=== PATIENT | male | born 1945 | race Caucasian/White ===

== ENCOUNTER 2019-09-13 00:11 | Day surgery (SDC) | payer MEDICARE, SELFPAY ==
[2019-09-11 14:27] VITALS: BMI 28.4
[2019-09-13 06:24] VITALS: BP 156/84; PULSE 82; RESP 20; TEMP 36.2; O2SAT 98
[2019-09-13] MEDS: LACTATED RINGERS 1,000 ML 150 ML IV CONT (06:49)
--- NOTE | 2019-09-13 06:56 | WPDANESEPPF ---
Anes - Initial Pre Proc Eval Procedure: Operation Date: 09/13/19 07:30 Proposed Procedures p Screening Colonoscopy - Elkin Figueroa MD Date/Time: 09/13/19 06:56 Surgeon: Elkin Figueroa MD Pre Op Diagnosis: Neoplasm Screening Patient Data Age: 74 Gender: M Height: 5 ft 10 in Weight: 84.8 kg Last Vital Signs Temp 36.2 C L 09/13/19 06:24 Pulse 82 09/13/19 06:24 Resp 20 09/13/19 06:24 BP 156/84 H 09/13/19 06:24 Pulse Ox 98 09/13/19 06:24 Allergies Allergy/AdvReac Type Severity Reaction Status Date / Time No Known Allergies Allergy Verified 09/13/19 06:23 Home Medications Medication Instructions Recorded Confirmed Type Probiotic 1 cap PO DAILY 05/21/19 09/13/19 History ezetimibe 5 mg PO DAILY 05/21/19 09/13/19 History levetiracetam 1,000 mg PO BID 05/21/19 09/13/19 History phenytoin sodium extended 100 mg PO TID 05/21/19 09/13/19 History psyllium husk [Metamucil] 0.4 g PO DAILY 05/21/19 09/13/19 History amlodipine 5 mg tablet 5 mg PO DAILY #90 tablet 06/18/19 09/13/19 Rx meloxicam 15 mg tablet 15 mg PO DAILY #90 tablet 06/18/19 09/13/19 Rx telmisartan 80 1 tablet PO DAILY #90 tablet 06/18/19 09/13/19 Rx mg-hydrochlorothiazide 12.5 mg tablet triamcinolone acetonide 0.5 % 1 applic TOPICAL BID #60 gm 07/02/19 09/13/19 Rx topical cream omeprazole 40 mg capsule,delayed 40 mg PO DAILY #90 cap 08/19/19 09/13/19 Rx release potassium chloride 10 mEq 10 meq PO DAILY #90 tablet 09/02/19 09/13/19 Rx tablet,extended release rosuvastatin 20 mg tablet 20 mg PO DAILY #90 tablet 09/02/19 09/13/19 Rx paroxetine HCl 30 mg tablet 30 mg PO QAM #90 tablet 09/05/19 09/13/19 Rx Patient hx anesthesia problems: none Family hx anesthesia problems: none PMFSH Past Medical History Medical History Benign essential hypertension Colon cancer screening Encounter for Medicare annual wellness exam Hearing loss History of colon cancer Hyperlipidemia Hypokalemia On buttermaker helper drug therapy Other specified abnormal findings of blood chemistry Peripheral neuropathy Rash Seizure Vision changes Family History Family History Mother Family history of heart disease in male family member before age 55 Family history of cardiovascular disease Father Family history of malignant neoplasm Social History Social History Smoking status: Never smoker Alcohol intake: never Anes - Eval Final PreProcedure Day of Procedure 09/13/19 06:56 Patient weight: overweight Heart: regular rate and rhythm Lungs: clear to auscultation Airway: Mallampati scale class II Neurological: alert and oriented Last oral intake: >/= 8 hours ASA classification: III Emergent: no Anesthetic plan: proceed Anesthesia type and monitoring: general GIVS and standard monitoring Informed Consent: The patient's anesthetic plan and its attendant risks and benefits were discussed with the patient/family/POA. Questions were solicited and answers provided to the satisfaction of the patient/family/POA.
--- NOTE | 2019-09-13 07:09 | PM.HPGS ---
History of Present Illness History of Present Illness Consent: Risks, benefits, and alternatives have been discussed and questions answered. Patient agrees to proceed with procedure. Chief complaint: Neoplasm Screening Narrative: Edin Diggs is a 74 year old male referred for screening colonoscopy. [facility] Past Medical History Medical History Benign essential hypertension Colon cancer screening Encounter for Medicare annual wellness exam Hearing loss History of colon cancer Hyperlipidemia Hypokalemia On prison drug therapy Other specified abnormal findings of blood chemistry Peripheral neuropathy Rash Seizure Vision changes Family History Family History Mother Family history of heart disease in male family member before age 55 Family history of cardiovascular disease Father Family history of malignant neoplasm Social History Social History Smoking status: Never smoker Alcohol intake: never Meds Home Medications and Allergies Home Medications Medication Instructions Recorded Confirmed Type Probiotic 1 cap PO DAILY 05/21/19 09/13/19 History ezetimibe 5 mg PO DAILY 05/21/19 09/13/19 History levetiracetam 1,000 mg PO BID 05/21/19 09/13/19 History phenytoin sodium extended 100 mg PO TID 05/21/19 09/13/19 History psyllium husk [Metamucil] 0.4 g PO DAILY 05/21/19 09/13/19 History amlodipine 5 mg tablet 5 mg PO DAILY #90 tablet 06/18/19 09/13/19 Rx meloxicam 15 mg tablet 15 mg PO DAILY #90 tablet 06/18/19 09/13/19 Rx telmisartan 80 1 tablet PO DAILY #90 tablet 06/18/19 09/13/19 Rx mg-hydrochlorothiazide 12.5 mg tablet triamcinolone acetonide 0.5 % 1 applic TOPICAL BID #60 gm 07/02/19 09/13/19 Rx topical cream omeprazole 40 mg capsule,delayed 40 mg PO DAILY #90 cap 08/19/19 09/13/19 Rx release potassium chloride 10 mEq 10 meq PO DAILY #90 tablet 09/02/19 09/13/19 Rx tablet,extended release rosuvastatin 20 mg tablet 20 mg PO DAILY #90 tablet 09/02/19 09/13/19 Rx paroxetine HCl 30 mg tablet 30 mg PO QAM #90 tablet 09/05/19 09/13/19 Rx Allergies Allergy/AdvReac Type Severity Reaction Status Date / Time No Known Allergies Allergy Verified 09/13/19 06:23 Vital Signs Vital Signs - 24 hr 09/13/19 06:24 Temperature 36.2 C L Pulse Rate 82 Respiratory Rate 20 Blood Pressure 156/84 H Pulse Oximetry 98 Exam Resp: Auscultation: clear to auscultation bilaterally Cardio: Rate: regular rate Rhythm: regular rhythm GI: GI Palp: Yes Soft to palpation and No Tenderness to palpation present (GI) Assessment and Plan Assessment and plan (1) Colon cancer screening: Code(s): Z12.11 - Encounter for screening for malignant neoplasm of colon Status: Acute Assessment and Plan: Colonoscopy with possible biopsy or polypectomy or cautery or injection of substances.
[2019-09-13 07:42] VITALS: BP 142/61; PULSE 58; RESP 14; O2SAT 97
[2019-09-13 07:52] VITALS: BP 142/61; PULSE 61; RESP 12; O2SAT 98
[2019-09-13 08:02] VITALS: BP 133/69; PULSE 61; RESP 20; O2SAT 98
== END 2019-09-13 08:23 | disposition home or self-care (01) ==
PROVIDERS: PCP Internal Medicine; Visit Provider Internal Medicine Gastroenterology
PROC: 0DJD8ZZ Inspection of Lower Intestinal Tract, Via Natural or Artificial Opening Endoscopic (ICD-10-PCS; CPT 45378; principal; 2019-09-13 07:30)
DX: Z12.11 Encounter for screening for malignant neoplasm of colon (principal); K64.8 Other hemorrhoids; Z85.038 Personal history of other malignant neoplasm of large intestine; Z98.0 Intestinal bypass and anastomosis status; I10 Essential (primary) hypertension; E78.5 Hyperlipidemia, unspecified; G62.9 Polyneuropathy, unspecified; G40.909 Epilepsy, unspecified, not intractable, without status epilepticus
CPT/HCPCS: G0105; J2704; J7120

== ENCOUNTER 2019-11-06 02:04 | Day surgery (SDC) | payer MEDICARE, SELFPAY ==
[2019-11-05 16:40] VITALS: BMI 27.8
--- NOTE | ~2019-11-06 | BM_ITS ---
EXAMINATION: CCL bone marrow asp w bx diag DATE: 11/06/2019 09:55 INDICATION: Leukopenia. TECHNIQUE: A time-out was performed to verify the patient's name, date of , and procedure to b e performed. The procedure including the risks, benefits, and alternatives was discussed with the pat ient. Risks discussed included bleeding and infection. The patient understood the risks and agreed to proceed. The skin overlying the right ilium was prepped and draped in usual sterile fashion. Anest hetic was administered with 1% lidocaine subcutaneously. Moderate sedation was achieved with 1 mg Miguel sed IV and 50 mcg fentanyl IV. An 11 gauge needle was inserted into the ilium with fluoroscopic guid ance. Bone marrow was aspirated. An 8 gauge needle was then inserted into the ilium with fluoroscopic guidance. A core bone marrow biopsy was obtained. There were no immediate complications. Fluoroscopy exposure time was 0.0 minutes. The total number of images was 7. FINDINGS: Real-time fluoroscopy demonstrates a marker overlying the right posterior superior iliac sp ine. IMPRESSION: 1. Fluoro-guided bone marrow aspiration. 2. Fluoro-guided bone marrow core biopsy. Reviewed, dictated and finalized at location A.
[2019-11-06 08:30] VITALS: BP 160/82; PULSE 63; RESP 14; TEMP 36.9; O2SAT 94; BMI 28.1
[2019-11-06 08:49] LABS: Basophils Percent Auto 1.2 % (0.2-1.2); Eosinophils Absolute Auto 0.1 K/mm3 (0-0.3); Eosinophils Percent Auto 5.4 % (0-4.4); Hematocrit 35.6 % (42.0-52.0); Hemoglobin 12.7 g/dL (14.0-18.0); Lymphocytes Absolute Auto 0.98 K/mm3 (0.9-3.2); Lymphocytes Percent Auto 40.7 % (18.3-44.2); Mean Corpuscular HGB Conc 35.7 g/dl (32-36); Mean Corpuscular Hemoglobin 36.6 pg (26-34); Mean Corpuscular Volume 102.6 fl (80-100); Mean Platelet Volume 9.6 fl (7.4-10.4); Monocytes Absolute Auto 0.4 K/mm3 (0.1-0.6); Monocytes Percent Auto 14.9 % (2.6-8.5); Neutrophils Absolute Auto 0.9 K/mm3 (1.3-6.7); Neutrophils Percent Auto 37.8 % (45.5-73.1); Platelet Count Result 180 k/mm3 (150-375); Red Blood Count 3.47 M/mm3 (4.6-6.20); Red Cell Distribution Width 12.8 % (11.5-14.5); White Blood Count 2.4 K/mm3 (4.5-10.0)
[2019-11-06 09:01] LABS: INR 1.1; Prothrombin Time 13.6 Seconds (11.1-14.7)
--- NOTE | 2019-11-06 09:51 | WPDMODSED ---
Moderate Sedation Note-Pt Data Patient Data Diagnosis: Leukopenia. Present Complaint: Leukopenia. Procedure to be performed/Plan: Fluoro-guided bone marrow biopsy. Allergies Allergy/AdvReac Type Severity Reaction Status Date / Time No Known Allergies Allergy Verified 09/13/19 06:23 Home Medications Medication Instructions Recorded Confirmed Type Probiotic 1 cap PO DAILY 05/21/19 10/07/19 History levetiracetam 1,000 mg PO BID 05/21/19 10/07/19 History phenytoin sodium extended 100 mg PO TID 05/21/19 10/07/19 History psyllium husk [Metamucil] 0.4 g PO DAILY 05/21/19 10/07/19 History amlodipine 5 mg tablet 5 mg PO DAILY #90 tablet 06/18/19 10/07/19 Rx meloxicam 15 mg tablet 15 mg PO DAILY #90 tablet 06/18/19 10/07/19 Rx telmisartan 80 1 tablet PO DAILY #90 tablet 06/18/19 10/07/19 Rx mg-hydrochlorothiazide 12.5 mg tablet triamcinolone acetonide 0.5 % 1 applic TOPICAL BID #60 gm 07/02/19 10/07/19 Rx topical cream omeprazole 40 mg capsule,delayed 40 mg PO DAILY #90 cap 08/19/19 10/07/19 Rx release rosuvastatin 20 mg tablet 20 mg PO DAILY #90 tablet 09/02/19 10/07/19 Rx paroxetine HCl 30 mg tablet 30 mg PO QAM #90 tablet 09/05/19 10/07/19 Rx ezetimibe 10 mg tablet 5 mg PO DAILY #90 tablet 09/20/19 10/07/19 Rx Current Medications: Active Medications Sodium Chloride (Normal Saline Iv) 500 mls @ 100 mls/hr IV CONT .Q5H EMILY Sedation/Anesthesia: No previous sedation/anesthesia problems (including family history). [facility] Social History Social History Smoking status: Never smoker Alcohol intake: never Gender identity (if verbalized by the patient): Male Mod Sed Physical Exam Physical Exam Pre Procedural Exam: Normal: Lungs, Heart Rate, Heart Rhythm and Abdomen and Variation: Airway (Mallampati class II.) Hours since solid foods: 12 Hours since liquid intake: 12 Internal Medicine - PN: Obj Da Meds/Results Medications: Active Medications Generic Name Dose Route Start Last Admin Trade Name Heaven PRN Reason Stop Dose Admin Sodium Chloride 500 mls @ 100 mls/hr 11/06/19 07:00 Normal Saline Iv IV CONT .Q5H EMILY Labs CBC & Chem 7: 11/06/19 08:35 Labs: Laboratory Results - last 24 hr 11/06/19 11/06/19 08:35 08:35 WBC 2.4 L RBC 3.47 L Hgb 12.7 L Hct 35.6 L MCV 102.6 H MCH 36.6 H MCHC 35.7 RDW 12.8 Plt Count 180 MPV 9.6 Immature Gran % (Auto) 0.0 Neut % (Auto) 37.8 L Lymph % (Auto) 40.7 [place] % (Auto) 14.9 H Eos % (Auto) 5.4 H Baso % (Auto) 1.2 Lymph # (Auto) 0.98 [place] # (Auto) 0.4 Eos # (Auto) 0.1 Baso # (Auto) 0.0 Abs Immat Gran (auto) 0.00 Absolute Neuts (auto) 0.9 L Absolute Nucleated RBC 0.0 Nucleated RBC % 0.0 PT 13.6 INR 1.1 ASA Classification/Sedation ASA Classification/Sedation ASA Class: II Risks: Risks, benefits and alternatives explained and patient/family accepted plan for sedation. Patient re-evaluated immediately prior to sedation.
[2019-11-06 10:00] VITALS: BP 160/75; PULSE 59; RESP 11; O2SAT 95
[2019-11-06 10:15] VITALS: BP 147/76; PULSE 59; RESP 11; O2SAT 93
[2019-11-06 10:30] VITALS: BP 143/81; PULSE 56; RESP 16; O2SAT 98
--- NOTE | 2019-11-06 10:55 | SUR.PHASEII ---
1030 d/c instructions reviewed with patient and pts niece, all questions answered. per dr. parr pt ok to continue his meloxicam 11/07/19, ice pack sent home with pt, iv d/c'd cath intact, pressure applied to site. right posterior buttock dressing remains c/d/i, no hematoma or bleeding noted. pt transported via wc to main entrance where his niece drove him home in a private vehicle.
== END 2019-11-06 10:45 | disposition home or self-care (01) ==
PROVIDERS: Radiology Diagnostic Radiology; PCP Internal Medicine; Visit Provider Internal Medicine Hematology & Oncology
DX: D72.819 Decreased white blood cell count, unspecified (principal); D53.9 Nutritional anemia, unspecified; D51.9 Vitamin B12 deficiency anemia, unspecified; G40.909 Epilepsy, unspecified, not intractable, without status epilepticus; Z85.038 Personal history of other malignant neoplasm of large intestine; Z90.49 Acquired absence of other specified parts of digestive tract
CPT/HCPCS: 36415; 38222; 85025; 85610; 88305; 88311; 88313; J2250; J3010; J7040

== ENCOUNTER 2020-09-07 09:51 | Emergency (ER) | payer MEDICARE, SELFPAY ==
[2020-09-07] VITALS (8 sets, daily range): BP systolic 130–152; BP diastolic 77–89; PULSE 67–76; RESP 12–19; TEMP 36.6; O2SAT 97–99
--- NOTE | ~2020-09-07 | CT_ITS ---
EXAMINATION: CT brain wo con DATE: 09/07/2020 10:24 INDICATION: Altered mental status. TECHNIQUE: Computed tomography (CT) of the head was performed without intravenous contrast. The mA wa s adjusted according to patient size. Iterative reconstruction technique was employed. The dose-lengt h product was 681.00 mGy-cm. COMPARISON: Head CT 06/05/2017 FINDINGS: There is a partially calcified 3.4 cm mass in right frontal lobe. There is chronic encephal omalacia in left frontal lobe. There are surgical clips in this area. There are changes of left-sided craniotomy. There is a left frontotemporal parietal subdural hematoma that is mixed hyperdense, isod ense, and hypodense to chavez matter. The maximum thickness is 1.6 cm. There is rightward midline shift measuring 6 mm at the foramen of Monro. There are scattered areas of low attenuation in the cerebral white matter. There is an old lacunar infarct in the left caudate nucleus. Left lateral ventricle is small. There is mucosal thickening in the paranasal sinuses. The orbits are normal. The mastoid air cells are normal. IMPRESSION: 1. Left-sided subdural hematoma with maximum thickness of 1.6 cm. 6 mm rightward midline shift. I dis cussed this result with Dr. Azul. 2. Partially calcified mass in right frontal lobe correlating with the history of arteriovenous malfo rmation. 3. 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 4. Chronic encephalomalacia in left frontal lobe. 5. Mild nonspecific cerebral white matter disease, which likely represents chronic small vessel ische venkatesh disease. Reviewed, dictated and finalized at location A. WRITER ALIGNER IMPRESSION: 1. Left-sided subdural hematoma with maximum thickness of 1.6 cm. 6 mm rightwar d midline shift. I discussed this result with Dr. Azul. 2. Partially calcified mass in right frontal lobe correlating with the history of arteriovenous malformation. 3. 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 4. Chronic encephalomalacia in left frontal lobe. 5. 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
--- NOTE | ~2020-09-07 | XR_ITS ---
EXAMINATION: XR chest 1V portable INDICATION: Altered mental status TECHNIQUE: Portable AP chest at 1009 hours COMPARISON: 06/05/2017 FINDINGS: The lungs are free of acute opacities. There is no pleural effusion or pneumothorax. The ca rdiomediastinal silhouette is normal. IMPRESSION: 1. No acute cardiopulmonary abnormality. Reviewed, dictated and finalized at location A. [employer]
--- NOTE | 2020-09-07 09:51 | ECG_ITS ---
Measurements Intervals [place] Rate: 69 P: 24 DE: 141 QRS: -32 QRSD: 124 T: 16 QT: 410 QTc: 441 Interpretive Statements SINUS RHYTHM LEFT AXIS DEVIATION INTRAVENTRICULAR CONDUCTION DELAY BORDERLINE ECG Electronically Signed On 09-07-2020 10:12:59 WATCH REPAIR TECHNICIAN by Chris Cantrell D.O.
--- NOTE | 2020-09-07 10:03 | ED.NEUROSD ---
HPI - Neuro Symptoms/Deficit General Chief Complaint: Neuro Symptoms/Deficit <MAAME Blackburn Last Filed: 09/07/20 11:55> Stated Complaint: altered mental status <MAAME Blackburn Last Filed: 09/07/20 11:55> Time Seen by Provider: 09/07/20 09:53 <MAAME Blackburn Last Filed: 09/07/20 11:55> Source: patient, EMS and RN notes reviewed <MAAME Blackburn Last Filed: 09/07/20 11:55> Mode of arrival: EMS <MAAME Blackburn Last Filed: 09/07/20 11:55> Limitations: no limitations <MAAME Blackburn Last Filed: 09/07/20 11:55> History of Present Illness HPI Narrative: This is a 75 year old male that presents to the ER via EMS for AMS. Was getting an infusion at the cancer center and the nurses there noticed he was confused. Reports he was answering some questions inappropriately. Patient does report he is having some trouble getting his thoughts out. Also reports intermittent right sided chest pain worse with breathing which has been ongoing for a couple weeks now. Denies any pain currently. Otherwise has no current complaints. Denies fever, vision changes, cough, shortness of breath, abdominal pain, vomiting, dysuria, weakness or numbness. <MAAME Blackburn Last Filed: 09/07/20 11:55> Related Data Home Medications: Home Medications Medication Instructions Recorded Confirmed levetiracetam 1,000 mg PO BID 05/21/19 09/07/20 phenytoin sodium extended 100 mg PO TID 05/21/19 09/07/20 cyanocobalamin (vitamin B-12) 1,000 mcg PO DAILY 12/02/19 09/07/20 <MAAME Blackburn Last Filed: 09/07/20 11:55> Allergies/Adverse Reactions: Allergies Allergy/AdvReac Type Severity Reaction Status Date / Time No Known Allergies Allergy Verified 09/07/20 08:59 <MAAME Blackburn Last Filed: 09/07/20 11:55> Review of Systems Review of Systems: Narrative: CONSTITUTIONAL: Denies fever EYES: Denies visual changes CARDIOVASCULAR: Denies current chest pain, or edema. RESPIRATORY: Denies cough or dyspnea. GASTROINTESTINAL: Denies abdominal pain, nausea, vomiting GENITOURINARY: Denies dysuria or hematuria. NEUROLOGIC: Denies headache, numbness, or weakness. <Krista Hawley PA-C - Last Filed: 09/07/20 11:55> All systems reviewed & are unremarkable except as noted in HPI and below <Krista Hawley PA-C - Last Filed: 09/07/20 11:55> [facility] Past Medical History Medical History: Medical History (Updated 09/07/20 @ 11:51 by Krista Hawley PA-C) Anxiety with depression Benign essential hypertension Blood dyscrasia BMI 27.0-27.9,adult Colon cancer screening DJD (degenerative joint disease), multiple sites Encounter for Medicare annual wellness exam Encounter for routine adult health examination without abnormal findings Encounter for special screening examination for neoplasm of prostate Hearing loss History of colon cancer Hyperlipidemia Hypokalemia MDS (myelodysplastic syndrome) On senior care drug therapy Other specified abnormal findings of blood chemistry Peripheral neuropathy Rash Seizure Vision changes Vision changes <Krista Hawley PA-C - Last Filed: 09/07/20 11:55> Family History Family History: Family History Mother Family history of heart disease in male family member before age 55 Family history of cardiovascular disease Father Family history of malignant neoplasm <Krista Hawley PA-C - Last Filed: 09/07/20 11:55> Social History Social History: Social History Smoking status: Never smoker Alcohol intake: never Gender identity (if verbalized by the patient): Male <Krista Hawley PA-C - Last Filed: 09/07/20 11:55> Exam Narrative: Exam Narrative: GENERAL: Well-appearing, well-nourished, and in no acute distress. HEAD: Normocephalic, atraumatic. EYES: PERRLA and EOMI. ENT: N
[2020-09-07 10:32] LABS: Basophils Percent Auto 1.2 % (0.2-1.2); Eosinophils Percent Auto 2.3 % (0-4.4); Hematocrit 32.4 % (42.0-52.0); Hemoglobin 11.2 g/dL (14.0-18.0); Immature Granulocyte Absolute 0.02 K/mm3 (0.00-0.031); Immature Granulocyte Percent A 1.2 % (0-0.5); Lymphocytes Absolute Auto 0.59 K/mm3 (0.9-3.2); Lymphocytes Percent Auto 34.1 % (18.3-44.2); Mean Corpuscular HGB Conc 34.6 g/dl (32-36); Mean Corpuscular Hemoglobin 35.6 pg (26-34); Mean Corpuscular Volume 102.9 fl (80-100); Mean Platelet Volume 9.7 fl (7.4-10.4); Monocytes Absolute Auto 0.3 K/mm3 (0.1-0.6); Monocytes Percent Auto 15.6 % (2.6-8.5); Neutrophils Absolute Auto 0.8 K/mm3 (1.3-6.7); Neutrophils Percent Auto 45.6 % (45.5-73.1); Platelet Count Result 216 k/mm3 (150-375); Red Blood Count 3.15 M/mm3 (4.6-6.20); Red Cell Distribution Width 12.7 % (11.5-14.5)
[2020-09-07 10:44] LABS: White Blood Count 1.7 K/mm3 (4.5-10.0)
[2020-09-07 10:44] LABS: Alanine Aminotransferase 9 U/L (4-50); Albumin Level 4.3 g/dL (3.5-5.1); Alkaline Phosphatase 171 U/L (38-126); Anion Gap 8 mmol/L (8-16); Aspartate Amino Transferase 21 U/L (17-59); Bilirubin,Total 0.5 mg/dL (0.2-1.3); Blood Urea Nitrogen 20 mg/dL (9-20); Calcium 8.9 mg/dL (8.4-10.2); Carbon Dioxide 33 mmol/L (22-30); Chloride 100 mmol/L (98-107); Estimated CRCL calculation 60 ml/min; Estimated Glomerular Filt Rate > 60; Glucose 106 mg/dL (75-110); Potassium 3.6 mmol/L (3.4-5.0); Sodium 141 mmol/L (137-145)
[2020-09-07 10:45] LABS: INR 1.1; Prothrombin Time 14.5 Seconds (11.1-14.7)
[2020-09-07 10:46] LABS: Partial Thromboplastin Time 26.4 SECONDS (22.3-36.8); Phenytoin Dilantin 9 ug/mL (10-20)
[2020-09-07 10:56] LABS: Troponin I < 0.012 ng/mL (0.000-0.034)
[2020-09-07 11:44] LABS: Glucose Point of Care 99 (65-105)
--- NOTE | 2020-09-07 12:48 | PC.NURSE ---
Updated thais Finn on care and transfer of patient to [place] per pt request.
--- NOTE | 2020-09-07 13:19 | PC.NURSE ---
called [employer], new eta [id number]
--- NOTE | 2020-09-07 13:49 | PC.NURSE ---
called for a new eta from [employer]. company stated they are in route and will be here in 10 minutes
--- NOTE | 2020-09-07 13:59 | PC.NURSE ---
[facility] has arrived
--- NOTE | 2020-09-07 14:07 | PC.NURSE ---
Updated [facility] patient is now leaving facility to be transported to [place].
== END 2020-09-07 14:08 | disposition short-term general hospital (02) ==
PROVIDERS: Physician Assistant; Emergency Provider Emergency Medicine; PCP Internal Medicine
DX: I62.01 Nontraumatic acute subdural hemorrhage (principal); I10 Essential (primary) hypertension; Z85.038 Personal history of other malignant neoplasm of large intestine; E78.5 Hyperlipidemia, unspecified; D46.9 Myelodysplastic syndrome, unspecified; G62.9 Polyneuropathy, unspecified; F41.8 Other specified anxiety disorders; I45.9 Conduction disorder, unspecified; R90.82 White matter disease, unspecified
CPT/HCPCS: 36415; 70450; 71045; 80053; 80185; 82948; 84484; 85025; 85380; 85610; 85730; 93005; 96372; 99291; J3420

== ENCOUNTER 2020-10-09 11:14 | Outpatient (CLI) | payer MEDICARE, SELFPAY | END 2020-10-09 11:15 | disposition home or self-care (01) | LOC: ANHCOVIDVC 10-22 13:29 | PROVIDERS: PCP Internal Medicine | DX: Z23 Encounter for immunization (principal) | CPT/HCPCS: 0001A; 91300 ==

== ENCOUNTER 2020-10-17 11:49 | Emergency (ER) | payer MEDICARE, SELFPAY ==
--- NOTE | ~2020-10-17 | CT_ITS ---
EXAMINATION: CT cervical spine wo con DATE: 10/17/2020 13:21 INDICATION: Traumatic generalized neck pain extending into the bilateral shoulders. TECHNIQUE: Computed tomography (CT) of the cervical spine was performed without intravenous contrast. Automated exposure control and iterative reconstruction technique were employed. The dose-length pro duct was 334.63 mGy-cm. COMPARISON: 06/19/2017 FINDINGS: 1 mm retrolisthesis C3 on C4. Alignment is otherwise normal. Vertebral body heights are normal. Moder ate disc height loss at C3-C4 and C5-C6. Mild disc height loss at C6-C7 and C7-T1. Atherosclerotic ca lcific a cyst at the bilateral carotid bulbs, left greater than right. Cervical soft tissues are othe rwise unremarkable. Mucosal thickening in the bilateral sphenoid sinuses. Visualized mastoid air cell s, airway and apices of the lungs are clear. The following disc levels are specifically discussed: C2-C3: The disc does not extend beyond the endplate margin. There is mild left and minimal right unco vertebral joint osteoarthritis. There is mild bilateral facet joint osteoarthritis. There is no neura l foraminal stenosis. There is no central canal stenosis. C3-C4: Small posterior disc osteophyte complex is present. There is severe bilateral uncovertebral nancy int osteoarthritis. There is mild right and moderate left facet joint osteoarthritis. There is mild r ight and moderate left neural foraminal stenosis. There is mild central canal stenosis. C4-C5: Disc is bulging. There is mild bilateral uncovertebral joint osteoarthritis. There is mild luigi ateral facet joint osteoarthritis. There is mild left neural foraminal stenosis. There is mild centra l canal stenosis. C5-C6: Disc is mildly bulging. There is mild left and severe right uncovertebral joint osteoarthritis . There is mild left and mild to moderate right facet joint osteoarthritis. There is mild right neura l foraminal stenosis. There is mild central canal stenosis. C6-C7: The disc does not extend beyond the endplate margin. There is mild bilateral uncovertebral tony nt osteoarthritis. There is mild bilateral facet joint osteoarthritis. There is no neural foraminal s tenosis. There is no central canal stenosis. C7-T1: The disc does not extend beyond the endplate margin. There is no uncovertebral joint osteoarth ritis. There is mild right and moderate left facet joint osteoarthritis. There is no neural foraminal stenosis. There is no central canal stenosis. IMPRESSION: 1. Moderate cervical spondylosis. No acute osseous abnormality. Reviewed, dictated and finalized at location A.
[2020-10-17 11:53] VITALS: BP 129/79; PULSE 87; RESP 18; TEMP 36.3; O2SAT 100
--- NOTE | 2020-10-17 13:14 | PC.NURSE ---
Pt to radiology
--- NOTE | 2020-10-17 13:45 | ED.GENADULT ---
HPI - General Adult General Chief complaint: Extremity Injury, Upper Stated complaint: bilat shoulder pain Time Seen by Provider: 10/17/20 12:12 Source: patient Mode of arrival: ambulatory Limitations: no limitations History of Present Illness HPI narrative: Patient 75 years old white male presents with right neck stiffness and upper back and shoulder stiffness. Started 3 to 4 days ago. After playing video game. Currently patient under physical therapy for upper back and upper extremity aches. Last physical therapy was 3 days ago. Patient denies any trauma. Patient lives alone. Patient denies any fever, chills, nausea, vomiting, headache, shortness of breath, chest pain. Related Data Home Medications Medication Instructions Recorded Confirmed cyanocobalamin (vitamin B-12) 1,000 mcg PO DAILY 12/02/19 10/14/20 hydroxyzine HCl 25 mg tablet 25 mg PO QID PRN 10/06/20 10/14/20 mecobalamin (vitamin B12) 1,000 1,000 mcg SUBLINGUAL DAILY 10/06/20 10/14/20 mcg disintegrating tablet,sublingual levetiracetam 1,000 mg tablet 750 mg PO Q12H tablet 10/13/20 10/14/20 phenytoin sodium extended 100 mg 100 mg PO BID cap 10/13/20 10/14/20 capsule Allergies Allergy/AdvReac Type Severity Reaction Status Date / Time No Known Allergies Allergy Verified 10/13/20 10:27 Review of Systems Review of Systems: Narrative: CONSTITUTIONAL: Denies fever, chills, or sweats. EYES: Denies visual changes, redness, or discharge. ENT: Denies rhinorrhea, congestion, sore throat, or otalgia. CARDIOVASCULAR: Denies chest pain, palpitations, or edema. RESPIRATORY: Denies cough or dyspnea. GASTROINTESTINAL: Denies abdominal pain, nausea, vomiting, or diarrhea. GENITOURINARY: Denies dysuria or hematuria. SKIN: Denies rash or itching. MUSCULOSKELETAL: Denies back pain, joint pain, or myalgia. NEUROLOGIC: Denies headache, numbness, or weakness. PSYCHIATRIC: Denies anxiety or depression. 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 Other specified abnormal findings of blood chemistry Peripheral neuropathy Rash Seizure Subdural hematoma Vision changes Vision changes Surgical History Surgical History S/P craniotomy Family History Family History Mother Family history of heart disease in male family member before age 55 Family history of cardiovascular disease Father Family history of malignant neoplasm Social History Social History Smoking status: Never smoker Alcohol intake: never Gender identity (if verbalized by the patient): Male Exam Narrative: Exam Narrative: General appearance: Well-developed, well-nourished Skin: Normal color Head: Normocephalic, nontraumatic, Eyes: Clear conjunctiva ENT: Oropharynx normal, ears normal, nose normal Neck: Stiff with limited range of motion, no swelling, no bruises, no mass, no lymphadenopathy Chest and respiratory: Airway patent, no respiratory distress, no accessory muscle use Heart: Regular rate/rhythm Abdomen: Soft, nontender, no organomegaly, quiet bowel sounds Vascular: Normal peripheral pulses, normal capillary refill. Musculoskeletal: Limited range of motion of the neck mainly towards left side, diffuse tenderness of neck bilaterally, upper back bilaterally. No bruises, no swelling or rash. Neur
== END 2020-10-17 13:58 | disposition home or self-care (01) ==
PROVIDERS: Emergency Provider Emergency Medicine; PCP Internal Medicine
DX: M54.2 Cervicalgia (principal); M25.519 Pain in unspecified shoulder; M47.812 Spondylosis without myelopathy or radiculopathy, cervical region; I10 Essential (primary) hypertension; Z85.038 Personal history of other malignant neoplasm of large intestine; E78.5 Hyperlipidemia, unspecified; D46.9 Myelodysplastic syndrome, unspecified; G62.9 Polyneuropathy, unspecified; F41.8 Other specified anxiety disorders
CPT/HCPCS: 72125; 99284

== ENCOUNTER 2020-10-30 11:11 | Outpatient (CLI) | payer MEDICARE, SELFPAY | END 2020-10-30 11:12 | disposition home or self-care (01) | LOC: ANHCOVIDVC 11:11 | PROVIDERS: PCP Internal Medicine | DX: Z23 Encounter for immunization (principal) | CPT/HCPCS: 0002A; 91300 ==

== ENCOUNTER 2020-11-05 12:30 | Outpatient (RCR) | payer MEDICARE, SELFPAY ==
--- NOTE | 2020-10-06 09:36 | OTOPEVAL ---
OCCUPATIONAL THERAPY EVALUATION REPORT AND D/C SUMMARY 10/06/20 Patient presents to outpatient OT for evaluation following hospitalization for SDH with sara hole and drain placement. He had 2 weeks of inpatient OT, PT, ST and discharged home alone. Today he reports that he has returned to being independent with ADLs and household tasks. He has intact, symmetrical, and functional UE strength and coordination. No unilateral weakness. No skilled OT indicated at this time. Thank you for referring Edin Diggs to [facility].? Please review, sign, date and return this D/C MICHAEL. I agree with and certify that the following plan of care is medically necessary. Referring Physician Date Referring Provider: Patel Fabian Per patient request, please also CC his PCP, Dr. Baugh *OT Outpatient Evaluation Start: 10/06/20 08:33 Freq: Status: Active Protocol: Document 10/06/20 09:08 HAKEEM (Rec: 10/06/20 09:35 HAKEEM [id number]) Therapy Assessment Status Assessment Status Assessment Status Evaluation Outpatient Past Medical History Past Medical History Source of Past Medical History Patient,Recalled from Previous Visit, Confirmed with Patient /Family Neurological History Hx Neurologic Surgery Yes: brain bleed 2017; SDH w/ sara hole Aug 2020 Hx Seizures Yes: 2018 Cardiovascular History Hx Hypercholesterolemia Yes Hx Hypertension Yes Respiratory History Hx Respiratory Disorders No Significant History Gastrointestinal History Hx Bowel Surgery Yes: colon resection Hx Polyps Yes: colon cancer Genitourinary History Hx Kidney Stones Yes Musculoskeletal History Hx Musculoskeletal Disorders No Significant History Hematological History Hx Hematological Disorders No Significant History Endocrine History Hx Endocrine Disorders No Significant History HEENT History Hx HEENT Disorders No Significant History Integumentary History Hx Skin Disorders No Significant History Reproductive History Hx Reproductive Disorders No Significant History Psychosocial History Hx Psychiatric Disorders No Significant History Pain History History of Any Previous or Ongoing No Significant History Instance of Pain Anesthesia History Hx Anesthesia Reactions No Significant History Other History Hx Cancer Yes: colon cancer 2007 Evaluation Information Problem Diagnosis SDH Additional Evaluation Detail Patient was getting his regular B12 infusions at the Cancer Center when the nurse noticed he had a mental status change. He went to the ER here at [place] where a CT
--- NOTE | 2020-10-06 10:21 | PTOPEVAL ---
PHYSICAL THERAPY EVALUATION AND PLAN OF CARE 10-06-20 Thank you for referring Edin Diggs to [facility].? Edin is scheduled to be seen for therapy? 1-2 x/week for 4 weeks. Due to transportation issues, he may only be able to attend 1x/week. Please review, sign, date and return this plan of care MICHAEL. I agree with and certify that the following plan of care is medically necessary. Referring Physician Date Referring Provider: Dr. Alondra Fabian CC: Dr. 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,cold&numb Cardiovascular History Hx Hypercholesterolemia Yes: meds Hx Hypertension Yes: meds Respiratory History Hx Respiratory Disorders No Significant History Gastrointestinal History Hx Bowel Surgery Yes: colon resection due to cancer Hx Polyps Yes: colon cancer Genitourinary History Hx Kidney Stones Yes Musculoskeletal History Hx Musculoskeletal Disorders No Significant History Hematological History Hx Hematological Disorders No Significant History Endocrine History Hx Endocrine Disorders No Significant History Integumentary History Hx Skin Disorders No Significant History Reproductive History Hx Reproductive Disorders No Significant History Psychosocial History Hx Psychiatric Disorders No Significant History Pain History History of Any Previous or Ongoing No Significant History Instance of Pain Anesthesia History Hx Anesthesia Reactions No Significant History Other History Hx Cancer Yes: colon cancer 2007- surgery and chemo Evaluation Information Problem Diagnosis subdural hematoma Onset Sep 10, 2020 Subjective Information had sara hole surgery, in pt Query Text:As Reported By Patient/ rehab, home September 30; has but Family is not doing any HEP for his legs or balance; has only been in home, not gone out anywhere; Previous Treatments Previous Treatments For This Problem had PT in hospital and IP rehab; Prior Level of Function Activity Level (Last 3 Months) Occupation retired Activity of Daily Living Ability Independent Indoor/
--- NOTE | 2020-10-06 11:46 | STOPEVAL ---
Speech Therapy Evaluation & Discharge: Thank you for referring Edin Diggs to [facility].? Upon completion of cognitive-linguistic evaluation, using portions of the Ross Information Processing Assessment (RIPA), all areas of cognition, i.e. memory/orientation, problem-solving & reasoning, & organizational thought, were found to be within functional limits. Divergent naming & functional reading & writing were also found to be within functional limits. Speech Therapy is not warranted at this time. Please review, sign, date and return this discharge MICHAEL. I agree with and certify that the following plan of care is medically necessary. Referring Physician Date Attending Provider: Rui Sweeney Per patient request, please also CC his PCP, Dr Baugh. 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,cold & numb Cardiovascular History Hx Hypercholesterolemia Yes: meds Hx Hypertension Yes: meds Respiratory History Hx Respiratory Disorders No Significant History Gastrointestinal History Hx Bowel Surgery Yes: colon resection due to cancer Hx Polyps Yes: colon cancer Genitourinary History Hx Kidney Stones Yes Musculoskeletal History Hx Musculoskeletal Disorders No Significant History Hematological History Hx Hematological Disorders No Significant History Endocrine History Hx Endocrine Disorders No Significant History Integumentary History Hx Skin Disorders No Significant History Reproductive History Hx Reproductive Disorders No Significant History Psychosocial History Hx Psychiatric Disorders No Significant History Pain History History of Any Previous or Ongoing No Significant History Instance of Pain Anesthesia History Hx Anesthesia Reactions No Significant History Other History Hx Cancer Yes: colon cancer 2008- surgery and chemo Prior Level of Function Home Setting Home Type House Living Situation Alone Support Available Local Family Support Prior Swallow Level Prior Intake Method Oral Prior Diet Regular (Level 7 Diet) Prior Liquid Consistency Thin (Level 0 Diet) Prior Cognition/Communication Prior Communication Level No Impairment Prior Cognitive Function Able to Function Independently Prior Ability to Handle Finances Independent Pain Assessment Timing of Pain Assessment Timing of Pain Assessmen
--- NOTE | 2020-11-05 13:05 | PTOPEVAL ---
PHYSICAL THERAPY DISCHARGE 11-05-20 Refer to the clinical summary below for his status with today's reevaluation, compared to the initial evaluation. The goals were partially achieved. He is independent with his home exercises and safe with community ambulation. Discharge PT services at this time. Thank you for referring Edin Diggs to [facility] [place].? Please review, sign, date and return this discharge MICHAEL. I agree with and certify that the following plan of care is medically necessary. Referring Physician Date Attending Provider: Dr. Rui Cantu CC: Dr. Baugh, per pt request, his general physician Document 11/05/20 12:30 MATT (Rec: 11/05/20 13:05 MATT [id number]) Assessment Status Discharge Subjective Information Edin reports: doing better Query Text:As Reported By Patient/ since started therapy; have Family not have any falls; not afraid of falling, able to stand up when take my shower now; have been going to the grocery store and out with my niece; have been doing leg exercises; feel like ready for discharge from PT. Pain Assessment Timing of Pain Assessment Timing of Pain Assessment Assessment Self Report Self Report Pain Level 0 Pain Score Pain Score 0: Self Report Additional Pain Score Comments neuropathy in feet from chemo; Lower Extremity Muscle Strength Testing General Lower Extremity Strength Gross Lower Extremity Strength single leg standing R 3 / L 4 seconds sitting ankle circles R and L x 20 reps, clock and counter clock kennedy with good control, slower pace on R; standing R and L LE exercises: without UE use: hip abduction x 20 reps; B PF x 20 reps; verbal review of HEP: no questions or concerns; reinforced continue HEP and increase activity level and walking as tolerated Transfer Assessment Floor Transfer Assessment Sit to Floor Transfer Ability Independent Floor to Sit Transfer Ability Independent Cues Needed for Floor Transfer None Floor Transfer Comments use of B UE on chair to raise up to sitting Balance Assessment Hope Balance Assessment Sitting to Standing Independent w/out Hands Unsupported Stance Ability Safely- 2 minutes Sitting Unsupported, Feet on Floor Safely- 2 minutes Stand
== END 2020-11-09 07:53 | disposition home or self-care (01) ==
LOC: ANHPT 12:30
PROVIDERS: PCP Internal Medicine
DX: S06.5X9D Traumatic subdural hemorrhage with loss of consciousness of unspecified duration, subsequent encounter (principal); G40.909 Epilepsy, unspecified, not intractable, without status epilepticus; R26.89 Other abnormalities of gait and mobility; F41.9 Anxiety disorder, unspecified
CPT/HCPCS: 96125; 97110; 97161; 97166

== ENCOUNTER 2022-01-25 13:57 | Outpatient (CLI) | payer MEDICARE, SELFPAY ==
--- NOTE | ~2022-01-25 | XR_ITS ---
XR shoulder LT min 2V DATE: 01/25/2022 14:19 INDICATION: Left shoulder pain TECHNIQUE: 4 views COMPARISON: None FINDINGS: There is mild soft tissue calcification at the superior aspect of the greater tuberosity an d lateral aspect of the humeral head suggesting calcific tendinitis of the rotator cuff. There is osteopenia. No fracture or dislocation, periosteal reaction or bone destruction is detected. There is mild osteoarthritis at the left glenohumeral joint. Mild levoscoliosis and degenerative spurring of the upper thoracic spine. IMPRESSION: Calcific tendinitis of left rotator cuff Mild osteoarthritis at left glenohumeral joint Osteopenia Reviewed, dictated and finalized at location B.
--- NOTE | ~2022-01-25 | XR_ITS ---
XR chest 2V DATE: 01/25/2022 14:19 INDICATION: Chest pain. Back pain. TECHNIQUE: PA and lateral views COMPARISON: September 07, 2020 portable upright AP chest FINDINGS: Normal heart size. Mild aortic tortuosity. No hilar or mediastinal enlargement. Chronic increased interstitial markings in the lower lung zones consistent with bilateral lower lobe interstitial fibrotic change. Relatively sparse lung markings in the upper lung zones suggesting bull ous change. No pulmonary consolidation, pleural effusion or pneumothorax. Degenerative changes of the lower cervical and thoracic and upper lumbar spine.. IMPRESSION: Chronic interstitial fibrotic changes in the lower lung zones suggestion of some bullous change in the upper lungs Normal heart size Aortic atherosclerosis Reviewed, dictated and finalized at location B. IMPRESSION: Chronic interstitial fibrotic changes in the lower lung zones sugge stion of some bullous change in the upper lungs Normal heart size Aortic atherosclerosis
== END 2022-01-25 13:58 | disposition home or self-care (01) ==
PROVIDERS: PCP Internal Medicine; Visit Provider Internal Medicine
DX: M19.012 Primary osteoarthritis, left shoulder (principal); M77.8 Other enthesopathies, not elsewhere classified; I70.0 Atherosclerosis of aorta
CPT/HCPCS: 71046; 73030

== ENCOUNTER 2022-11-23 21:38 | Inpatient (IN) | payer MEDICARE, SELFPAY ==
[2022-11-23] VITALS (9 sets, daily range): BP systolic 140–160; BP diastolic 84–90; PULSE 94–110; RESP 16–20; TEMP 37.1; O2SAT 93–99
--- NOTE | ~2022-11-23 | CT_ITS ---
Clinical Indication: Found down CT Scan of the Chest, Abdomen, and Pelvis with Contrast: Technique: Contiguous sections were acquired throughout the chest, abdomen, and pelvis after intraven ous administration of 100 cc of Omnipaque 350. Dose reduction technique was used on this scan by raimundo baltazaring automated exposure control and iterative reconstruction technique. The dose-length product (DL P) was 679.07 mGy-cm. COMPARISON: 12/14/2012 Findings: There is no evidence of any significant mediastinal, hilar or axillary lymphadenopathy. Calcified lef t hilar lymph nodes are present. Coronary artery calcifications are present. No aortic aneurysm or di ssection. No large central pulmonary embolus. There is no evidence of pleural or pericardial effusion. There are multiple, peripheral, hyperdense [id number]-like opacities, predominantly at the lung base s. The liver, spleen, pancreas, gallbladder, adrenals and kidneys are within normal limits. There are at herosclerotic calcifications of the aorta. No lymphadenopathy. No bowel obstruction or bowel wall thickening. There is no evidence to suggest acute appendicitis. Urinary bladder is unremarkable. Prostate gland is enlarged. No ascites. Impression: Peripheral hyperintense [id number]-like opacities at the lung bases predominantly. Findings could re flect small airways infectious process or sequela of prior aspirations. Chronic interstitial disease is a potential alternative consideration. Extensive coronary artery calcifications. No significant abnormality seen in the abdomen or pelvis. Reviewed, dictated and finalized at [facility]. Impression: Peripheral hyperintense zjcp-[id number]-like opacities at the lung bases predominan tly. Findings could reflect small airways infectious process or sequela of prio r aspirations. Chronic interstitial disease is a potential alternative consider ation. Extensive coronary artery calcifications. No significant abnormality seen in the abdomen or pelvis.
--- NOTE | ~2022-11-23 | CT_ITS ---
CT head without contrast Indication: Found down COMPARISON: 09/07/2020 Technique: Serial scans were obtained through the brain without the administration of contrast. Dose reduction technique was used on this scan by utilizing automated exposure control and iterative recon struction technique. The dose-length product (DLP) was 605.88 mGy-cm. Findings: There is no evidence of intracranial hemorrhage or acute infarct. Stable coarsely calcified masslike region at the right frontal region. There is chronic encephalomalacia in the high left fron toparietal region. The ventricles and subarachnoid spaces are dilated, consistent with mild atrophy. Low attenuation regions are seen within the periventricular white matter bilaterally, likely represe nting changes from chronic microvascular ischemic disease. There is no evidence of edema, mass effec t or midline shift. There is mild sinus disease involving the right maxillary sinus, left sphenoid si nus, and bilateral ethmoid air cells. The remaining visualized paranasal sinuses and mastoid air cell s are clear. Impression: No acute abnormality seen. Stable coarsely calcified masslike region at the right frontal lobe. Stable chronic insufflation at the high left frontoparietal region. Atrophy and chronic white matter changes, as above. Reviewed, dictated and finalized at location M. Impression: No acute abnormality seen. Stable coarsely calcified masslike region at the right frontal lobe. Stable chronic insufflation at the high left frontoparietal region. Atrophy and chronic white matter changes, as above.
--- NOTE | 2022-11-23 21:54 | ECG_ITS ---
Measurements Intervals [place] Rate: 100 P: 72 GA: 150 QRS: 6 QRSD: 117 T: 73 QT: 391 QTc: 505 Interpretive Statements SINUS TACHYCARDIA POSSIBLE LEFT ATRIAL ENLARGEMENT [-0.1mV P WAVE IN V1/V2] POSSIBLE LEFT VENTRICULAR HYPERTROPHY [VOLTAGE CRITERIA PLUS LAE OR QRS WIDENING] ABNORMAL ECG COMPARED TO ECG 09/07/2020 10:08:48 SINUS TACHYCARDIA NOW PRESENT Electronically Signed On 11-24-2022 8:58:36 CDT by Gabe Magana M.D.
[2022-11-23] MEDS: SODIUM CHLORIDE 0.9% IV 3,000 ML 999 ML IV CONT (22:39)
--- NOTE | 2022-11-23 22:56 | ED.GENADULT ---
HPI - General Adult General Chief complaint: Altered Mental Status Stated complaint: AMS History of Present Illness HPI narrative: This is a 77-year-old male presents to ED after being found down in his basement. He was down for at least 3 days. Patient is typically A&O x4 and is A&O x2 at this time. he can tell me his name and the year but cannot tell me the events that led to him being found on the ground. Patient is complaining of some discomfort to his face and ribcage for he has bruising. Denies other complaints at this time. Related Data Home Medications Medication Instructions Recorded Confirmed cyanocobalamin (vitamin B-12) 1,000 mcg PO DAILY 12/02/19 06/28/22 1,000 mcg capsule mecobalamin (vitamin B12) 1,000 1,000 mcg sublingual DAILY 10/06/20 06/28/22 mcg disintegrating tablet,sublingual levetiracetam 1,000 mg tablet 750 mg PO Q12H 10/13/20 06/28/22 phenytoin sodium extended 100 mg 100 mg PO BID 10/13/20 06/28/22 capsule pyridoxine (vitamin B6) 200 mg 200 mg PO DAILY 05/24/21 06/28/22 tablet cholecalciferol (vitamin D3) 50 50 mcg PO DAILY 08/31/21 06/28/22 mcg (2,000 unit) tablet Allergies Allergy/AdvReac Type Severity Reaction Status Date / Time No Known Allergies Allergy Verified 11/24/22 00:02 [facility] Past Medical History Medical History Anxiety with depression Benign essential hypertension Blood dyscrasia BMI 24.0-24.9, adult BMI 25.0-25.9,adult BMI 27.0-27.9,adult Colon cancer screening DJD (degenerative joint disease), multiple sites Dry skin Eczema Encounter for Medicare annual wellness exam Encounter for routine adult health examination without abnormal findings Encounter for special screening examination for neoplasm of prostate Hearing loss History of colon cancer Hyperlipidemia Hypokalemia Left shoulder pain MDS (myelodysplastic syndrome) Neutropenia On chcf drug therapy Other specified abnormal findings of blood chemistry Pancytopenia Peripheral neuropathy Rash Seizure Subdural hematoma Vision changes Vision changes Vitamin B12 deficiency Vitamin D deficiency Surgical History Surgical History S/P craniotomy Family History Family History Mother Family history of heart disease in male family member before age 55 Family history of cardiovascular disease Father Family history of malignant neoplasm Social History Social History Smoking status: Never smoker Second hand tobacco smoke exposure: No Alcohol intake: never Lack of Transportation: No Lack of Food: Sometimes True Current Housing: I Have Housing Concerned About Future Housing: No Difficulty Paying Gas/Electric Bills: No Difficulty Paying for Meds: No Currently Unemployed: No Education: High School Diploma/GED Difficulty w/ Childcare or Family Care: No Living arrangements: alone Gender identity (if verbalized by the patient): Male Exam Narrative: APPEARANCE: No apparent distress. Patient is covered in urine and feces Head: atraumatic. EYES: EOMI, NOSE: Atraumatic NECK: Trachea midline RESPIRATORY: No increased rate of breathing, clear to auscultation CARDIOVASCULAR: RRR, pulses and fork 4 extremities ABDOMINAL: Non-distended, mild tenderness over the left portion the abdomen, no guarding rebound MUSCULOSKELETAl: No obvious deformities NEURO: Alert. Moving 4/4 extremities SKIN:: bruising mottling over the right cheekbone, anterior ribcage and right arm PSYCHIATRIC: patient is confused Course Vital Signs Vital signs: Vital Signs Pulse Rate 101 H 11/23/22 21:48 Respiratory Rate 18 11/23/22 21:48 Blood Pressure 140/90 11/23/22 21:48 Pulse Oximetry 99 11/23/22 21:48 Oxygen Delivery Room Air 11/23/22 21:48
[2022-11-23 22:58] LABS: Basophils Percent Auto 0.2 % (0.2-1.2); Hematocrit 40.3 % (42.0-52.0); Immature Granulocyte Absolute 0.06 K/mm3 (0.00-0.031); Immature Granulocyte Percent A 0.7 % (0-0.5); Lymphocytes Absolute Auto 0.54 K/mm3 (0.9-3.2); Mean Corpuscular HGB Conc 34.7 g/dl (32-36); Mean Corpuscular Hemoglobin 36.6 pg (26-34); Mean Corpuscular Volume 105.5 fl (80-100); Mean Platelet Volume 11.1 fl (7.4-10.4); Monocytes Absolute Auto 0.9 K/mm3 (0.1-0.6); Monocytes Percent Auto 10.4 % (2.6-8.5); Neutrophils Absolute Auto 7.5 K/mm3 (1.3-6.7); Neutrophils Percent Auto 82.7 % (45.5-73.1); Platelet Count Result 292 k/mm3 (150-375); Red Blood Count 3.82 M/mm3 (4.6-6.20); Red Cell Distribution Width 13.2 % (11.5-14.5); White Blood Count 9.1 K/mm3 (4.5-10.0)
[2022-11-23 23:16] LABS: INR 1.5; Partial Thromboplastin Time 29.4 SECONDS (22.3-36.8); Prothrombin Time 17.3 Seconds (11.1-14.7)
[2022-11-23 23:25] LABS: Lactic Acid Reflex 6.3 mmol/L (0.7-2.0)
[2022-11-23 23:25] LABS: Benzodiazepines Screen Urine Negative (Negative)
[2022-11-23 23:28] LABS: Barbiturate Screen Urine Negative (Negative)
[2022-11-23 23:34] LABS: Albumin Level 4.5 g/dL (3.5-5.1); Alkaline Phosphatase 116 U/L (38-126); Anion Gap 16 mmol/L (8-16); Aspartate Amino Transferase 66 U/L (17-59); Blood Urea Nitrogen 35 mg/dL (9-20); Calcium 9.6 mg/dL (8.4-10.2); Carbon Dioxide 30 mmol/L (22-30); Chloride 98 mmol/L (98-107); Creatine Kinase 1153 U/L (55-170); Estimated CRCL calculation 63 ml/min; Estimated Glomerular Filt Rate > 60; Glucose 156 mg/dL (65-110); Lipase 32 U/L (23-300); Magnesium 2.3 mg/dL (1.6-2.3); Phosphorus 5.1 mg/dL (2.5-4.5); Potassium 3.2 mmol/L (3.4-5.0); Sodium 144 mmol/L (137-145); Troponin I 0.083 ng/mL (0.000-0.034)
[2022-11-23 23:36] LABS: Ethanol < 10 mg/dL (<10); Influenza A QL RT-PCR Negative (Negative); Influenza B QL RT-PCR Negative (Negative); RSV RNA, RT-PCR Negative (Negative); SARS-CoV-2 RNA PCR Negative (Negative)
[2022-11-23 23:40] LABS: Amphetamine Screen Urine Negative (Negative); Cannabinoid Screen Urine Negative (Negative); Cocaine Screen Urine Negative (Negative); Methadone Screen Urine Negative (Negative); Opiate Screen Urine Negative (Negative); Phencyclidine Screen Urine Negative (Negative)
[2022-11-23 23:56] LABS: Alanine Aminotransferase 44 U/L (6-50)
[2022-11-24] VITALS (33 sets, daily range): BP systolic 101–173; BP diastolic 61–98; PULSE 70–102; RESP 13–32; TEMP 36.1–37.2; O2SAT 96–99; BMI 22.7
[2022-11-24] LABS: Anisocytosis 1+ (NORMAL); Large Platelets Present; Macrocytosis 1+ (NORMAL); Platelet Estimate Adequate (Adequate)
[2022-11-24 00:01] LABS: Schistocytes None Seen (NORMAL)
[2022-11-24 00:02] LABS: Appearance Urine Clear (Clear); Bacteria Urine None Seen /hpf; Bilirubin Urine 2+ (Negative); Blood Urine 3+ (Negative); Color Urine Dark Yellow (Yellow); Glucose Urine UA Trace mg/dL (Negative); Hyaline Casts Urine Present /lpf; Ketones Urine 1+ mg/dL (Negative); Leukocyte Esterase Ur Trace LEU/UL (Negative); Mucus Urine Present /lpf; Nitrate Urine Negative (Negative); Protein Urine 4+ mg/dL (Negative); Specific Grav Ur 1.035 (1.001-1.035); Squamous Epithelial Cell Urine None seen /hpf (Few); WBC Urine 0-5 /hpf
[2022-11-24 00:06] LABS: NT Pro B Type Natriuretic Pept 2390 pg/mL (19.9-100)
[2022-11-24 00:19] LABS: Add Urine Microscopic? YES
[2022-11-24] MEDS: PIPERACILLN/TAZ 3.375GM/NS50ML 3.375 GM/50 ML BAG IVPB ×4 (01:00→19:55)
[2022-11-24] MEDS: POTASSIUM CHLORIDE 20 MEQ TABLET 40 MEQ PO (01:13)
[2022-11-24 01:23] LABS: Lactic Acid Reflex 2.3 mmol/L (0.7-2.0)
[2022-11-24 01:50] LABS: Troponin I 0.113 ng/mL (0.000-0.034)
[2022-11-24 01:55] LABS: Reflex Lactic Acid Yes or No Add Lactic
[2022-11-24 04:22] LABS: Lactic Acid 1.2 mmol/L (0.7-2.0)
[2022-11-24 04:36] LABS: Troponin I 0.105 ng/mL (0.000-0.034)
--- NOTE | 2022-11-24 05:25 | ADMGEN ---
This patient, Edin Diggs, was admitted to IMU Room 205-01. Patient/family oriented to hospital policies and general routines including ID bracelet, bed and alarms, visiting hours, pain management, procedures, bathroom and other care routines, personal items, smoking policy, room service/diet, and visiting hours. Information on how to activate the Rapid Response Team has been discussed. Patient/Family are encouraged to report perceived risks to care and to ask questions if they do not understand what they are told or what they should do.
[2022-11-24] MEDS: LACTATED RINGERS 1,000 ML 75 ML IV CONT (06:34)
[2022-11-24 10:00] LABS: Hemoglobin 10.7 g/dL (14.0-18.0); Mean Corpuscular HGB Conc 34.5 g/dl (32-36); Mean Corpuscular Hemoglobin 36.8 pg (26-34); Mean Corpuscular Volume 106.5 fl (80-100); Mean Platelet Volume 10.9 fl (7.4-10.4); Platelet Count Result 222 k/mm3 (150-375); Red Blood Count 2.91 M/mm3 (4.6-6.20); Red Cell Distribution Width 13.3 % (11.5-14.5); White Blood Count 7.2 K/mm3 (4.5-10.0)
[2022-11-24 10:16] LABS: Alanine Aminotransferase 26 U/L (6-50); Albumin Level 3.3 g/dL (3.5-5.1); Alkaline Phosphatase 70 U/L (38-126); Anion Gap 8 mmol/L (8-16); Aspartate Amino Transferase 40 U/L (17-59); Bilirubin,Total 0.9 mg/dL (0.2-1.3); Blood Urea Nitrogen 33 mg/dL (9-20); Calcium 7.9 mg/dL (8.4-10.2); Carbon Dioxide 25 mmol/L (22-30); Chloride 106 mmol/L (98-107); Creatine Kinase 647 U/L (55-170); Estimated CRCL calculation 57 ml/min; Estimated Glomerular Filt Rate > 60; Glucose 212 mg/dL (65-110); Sodium 139 mmol/L (137-145)
--- NOTE | 2022-11-24 16:29 | PM.IMHP ---
H&P: HPI History of Present Illness Date/Time: 11/24/22 16:29 Chief Complaint: Fall Narrative: ED-HPI narrative: ? This is a 77-year-old male presents to ED after being found down in his basement.? He was down for at least 3 days.? Patient is typically A&O x4 and is A&O x2 at this time. ? he can tell me his name and the year but cannot tell me the events that led to him being found on the ground.? Patient is complaining of some discomfort to his face and ribcage for he has bruising.? ? Denies other complaints at this time. Patient is quite confused unable to provide detailed review of symptoms or history apparently patient was found on the floor and in his basement and brought to emergency department is found to elevated tropes EKG does not show any significant acute injury, will do cardiac echo to further evaluate, patient also has a history of seizure is possible the patient had a seizure, patient also has elevate CK level most likely secondary to be on the floor for 3 days, as well as seizure activity, will gently hydrate the patient and monitor CK level, will have a PT OT to evaluate the patient and further recommendation to follow. Patient admitted as observation status. Review of Systems Review of Systems: ROS unobtainable: Yes unobtainable due to medical condition PMFSH Past Medical History Medical History Anxiety with depression Benign essential hypertension Blood dyscrasia BMI 24.0-24.9, adult BMI 25.0-25.9,adult BMI 27.0-27.9,adult Colon cancer screening DJD (degenerative joint disease), multiple sites Dry skin Eczema Encounter for Medicare annual wellness exam Encounter for routine adult health examination without abnormal findings Encounter for special screening examination for neoplasm of prostate Hearing loss History of colon cancer Hyperlipidemia Hypokalemia Left shoulder pain MDS (myelodysplastic syndrome) Neutropenia 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 Other specified abnormal findings of blood chemistry Pancytopenia Peripheral neuropathy Rash Seizure Subdural hematoma Vision changes Vision changes Vitamin B12 deficiency Vitamin D deficiency Surgical History Surgical History S/P craniotomy Family History Family History Mother Family history of heart disease in male family member before age 55 Family history of cardiovascular disease Father Family history of malignant neoplasm Social History Social History Smoking status: Never smoker Second hand tobacco smoke exposure: No Alcohol intake: never Substance use: never Lack of Transportation: YES Lack of Food: Never True Current Housing: I Have Housing Concerned About Future Housing: No Difficulty Paying Gas/Electric Bills: No Difficulty Paying for Meds: No Currently Unemployed: No Education: High School Diploma/GED Difficulty w/ Childcare or Family Care: No Living arrangements: alone Gender identity (if verbalized by the patient): Male Spiritual care concerns: No Meds Home Medications and Allergies Home Medications Medication Instructions Recorded Confirmed Type cyanocobalamin (vitamin B-12) 1,000 mcg PO DAILY 12/02/19 11/24/22 History 1,000 mcg capsule levetiracetam 1,000 mg tablet 750 mg PO Q12H 10/13/20 11/24/22 History phenytoin sodium extended 100 mg 100 mg PO BID 10/13/20 11/24/22 History capsule pyridoxine (vitamin B6) 200 mg 200 mg PO DAILY 05/24/21 11/24/22 History tablet cholecalciferol (vitamin D3) 1,250 1,250 mcg PO .COMPLEX #10 caps 08/31/21 11/24/22 Rx mcg (50,000 unit) capsule valsartan 320 See Rx Instructions .Route 06/01/22 11/24/22 Rx mg-hydrochlorothiazide 12.5 mg .COMPLEX #90 tabs tablet ezetimibe 10 mg tablet See Rx Instructions .Route 07/13/22
[2022-11-24] MEDS: POTASSIUM CHLORIDE 20 MEQ TABLET.ER 40 MEQ PO ×2 (16:38→19:22)
[2022-11-24] MEDS: POTASSIUM CHLORIDE INJ 40 MEQ in SODIUM CHLORIDE 0.9% IV 500 ML 130 MEQ IVPB (16:38)
[2022-11-24] MEDS: levETIRAcetam 250 MG TABLET 750 MG PO (20:09)
[2022-11-25] VITALS (16 sets, daily range): BP systolic 163–198; BP diastolic 68–104; PULSE 58–85; RESP 16–20; TEMP 36.4–37.1; O2SAT 95–99
--- NOTE | 2022-11-25 | ECHO_ITS ---
Patient Info Name: Edin Diggs Age: 77 years : 1945 Gender: Male Ht: 70 in Wt: 158 lbs BSA: 1.88 m2 HR: 75 bpm BP: 179 / 78 mmHg Heart Rhythm: Sinus Rhythm Technical Quality: Fair Exam Date: 11/25/2022 8:54 AM Exam Location: [facility] Pulmonary Patient Status: Inpatient Admit Date: 11/24/2022 Staff Ordering Physician: Kaleigh Joseph MD Bail Bond Agent: Vivian Iglesias RDCS Attending Provider: Thang Limon MD Exam Type: CA echo doppler color flow Study Info Indications R55 - Syncope and collapse Complete two-dimensional, color flow and Doppler transthoracic echocardiogram is performed. Summary 1. Complete two-dimensional, color flow and Doppler transthoracic echocardiogram is performed. 2. Left ventricular chamber dimension is normal. 3. Left ventricular systolic function is normal, estimated at 55-60%. 4. There is mild concentric increased left ventricular wall thickness. 5. Left ventricular septal wall motion is abnormal with septal motion related to bundle branch block. 6. The left ventricular diastolic function is grade I diastolic dysfunction. 7. E/e' 15 is elevated. 8. Global longitudinal strain is abnormal at -14.4%. 9. Left atrial chamber dimension is mildly enlarged. 10. There is mild aortic valve sclerosis. 11. There is mild aortic valve regurgitation. 12. There is mild mitral valve regurgitation. 13. There is trace tricuspid valve regurgitation. 14. No pulmonary hypertension, estimated pulmonary arterial systolic pressure is 30 mmHg. Left Ventricle E/e' 15 is elevated. Global longitudinal strain is abnormal at -14.4%. Left ventricular chamber dimension is normal. Left ventricular systolic function is normal, estimated at 55-60%. There is mild concentric increased left ventricular wall thickness. Left ventricular septal wall motion is abnormal with septal motion related to bundle branch block. The left ventricular diastolic function is grade I diastolic dysfunction. Right Ventricle Right ventricular systolic function is normal and with normal TAPSE 2.1 cm. Right ventricular chamber dimension is normal. Left Atria Left atrial chamber dimension is mildly enlarged. Right Atria Right atrial chamber dimension is normal. Aortic Valve The aortic valve is trileaflet. There is mild aortic valve sclerosis. There is no aortic valve stenosis. There is mild aortic valve regurgitation. Pulmonic Valve There is no pulmonic regurgitation. Mitral Valve There is no mitral valve stenosis. There is mild mitral valve regurgitation. Tricuspid Valve There is trace tricuspid valve regurgitation. No pulmonary hypertension, estimated pulmonary arterial systolic pressure is 30 mmHg. Pericardium/Pleural There is no pericardial effusion. Inferior Vena Cava Normal inferior vena cava with >50% collapse upon inspiration consistent with normal right atrial pressure, 5 mmHg. Aorta The aortic root size at the sinus of Valsalva is normal. Left Ventricular Outflow Tract Name Value Normal LVOT 2D LVOT Diameter 2.1 cm LVOT Doppler LVOT Peak Gradient 6 mmHg LVOT Mean Gradient 3 mmHg LVOT VTI 22 cm
[2022-11-25] MEDS: PIPERACILLN/TAZ 3.375GM/NS50ML 3.375 GM/50 ML BAG IVPB ×5 (00:28→23:47)
[2022-11-25 04:58] LABS: Hematocrit 27.5 % (42.0-52.0); Hemoglobin 9.4 g/dL (14.0-18.0); Mean Corpuscular HGB Conc 34.2 g/dl (32-36); Mean Corpuscular Volume 108.3 fl (80-100); Platelet Count Result 171 k/mm3 (150-375); Red Blood Count 2.54 M/mm3 (4.6-6.20); Red Cell Distribution Width 13.2 % (11.5-14.5); White Blood Count 2.3 K/mm3 (4.5-10.0)
[2022-11-25 05:29] LABS: Alanine Aminotransferase 17 U/L (6-50); Albumin Level 3.1 g/dL (3.5-5.1); Alkaline Phosphatase 67 U/L (38-126); Anion Gap 4 mmol/L (8-16); Aspartate Amino Transferase 33 U/L (17-59); Bilirubin,Total 0.6 mg/dL (0.2-1.3); Blood Urea Nitrogen 22 mg/dL (9-20); Calcium 8.1 mg/dL (8.4-10.2); Carbon Dioxide 28 mmol/L (22-30); Chloride 111 mmol/L (98-107); Creatine Kinase 331 U/L (55-170); Estimated CRCL calculation 63 ml/min; Estimated Glomerular Filt Rate > 60; Glucose 102 mg/dL (65-110); Magnesium 2.1 mg/dL (1.6-2.3); Sodium 143 mmol/L (137-145)
[2022-11-25] MEDS: PARoxetine 10 MG TABLET 30 MG BY MOUTH (09:52)
[2022-11-25] MEDS: POTASSIUM CHLORIDE 10 MEQ TABLET PO (09:53)
[2022-11-25] MEDS: PYRIDOXINE HCL 50 MG TABLET 200 MG PO (09:53)
[2022-11-25] MEDS: POTASSIUM CHLORIDE 20 MEQ TABLET 40 MEQ PO (09:53)
[2022-11-25] MEDS: CYANOCOBALAMIN 1,000 MCG TABLET 1000 MCG PO (09:54)
[2022-11-25] MEDS: POTASSIUM CHLORIDE 20 MEQ TABLET.ER 40 MEQ PO ×2 (09:56→16:58)
[2022-11-25] MEDS: levETIRAcetam 250 MG TABLET 750 MG PO (10:37)
[2022-11-25] MEDS: ACETAMINOPHEN 325 MG TABLET 650 MG PO (11:24)
[2022-11-25] MEDS: POTASSIUM CHLORIDE INJ 40 MEQ in SODIUM CHLORIDE 0.9% IV 500 ML 130 MEQ IVPB (11:24)
--- NOTE | 2022-11-25 14:38 | WPDNEURCNPN ---
Assessment and Plan Assessment and plan (1) Acute alteration in mental status: Code(s): R41.82 - Altered mental status, unspecified Status: Acute (2) Seizure: Code(s): R56.9 - Unspecified convulsions Status: Acute (3) Rhabdomyolysis: Code(s): M62.82 - Rhabdomyolysis Status: Acute Plan Mr. Diggs is a 77 year old male with a history of epilepsy who was found down for several days. Patient has no recollection of what led to him losing consciousness. Concern that he may have had a seizure. No obvious provoking factor. Patient reports good compliance with medications and there are no signs of illness. - Increased Keppra to 1000mg BID - Continue Dilantin at same dose (100mg BID alternating with 100mg QAM/200mg qhs) - Discussed no driving until he is seizure free for at least six months Consult date: 11/25/22 HPI: Edin Diggs is a 77 year old male with a history of epilepsy, subdural hematoma, hearing loss, HLD who was found down. Patient was found down in his basement. He was reportedly down for at least three days. Patient has no recollection of what happened or what caused his condition. At baseline he is AOx4, but when he was brought in he was AOx2. Lab work was significant for elevated troponin and elevated CK levels (1153). Patient reports his last seizure as about 3-4 years ago. He reports very good compliance with his seizure medications (Keppra 750mg BID and Dilantin 100mg BID/100mg in AM and 200mg qhs on alternating days). His Neurologist is in [facility]. He last saw them earlier this year. Patient has not had any seizures since being admitted. His mental status has improved and seems to be close to baseline. CK levels have downtrended as well. Review of Systems Constitutional: Constitutional: Reports weakness Eyes: Eyes: Reports no additional eye complaints ENT: Denies Normal hearing present Comments: chronic hearing loss Cardiovascular: Cardiovascular: Reports chest pain Respiratory: Respiratory: Reports no additional respiratory complaints Gastrointestinal: Gastrointestinal: Reports no additional gastrointestinal complaints Genitourinary: Genitourinary: Reports no additional male genitourinary complaints Musculoskeletal: Musculoskeletal: Reports myalgias and Reports arthralgias Integumentary/Breasts: Skin/Breast: Reports dry skin Neurologic: Reports as per HPI Psychiatric: Psychiatric: Reports anxiety, Reports confusion and Reports depression [facility] Past Medical History Medical History Anxiety with depression Benign essential hypertension Blood dyscrasia BMI 24.0-24.9, adult BMI 25.0-25.9,adult BMI 27.0-27.9,adult Colon cancer screening DJD (degenerative joint disease), multiple sites Dry skin Eczema Encounter for Medicare annual wellness exam Encounter for routine adult health examination without abnormal findings Encounter for special screening examination for neoplasm of prostate Hearing loss History of colon cancer Hyperlipidemia Hypokalemia Left shoulder pain MDS (myelodysplastic syndrome) Neutropenia 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
[2022-11-25] MEDS: lisinopriL 10 MG TABLET PO (15:09)
[2022-11-25] MEDS: PHENYTOIN SODIUM 100 MG EXTENDED RELEASE CAP PO ×3 (15:09→20:39)
[2022-11-25] MEDS: amLODIPine BESYLATE 5 MG TABLET PO (15:09)
--- NOTE | 2022-11-25 16:23 | PM.IMPN ---
Progress Note: A&P Assessment and Plan (1) Acute alteration in mental status: Code(s): R41.82 - Altered mental status, unspecified Status: Acute Assessment and Plan: ED-[facility] narrative: ? This is a 77-year-old male presents to ED after being found down in his basement.? He was down for at least 3 days.? Patient is typically A&O x4 and is A&O x2 at this time. ? he can tell me his name and the year but cannot tell me the events that led to him being found on the ground.? Patient is complaining of some discomfort to his face and ribcage for he has bruising.? ? Denies other complaints at this time. 11/25/2022 interval history: patient was found on the floor and in his basement and brought to emergency department, today patient is more alert and awake however he is not able to provide what exactly happened prior to coming to emergency department, he is found to elevated tropes EKG does not show any significant acute injury, cardiac echo showed 1. Complete two-dimensional, color flow and Doppler transthoracic echocardiogram is performed. ? 2. Left ventricular chamber dimension is normal. ? 3. Left ventricular systolic function is normal, estimated at 55-60%. ? 4. There is mild concentric increased left ventricular wall thickness. ? 5. Left ventricular septal wall motion is abnormal with septal motion related to bundle branch block. ? 6. The left ventricular diastolic function is grade I diastolic dysfunction. patient also has a history of seizure is possible the patient had a seizure, patient also has elevate CK level most likely secondary to be on the floor for 3 days, as well as seizure activity, patient is seen by neurologist and incrased his keppra to 1000mg BID from 750mg and continued dilantin same dose, patient instructed not to drive 6 month. Patient blood pressure is elevated he is not on any medication will start the patient on amlodipine 5 mg and lisinopril 10 mg q.day will have a PT OT evaluate the patient. (2) Seizure: Code(s): R56.9 - Unspecified convulsions Status: Acute Assessment and Plan: Patient with history seizures as possible patient had a seizure prior to fall will resume patient's home medication and monitor (3) Rhabdomyolysis: Code(s): M62.82 - Rhabdomyolysis Status: Acute Assessment and Plan: Most likely secondary to seizures and fall being on the floor, will gently hydrate the patient and monitor CK level (4) Acidosis, lactic: Code(s): E87.20 - Acidosis, unspecified Status: Acute Assessment and Plan: Resolved Subjective Date/time seen: 11/25/22 16:23 Interval history: ED-HPI narrative: ? This is a 77-year-old male presents to ED after being found down in his basement.? He was down for at least 3 days.? Patient is typically A&O x4 and is A&O x2 at this time. ? he can tell me his name and the year but cannot tell me the events that led to him being found on the ground.? Patient is complaining of some discomfort to his face and ribcage for he has bruising.? ? Denies other complaints at this time. 11/25/2022 interval history: patient was found on the floor and in his basement and brought to emergency department, today patient is more alert and awake however he is not able to provide what exactly happened prior to coming to emergency department, he is found to elevated tropes EKG does not show any significant acute injury, cardiac echo showed 1. Complete two-dimensional, color flow and Doppler transthoracic echocardiogram is performed. ? 2. Left ventricular chamber dimension is normal. ? 3. Left ventricular systolic function is normal, estimated at 55-60%. ? 4. There is mild concentric increased left ventricular wall thickness. ? 5. Left ventricular septal wall motion is abnormal with septal motion related to bundle branch block. ? 6. The left ventricular diastolic function is grade I diastolic dysfunction. patient also has a history of seizure is possib
[2022-11-25] MEDS: HYDROcodone/acetaminophen (*CRX) 5-325 MG TABLET 1 TAB PO (17:08)
[2022-11-25] MEDS: levETIRAcetam 500 MG TABLET 1000 MG PO (20:38)
[2022-11-26] VITALS (15 sets, daily range): BP systolic 185–202; BP diastolic 67–92; PULSE 63–82; RESP 12–24; TEMP 36.4–36.8; O2SAT 96–100
[2022-11-26 04:23] LABS: Alanine Aminotransferase 23 U/L (6-50); Albumin Level 3.2 g/dL (3.5-5.1); Alkaline Phosphatase 66 U/L (38-126); Anion Gap 7 mmol/L (8-16); Aspartate Amino Transferase 33 U/L (17-59); Bilirubin,Total 0.6 mg/dL (0.2-1.3); Blood Urea Nitrogen 15 mg/dL (9-20); Calcium 8.2 mg/dL (8.4-10.2); Carbon Dioxide 27 mmol/L (22-30); Chloride 105 mmol/L (98-107); Creatine Kinase 122 U/L (55-170); Estimated CRCL calculation 68 ml/min; Estimated Glomerular Filt Rate > 60; Glucose 131 mg/dL (65-110); Magnesium 1.9 mg/dL (1.6-2.3); Potassium 2.9 mmol/L (3.4-5.0); Sodium 139 mmol/L (137-145)
[2022-11-26 04:50] LABS: Hematocrit 29.2 % (42.0-52.0); Mean Corpuscular HGB Conc 34.2 g/dl (32-36); Mean Corpuscular Hemoglobin 36.8 pg (26-34); Mean Corpuscular Volume 107.4 fl (80-100); Mean Platelet Volume 10.8 fl (7.4-10.4); Platelet Count Result 167 k/mm3 (150-375); Red Blood Count 2.72 M/mm3 (4.6-6.20); Red Cell Distribution Width 12.8 % (11.5-14.5)
[2022-11-26] MEDS: PIPERACILLN/TAZ 3.375GM/NS50ML 3.375 GM/50 ML BAG IVPB ×3 (05:52→17:46)
--- NOTE | 2022-11-26 08:28 | PCOTNOTE ---
Attempted OT evaluation at 8:28AM, patient sleeping and wanted to eat breakfast. Will follow.
[2022-11-26] MEDS: POTASSIUM CHLORIDE 20 MEQ TABLET 40 MEQ PO ×2 (09:31→17:46)
[2022-11-26] MEDS: PYRIDOXINE HCL 50 MG TABLET 200 MG PO (09:32)
[2022-11-26] MEDS: lisinopriL 10 MG TABLET PO (09:32)
[2022-11-26] MEDS: PARoxetine 10 MG TABLET 30 MG BY MOUTH (09:32)
[2022-11-26] MEDS: CYANOCOBALAMIN 1,000 MCG TABLET 1000 MCG PO (09:33)
[2022-11-26] MEDS: levETIRAcetam 500 MG TABLET 1000 MG PO ×2 (09:33→21:27)
[2022-11-26] MEDS: CYCLOBENZAPRINE HCL 10 MG TABLET PO ×2 (09:34→17:46)
[2022-11-26] MEDS: amLODIPine BESYLATE 5 MG TABLET PO (09:35)
[2022-11-26] MEDS: PHENYTOIN SODIUM 100 MG EXTENDED RELEASE CAP PO ×2 (09:35→21:28)
[2022-11-26] MEDS: POTASSIUM CHLORIDE INJ 40 MEQ in SODIUM CHLORIDE 0.9% IV 500 ML 130 MEQ IVPB (11:10)
[2022-11-26] MEDS: ACETAMINOPHEN 325 MG TABLET 650 MG PO (11:23)
--- NOTE | 2022-11-26 15:12 | PM.IMPN ---
Progress Note: A&P Assessment and Plan (1) Acute alteration in mental status: Code(s): R41.82 - Altered mental status, unspecified Status: Acute Assessment and Plan: ED-[facility] narrative: ? This is a 77-year-old male presents to ED after being found down in his basement.? He was down for at least 3 days.? Patient is typically A&O x4 and is A&O x2 at this time. ? he can tell me his name and the year but cannot tell me the events that led to him being found on the ground.? Patient is complaining of some discomfort to his face and ribcage for he has bruising.? ? Denies other complaints at this time. 11/26/2022 interval history: patient was found on the floor and in his basement and brought to emergency department, today patient is more alert and awake however he is not able to provide what exactly happened prior to coming to emergency department, he is found to elevated tropes EKG does not show any significant acute injury, cardiac echo showed 1. Complete two-dimensional, color flow and Doppler transthoracic echocardiogram is performed. ? 2. Left ventricular chamber dimension is normal. ? 3. Left ventricular systolic function is normal, estimated at 55-60%. ? 4. There is mild concentric increased left ventricular wall thickness. ? 5. Left ventricular septal wall motion is abnormal with septal motion related to bundle branch block. ? 6. The left ventricular diastolic function is grade I diastolic dysfunction. patient also has a history of seizure is possible the patient had a seizure, patient also had elevate CK upon arrival CK levels were 1153 it is trending down 122 today, most likely secondary to be on the floor for 3 days, as well as seizure activity, patient was seen by neurologist and incrased his keppra to 1000mg BID from 750mg and continued dilantin same dose, patient instructed not to drive 6 month. Patient blood pressure is elevated he is not on any medication will start the patient on amlodipine 5 mg and lisinopril 10 mg q.day, patient continued to complain generalized aches and pain will start the patient on cyclobenzaprine, will have a PT OT evaluate the patient. (2) Seizure: Code(s): R56.9 - Unspecified convulsions Status: Acute Assessment and Plan: Patient with history seizures as possible patient had a seizure prior to fall will resume patient's home medication and monitor (3) Rhabdomyolysis: Code(s): M62.82 - Rhabdomyolysis Status: Acute Assessment and Plan: Most likely secondary to seizures and fall being on the floor, will gently hydrate the patient and monitor CK level (4) Acidosis, lactic: Code(s): E87.20 - Acidosis, unspecified Status: Acute Assessment and Plan: Resolved Subjective Date/time seen: 11/26/22 15:12 Interval history: ED-[facility] narrative: ? This is a 77-year-old male presents to ED after being found down in his basement.? He was down for at least 3 days.? Patient is typically A&O x4 and is A&O x2 at this time. ? he can tell me his name and the year but cannot tell me the events that led to him being found on the ground.? Patient is complaining of some discomfort to his face and ribcage for he has bruising.? ? Denies other complaints at this time. 11/26/2022 interval history: patient was found on the floor and in his basement and brought to emergency department, today patient is more alert and awake however he is not able to provide what exactly happened prior to coming to emergency department, he is found to elevated tropes EKG does not show any significant acute injury, cardiac echo showed 1. Complete two-dimensional, color flow and Doppler transthoracic echocardiogram is performed. ? 2. Left ventricular chamber dimension is normal. ? 3. Left ventricular systolic function is normal, estimated at 55-60%. ? 4. There is mild concentric increased left ventricular wall thickness. ? 5. Left ventricular septal wall motion is abnormal with septal motion
--- NOTE | 2022-11-26 15:22 | PC.NURSE ---
Dr. Joseph notified of 5 beat vtach at 1251, and 7 beat vtach at 1415. Will continue to monitor closely. No additional orders at this time.
[2022-11-26 16:35] LABS: Anion Gap 8 mmol/L (8-16); Blood Urea Nitrogen 16 mg/dL (9-20); Calcium 8.2 mg/dL (8.4-10.2); Carbon Dioxide 25 mmol/L (22-30); Chloride 105 mmol/L (98-107); Estimated CRCL calculation 68 ml/min; Estimated Glomerular Filt Rate > 60; Glucose 143 mg/dL (65-110); Magnesium 1.9 mg/dL (1.6-2.3); Potassium 3.4 mmol/L (3.4-5.0); Sodium 138 mmol/L (137-145)
[2022-11-27] VITALS (16 sets, daily range): BP systolic 167–194; BP diastolic 69–94; PULSE 60–75; RESP 18–22; TEMP 36.1–36.8; O2SAT 97–100
[2022-11-27] MEDS: PIPERACILLN/TAZ 3.375GM/NS50ML 3.375 GM/50 ML BAG IVPB ×5 (00:14→23:25)
[2022-11-27 02:33] LABS: Vancomycin Trough 14.8 ug/mL (10.0-20.0)
[2022-11-27 05:13] LABS: Hematocrit 29.5 % (42.0-52.0); Hemoglobin 10.4 g/dL (14.0-18.0); Mean Corpuscular HGB Conc 35.3 g/dl (32-36); Mean Corpuscular Hemoglobin 36.6 pg (26-34); Mean Corpuscular Volume 103.9 fl (80-100); Mean Platelet Volume 10.7 fl (7.4-10.4); Platelet Count Result 198 k/mm3 (150-375); Red Blood Count 2.84 M/mm3 (4.6-6.20); Red Cell Distribution Width 12.4 % (11.5-14.5); White Blood Count 2.5 K/mm3 (4.5-10.0)
[2022-11-27 05:27] LABS: Alanine Aminotransferase 26 U/L (6-50); Albumin Level 3.2 g/dL (3.5-5.1); Alkaline Phosphatase 71 U/L (38-126); Anion Gap 8 mmol/L (8-16); Aspartate Amino Transferase 24 U/L (17-59); Bilirubin,Total 0.5 mg/dL (0.2-1.3); Blood Urea Nitrogen 14 mg/dL (9-20); Carbon Dioxide 25 mmol/L (22-30); Chloride 104 mmol/L (98-107); Creatine Kinase 56 U/L (55-170); Estimated CRCL calculation 68 ml/min; Estimated Glomerular Filt Rate > 60; Glucose 131 mg/dL (65-110); Magnesium 1.8 mg/dL (1.6-2.3); Potassium 2.9 mmol/L (3.4-5.0); Sodium 137 mmol/L (137-145)
[2022-11-27] MEDS: ACETAMINOPHEN 325 MG TABLET 650 MG PO (11:34)
[2022-11-27] MEDS: PHENYTOIN SODIUM 100 MG EXTENDED RELEASE CAP PO ×3 (11:35→20:38)
[2022-11-27] MEDS: PARoxetine 10 MG TABLET 30 MG BY MOUTH (11:36)
[2022-11-27] MEDS: amLODIPine BESYLATE 5 MG TABLET 10 MG PO (11:36)
[2022-11-27] MEDS: CYCLOBENZAPRINE HCL 10 MG TABLET PO (11:37)
[2022-11-27] MEDS: lisinopriL 10 MG TABLET PO (11:37)
[2022-11-27] MEDS: CYANOCOBALAMIN 1,000 MCG TABLET 1000 MCG PO (11:37)
[2022-11-27] MEDS: PYRIDOXINE HCL 50 MG TABLET 200 MG PO (11:37)
[2022-11-27] MEDS: POTASSIUM CHLORIDE 20 MEQ TABLET 40 MEQ PO ×2 (11:37→14:55)
[2022-11-27] MEDS: levETIRAcetam 500 MG TABLET 1000 MG PO ×2 (11:38→20:36)
--- NOTE | 2022-11-27 13:29 | PCOTNOTE ---
Attempted OT eval, patient on bed cub[place] with continuous stool. Will check back tomorrow.
--- NOTE | 2022-11-27 16:08 | PM.IMPN ---
Progress Note: A&P Assessment and Plan (1) Acute alteration in mental status: Code(s): R41.82 - Altered mental status, unspecified Status: Acute Assessment and Plan: ED-[facility] narrative: ? This is a 77-year-old male presents to ED after being found down in his basement.? He was down for at least 3 days.? Patient is typically A&O x4 and is A&O x2 at this time. ? he can tell me his name and the year but cannot tell me the events that led to him being found on the ground.? Patient is complaining of some discomfort to his face and ribcage for he has bruising.? ? Denies other complaints at this time. 11/27/2022 interval history: patient was found on the floor and in his basement and brought to emergency department, today patient is more alert and awake however he is not able to provide what exactly happened prior to coming to emergency department, he is found to elevated tropes EKG does not show any significant acute injury, cardiac echo showed 1. Complete two-dimensional, color flow and Doppler transthoracic echocardiogram is performed. ? 2. Left ventricular chamber dimension is normal. ? 3. Left ventricular systolic function is normal, estimated at 55-60%. ? 4. There is mild concentric increased left ventricular wall thickness. ? 5. Left ventricular septal wall motion is abnormal with septal motion related to bundle branch block. ? 6. The left ventricular diastolic function is grade I diastolic dysfunction. patient also has a history of seizure is possible the patient had a seizure, patient also had elevate CK upon arrival CK levels were 1153 it is trending down 56 today, most likely secondary to be on the floor for 3 days, as well as seizure activity, patient was seen by neurologist and incrased his keppra to 1000mg BID from 750mg and continued dilantin same dose, patient instructed not to drive 6 month. Patient blood pressure is elevated he is not on any medication on 11/25 startedthe patient on amlodipine 5 mg and lisinopril 10 mg q.day, today patient continue have elevated blood pressure, will increase amlodipine to 10 mg q.day, and monitor, patient continued to complain generalized aches and pain will start the patient on cyclobenzaprine, will have a PT OT evaluate the patient. (2) Seizure: Code(s): R56.9 - Unspecified convulsions Status: Acute Assessment and Plan: Patient with history seizures as possible patient had a seizure prior to fall will resume patient's home medication and monitor (3) Rhabdomyolysis: Code(s): M62.82 - Rhabdomyolysis Status: Acute Assessment and Plan: Most likely secondary to seizures and fall being on the floor, will gently hydrate the patient and monitor CK level (4) Acidosis, lactic: Code(s): E87.20 - Acidosis, unspecified Status: Acute Assessment and Plan: Resolved Subjective Date/time seen: 11/27/22 16:08 Interval history: ED-HPI narrative: ? This is a 77-year-old male presents to ED after being found down in his basement.? He was down for at least 3 days.? Patient is typically A&O x4 and is A&O x2 at this time. ? he can tell me his name and the year but cannot tell me the events that led to him being found on the ground.? Patient is complaining of some discomfort to his face and ribcage for he has bruising.? ? Denies other complaints at this time. 11/27/2022 interval history: patient was found on the floor and in his basement and brought to emergency department, today patient is more alert and awake however he is not able to provide what exactly happened prior to coming to emergency department, he is found to elevated tropes EKG does not show any significant acute injury, cardiac echo showed 1. Complete two-dimensional, color flow and Doppler transthoracic echocardiogram is performed. ? 2. Left ventricular chamber dimension is normal. ? 3. Left ventricular systolic function is normal, estimated at 55-60%. ? 4. There is mild concentric incr
[2022-11-27 16:11] LABS: Anion Gap 7 mmol/L (8-16); Blood Urea Nitrogen 15 mg/dL (9-20); Calcium 8.4 mg/dL (8.4-10.2); Carbon Dioxide 27 mmol/L (22-30); Chloride 102 mmol/L (98-107); Estimated CRCL calculation 51 ml/min; Estimated Glomerular Filt Rate > 60; Glucose 120 mg/dL (65-110); Sodium 136 mmol/L (137-145)
[2022-11-28] VITALS (15 sets, daily range): BP systolic 153–181; BP diastolic 72–85; PULSE 64–85; RESP 18–20; TEMP 36.2–36.7; O2SAT 98–99
[2022-11-28 04:49] LABS: Hematocrit 31.6 % (42.0-52.0); Hemoglobin 11.2 g/dL (14.0-18.0); Mean Corpuscular HGB Conc 35.4 g/dl (32-36); Mean Corpuscular Hemoglobin 36.7 pg (26-34); Mean Corpuscular Volume 103.6 fl (80-100); Mean Platelet Volume 10.3 fl (7.4-10.4); Platelet Count Result 241 k/mm3 (150-375); Red Blood Count 3.05 M/mm3 (4.6-6.20); Red Cell Distribution Width 12.7 % (11.5-14.5); White Blood Count 2.5 K/mm3 (4.5-10.0)
[2022-11-28 05:08] LABS: Alanine Aminotransferase 25 U/L (6-50); Albumin Level 3.6 g/dL (3.5-5.1); Alkaline Phosphatase 72 U/L (38-126); Anion Gap 6 mmol/L (8-16); Aspartate Amino Transferase 28 U/L (17-59); Bilirubin,Total 0.6 mg/dL (0.2-1.3); Blood Urea Nitrogen 14 mg/dL (9-20); Calcium 8.6 mg/dL (8.4-10.2); Carbon Dioxide 27 mmol/L (22-30); Chloride 103 mmol/L (98-107); Creatine Kinase 35 U/L (55-170); Estimated CRCL calculation 61 ml/min; Estimated Glomerular Filt Rate > 60; Glucose 120 mg/dL (65-110); Magnesium 1.9 mg/dL (1.6-2.3); Potassium 3.2 mmol/L (3.4-5.0); Sodium 136 mmol/L (137-145)
[2022-11-28] MEDS: PIPERACILLN/TAZ 3.375GM/NS50ML 3.375 GM/50 ML BAG IVPB ×3 (05:50→18:21)
[2022-11-28] MEDS: ACETAMINOPHEN 325 MG TABLET 650 MG PO (09:35)
[2022-11-28] MEDS: PYRIDOXINE HCL 50 MG TABLET 200 MG PO (09:36)
[2022-11-28] MEDS: PHENYTOIN SODIUM 100 MG EXTENDED RELEASE CAP PO ×2 (09:37→21:25)
[2022-11-28] MEDS: PARoxetine 10 MG TABLET 30 MG BY MOUTH (09:37)
[2022-11-28] MEDS: CYANOCOBALAMIN 1,000 MCG TABLET 1000 MCG PO (09:38)
[2022-11-28] MEDS: amLODIPine BESYLATE 5 MG TABLET 10 MG PO (09:38)
[2022-11-28] MEDS: lisinopriL 10 MG TABLET PO (09:38)
[2022-11-28] MEDS: levETIRAcetam 500 MG TABLET 1000 MG PO ×2 (09:38→21:25)
[2022-11-28] MEDS: POTASSIUM CHLORIDE 20 MEQ TABLET 40 MEQ PO (11:15)
[2022-11-28] MEDS: HYDROcodone/acetaminophen (*CRX) 5-325 MG TABLET 1 TAB PO (11:16)
--- NOTE | 2022-11-28 13:54 | PCCCNOTE ---
On 11/28/22, the student, [Allegra Flores], provided care and completed Pay with a [facility] documentation on this patient. I have reviewed the student's documentation and agree with the findings.
--- NOTE | 2022-11-28 14:11 | PM.CNCAR ---
Assessment and Plan Assessment and plan (1) Nonsustained ventricular tachycardia: Code(s): I47.29 - Other ventricular tachycardia Status: Acute Assessment and Plan: Precise etiology remains unclear, however, hypokalemic concern may contribute and should be repleted aggressively to around 4.0. Continue to monitor magnesium with supplementation keep around 2.0. Patient is asymptomatic. Preserved LV systolic function by echocardiogram. Continue treatment for infection as clinically appropriate per primary service. Continue management per Neurology for seizure disorder with suspected contribution to patient's altered mental status on presentation. DVT prophylaxis. Continue telemetry. We can low-dose metoprolol 12.5 mg twice daily and observe response. Monitor for bradycardia. (2) Elevated troponin: Code(s): R77.8 - Other specified abnormalities of plasma proteins Status: Acute Assessment and Plan: Most likely type 2 infarction not secondary to acute coronary syndrome and/or plaque rupture related to significant elevation in CK, hypertensive urgency presentation altered mental status found down, suspected seizure disorder and pneumonia. However, given extensive coronary calcification noted on CT and ventricular arrhythmia on telemetry I advise noninvasive ischemic evaluation to assess for myocardial ischemia. This should be performed patient is further stable clinically and with repletion of electrolytes. This can be performed prior to discharge or on an outpatient provided ventricular arrhythmias have lessened significantly. Discussed at length. Recent verbalized understanding and agreed with plan of care. Further recommendation to follow. Patient has risk factors including hypertension, hypertension, hyperlipidemia, and age. Patient has a history of subdural hematoma. Need to clarify with Neurology and/or Neurosurgery whether antiplatelet therapy is a reasonable option given his history of subdural hematoma and AVM. If so at least aspirin 81 mg daily advised with need to follow H&H closely given his underlying anemia. Repeat 12 lead ECG in a.m.. Repeat troponin in a.m. for trend. Check lipid panel. Resume statin now that CK has normalized and patient is adequately hydrated. (3) Hypokalemia: Code(s): E87.6 - Hypokalemia Status: Acute Assessment and Plan: As above, patient remains hypokalemic which can contribute to ongoing ventricular arrhythmias. Continue to replete potassium around 4.0 and magnesium around 2.0. Check BMP and magnesium in a.m.. (4) Acute alteration in mental status: Code(s): R41.82 - Altered mental status, unspecified Status: Acute Assessment and Plan: Precise etiology remains unclear although combination of probable pneumonia and seizure disorder likely explanation. However, as etiology is not precisely known at this time cannot entirely exclude ventricular arrhythmia although given preserved LV systolic function the fact he was found down for prolonged period time this would not be expected to be a plausible contributor. (5) Rhabdomyolysis: Code(s): M62.82 - Rhabdomyolysis Status: Acute Assessment and Plan: CK elevated 1153 and presentation without associated significant acute renal failure. CK level has normalized and is 35 this morning. (6) Coronary artery calcification seen on CAT scan: Code(s): I25.10 - Atherosclerotic heart disease of [place] coronary artery without angina pectoris Status: Acute Assessment and Plan: Incidentally noted on CT chest abdomen pelvis. CT ruled out aortic aneurysm or dissection and or large central pulmonary embolus. (7) Seizure: Code(s): R56.9 - Unspecified convulsions Status: Acute Assessment and Plan: Management per Neurology and primary service. Continue antiepileptic therapy. History of Present Illness History of Present Illness Consult date/ti
[2022-11-28 15:12] LABS: Vancomycin Trough 17.8 ug/mL (10.0-20.0)
--- NOTE | 2022-11-28 17:23 | PM.IMPN ---
Progress Note: A&P Assessment and Plan (1) Acute alteration in mental status: Code(s): R41.82 - Altered mental status, unspecified Status: Acute Assessment and Plan: ED-[facility] narrative: ? This is a 77-year-old male presents to ED after being found down in his basement.? He was down for at least 3 days.? Patient is typically A&O x4 and is A&O x2 at this time. ? he can tell me his name and the year but cannot tell me the events that led to him being found on the ground.? Patient is complaining of some discomfort to his face and ribcage for he has bruising.? ? Denies other complaints at this time. 11/28/2022 interval history: patient was found on the floor and in his basement and brought to emergency department, today patient is more alert and awake however he is not able to provide what exactly happened prior to coming to emergency department, he is found to elevated tropes EKG does not show any significant acute injury, cardiac echo showed 1. Complete two-dimensional, color flow and Doppler transthoracic echocardiogram is performed. ? 2. Left ventricular chamber dimension is normal. ? 3. Left ventricular systolic function is normal, estimated at 55-60%. ? 4. There is mild concentric increased left ventricular wall thickness. ? 5. Left ventricular septal wall motion is abnormal with septal motion related to bundle branch block. ? 6. The left ventricular diastolic function is grade I diastolic dysfunction. patient also has a history of seizure is possible the patient had a seizure, patient also had elevate CK upon arrival CK levels were 1153 it is trending down 56 today, most likely secondary to be on the floor for 3 days, as well as seizure activity, patient was seen by neurologist and incrased his keppra to 1000mg BID from 750mg and continued dilantin same dose, patient instructed not to drive 6 month. Patient blood pressure is elevated he is not on any medication on 11/25 started the patient on amlodipine 5 mg and lisinopril 10 mg q.day, on 11/27 patient continue have elevated blood pressure, increased amlodipine to 10 mg q.day, and monitor, patient blood pressure is trending, patient continued to complain generalized aches and pain will start the patient on cyclobenzaprine, will have a PT OT evaluate the patient. Patient will benefit going to acute rehab. (2) Seizure: Code(s): R56.9 - Unspecified convulsions Status: Acute Assessment and Plan: Patient with history seizures as possible patient had a seizure prior to fall will resume patient's home medication and monitor (3) Rhabdomyolysis: Code(s): M62.82 - Rhabdomyolysis Status: Acute Assessment and Plan: Most likely secondary to seizures and fall being on the floor, will gently hydrate the patient and monitor CK level (4) Acidosis, lactic: Code(s): E87.20 - Acidosis, unspecified Status: Acute Assessment and Plan: Resolved Subjective Date/time seen: 11/28/22 17:23 Interval history: ED-HPI narrative: ? This is a 77-year-old male presents to ED after being found down in his basement.? He was down for at least 3 days.? Patient is typically A&O x4 and is A&O x2 at this time. ? he can tell me his name and the year but cannot tell me the events that led to him being found on the ground.? Patient is complaining of some discomfort to his face and ribcage for he has bruising.? ? Denies other complaints at this time. 11/28/2022 interval history: patient was found on the floor and in his basement and brought to emergency department, today patient is more alert and awake however he is not able to provide what exactly happened prior to coming to emergency department, he is found to elevated tropes EKG does not show any significant acute injury, cardiac echo showed 1. Complete two-dimensional, color flow and Doppler transthoracic echocardiogram is performed. ? 2. Left ventricular chamber dimension is normal. ? 3. Left ventricular syst
[2022-11-28] MEDS: METOPROLOL TARTRATE 12.5 MG TABLET PO (21:24)
[2022-11-29] VITALS (12 sets, daily range): BP systolic 136–192; BP diastolic 74–87; PULSE 58–76; RESP 16–20; TEMP 36.1–36.6; O2SAT 96–99
[2022-11-29] MEDS: HYDROcodone/acetaminophen (*CRX) 5-325 MG TABLET 1 TAB PO (00:02)
[2022-11-29] MEDS: PIPERACILLN/TAZ 3.375GM/NS50ML 3.375 GM/50 ML BAG IVPB ×4 (00:04→17:45)
[2022-11-29] MEDS: CYCLOBENZAPRINE HCL 10 MG TABLET PO (01:00)
[2022-11-29] MEDS: ACETAMINOPHEN 325 MG TABLET 650 MG PO ×2 (01:00→08:20)
[2022-11-29 04:52] LABS: Hematocrit 30.5 % (42.0-52.0); Hemoglobin 10.8 g/dL (14.0-18.0); Mean Corpuscular HGB Conc 35.4 g/dl (32-36); Mean Corpuscular Hemoglobin 36.7 pg (26-34); Mean Corpuscular Volume 103.7 fl (80-100); Mean Platelet Volume 10.1 fl (7.4-10.4); Platelet Count Result 286 k/mm3 (150-375); Red Blood Count 2.94 M/mm3 (4.6-6.20); Red Cell Distribution Width 12.5 % (11.5-14.5); White Blood Count 2.9 K/mm3 (4.5-10.0)
[2022-11-29 05:06] LABS: Alanine Aminotransferase 24 U/L (6-50); Albumin Level 3.5 g/dL (3.5-5.1); Alkaline Phosphatase 70 U/L (38-126); Anion Gap 6 mmol/L (8-16); Aspartate Amino Transferase 24 U/L (17-59); Bilirubin,Total 0.5 mg/dL (0.2-1.3); Blood Urea Nitrogen 14 mg/dL (9-20); Calcium 8.4 mg/dL (8.4-10.2); Carbon Dioxide 28 mmol/L (22-30); Chloride 103 mmol/L (98-107); Creatine Kinase 26 U/L (55-170); Estimated CRCL calculation 61 ml/min; Estimated Glomerular Filt Rate > 60; Glucose 99 mg/dL (65-110); Potassium 3.6 mmol/L (3.4-5.0); Sodium 137 mmol/L (137-145)
[2022-11-29 05:13] LABS: Troponin I 0.014 ng/mL (0.000-0.034)
--- NOTE | 2022-11-29 08:00 | ECG_ITS ---
Measurements Intervals [place] Rate: 69 P: -15 ID: [id number] QRS: 74 QRSD: 96 T: 68 QT: 448 QTc: 481 Interpretive Statements SINUS RHYTHM WITH SINUS ARRHYTHMIA INCOMPLETE RIGHT BUNDLE BRANCH BLOCK ANTEROSEPTAL INFARCT, AGE INDETERMINATE ABNORMAL ECG COMPARED TO ECG 11/23/2022 22:12:59 SINUS RHYTHM NOW PRESENT SINUS ARRHYTHMIA NOW PRESENT INCOMPLETE RIGHT BUNDLE-BRANCH BLOCK NOW PRESENT MYOCARDIAL INFARCT FINDING NOW PRESENT Electronically Signed On 11-30-2022 9:28:20 CDT by Chris Cantrell D.O.
[2022-11-29] MEDS: levETIRAcetam 500 MG TABLET 1000 MG PO ×2 (08:22→20:04)
[2022-11-29] MEDS: PYRIDOXINE HCL 50 MG TABLET 200 MG PO (08:24)
[2022-11-29] MEDS: PARoxetine 10 MG TABLET 30 MG BY MOUTH (08:24)
[2022-11-29] MEDS: amLODIPine BESYLATE 5 MG TABLET 10 MG PO (08:25)
[2022-11-29] MEDS: CYANOCOBALAMIN 1,000 MCG TABLET 1000 MCG PO (08:26)
[2022-11-29] MEDS: METOPROLOL TARTRATE 12.5 MG TABLET PO ×2 (08:27→20:04)
[2022-11-29] MEDS: lisinopriL 10 MG TABLET PO ×2 (08:27→11:48)
[2022-11-29] MEDS: PHENYTOIN SODIUM 100 MG EXTENDED RELEASE CAP PO ×3 (08:31→20:04)
--- NOTE | 2022-11-29 10:40 | PM.PNCARD ---
Progress Note: A&P Assessment and Plan (1) Nonsustained ventricular tachycardia: Code(s): I47.29 - Other ventricular tachycardia Status: Acute Assessment and Plan: Precise etiology remains unclear, however, hypokalemic concern may contribute and should be repleted aggressively to around 4.0.? Continue to monitor magnesium with supplementation keep around 2.0.? Patient is asymptomatic.? Preserved LV systolic function by echocardiogram.? Continue treatment for infection as clinically appropriate per primary service.? Continue management per Neurology for seizure disorder with suspected contribution to patient's altered mental status on presentation.? DVT prophylaxis.? Continue telemetry. Continue with Metoprolol 12.5mg BID. (2) Hypokalemia: Code(s): E87.6 - Hypokalemia Status: Acute Assessment and Plan: As above, patient remains hypokalemic which can contribute to ongoing ventricular arrhythmias.? Continue to replete potassium around 4.0 and magnesium around 2.0. (3) Elevated troponin: Code(s): R77.8 - Other specified abnormalities of plasma proteins Status: Acute Assessment and Plan: Most likely type 2 infarction not secondary to acute coronary syndrome and/or plaque rupture related to significant elevation in CK, hypertensive urgency presentation altered mental status found down, suspected seizure disorder and pneumonia.? However, given extensive coronary calcification noted on CT and ventricular arrhythmia on telemetry, we advised noninvasive ischemic evaluation to assess for myocardial ischemia.? This should be performed patient is further stable clinically and with repletion of electrolytes.? This can be performed prior to discharge or on an outpatient provided ventricular arrhythmias have lessened significantly.? Patient has risk factors including hypertension, hypertension, hyperlipidemia, and age. Patient has a history of subdural hematoma.? Need to clarify with Neurology and/or Neurosurgery whether antiplatelet therapy is a reasonable option given his history of subdural hematoma and AVM.? If so at least aspirin 81 mg daily advised with need to follow H&H closely given his underlying anemia. Resume statin now that CK has normalized and patient is adequately hydrated. (4) Acute alteration in mental status: Code(s): R41.82 - Altered mental status, unspecified Status: Acute Assessment and Plan: Precise etiology remains unclear although combination of probable pneumonia and seizure disorder likely explanation.? However, as etiology is not precisely known at this time cannot entirely exclude ventricular arrhythmia although given preserved LV systolic function the fact he was found down for prolonged period time this would not be expected to be a plausible contributor. (5) Rhabdomyolysis: Code(s): M62.82 - Rhabdomyolysis Status: Acute Assessment and Plan: CK elevated 1153 and presentation without associated significant acute renal failure.? CK level has now normalized? (6) Coronary artery calcification seen on CAT scan: Code(s): I25.10 - Atherosclerotic heart disease of [place] coronary artery without angina pectoris Status: Acute Assessment and Plan: Incidentally noted on CT chest abdomen pelvis.? CT ruled out aortic aneurysm or dissection and or large central pulmonary embolus. (7) Seizure: Code(s): R56.9 - Unspecified convulsions Status: Acute Assessment and Plan: Management per Neurology and primary service.? Continue antiepileptic therapy. (8) Benign essential hypertension: Code(s): I10 - Essential (primary) hypertension Status: Acute Assessment and Plan: Uncontrolled. Not on any home antihypertensives per home medication list. Has been started on Amlodipine and low dose Lisinopril this hospitalization. I will increase dose of Lisinopril from 10mg daily to 20mg daily given uncontrolled blood
--- NOTE | 2022-11-29 15:29 | PM.DS ---
DS: Admitting Diagnosis Discharge Date 11/29/2022 Admitting Diagnosis Fall DS: Discharge Diagnosis Discharge Diagnosis (1) Acute alteration in mental status: Code(s): R41.82 - Altered mental status, unspecified Status: Acute Assessment and Plan: ED-[facility] narrative: ? This is a 77-year-old male presents to ED after being found down in his basement.? He was down for at least 3 days.? Patient is typically A&O x4 and is A&O x2 at this time. ? he can tell me his name and the year but cannot tell me the events that led to him being found on the ground.? Patient is complaining of some discomfort to his face and ribcage for he has bruising.? ? Denies other complaints at this time. 11/28/2022 interval history: patient was found on the floor and in his basement and brought to emergency department, today patient is more alert and awake however he is not able to provide what exactly happened prior to coming to emergency department, he is found to elevated tropes EKG does not show any significant acute injury, cardiac echo showed 1. Complete two-dimensional, color flow and Doppler transthoracic echocardiogram is performed. ? 2. Left ventricular chamber dimension is normal. ? 3. Left ventricular systolic function is normal, estimated at 55-60%. ? 4. There is mild concentric increased left ventricular wall thickness. ? 5. Left ventricular septal wall motion is abnormal with septal motion related to bundle branch block. ? 6. The left ventricular diastolic function is grade I diastolic dysfunction. patient also has a history of seizure is possible the patient had a seizure, patient also had elevate CK upon arrival CK levels were 1153 it is trending down 56 today, most likely secondary to be on the floor for 3 days, as well as seizure activity, patient was seen by neurologist and incrased his keppra to 1000mg BID from 750mg and continued dilantin same dose, patient instructed not to drive 6 month. Patient blood pressure is elevated he is not on any medication on 11/25 started the patient on amlodipine 5 mg and lisinopril 10 mg q.day, on 11/27 patient continue have elevated blood pressure, increased amlodipine to 10 mg q.day, and monitor, patient blood pressure is trending, patient continued to complain generalized aches and pain will start the patient on cyclobenzaprine, will have a PT OT evaluate the patient. Patient will benefit going to acute rehab. (2) Seizure: Code(s): R56.9 - Unspecified convulsions Status: Acute Assessment and Plan: Patient with history seizures as possible patient had a seizure prior to fall will resume patient's home medication and monitor (3) Rhabdomyolysis: Code(s): M62.82 - Rhabdomyolysis Status: Acute Assessment and Plan: Most likely secondary to seizures and fall being on the floor, will gently hydrate the patient and monitor CK level (4) Acidosis, lactic: Code(s): E87.20 - Acidosis, unspecified Status: Acute Assessment and Plan: Resolved DS: Summary Hospital Course Reason for hospitalization: Fall Narrative: ED-HPI narrative: ? This is a 77-year-old male presents to ED after being found down in his basement.? He was down for at least 3 days.? Patient is typically A&O x4 and is A&O x2 at this time. ? he can tell me his name and the year but cannot tell me the events that led to him being found on the ground.? Patient is complaining of some discomfort to his face and ribcage for he has bruising.? ? Denies other complaints at this time. Patient is quite confused unable to provide detailed review of symptoms or history apparently patient was found on the floor and in his basement and brought to emergency department is found to elevated tropes EKG does not show any significant acute injury, will do cardiac echo to further evaluate, patient also has a history of seizure is possible the patient had a seizure,? patient also has elevate CK level most likely secondary
--- NOTE | 2022-11-29 19:02 | PC.NURSE ---
[facility]- report given to Mirna RN- waiting [facility] to transport pt to rehab
== END 2022-11-29 19:55 | DRG 100 ==
LOC: ANHED 11-24 04:18 → ANHIMU 11-24 05:16
PROVIDERS: Admitting Provider Internal Medicine; Emergency Provider Emergency Medicine; PCP Internal Medicine; Visit Provider Family Medicine
DX: G40.909 Epilepsy, unspecified, not intractable, without status epilepticus (principal); I21.A1 Myocardial infarction type 2; M62.82 Rhabdomyolysis; E87.21 Acute metabolic acidosis; I47.29 Other ventricular tachycardia; Z20.822 Contact with and (suspected) exposure to COVID-19; S00.83XA Contusion of other part of head, initial encounter; S20.219A Contusion of unspecified front wall of thorax, initial encounter; F41.8 Other specified anxiety disorders; E78.5 Hyperlipidemia, unspecified; W19.XXXA Unspecified fall, initial encounter; E55.9 Vitamin D deficiency, unspecified; E53.8 Deficiency of other specified B group vitamins; G62.9 Polyneuropathy, unspecified; D46.9 Myelodysplastic syndrome, unspecified; L30.9 Dermatitis, unspecified; M15.9 Polyosteoarthritis, unspecified; E87.6 Hypokalemia; Z85.038 Personal history of other malignant neoplasm of large intestine
CPT/HCPCS: 36415; 70450; 71260; 74177; 80048; 80053; 80202; 80307; 81001; 82550; 83605; 83690; 83735; 83880; 84100; 84443; 84484; 85025; 85027; 85610; 85730; 87040; 87147; 87181; 87186; 87637; 93005; 93306; 96361; 96365; 96366; 96367; 97110; 97161; 97165; 97530; 99285; A9270; J2543; J3370; J3480; J7030; J7040; J7120; Q9967

== ENCOUNTER 2022-12-12 15:08 | Outpatient (CLI) | payer MEDICARE, SELFPAY ==
[2022-12-12 15:34] LABS: Basophils Percent Auto 1.4 % (0.2-1.2); Eosinophils Absolute Auto 0.1 K/mm3 (0-0.3); Eosinophils Percent Auto 3.4 % (0-4.4); Hematocrit 33.3 % (42.0-52.0); Hemoglobin 11.2 g/dL (14.0-18.0); Immature Granulocyte Absolute 0.01 K/mm3 (0.00-0.031); Immature Granulocyte Percent A 0.7 % (0-0.5); Lymphocytes Percent Auto 47.9 % (18.3-44.2); Mean Corpuscular HGB Conc 33.6 g/dl (32-36); Mean Corpuscular Hemoglobin 37.2 pg (26-34); Mean Corpuscular Volume 110.6 fl (80-100); Mean Platelet Volume 9.8 fl (7.4-10.4); Monocytes Absolute Auto 0.2 K/mm3 (0.1-0.6); Monocytes Percent Auto 15.8 % (2.6-8.5); Neutrophils Absolute Auto 0.5 K/mm3 (1.3-6.7); Neutrophils Percent Auto 30.8 % (45.5-73.1); Platelet Count Result 189 k/mm3 (150-375); Red Blood Count 3.01 M/mm3 (4.6-6.20); Red Cell Distribution Width 13.9 % (11.5-14.5)
[2022-12-12 15:51] LABS: Anion Gap 8 mmol/L (8-16); Blood Urea Nitrogen 22 mg/dL (9-20); Carbon Dioxide 30 mmol/L (22-30); Chloride 105 mmol/L (98-107); Estimated Glomerular Filt Rate 59; Glucose 114 mg/dL (65-110); Potassium 4.1 mmol/L (3.4-5.0); Sodium 143 mmol/L (137-145)
[2022-12-12 16:13] LABS: White Blood Count 1.5 K/mm3 (4.5-10.0)
== END 2022-12-12 15:09 | disposition home or self-care (01) ==
PROVIDERS: PCP Internal Medicine; Visit Provider Internal Medicine
DX: E87.6 Hypokalemia (principal); Z79.899 Other long term (current) drug therapy; M62.82 Rhabdomyolysis; I10 Essential (primary) hypertension
CPT/HCPCS: 36415; 80048; 85025

== ENCOUNTER 2023-01-18 20:09 | Emergency (ER) | payer MEDICARE, SELFPAY ==
--- NOTE | ~2023-01-18 | CT_ITS ---
Noncontrast CT scan of the lumbar spine CLINICAL HISTORY: Back pain TECHNIQUE: Axial noncontrast imaging of the lumbar spine was performed. Sagittal and coronal reformat shawn images were constructed. Dose reduction technique was used on this scan by utilizing automated ex posure control and iterative reconstruction technique. The dose-length product (DLP) was 305.89 mGy-c m. FINDINGS: There is no fracture or subluxation of the lumbar spine. Vertebral bodies maintain normal h eight and alignment. Minimal degenerative disc changes are present of the lumbar spine. At L1-L2, there is minimal disc bulge and minimal facet arthropathy. No central canal stenosis or def inite neural foraminal narrowing. At L2-L3, there is mild disc bulge and mild facet arthropathy. No trip central canal stenosis. There is probable mild left neural foraminal narrowing. Right neural foramen preserved. At L3-L4, there is minimal disc bulge and mild facet arthropathy. No trip central canal stenosis. Th ere is moderate bilateral neural foraminal narrowing. At L4-L5, there is minimal disc bulge. There is moderate facet arthropathy. No central canal stenosis . There is mild bilateral neural foraminal narrowing. At L5-S1, there is minimal disc bulge. There is no central canal stenosis or definite neural foramina l narrowing. Paravertebral soft tissues are unremarkable. Impression: Mild degenerative spondylosis, as detailed above. Reviewed, dictated and finalized at location M. Impression: Mild degenerative spondylosis, as detailed above.
--- NOTE | ~2023-01-18 | CT_ITS ---
CT head without contrast Indication: Altered mental status COMPARISON: 11/24/2022 and 09/19/2020 Technique: Serial scans were obtained through the brain without the administration of contrast. Dose reduction technique was used on this scan by utilizing automated exposure control and iterative recon struction technique. The dose-length product (DLP) was 756.67 mGy-cm. Findings: There is no evidence of intracranial hemorrhage, mass lesion, or acute infarct. Stable ence phalomalacia in the high left frontal lobe noted. Stable densely calcified area in the high right fro ntal lobe. The ventricles and subarachnoid spaces are dilated, consistent with mild atrophy. Low att enuation regions are seen within the periventricular white matter bilaterally, likely representing ch anges from chronic microvascular ischemic disease. There is no evidence of edema, mass effect or mid line shift. The visualized paranasal sinuses and mastoid air cells are clear. Impression: No acute abnormality. No change from prior exam. Stable high left frontal lobe encephalomalacia. Densely calcified region in the high right frontal lobe, stable since 2020, therefore compatible with benign finding. This may represent posttreatment change or possibly benign/indolent neoplasm. Chronic microvascular ischemic change and generalized atrophy, stable from prior exam. Reviewed, dictated and finalized at location . Impression: No acute abnormality. No change from prior exam. Stable high left frontal lobe encephalomalacia. Densely calcified region in the high right frontal lobe, stable since 2020, the refore compatible with benign finding. This may represent posttreatment change or possibly benign/indolent neoplasm. Chronic microvascular ischemic change and generalized atrophy, stable from prio r exam.
--- NOTE | ~2023-01-18 | XR_ITS ---
Left Knee Technique: AP, lateral, and oblique views were obtained. Clinical History: Pain Findings: No fracture or dislocation is seen. Osseous alignment is anatomic. Joint spaces are preserv ed without degenerative or erosive change. Chondrocalcinosis of the menisci noted. Moderate joint eff usion is seen. Impression: No fracture or dislocation seen. Chondrocalcinosis of the menisci. Probable moderate joint effusion. Reviewed, dictated and finalized at location M. Impression: No fracture or dislocation seen. Chondrocalcinosis of the menisci. Probable moderate joint effusion.
--- NOTE | ~2023-01-18 | XR_ITS ---
Left elbow Technique: AP, oblique, and lateral views were obtained. Clinical History: Pain Findings: No acute fracture or dislocation is seen. Osseous alignment is anatomic. Joint spaces are p reserved. There is no displacement of the fat pads, and soft tissues are unremarkable. Impression: Unremarkable radiographs. Reviewed, dictated and finalized at location . Impression: Unremarkable radiographs.
[2023-01-18 20:12] VITALS: BP 142/78; PULSE 115; RESP 20; TEMP 36.6; O2SAT 99
--- NOTE | 2023-01-18 20:22 | PC.NURSE ---
Call pt's neighbor Yair with updates at [phone]
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
[2023-01-18 23:53] LABS: Basophils Percent Auto 0.7 % (0.2-1.2); Hematocrit 35.2 % (42.0-52.0); Hemoglobin 11.7 g/dL (14.0-18.0); Immature Granulocyte Absolute 0.03 K/mm3 (0.00-0.031); Immature Granulocyte Percent A 0.7 % (0-0.5); Lymphocytes Absolute Auto 0.89 K/mm3 (0.9-3.2); Lymphocytes Percent Auto 21.7 % (18.3-44.2); Mean Corpuscular HGB Conc 33.2 g/dl (32-36); Mean Corpuscular Hemoglobin 36.1 pg (26-34); Mean Corpuscular Volume 108.6 fl (80-100); Mean Platelet Volume 10.5 fl (7.4-10.4); Monocytes Percent Auto 25.1 % (2.6-8.5); Neutrophils Absolute Auto 2.1 K/mm3 (1.3-6.7); Neutrophils Percent Auto 51.8 % (45.5-73.1); Platelet Count Result 287 k/mm3 (150-375); Red Blood Count 3.24 M/mm3 (4.6-6.20); Red Cell Distribution Width 13.6 % (11.5-14.5); White Blood Count 4.1 K/mm3 (4.5-10.0)
[2023-01-19] VITALS (29 sets, daily range): BP systolic 153–177; BP diastolic 60–86; PULSE 53–77; RESP 12–26; O2SAT 99–100
[2023-01-19 00:04] LABS: Alanine Aminotransferase 26 U/L (6-50); Albumin Level 4.1 g/dL (3.5-5.1); Alkaline Phosphatase 65 U/L (38-126); Anion Gap 6 mmol/L (8-16); Aspartate Amino Transferase 38 U/L (17-59); Bilirubin,Total 1.1 mg/dL (0.2-1.3); Blood Urea Nitrogen 47 mg/dL (9-20); Calcium 9.2 mg/dL (8.4-10.2); Carbon Dioxide 34 mmol/L (22-30); Chloride 106 mmol/L (98-107); Creatine Kinase 94 U/L (55-170); Estimated Glomerular Filt Rate 59; Glucose 150 mg/dL (65-110); Magnesium 2.4 mg/dL (1.6-2.3); Potassium 3.5 mmol/L (3.4-5.0); Sodium 146 mmol/L (137-145)
[2023-01-19] MEDS: ACETAMINOPHEN 500 MG TABLET 1000 MG PO (00:47)
[2023-01-19 01:23] LABS: Appearance Urine Cloudy (Clear); Bacteria Urine None Seen /hpf; Bilirubin Urine Negative (Negative); Blood Urine 1+ (Negative); Color Urine Yellow (Yellow); Glucose Urine UA Negative (Negative); Ketones Urine Trace mg/dL (Negative); Leukocyte Esterase Ur Negative LEU/UL (Negative); Need Manual Microscopic Reviewed; Nitrate Urine Negative (Negative); Protein Urine 2+ mg/dL (Negative); RBC Urine 0-2 /hpf (0-2); Specific Grav Ur 1.029 (1.001-1.035); Squamous Epithelial Cell Urine None seen /hpf (Few); WBC Urine 0-5 /hpf; pH Urine 5.5 (5.0-9.0)
[2023-01-19 01:26] LABS: Add Urine Microscopic? YES
[2023-01-19] MEDS: SODIUM CHLORIDE 0.9% IV 1,000 ML 999 ML IV CONT (01:43)
--- NOTE | 2023-01-19 08:31 | PC.NURSE ---
PT here to evaluate pt.
--- NOTE | 2023-01-19 12:37 | PCCCNOTE ---
CC received referral for patient wanting placement. CC met with patient, patient is alert and oriented x 4, I ADL and lives alone. patient admits that he has been not doing well as of late, states that his home is turning into a hoarding situation. patient is aware that his insurance will not cover him to go to a Al[facility] Facility and that he would have to privately pay. patient is agreeable. CC sent referrals to [facility], and called Barbara at the facility whom confirmed a male bed and acceptance of patient. CC called and spoke with patients brian Castaneda, whom is going to bring patients wallet to hospital and provided transportation to facility. RN, MD and talent management specialist all aware. patients packet printed and given to clinical secretary. CC attempted to start a Passr screen however was prompted that the facility has already started it. CC will continue to follow for any other needs that may arise.
--- NOTE | 2023-01-19 13:19 | PC.NURSE ---
report called to [facility]. Nephew on his way to take pt to facility.
== END 2023-01-19 15:03 ==
PROVIDERS: Emergency Provider Physician Assistant; PCP Internal Medicine
DX: R53.1 Weakness (principal); R62.7 Adult failure to thrive; Z60.2 Problems related to living alone; S50.312A Abrasion of left elbow, initial encounter; M25.562 Pain in left knee; I10 Essential (primary) hypertension; E78.5 Hyperlipidemia, unspecified; D46.9 Myelodysplastic syndrome, unspecified; G62.9 Polyneuropathy, unspecified; E53.8 Deficiency of other specified B group vitamins; E55.9 Vitamin D deficiency, unspecified; Z85.038 Personal history of other malignant neoplasm of large intestine; M11.262 Other chondrocalcinosis, left knee; M47.816 Spondylosis without myelopathy or radiculopathy, lumbar region; W18.30XA Fall on same level, unspecified, initial encounter
CPT/HCPCS: 36415; 70450; 72131; 73080; 73564; 80053; 81001; 82550; 83735; 85025; 96360; 96361; 97161; 97165; 99284; A9270; J7030

== ENCOUNTER 2024-01-04 11:44 | Outpatient (CLI) | payer MEDICARE, SELFPAY ==
--- NOTE | ~2024-01-04 | MR_ITS ---
MRA brain wo con Ordering provider: Raf Watson History: . AVM . Comparison: CT done on January 19, 2023 Technique: MRA brain without contrast per protocol utilizing 3D time of flight and maximum intensity projection images. Upper portion of the brain is not included in this study. FINDINGS: INTERNAL CAROTIDS: Normal caliber and contour without evidence for significant stenosis. ANTERIOR CEREBRAL ARTERIES: The proximal right anterior cerebral artery is not demonstrated in the ar ea of A1. This may be partly technical. MIDDLE CEREBRAL ARTERIES: The proximal right MCA is not demonstrated in the area of M1. This may be p artly technical. BASILAR ARTERY: Normal caliber and contour without evidence for significant stenosis. POSTERIOR CEREBRAL ARTERIES: Normal caliber and contour without evidence for significant stenosis. POSTERIOR COMMUNICATING ARTERIES: The left is demonstrated and continues as the left posterior cerebr al artery. ANEURYSM: None OTHER: Hyperintense signal area seen in the right sylvian fissure area which measures 4.7 x 3 mm. Thi s may represent a small thrombosed aneurysm or thrombosed vein. AVM is less likely. This area. Hypode nse on the CT scan Follow-up advised. IMPRESSION: Absent right A1 and M1 segments. Small hyperintense signal area in the right sylvian fissure. Differential as described above. Follow- up advised. Reviewed, dictated and finalized at location A. IMPRESSION: Absent right A1 and M1 segments. Small hyperintense signal area in the right sylvian fissure. Differential as de scribed above. Follow-up advised.
--- NOTE | ~2024-01-04 | MR_ITS ---
EXAMINATION: MR brain/brain stem wo/w con DATE: 01/04/2024 13:12 INDICATION: Arteriovenous malformation. TECHNIQUE: Magnetic resonance imaging (MRI) of the brain and brainstem was performed without and with 15 mL MultiHance intravenous contrast. COMPARISON: Head CT 01/19/2023 FINDINGS: There is chronic encephalomalacia in posterior right frontal lobe and left frontoparietal r egion. There are enlarged vessels in posterior right frontal lobe. There is a 2.6 cm enhancing extra- axial mass in left frontoparietal region abutting the falx, consistent with a meningioma. There is no acute ischemic infarct or intracranial hemorrhage. There is an old infarct in left caudate nucleus. There are scattered areas of nonspecific increased T2-weighted signal intensity in the cerebral white matter and tracy. There is ex vacuo dilatation of left lateral ventricle. There is mucosal thickening in the paranasal sinuses. There is a right mastoid effusion. The orbits are normal. IMPRESSION: 1. Enlarged vessels in the posterior right frontal lobe, consistent with history of arteriovenous con firmation. 2. 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 3. 2.6 cm left frontoparietal parafalcine meningioma. 4. Moderate nonspecific cerebral white matter disease and pontine disease, which likely represents ch ronic small vessel ischemic disease. Reviewed, dictated and finalized at location A. IMPRESSION: 1. Enlarged vessels in the posterior right frontal lobe, consistent with histor y of arteriovenous confirmation. 2. 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 3. 2.6 cm left frontoparietal parafalcine meningioma. 4. Moderate nonspecific cerebral white matter disease and pontine disease, whic h likely represents chronic small vessel ischemic disease.
== END 2024-01-04 11:45 ==
PROVIDERS: PCP Family Medicine; Referring Provider Nurse Practitioner
DX: Q28.2 Arteriovenous malformation of cerebral vessels (principal); Z86.73 Personal history of transient ischemic attack (TIA), and cerebral infarction without residual deficits; D32.0 Benign neoplasm of cerebral meninges; R90.82 White matter disease, unspecified
CPT/HCPCS: 70544; 70553; A9577

== ENCOUNTER 2024-01-29 12:15 | Outpatient (CLI) | payer MEDICARE, SELFPAY ==
--- NOTE | ~2024-01-29 | XR_ITS ---
XR hand RT 2V Ordering provider: Neal Baugh MD History: . M79.641 - Pain in right hand . Comparison: None. FINDINGS: BONES: No acute fracture or dislocation. JOINT SPACES: Osteoarthritic changes of the proximal and distal interphalangeal joints. Osteoarthriti c changes of the second and fourth carpometacarpal joints. Subluxation is seen in the proximal interp halangeal joint of the middle finger. SOFT TISSUES: Normal. IMPRESSION: No acute osseous abnormality right hand. Proximal and distal interphalangeal joints osteoarthritic changes. Osteoarthritic changes of the seco nd and fourth metacarpophalangeal joints. Subluxation the proximal interphalangeal joint of the middle finger. Reviewed, dictated and finalized at location A. IMPRESSION: No acute osseous abnormality right hand. Proximal and distal interphalangeal joints osteoarthritic changes. Osteoarthrit ic changes of the second and fourth metacarpophalangeal joints. Subluxation the proximal interphalangeal joint of the middle finger.
--- NOTE | ~2024-01-29 | XR_ITS ---
XR wrist RT 2V Ordering provider: Neal Baugh MD History: . RT WRIST HAND PAIN X 2 WEKKS,NKI, 3RD FINGER INJURY KID . Comparison: January 29, 2024 FINDINGS: BONES: No acute fracture or dislocation. No definite scaphoid fracture. JOINT SPACES: Normal. SOFT TISSUES: Normal. IMPRESSION: No acute osseous abnormality right wrist. Reviewed, dictated and finalized at location A.
[2024-01-29 13:07] LABS: Basophils Percent Auto 0.9 % (0.2-1.2); Eosinophils Absolute Auto 0.1 K/mm3 (0-0.3); Eosinophils Percent Auto 2.6 % (0-4.4); Hematocrit 37.6 % (42.0-52.0); Immature Granulocyte Absolute 0.03 K/mm3 (0.00-0.031); Immature Granulocyte Percent A 1.3 % (0-0.5); Lymphocytes Absolute Auto 0.87 K/mm3 (0.9-3.2); Mean Corpuscular HGB Conc 34.6 g/dl (32-36); Mean Corpuscular Hemoglobin 36.4 pg (26-34); Mean Corpuscular Volume 105.3 fl (80-100); Mean Platelet Volume 9.9 fl (7.4-10.4); Monocytes Absolute Auto 0.4 K/mm3 (0.1-0.6); Monocytes Percent Auto 14.9 % (2.6-8.5); Neutrophils Percent Auto 43.3 % (45.5-73.1); Platelet Count Result 270 k/mm3 (150-375); Red Blood Count 3.57 M/mm3 (4.6-6.20); Red Cell Distribution Width 13.1 % (11.5-14.5); White Blood Count 2.4 K/mm3 (4.5-10.0)
[2024-01-29 13:16] LABS: Appearance Urine Clear (Clear); Bacteria Urine None Seen /hpf; Bilirubin Urine Negative (Negative); Blood Urine Trace (Negative); Color Urine Yellow (Yellow); Glucose Urine UA Negative (Negative); Ketones Urine Negative (Negative); Leukocyte Esterase Ur 1+ LEU/UL (Negative); Nitrate Urine Negative (Negative); Non Pathogenic Casts 0-2; Protein Urine Trace mg/dL (Negative); RBC Urine 0-2 /hpf (0-2); Specific Grav Ur 1.012 (1.001-1.035); Squamous Epithelial Cell Urine None Seen /hpf (Few)
[2024-01-29 13:16] LABS: Alanine Aminotransferase 24 U/L (6-50); Albumin Level 4.6 g/dL (3.5-5.1); Alkaline Phosphatase 98 U/L (38-126); Anion Gap 11 mmol/L (4-12); Aspartate Amino Transferase 25 U/L (17-59); Bilirubin,Total 0.9 mg/dL (0.2-1.3); Blood Urea Nitrogen 11 mg/dL (9-20); Carbon Dioxide 28 mmol/L (22-30); Chloride 104 mmol/L (98-107); Cholesterol 170 mg/dL (0-200); Estimated Glomerular Filt Rate > 60; Glucose 96 mg/dL (65-110); HDL Direct 31 mg/dL; Potassium 3.2 mmol/L (3.4-5.0); Sodium 143 mmol/L (137-145); Triglycerides 128 mg/dL (<150)
[2024-01-29 13:28] LABS: LDL Cholesterol Direct 113 mg/dL
[2024-01-29 13:29] LABS: Anisocytosis 1+; Macrocytosis 1+ (NORMAL); Platelet Estimate Adequate (Adequate)
[2024-01-29 13:30] LABS: Schistocytes None Seen
[2024-01-29 13:36] LABS: Add Urine Microscopic? YES
[2024-01-29 13:52] LABS: Free T4 Free Thyroxine 1.41 ng/mL (0.78-2.19); Vitamin D 25 Hydroxy 35.1 ng/mL
[2024-01-30 09:43] LABS: Levetiracetam Keppra 8.7 mcg/mL (6.0-46.0)
[2024-01-31 21:38] LABS: Phenytoin Dilantin Free <0.5 mg/L (1.0-2.0)
== END 2024-01-29 12:16 | disposition home or self-care (01) ==
PROVIDERS: PCP Internal Medicine; Visit Provider Internal Medicine
DX: M19.041 Primary osteoarthritis, right hand (principal); S63.232A Subluxation of proximal interphalangeal joint of right middle finger, initial encounter; I10 Essential (primary) hypertension; R56.9 Unspecified convulsions; E78.5 Hyperlipidemia, unspecified; R79.89 Other specified abnormal findings of blood chemistry; E53.8 Deficiency of other specified B group vitamins; E55.9 Vitamin D deficiency, unspecified; M79.89 Other specified soft tissue disorders; Z79.899 Other long term (current) drug therapy; Z13.1 Encounter for screening for diabetes mellitus; Z13.29 Encounter for screening for other suspected endocrine disorder; X58.XXXA Exposure to other specified factors, initial encounter
CPT/HCPCS: 36415; 73100; 73120; 80053; 80061; 80177; 80186; 81001; 82306; 82607; 82746; 83036; 84439; 84443; 85025; 87086

== ENCOUNTER 2024-02-22 13:19 | Outpatient (CLI) | payer MEDICARE, SELFPAY | END 2024-02-22 13:20 | disposition home or self-care (01) | LOC: ANHAUDIO 13:20 | PROVIDERS: PCP Internal Medicine; Visit Provider Internal Medicine | DX: H91.90 Unspecified hearing loss, unspecified ear (principal) | CPT/HCPCS: 99199 ==

== ENCOUNTER 2024-03-14 10:39 | Outpatient (CLI) | payer MEDICARE, SELFPAY | END 2024-03-14 10:40 | disposition home or self-care (01) | LOC: ANHAUDIO 10:40 | PROVIDERS: PCP Internal Medicine; Visit Provider Internal Medicine | DX: H90.3 Sensorineural hearing loss, bilateral (principal) | CPT/HCPCS: 92557; 92567 ==

== ENCOUNTER 2024-06-18 10:45 | Outpatient (CLI) | payer MEDICARE, SELFPAY ==
[2024-06-18 11:32] LABS: Alanine Aminotransferase 10 U/L (6-50); Albumin Level 4.5 g/dL (3.5-5.1); Alkaline Phosphatase 97 U/L (38-126); Anion Gap 8 mmol/L (4-12); Aspartate Amino Transferase 21 U/L (17-59); Bilirubin,Total 0.4 mg/dL (0.2-1.3); Blood Urea Nitrogen 23 mg/dL (9-20); Calcium 9.5 mg/dL (8.4-10.2); Carbon Dioxide 28 mmol/L (22-30); Chloride 105 mmol/L (98-107); Cholesterol 209 mg/dL (0-200); Estimated Glomerular Filt Rate 59; Glucose 109 mg/dL (65-110); HDL Direct 48 mg/dL; Potassium 4.7 mmol/L (3.4-5.0); Sodium 141 mmol/L (137-145); Triglycerides 109 mg/dL (<150)
[2024-06-18 11:43] LABS: LDL Cholesterol Direct 119 mg/dL
[2024-06-18 12:05] LABS: Vitamin D 25 Hydroxy 54.5 ng/mL
[2024-06-21 12:14] LABS: Phenytoin Dilantin Free 0.5 mg/L (1.0-2.0)
== END 2024-06-18 10:46 | disposition home or self-care (01) ==
LOC: ANHLAB 10:47
PROVIDERS: PCP Internal Medicine; Visit Provider Internal Medicine
DX: E78.2 Mixed hyperlipidemia (principal); R56.9 Unspecified convulsions; E55.9 Vitamin D deficiency, unspecified; I10 Essential (primary) hypertension; Z79.899 Other long term (current) drug therapy
CPT/HCPCS: 36415; 80053; 80061; 80186; 82306

== ENCOUNTER 2024-06-20 12:23 | Outpatient (CLI) | payer MEDICARE, SELFPAY ==
[2024-06-22 03:34] LABS: Creatinine, Random Urine 130 mg/dL (20-320); Total Prot/Creat ratio mg/mg 0.185 (0.025-0.148); Total Protein/Creatinine Ratio 185 mg/g creat (25-148)
[2024-06-22 15:18] LABS: Protein, Total 7.6 g/dL (6.1-8.1)
[2024-06-24 15:53] LABS: Abnormal Protein Band 1 1.1 g/dL (NONE DETECTED); Albumin 4.2 g/dL (3.8-4.8); Alpha 1 Globulin 0.3 g/dL (0.2-0.3); Alpha 2 Globulin 0.6 g/dL (0.5-0.9); Beta 1 Globulin 0.4 g/dL (0.4-0.6); Gamma Globulin 1.5 g/dL (0.8-1.7)
== END 2024-06-20 12:24 | disposition home or self-care (01) ==
PROVIDERS: PCP Internal Medicine; Visit Provider Internal Medicine
DX: R77.9 Abnormality of plasma protein, unspecified (principal)
CPT/HCPCS: 36415; 82570; 84155; 84156; 84165; 84166

== ENCOUNTER 2024-07-11 12:21 | Outpatient (CLI) | payer MEDICARE, SELFPAY ==
--- OUTSIDE RECORDS SUMMARY | 2024-07-11 12:23 | XMS_ITS | Summary of Care ---
Author Organization [facility] Address [address] [place] [address]- Encounter 09/16/20 - 09/29/[address] [address] Encounter Diagnosis CVA(Discharge Diagnosis) - 09/29/20 Discharge Disposition: Discharged to Home or Self Care Attending Physician: Marcial De Los Santos MD Admitting Physician: Alondra Fabian MD Allergies, Adverse Reactions, Alerts Substance Reaction Severity Status No Known Allergies Active Assessment and Plan Extracted from: Title:Inpatient Clinical Summary Author:Kt Siegel MD Date:09/29/[address]?? [address] Clinical Discharge Summary PERSON INFORMATION Name EDIN MELCHOR [id number] Sex Male Age 75 Years Race White Admitted 09/16/2020 17:01:00 Discharged Address: [address] [place] [id number] PROVIDER INFORMATION Attending Physician: Marcial De Los Santos MD Consulting Physician: DIAGNOSIS CVA Current Vitals Temp Oral: 97.8 DegF Temp Tympanic: Temp Axillary: Temp Rectal: SPO2 : 96 % Respiratory Rate: 20 br/min Peripheral Pulse Rate: 61 bpm Apical Heart Rate: Blood Pressure: 145 mmHg / 74 mmHg Discharge Orders ??Order Name Order Details : Electronically Signed By: MEDICAL INFORMATION Allergy Info: No Known Allergies Medications: atorvastatin??(atorvastatin??40??mg??oral??tablet) 1??tab(s)??Oral??once??a??day??(at??bedtime).??Refills:??0. celecoxib??(CeleBREX??100??mg??oral??capsule) 2??cap??Oral??every??day.??Refills:??0. ezetimibe??(ezetimibe??10??mg??oral??tablet) 1??tab(s)??Oral??every??day.??Refills:??0. levETIRAcetam??(levETIRAcetam??750??mg??oral??tablet) 1??tab(s)??Oral??Two??Times??Per??Day.??Refills:??0. pantoprazole??(pantoprazole??40??mg??oral??delayed??release??tablet) 1??tab(s)??Oral??Before??breakfast.??Refills:??0. PARoxetine??(PARoxetine??10??mg??oral??tablet) 3??tab(s)??Oral??every??day.??Refills:??0. phenytoin??(Dilantin??100??mg??oral??capsule,??extended??release) 3??cap??Oral??once??a??day??(at??bedtime).??Refills:??0. senna??(senna??8.6??mg??oral??tablet) 1??tab(s)??Oral??Two??Times??Per??Day??for??14??Days.??Refills:??0. Patient Care Team Discharge Instructions: 09/27/20 15:58 WATER SERVICE SUPERVISOR Performed by Jacoby ALVARADO LCSW, Christine Updated on 09/28/20 11:15 WATER SERVICE SUPERVISOR by Jacoby ALVARADO LCSW, Christine Experimental Mechanic Electrical Discharge Instructions Discharged to: Home independently Professional Skilled Services: Occupational Therapy, Physical Therapy, Speech/Language Pathology Mode of Discharge: Ambulatory Discharge Transportation: Private vehicle Case Management DC Instructions General Discharge Instructions CM: Home with Out-pt. Speech, Occupational, Physical Therapy at [address] [phone]. Frankie[employer] [phone]. Billing questions . PRIMARY CARE PHYSICIAN APPT. DR. CASTRO ON SeptemberMonday AT 12:00PM (modified) [facility]: Dr. Rui De Los Santos Primary Care Physician: Dr. Castro MondayOctober 06 12:00PM (modified) For Questions: If you have questions regarding these instructions or if there are any changes in your discharge needs or location within 3 days of discharge, please call your [facility] Experimental Mechanic Electrical 09/29/20 12:04 WATER SERVICE SUPERVISOR Performed by Jhoan ERNST, Kt Physician Discharge Instructions MD Other Instructions: Please take all medications as prescribed and attend all follow up clinics 09/27/20 15:56 WATER SERVICE SUPERVISOR Performed by Jacoby ALVARADO LCSW, Christine Updated on 09/28/20 19:30 WATER SERVICE SUPERVISOR by Jacoby ALVARADO LCSW, Christine 09/28/20 16:04 WATER SERVICE SUPERVISOR by Brigid Medina PT 09/28/20 13:27 WATER SERVICE SUPERVISOR by Heather Weller Continuity of Care Reason for Rehabilitation Admission: [facility] Bench Examiner History: [facility] [phone]. Patient/Family Goal and Desired Outcome: Home Discharge Plan: Home with out-pt. therapies PT/OT/SP Support Network: Supportive family Emergency Contacts GRID Emergency Name-Emergency SREE ALLEN Relationship to Patient-Emergency RELATIVE Primary Phone #-Emergency [phone] Case Management Education: Out-pt. therapies DME Provider: N/A Outpatient Provider: [facility] (modified) Allergies Allergy / Reaction No Known Allergies Mobility Mobility/Transfers Grid DR6099 Roll Left and Right: Ind FH3367 Sit to Lying: Ind QH6311 Lying to Sitting on Side of Bed: Ind VT4753 Sit to Stand: Ind MX6157 Chair,Bed to Chair Transfer: Ind WI3918 Car Transfer: Ind AM3783 Walk 10 Feet: Ind IP3420 Walk 50 Feet with Two Turns: Ind OM9666 Walk 150 Feet: Ind NL4818 Walk 10 Feet Uneven Surfaces: Ind IA5402 1 Step (Curb): Ind FD8479 4 Steps: Ind EU7752 12 Steps: Ind LH2290 Picking Up Object: Ind GF1832 Patient Use Wheelchair,Scooter: No Mobility/Transfers Details Grid Mobility/Transfer Roll left and right Roll left and right Descriptor Independent Mobility/Transfer Sit to lying Sit to lying Descriptor Independent Mobility/Transfer Lying to sitting Lying to sitting Descriptor Independent Mobility/Transfer Sit to stand Sit to stand Adaptive Equipment No equipment Sit to stand Assistance Provided Verbal cues Sit to stand Type of Transfer 1 person assist Sit to stand Comments SBA Mobility/Transfer Chair/bed to shiraz piper Chair/bed to chair transfer Adapt Equip No equipment Chair/bed to chair Assistance Provided Verbal cues Chair/bed to chair transfer Type Trans 1 person assist Chair/bed to chair transfer Comments SBA Mobility/Transfer Car transfers Car transfers Adaptive Equipment No equipment Car transfers Assistance Provided Verbal cues Car transfers Type of Transfer 1 person assist Car transfers Comments SBA Mobility/Transfer Ambulat-Level Surfaces Ambulation- Level Adaptive Equipment No equipment Ambulation- Level Skilled Assist Verbal cues Ambulation- Level Transfer Assist 1 person assist Ambulation- Level Distance 1000 ft Ambulation- Level Comments SBA Mobility/Transfer Ambula-Uneven Surfaces Ambulation- Uneven Adaptive Equipment No equipment Ambulation- Uneven Skilled Assist Verbal cues Ambulation- Uneven Transfer Assist 1 person assist Ambulation- Uneven Distance 10 ft Ambulation- Uneven Comments SBA Mobility/Transfer Stairs Stairs Adaptive Equipment Rail on right Stairs Assistance Provided Verbal cues Stairs Type of Transfer 1 person assist Stairs Number of steps 24 Stairs Comments SBA Mobility/Transfer Picking Up Object Picking Up Object Descriptor Independent PT Functional Status Comments: Pt has demonstrated significant progress this week with improved ambulation distance, decreased assistance for all functional mobility, improved endurance, and improved quezada balance score from 39/56 to 48/56. Pt continues to demonstrate decreased bilat LE strength, decreased dynamic balance, and decreased endurance. Pt would benefit from continued skilled PT in the inpatient rehab setting in order to maximzie safe functional mobility. Reviewed Mobility: Yes WC Management Ability to remove seatbelt: None present DME PT Equipment Anticipated or Recommended: None PT Equipment Issued Rehab: None PT Recommendations IP Patient Impairments/Limitations-PT: Impaired gait, Balance deficits, Bed mobility deficits, Impaired activity tolerance, Transfer deficits PT Anticipated Treatments, Needs: Balance training, Basic activities of daily living, Bed mobility training, Gait training, Neuromuscular reeducation, Patient education, Stair training, Therapeutic exercises, Transfer training PT Team Notes Current: Yes Cognition/Communication [id number] Expression of Ideas and Wants: Expresses w/o difficulty & with clear speech - 4 SK1278 Understanding Verbal Content: Usually Understands - 3 Cogntive Functional Status Grid ANALYTICAL LEAD Attention - ANALYTICAL LEAD: Usually Independent Short Term Memory - ANALYTICAL LEAD: Independent Safety Awareness/Insight - ANALYTICAL LEAD: Usually Independent Simple Problem Solving - ANALYTICAL LEAD: Independent Complex Problem Solving - ANALYTICAL LEAD: Usually Independent Orientation Grid Person: Independent Place: Independent Time: Usually Independent Situation: Independent Biographical Information: Independent Diet Type: Diet -- 09/16/20 11:20:00 WATER SERVICE SUPERVISOR, Texture: Level 7 - Regular, Restrictions: No Restrictions Swallowing progress towards goals: barriers: attention is main barrier to complex PS for IADLs, reduced mental flexibility impacting use of strategies Swallow recommendations/summary: skilled ST targeting further ax/tx of cognition, including STM, PS, and executive functioning for return to PLOF ANALYTICAL LEAD Recommendations Planned ANALYTICAL LEAD Treatment, Needs: Cognitive-communication, Family and caregiver education, Group therapy, Home exercise program, Social interaction, Verbal expression ANALYTICAL LEAD Progress Note Current: Yes 09/28/20 16:04 WATER SERVICE SUPERVISOR Performed by Brigid Medina PT Physical Therapy Discharge Instructions Safety and Weight Bearing: You can bear full weight on your legs Safety and Wt Bearing Special Inst: Keep up the hard work Edin! In outpatient be sure to continue to work on your endurance, balance, and dual tasking. Getting In and Out of Bed: You can get in and out of bed independently On Level Surfaces Indoors: You can walk or use a wheelchair independently On Pavement Outdoors: You can walk or use a wheelchair independently On Curbs: You can walk or use a wheelchair independently On Stairs: You can walk independently Stairs Special Instructions: Be sure to take your time and use a handrail PT Home Program: Continue with your exercises provided to you during your stay 09/28/20 11:31 WATER SERVICE SUPERVISOR Performed by Antolin Pierce Occupational Therapy Discharge Instructions OT Safety and Weight Bearing: Follow safety instructions/precautions provided to you during your stay, You can bear full weight on your hands/arms, You should put as much weight on your arms/hands as you can comfortably tolerate Special Instructionss/Equipment: Bathing, Dressing Equipment Special Instructions: Bathe and dress yourself as much as you can while seated frequent rest breaks. Getting on and off a toilet: You can get on and off the toilet independently Getting In and Out of a Tub/Shower: You can get in and out of a tub/shower independently Driving: Consult your physician about driving OT Home Program: Continue with your exercises provided to you during your stay 09/28/20 13:27 WATER SERVICE SUPERVISOR Performed by Heather Weller Speech Therapy Discharge Instructions Solids: Regular consistency Liquids: Thin liquid Communication Recommendations Text: When attempting complicated cognitive tasks, make sure you get rid of distractions before starting. These include external distractions, like noise, people, and TV, and internal distractions, like pain, hunger, and worries. Take your time when completing complicated tasks and break them down into smaller steps if necessary. Plan out how you're going to complete the task before you start. When completing it, keep track of your work by crossing off completed steps on a to-do list, taking notes, etc. Make sure to check over your work when you're done. To Safety Considerations: Have someone assist you with daily finances, Have someone assist you with your medications ST Home Program: Continue with your exercises which were provided to you during your stay 09/29/20 11:15 WATER SERVICE SUPERVISOR Performed by Vicky Garsia RN Medical/Nursing Discharge Instructions When to Call Your Doctor: Numbness or weakness of the face, arms, or legs, especially on one side, Confusion or trouble speaking or understanding, Trouble walking, dizziness, loss of balance or coordination, Severe headache with no known cause, Unexplained Shortness of Breath, Fall 09/17/20 15:01 WATER SERVICE SUPERVISOR Performed by Son HERNANDEZ, Deborah MISHRA Dietary Discharge Instructions Dietary Information: Recommend following a general healthy diet Make half of your plate vegetables and fruit. Include a lean protein with meals. Focus on healthy fats from nuts, seeds, and olive oil. Make at least half of all grains whole grain. Minimize processed foods and sugar sweetened beverages. PATIENT FOLLOW-UP INFORMATION With: Address: When: 10/16/2020 12:25 PM Edin Clayton MD [facility] [address] [place] [address] [address] Office With: Address: When: 10/16/2020 9:20 AM LOCATED WITHIN [facility] BCT4 [facility] Radiology [address] [place] [address] 3rd floor [phone] With: Address: When: Primary Care Physician Appt. with Dr. Castro on October 06Monday at 12:00pm [address] [place], [place] Medications amLODIPine 10 mg = 1 tab, Tab, Oral, Start date 09/29/20 9:00:00 WATER SERVICE SUPERVISOR, 09/16/20 11:20:00 WATER SERVICE SUPERVISOR Start Date: 09/29/20 Stop Date: 09/29/20 Status: Completed atorvastatin 40 mg oral tablet 40 mg = 1 tab, Tab, Oral, QHS, 30 tab, 0 Refill(s), Route to Pharmacy Electronically, [facility] #[id number], 178, 09/23/20 16:22:00 WATER SERVICE SUPERVISOR, Height/Length Dosing, cm, 81.9, 09/23/20 16:22:00 WATER SERVICE SUPERVISOR, Weight Dosing, kg Start Date: 09/28/20 Status: Ordered CeleBREX 100 mg oral capsule 200 mg = 2 cap, Cap, Oral, Daily, 60 cap, 0 Refill(s), Route to Pharmacy Electronically, [facility] #[id number], 178, 09/23/20 16:22:00 WATER SERVICE SUPERVISOR, Height/Length Dosing, cm, 81.9, 09/23/20 16:22:00 WATER SERVICE SUPERVISOR, Weight Dosing, kg Start Date: 09/28/20 Status: Ordered Dilantin 100 mg oral capsule, extended release 300 mg = 3 cap, Cap-ER, Oral, QHS, 90 cap, 0 Refill(s), Route to Pharmacy Electronically, [facility] #[id number], 178, 09/23/20 16:22:00 WATER SERVICE SUPERVISOR, Height/Length Dosing, cm, 81.9, 09/23/20 16:22:00 WATER SERVICE SUPERVISOR, Weight Dosing, kg Start Date: 09/28/20 Status: Ordered ezetimibe 10 mg oral tablet 10 mg = 1 tab, Tab, Oral, Daily, 30 tab, 0 Refill(s), Route to Pharmacy Electronically, [facility] #[id number], 178, 09/23/20 16:22:00 WATER SERVICE SUPERVISOR, Height/Length Dosing, cm, 81.9, 09/23/20 16:22:00 WATER SERVICE SUPERVISOR,Weight Dosing, kg Start Date: 09/28/20 Status: Ordered levETIRAcetam 750 mg oral tablet 750 mg = 1 tab, Tab, Oral, BID, 60 tab, 0 Refill(s), Route to Pharmacy Electronically, [facility] #[id number], 178, 09/23/20 16:22:00 WATER SERVICE SUPERVISOR, Height/Length Dosing, cm, 81.9, 09/23/20 16:22:00 WATER SERVICE SUPERVISOR, Weight Dosing, kg Start Date: 09/28/20 Status: Ordered pantoprazole 40 mg oral delayed release tablet 40 mg = 1 tab, Tab-DR, Oral, Before breakfast, 30 tab, 0 Refill(s), Route to Pharmacy Electronically, [facility] #[id number], 178, 09/23/20 16:22:00 WATER SERVICE SUPERVISOR, Height/Length Dosing, cm, 81.9, 09/23/2115:22:00 WATER SERVICE SUPERVISOR, Weight Dosing, kg Start Date: 09/28/20 Status: Ordered PARoxetine 10 mg oral tablet 30 mg = 3 tab, Tab, Oral, Daily, 90 tab, 0 Refill(s), Route to Pharmacy Electronically, [facility] #[id number], 178, 09/23/20 16:22:00 WATER SERVICE SUPERVISOR, Height/Length Dosing, cm, 81.9, 09/23/20 16:22:00 WATER SERVICE SUPERVISOR,Weight Dosing, kg Start Date: 09/28/20 Status: Ordered senna 8.6 mg oral tablet 8.6 mg = 1 tab, Tab, Oral, BID, 28 tab, 0 Refill(s), Dispense: 14 day, Stop date 10/12/20 16:48:00 CDT, Route to Pharmacy Electronically, [facility] #[id number], 178, 09/23/20 16:22:00 WATER SERVICE SUPERVISOR, Height/Length Dosing, cm, 81.9, 09/23/20 16:22:00 WATER SERVICE SUPERVISOR, W... 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 IADL - Instrumental activiti es of daily living(Confirmed) Active 1Problem added by Discern Expert Rule: EBN_VTERISKPROB_3 Results Laboratory List Name Date Diff Auto - BJ/BSP (DiffAuto) 09/29/20 Comp Metabolic Panel CS, Pl - BJ 09/29/20 Complete Blood Count w/Diff - BJ 09/29/20 Glucose CS - BJ 09/29/20 Comp Metabolic Panel CS, Pl - BJ 09/25/20 Complete Blood Count w/Diff - BJ 09/25/20 Glucose CS - BJ 09/25/20 Diff Auto - BJ/BSP (DiffAuto) 09/25/20 Comp Metabolic Panel CS, Pl - BJ 09/22/20 Complete Blood Count w/Diff - BJ 09/22/20 Glucose CS - BJ 09/22/20 Diff Auto - BJ/BSP (DiffAuto) 09/22/20 Manual Differential - BJ (ManDiff) Vitamin D 25 Hydroxy - BJ 09/17/20 Glucose, POC 09/17/20 Glucose, POC 09/16/20 Most recent to oldest [Reference Range]: 1 2 3 Creatinine Level 0.92 mg/dL *NA* (09/29/20 4:59 AM) 0.86 mg/dL *NA* (09/25/20 6:27 AM) 0.86 mg/dL *NA* (09/22/20 5:13 AM) Differential - BJ Manual *NA* (09/17/20 6:50 AM) Estimated Creatinine Clearance 68.10 mL/min (09/29/20 6:58 AM) 68.10 mL/min (09/25/20 10:11 AM) 68.10 mL/min (09/23/20 4:22 PM) Glucose POC RALS [74-106 mg/dL] 110 mg/dL *HI* (09/17/20 6:39 AM) 108 mg/dL *HI* (09/16/20 9:25 PM) Neutrophils % Auto - BJ 36.3 % 1 *NA* (09/29/20 4:59 AM) 42.3 % 2 *NA* (09/25/20 6:27 AM) 35.6 % 3 *NA* (09/22/20 5:13 AM) Monocytes Abs Auto - BJ [0.2-0.8 thousand/mm3] 0.2 thousand/mm3 *NA* (09/29/20 4:59 AM) 0.3 thousand/mm3 *NA* (09/25/20 6:27 AM) 0.2 thousand/mm3 *NA* (09/22/20 5:13 AM) Anion Gap - BJ [2-15 mmol/L] 6 mmol/L *NA* (09/29/20 4:59 AM) 6 mmol/L *NA* (09/25/20 6:27 AM) 6 mmol/L *NA* (09/22/20 5:13 AM) Vitamin D 25 Hydroxy - BJ [30-80 ng/mL] 6 ng/mL 4 *LOW* (09/17/20 6:50 AM) Eosinophils % Auto - BJ 4.5 % 5 *NA* (09/29/20 4:59 AM) 4.1 % 6 *NA* (09/25/20 6:27 AM) 5.4 % 7 *NA* (09/22/20 5:13 AM) ALT - BJ [7-55 units/L] 10 units/L 8 *NA* (09/29/20 4:59 AM) 12 units/L 9 *NA* (09/25/20 6:27 AM) 11 units/L 10 *NA* (09/22/20 5:13 AM) Neutrophils Abs Auto - BJ [1.7-6.5 thousand/mm3] 0.6 thousand/mm3 *LOW* (09/29/20 4:59 AM) 0.7 thousand/mm3 *LOW* (09/25/20 6:27 AM) 0.6 thousand/mm3 *LOW* (09/22/20 5:13 AM) Lymphocytes Abs Auto - BJ [0.8-3.3 thousand/mm3] 0.7 thousand/mm3 *LOW* (09/29/20 4:59 AM) 0.6 thousand/mm3 *LOW* (09/25/20 6:27 AM) 0.7 thousand/mm3 *LOW* (09/22/20 5:13 AM) Hemoglobin - BJ [13.0-17.5 g/dL] 10.3 g/dL *LOW* (09/29/20 4:59 AM) 10.6 g/dL *LOW* (09/25/20 6:27 AM) 10.1 g/dL *LOW* (09/22/20 5:13 AM) Basophils Abs Auto - BJ [0.0-0.1 thousand/mm3] 0.0 thousand/mm3 *NA* (09/29/20 4:59 AM) 0.0 thousand/mm3 *NA* (09/25/20 6:27 AM) 0.0 thousand/mm3 *NA* (09/22/20 5:13 AM) Chloride - BJ [97-110 mmol/L] 108 mmol/L *NA* (09/29/20 4:59 AM) 108 mmol/L *NA* (09/25/20 6:27 AM) 109 mmol/L *NA* (09/22/20 5:13 AM) Calcium - BJ [8.5-10.3 mg/dL] 8.9 mg/dL *NA* (09/29/20 4:59 AM) 9.1 mg/dL *NA* (09/25/20 6:27 AM) 8.9 mg/dL *NA* (09/22/20 5:13 AM) Platelets - BJ [150-400 thousand/mm3] 182 thousand/mm3 *NA* (09/29/20 4:59 AM) 191 thousand/mm3 *NA* (09/25/20 6:27 AM) 220 thousand/mm3 *NA* (09/22/20 5:13 AM) Sodium - BJ [135-145 mmol/L] 141 mmol/L *NA* (09/29/20 4:59 AM) 141 mmol/L *NA* (09/25/20 6:27 AM) 140 mmol/L *NA* (09/22/20 5:13 AM) Monocytes % Auto - BJ 14.0 % 11 *NA* (09/29/20 4:59 AM) 17.1 % 12 *NA* (09/25/20 6:27 AM) 14.3 % 13 *NA* (09/22/20 5:13 AM) Eosinophils Abs Auto - BJ [0.0-0.5 thousand/mm3] 0.1 thousand/mm3 *NA* (09/29/20 4:59 AM) 0.1 thousand/mm3 *NA* (09/25/20 6:27 AM) 0.1 thousand/mm3 *NA* (09/22/20 5:13 AM) MCHC - BJ [32.3-35.7 g/dL] 33.1 g/dL *NA* (09/29/20 4:59 AM) 33.3 g/dL *NA* (09/25/20 6:27 AM) 33.8 g/dL *NA* (09/22/20 5:13 AM) MPV - BJ [9.1-12.3 fL] 9.5 fL *NA* (09/29/20 4:59 AM) 9.9 fL *NA* (09/25/20 6:27 AM) 10.0 fL *NA* (09/22/20 5:13 AM) MCV - BJ [81.3-96.4 fL] 108.4 fL *HI* (09/29/20 4:59 AM) 109.3 fL *HI* (09/25/20 6:27 AM) 107.6 fL *HI* (09/22/20 5:13 AM) MCH - BJ [27.1-33.3 pg] 35.9 pg *HI* (09/29/20 4:59 AM) 36.4 pg *HI* (09/25/20 6:27 AM) 36.3 pg *HI* (09/22/20 5:13 AM) Potassium, Plasma - BJ [3.3-4.9 mmol/L] 4.2 mmol/L *NA* (09/29/20 4:59 AM) 3.7 mmol/L *NA* (09/25/20 6:27 AM) 3.6 mmol/L *NA* (09/22/20 5:13 AM) Creatinine - BJ [0.80-1.30 mg/dL] 0.92 mg/dL *NA* (09/29/20 4:59 AM) 0.86 mg/dL *NA* (09/25/20 6:27 AM) 0.86 mg/dL *NA* (09/22/20 5:13 AM) RBC - BJ [4.30-5.80 m/mm3] 2.87 m/mm3 *LOW* (09/29/20 4:59 AM) 2.91 m/mm3 *LOW* (09/25/20 6:27 AM) 2.78 m/mm3 *LOW* (09/22/20 5:13 AM) BUN - BJ [8-25 mg/dL] 14 mg/dL *NA* (09/29/20 4:59 AM) 10 mg/dL *NA* (09/25/20 6:27 AM) 11 mg/dL *NA* (09/22/20 5:13 AM) Lymphocytes % Auto - BJ 43.3 % 14 *NA* (09/29/20 4:59 AM) 34.7 % 15 *NA* (09/25/20 6:27 AM) 42.3 % 16 *NA* (09/22/20 5:13 AM) Albumin - BJ [3.5-5.0 g/dL] 3.8 g/dL *NA* (09/29/20 4:59 AM) 3.9 g/dL *NA* (09/25/20 6:27 AM) 3.7 g/dL *NA* (09/22/20 5:13 AM) Carbon Dioxide - BJ [22-32 mmol/L] 27 mmol/L *NA* (09/29/20 4:59 AM) 27 mmol/L *NA* (09/25/20 6:27 AM) 25 mmol/L *NA* (09/22/20 5:13 AM) Hematocrit - BJ [38.9-50.3 %] 31.1 % *LOW* (09/29/20 4:59 AM) 31.8 % *LOW* (09/25/20 6:27 AM) 29.9 % *LOW* (09/22/20 5:13 AM) Basophils % Auto - BJ 1.3 % 17 *NA* (09/29/20 4:59 AM) 1.2 % 18 *NA* (09/25/20 6:27 AM) 1.2 % 19 *NA* (09/22/20 5:13 AM) Protein, Plasma - BJ [6.5-8.5 g/dL] 7.3 g/dL *NA* (09/29/20 4:59 AM) 7.5 g/dL *NA* (09/25/20 6:27 AM) 7.5 g/dL *NA* (09/22/20 5:13 AM) WBC - BJ [3.8-9.9 thousand/mm3] 1.6 thousand/mm3 *LOW* (09/29/20 4:59 AM) 1.7 thousand/mm3 *LOW* (09/25/20 6:27 AM) 1.7 thousand/mm3 *LOW* (09/22/20 5:13 AM) AST - BJ [10-50 units/L] 14 units/L *NA* (09/29/20 4:59 AM) 12 units/L *NA* (09/25/20 6:27 AM) 15 units/L *NA* (09/22/20 5:13 AM) Bilirubin, Total - BJ [0.1-1.2 mg/dL] 0.2 mg/dL *NA* (09/29/20 4:59 AM) 0.3 mg/dL *NA* (09/25/20 6:27 AM) 0.2 mg/dL *NA* (09/22/20 5:13 AM) Glucose - BJ [70-199 mg/dL] 84 mg/dL 20 *NA* (09/29/20 4:59 AM) 93 mg/dL 21 *NA* (09/25/20 6:27 AM) 91 mg/dL 22 *NA* (09/22/20 5:13 AM) Alkaline Phosphatase - BJ [40-130 units/L] 132 units/L *HI* (09/29/20 4:59 AM) 149 units/L *HI* (09/25/20 6:27 AM) 144 units/L *HI* (09/22/20 5:13 AM) RDW CV - BJ [11.1-14.9 %] 14.2 % *NA* (09/29/20 4:59 AM) 14.3 % *NA* (09/25/20 6:27 AM) 14.0 % *NA* (09/22/20 5:13 AM) RDW SD - BJ [35.7-48.1 fL] 56.7 fL *HI* (09/29/20 4:59 AM) 57.1 fL *HI* (09/25/20 6:27 AM) 54.4 fL *HI* (09/22/20 5:13 AM) N RBC Abs Auto - BJ [0.00-0.01 thousand/mm3] 0.00 thousand/mm3 23 *NA* (09/29/20 4:59 AM) 0.00 thousand/mm3 24 *NA* (09/25/20 6:27 AM) 0.00 thousand/mm3 25 *NA* (09/22/20 5:13 AM) Imm Gran Abs Auto - BJ [0.0-0.1 thousand/mm3] 0.0 thousand/mm3 *NA* (09/29/20 4:59 AM) 0.0 thousand/mm3 *NA* (09/25/20 6:27 AM) 0.0 thousand/mm3 *NA* (09/22/20 5:13 AM) Imm Gran % Auto - BJ 0.6 % 26 *NA* (09/29/20 4:59 AM) 0.6 % 27 *NA* (09/25/20 6:27 AM) 1.2 % 28 *NA* (09/22/20 5:13 AM) Cells Diffed - BJ 113 *NA* (09/17/20 6:50 AM) 1Result Comment: Interpretive Data Percent cell count reference ranges are not reported, since discordance with absolute values may lead to misinterpretation of CBC data. Current Interpretive Data was last revised on 2017. 2Result Comment: Interpretive Data Percent cell count reference ranges are not reported, since discordance with absolute values may lead to misinterpretation of CBC data. Current Interpretive Data was last revised on 2017. 3Result Comment: Interpretive Data Percent cell count reference ranges are not reported, since discordance with absolute values may lead to misinterpretation of CBC data. Current Interpretive Data was last revised on 2017. 4Result Comment: [place] [address] (CLIA ID: [id number]) Lab Spoilage Worker: Nahum Pradhan M.D. 5Result Comment: Interpretive Data Percent cell count reference ranges are not reported, since discordance with absolute values may lead to misinterpretation of CBC data. Current Interpretive Data was last revised on 2017. 6Result Comment: Interpretive Data Percent cell count reference ranges are not reported, since discordance with absolute values may lead to misinterpretation of CBC data. Current Interpretive Data was last revised on 2017. 7Result Comment: Interpretive Data Percent cell count reference ranges are not reported, since discordance with absolute values may lead to misinterpretation of CBC data. Current Interpretive Data was last revised on 2017. 8Result Comment: [place] [address] (CLIA ID: [id number]) Lab Spoilage Worker: Nahum Pradhan M.D. 9Result Comment: [place] [address] (CLIA ID: [id number]) Lab Spoilage Worker: Nahum Pradhan M.D. 10Result Comment: [place] [address] (CLIA ID: [id number]) Lab Spoilage Worker: Nahum Pradhan M.D. 11Result Comment: Interpretive Data Percent cell count reference ranges are not reported, since discordance with absolute values may lead to misinterpretation of CBC data. Current Interpretive Data was last revised on 2017. 12Result Comment: Interpretive Data Percent cell count reference ranges are not reported, since discordance with absolute values may lead to misinterpretation of CBC data. Current Interpretive Data was last revised on 2017. 13Result Comment: Interpretive Data Percent cell count reference ranges are not reported, since discordance with absolute values may lead to misinterpretation of CBC data. Current Interpretive Data was last revised on 2017. 14Result Comment: Interpretive Data Percent cell count reference ranges are not reported, since discordance with absolute values may lead to misinterpretation of CBC data. Current Interpretive Data was last revised on 2017. 15Result Comment: Interpretive Data Percent cell count reference ranges are not reported, since discordance with absolute values may lead to misinterpretation of CBC data. Current Interpretive Data was last revised on 2017. 16Result Comment: Interpretive Data Percent cell count reference ranges are not reported, since discordance with absolute values may lead to misinterpretation of CBC data. Current Interpretive Data was last revised on 2017. 17Result Comment: Interpretive Data Percent cell count reference ranges are not reported, since discordance with absolute values may lead to misinterpretation of CBC data. Current Interpretive Data was last revised on 2017. [place] [address] (CLIA ID: [id number]) Lab Spoilage Worker: Nahum Pradhan M.D. 18Result Comment: Interpretive Data Percent cell count reference ranges are not reported, since discordance with absolute values may lead to misinterpretation of CBC data. Current Interpretive Data was last revised on 2017. [place] [address] (CLIA ID: [id number]) Lab Spoilage Worker: Nahum Prdahan M.D. 19Result Comment: Interpretive Data Percent cell count reference ranges are not reported, since discordance with absolute values may lead to misinterpretation of CBC data. Current Interpretive Data was last revised on 2017. [place] [address] (CLIA ID: [id number]) Lab Spoilage Worker: Nahum Pradhan M.D. 20Result Comment: Interpretive Data Fasting glucose >/= 126 mg/dl is diagnostic for diabetes. Fasting is defined as no caloric intake for at least 8 hours. Fasting glucose between 100 mg/dl to 125 mg/dl is diagnostic of prediabetes. In a patient with classic symptoms of hyperglycemia or hyperglycemic crisis, a random glucose >/= 200 mg/dl is diagnostic for diabetes. In the absence of unequivocal hyperglycemia, results should be confirmed by repeat testing. The classification and Diagnosis of Diabetes Diabetes Care 2017;40 (Suppl. 1):S11. Current interpretive data was last revised 2017. [place] [address] (CLIA ID: [id number]) Lab Spoilage Worker: Nahum Pradhan M.D. 21Result Comment: Interpretive Data Fasting glucose >/= 126 mg/dl is diagnostic for diabetes. Fasting is defined as no caloric intake for at least 8 hours. Fasting glucose between 100 mg/dl to 125 mg/dl is diagnostic of prediabetes. In a patient with classic symptoms of hyperglycemia or hyperglycemic crisis, a random glucose >/= 200 mg/dl is diagnostic for diabetes. In the absence of unequivocal hyperglycemia, results should be confirmed by repeat testing. The classification and Diagnosis of Diabetes Diabetes Care 2017;40 (Suppl. 1):S11. Current interpretive data was last revised 2017. [place] [address] (CLIA ID: [id number]) Lab Spoilage Worker: Nahum Pradhan M.D. 22Result Comment: Interpretive Data Fasting glucose >/= 126 mg/dl is diagnostic for diabetes. Fasting is defined as no caloric intake for at least 8 hours. Fasting glucose between 100 mg/dl to 125 mg/dl is diagnostic of prediabetes. In a patient with classic symptoms of hyperglycemia or hyperglycemic crisis, a random glucose >/= 200 mg/dl is diagnostic for diabetes. In the absence of unequivocal hyperglycemia, results should be confirmed by repeat testing. The classification and Diagnosis of Diabetes Diabetes Care 2017;40 (Suppl. 1):S11. Current interpretive data was last revised 2017. Testing [place] [address] (CLIA ID: [id number]) Lab Spoilage Worker: Nahum Pradhan M.D. 23Result Comment: Testing [place] [address] (CLIA ID: [id number]) Lab Spoilage Worker: Nahum Pradhan M.D. 24Result Comment: [place] [address] (CLIA ID: [id number]) Lab Spoilage Worker: Nahum Pradhan M.D. 25Result Comment: [place] [address] (CLIA ID: [id number]) Lab Spoilage Worker: Nahum Pradhan M.D. 26Result Comment: Interpretive Data Percent cell count reference ranges are not reported, since discordance with absolute values may lead to misinterpretation of CBC data. Current Interpretive Data was last revised on 2017. 27Result Comment: Interpretive Data Percent cell count reference ranges are not reported, since discordance with absolute values may lead to misinterpretation of CBC data. Current Interpretive Data was last revised on 2017. 28Result Comment: Interpretive Data Percent cell count reference ranges are not reported, since discordance with absolute values may lead to misinterpretation of CBC data. Current Interpretive Data was last revised on 2017. Vital Signs Most recent to oldest [Reference Range]: 1 2 3 Temperature Oral F [96.4-99.1 DegF] 97.8 DegF (09/29/20 7:05 AM) 98.1 DegF (09/28/20 10:47 PM) 98.0 DegF (09/28/20 5:26 PM) Peripheral Pulse Rate [60-100 bpm] 61 bpm (09/29/20 8:54 AM) 57 bpm *LOW* (09/29/20 7:09 AM) 59 bpm *LOW* (09/28/20 10:47 PM) Respiratory Rate [14-20 br/min] 20 br/min (09/28/20 10:47 PM) 18 br/min (09/28/20 6:13 AM) 18 br/min (09/27/20 5:31 PM) Blood Pressure [90-140/60-90 mmHg] 145/74mmHg *HI* (09/29/20 8:54 AM) 145/74mmHg *HI* (09/29/20 8:48 AM) 156/75mmHg *HI* (09/29/20 7:04 AM) Mean Arterial Pressure, Cuff 98 mmHg (09/29/20 8:48 AM) 102 mmHg (09/29/20 7:04 AM) 110 mmHg (09/28/20 6:13 AM) Extremity used to obtain blood pressure Left Arm (09/27/20 5:31 PM) Left Arm (09/27/20 2:01 PM) Left Arm (09/27/20 5:00 AM) Cuff Size. Large (09/27/20 5:00 AM) Medium (09/25/20 8:43 AM) Medium (09/24/20 8:47 AM) Diastolic Blood Pressure with Activity [60-90 mmHg] 89 mmHg (09/17/20 11:15 AM) Peripheral Pulse Rate with Activity [60-100 bpm] 70 bpm (09/17/20 11:15 AM) Systolic Blood Pressure with Activity [90-140 mmHg] 177 mmHg *HI* (09/17/20 11:15 AM) SpO2 with Activity [94-100 %] 99 % (09/17/20 11:15 AM) Temperature Oral 36.6 DegC 1 (09/29/20 7:05 AM) 36.3 DegC 2 (09/27/20 7:20 PM) Temperature Oral [35.8-37.3 DegC] 36.4 DegC (09/27/20 5:31 PM) 1Result Comment: Charted by SYSTEM secondary to charting of Temperature Oral F on a Vitals Monitor. Rule: VITALSLINK_CALCULATIONS_2 2Result Comment: Charted by SYSTEM secondary to charting of Temperature Oral F on a Vitals Monitor. Rule: VITALSLINK_CALCULATIONS_2
[2024-07-15 02:03] LABS: Phenytoin Dilantin Free <0.5 mg/L (1.0-2.0)
== END 2024-07-11 12:22 | disposition home or self-care (01) ==
LOC: ANHLAB 12:22
PROVIDERS: PCP Internal Medicine; Visit Provider Internal Medicine
DX: R56.9 Unspecified convulsions (principal); Z79.899 Other long term (current) drug therapy
CPT/HCPCS: 36415; 80186

== ENCOUNTER 2024-08-25 14:37 | Inpatient (IN) | payer MEDICARE, SELFPAY ==
[2024-08-25] VITALS (15 sets, daily range): BP systolic 144–196; BP diastolic 72–131; PULSE 77–101; RESP 8–32; TEMP 36.4–36.7; O2SAT 86–100; BMI 22.3
--- NOTE | ~2024-08-25 | CT_ITS ---
EXAMINATION: CT chest abdomen pelvis wo con DATE: 09/02/2024 21:16 INDICATION: assess for metastatic disease . TECHNIQUE: Computed tomography (CT) of the chest, abdomen, and pelvis was performed with 100 mL Omnip aque-350 intravenous contrast. Automated exposure control and iterative reconstruction technique were employed. The dose-length product was 654.03 mGy-cm. COMPARISON: 11/24/2022 FINDINGS: CHEST: Thoracic aorta: No significant dilation. No dissection. Lung parenchyma and airways: Moderate peripheral and basilar ground glass and reticular opacities, wi th hyperdense tree-in-bud like opacities. Thoracic inlet, axillae and chest wall: No thyroid mass. Minimal symmetric bilateral gynecomastia. No axillary lymphadenopathy. Mediastinum: No mass or lymphadenopathy. Calcified nodes. Heart and pericardium: Normal heart size. No pericardial effusion. Coronary artery calcifications: Moderate. Pleura: No effusion or mass. Thoracic bones: No acute osseous finding in the chest. ABDOMEN/PELVIS: Liver: Normal. Biliary/Gallbladder: Gallbladder is normal. No bile duct dilation. Pancreas: No mass or duct dilation. Spleen: Normal. Adrenals:No mass. Kidneys: No suspicious mass, obstructing stone, or hydronephrosis. GI tract: Uncomplicated appearing rectosigmoid anastomosis. No small or large bowel dilation. Normal appendix. Mesentery/Peritoneum: No ascites, mass, or free air. Retroperitoneum: No mass Atherosclerotic calcifications of intra-abdominal arterial vessels. Pelvis: Normal urinary bladder. Prostatomegaly. Soft Tissues: Soft tissues and body wall unremarkable. Abdominopelvic bones: No acute osseous finding in the abdomen/pelvis. IMPRESSION: Chronic bibasilar interstitial changes, with hyperdense tree-in-bud opacities likely representing chr onic interstitial/aspiration changes, with interval progression. No acute process detected in the chest, abdomen, or pelvis. No CT evidence of metastatic disease in this noncontrast examination. Reviewed, dictated and finalized at location K. ION CONTROL SPECIALIST IMPRESSION: Chronic bibasilar interstitial changes, with hyperdense tree-in-bud opacities l ikely representing chronic interstitial/aspiration changes, with interval progr ession. No acute process detected in the chest, abdomen, or pelvis. No CT evidence of metastatic disease in this noncontrast examination.
--- NOTE | ~2024-08-25 | CT_ITS ---
EXAMINATION: CT cervical spine wo con DATE: 08/25/2024 15:49 INDICATION: fall TECHNIQUE: Computed tomography (CT) of the cervical spine was performed without intravenous contrast. Automated exposure control and iterative reconstruction technique were employed. The dose-length pro duct was 320.50 mGy-cm. COMPARISON: 01/19/2023. FINDINGS: Vertebral Body Alignment: Stable trace retrolisthesis at C3-4. Craniocervical and atlantoaxial alignment: Moderate degenerative change. Alignment intact. Osseous structures/fracture: No evidence of a lytic or blastic process in the visualized spine. No e vidence of acute fracture. Old stable superior end plate deformities in the lateral aspects of C3 and C4. Cervical soft tissues: The paraspinal soft tissues planes are maintained. Degenerative changes: Multilevel degenerative disc disease and facet arthropathy. Severe left neural foraminal narrowing at C3-4 secondary to degenerative changes. No severe central canal narrowing. IMPRESSION: No acute fracture or traumatic malalignment in the cervical spine. Reviewed, dictated and finalized at location K. ARY TECHNICIAN
--- NOTE | ~2024-08-25 | XR_ITS ---
EXAMINATION: XR lumbar spine 2-3V DATE: 08/30/2024 12:46 INDICATION: Left-sided low back pain. TECHNIQUE: 3 views of lumbar spine were obtained. COMPARISON: Lumbar spine CT 08/30/2024 FINDINGS: Alignment is normal. There is mild chronic height loss of L3 and L5 vertebral bodies. There is mildly decreased disc height at L2-L3. There is multilevel mild facet joint osteoarthritis. There are surgical clips in the pelvis. IMPRESSION: 1. Mild lumbar spondylosis. Reviewed, dictated and finalized at location A. SCAPE ARCHITECT AND PLANNER IMPRESSION: 1. Mild lumbar spondylosis.
--- NOTE | ~2024-08-25 | CT_ITS ---
EXAMINATION: CT brain wo con DATE: 08/25/2024 15:49 INDICATION: fall . TECHNIQUE: Computed tomography (CT) of the head was performed without intravenous contrast. The mA wa s adjusted according to patient size. Iterative reconstruction technique was employed. The dose-lengt h product was 681.00 mGy-cm. COMPARISON: 01/17/2023; MR brain 01/04/2024. FINDINGS: No acute intracranial hemorrhage or extra-axial fluid collection. Hemispheric, dural based mass measuring 2.6 cm in the left hemisphere near the vertex, no significant interval change, likely meningioma. No hydrocephalus or herniation. No acute ischemic infarct. Unremarkable dural venous sinus attenuation. No acute osseous abnormality. Left craniotomy defect. Aerated secretions in the frontal ethmoid and left sphenoid sinuses, nodular mucosal thickening throu ghout the paranasal sinuses, retention cysts/polyps in the left maxillary sinus, trace right mastoid fluid with middle ear fluid/debris. Moderate atrophy and chronic white matter change. Atherosclerotic intracranial calcification. Stable right frontal and temporal encephalomalacia and dystrophic calcification. Focal old left basal gangli a lacunar infarct. IMPRESSION: No acute intracranial process. CT findings suggestive of acute frontal, ethmoid, and left sphenoid sinusitis. Trace fluid in the right mastoid air cells and trace fluid/debris in the right middle ear space, or[place] elate for clinical findings of otomastoiditis. Reviewed, dictated and finalized at location K. OUT NANNY IMPRESSION: No acute intracranial process. CT findings suggestive of acute frontal, ethmoid, and left sphenoid sinusitis. Trace fluid in the right mastoid air cells and trace fluid/debris in the right middle ear space, correlate for clinical findings of otomastoiditis.
--- NOTE | ~2024-08-25 | XR_ITS ---
MODIFIED ESOPHAGRAM HISTORY: Evaluate swallowing TECHNIQUE: Modified barium esophagram was performed on 09/12/2024. I administered fluoroscopy and perf ormed the exam with speech pathologist. Patient was seated for lateral fluoroscopic imaging for kat stion of thin liquids, pudding, solids and quantified amounts, followed by thin liquids in uncontroll ed amounts. This was recorded on tape. 2 fluoroscopic spot images were also recorded. The DAP for thi s procedure was 3.172 Gycm2. The amount of fluoroscopy time used during this procedure was 4.4 minute s. FINDINGS: Oral stage: Adequate function. Pharyngeal stage: Reduced laryngeal elevation and tongue base retraction. There is vallecular, pirifo rm sinus and pharyngeal wall residue. There is laryngeal penetration with silent aspiration of trace amounts of contrast secondary to spillover after the swallow from residue in the piriform sinus. Cervical/esophageal stage: Adequate function. IMPRESSION: Pharyngeal dysphagia with silent aspiration trace amount of fluid from the piriform sinus after the swallow. Please correlate with speech pathologist findings and specific feeding recommend ations. Reviewed, dictated and finalized at location A. AGE MAN IMPRESSION: Pharyngeal dysphagia with silent aspiration trace amount of fluid f rom the piriform sinus after the swallow. Please correlate with speech patholo gist findings and specific feeding recommendations.
--- NOTE | ~2024-08-25 | XR_ITS ---
EXAMINATION: XR femur RT min 2V DATE: 08/28/2024 10:39 INDICATION: Right-sided femoral pain post fall TECHNIQUE: AP and lateral views of the right femur were obtained on overlapping proximal and distal i mages. COMPARISON: None. FINDINGS: Bone alignment is normal. No fractures. Mild to moderate osteoarthritis at the right hip. Chondrocalc inosis at the medial lateral compartments of the right knee. The joint space at the right knee appear otherwise unremarkable on nonweightbearing imaging. No evident right knee joint effusion. Surgical c lips and anastomotic suture line in the central pelvis. IMPRESSION: 1. No acute osseous abnormality. Reviewed, dictated and finalized at location B. IRATORY THERAPY TECHNICIAN
--- NOTE | ~2024-08-25 | XR_ITS ---
EXAMINATION: XR chest 1V portable Exam Date/Time: 08/25/2024 15:12 HEALTH TEACHER HISTORY: fall Comparison: 01/25/2022; CT cap 11/24/2022. RESULT: Lines, tubes, and devices: None. Lungs and pleura: Chronic bilateral peripheral lower lung interstitial change, otherwise clear. Cardiomediastinal silhouette: Stable. Other: No acute osseous or upper abdominal finding. IMPRESSION: No acute cardiopulmonary process. Reviewed, dictated and finalized at location K. TH TEACHER
--- NOTE | ~2024-08-25 | MR_ITS ---
EXAMINATION: MR brain/brain stem wo/w con DATE: 08/30/2024 12:02 INDICATION: Acute confusion. TECHNIQUE: Magnetic resonance imaging (MRI) of the brain and brainstem was performed without and with 14 mL MultiHance intravenous contrast. COMPARISON: Brain MRI 01/04/2024, head CT 08/25/2024, 05/27/17, 09/07/20, 11/24/22 FINDINGS: There is chronic encephalomalacia in right frontal parietal region. There are old infarcts in the bilateral basal ganglia. There is a 3.1 x 3.2 cm extra-axial enhancing mass in medial left par ietal lobe that measured 2.5 x 2.4 cm on 01/04/24 and was not visualized on 01/19/23. There is chronic e ncephalomalacia in left frontal parietal region. There are overlying sara holes. There is a small old infarct in left parietal lobe. There are scattered areas of nonspecific increased T2-weighted signal intensity in the cerebral white matter. There is ex vacuo dilatation of left lateral ventricle. Ther e are mucous retention cysts and mucosal thickening in the paranasal sinuses. The orbits are normal. There is a right mastoid effusion. IMPRESSION: 1. 3.2 cm extra-axial enhancing mass in the left parietal lobe that measured 2.5 cm on 01/04/2024 and w as not visualized on 01/19/2023. The differential diagnosis includes meningioma and arteriovenous malf ormation. 2. Chronic encephalomalacia in right frontal parietal region and left frontal parietal region. Old in farcts in the bilateral basal ganglia and left parietal lobe. Reviewed, dictated and finalized at location A. LLERY SPECIALIST IMPRESSION: 1. 3.2 cm extra-axial enhancing mass in the left parietal lobe that measured 2. 5 cm on 01/04/2024 and was not visualized on 01/19/2023. The differential diagnosi s includes meningioma and arteriovenous malformation. 2. Chronic encephalomalacia in right frontal parietal region and left frontal p arietal region. Old infarcts in the bilateral basal ganglia and left parietal l obe.
--- NOTE | ~2024-08-25 | XR_ITS ---
EXAM: XR pelvis 1-2V DATE: 08/25/2024 15:20 HISTORY: fall . COMPARISON: None available. FINDINGS: Decreased mineralization. No fracture or dislocation. No lytic or blastic lesion. Surgical clips and surgical anastomosis over the midline pelvis. Lumbar degenerative disc disease. Mild bilat eral hip osteoarthritis. Mild degenerative change at the pubic symphysis. No erosion or periosteal ch gladys. Soft tissues within normal limits. IMPRESSION: No acute osseous finding in the pelvis. Reviewed, dictated and finalized at location K. R LOCOMOTIVE CRANE
--- NOTE | ~2024-08-25 | XR_ITS ---
Portable chest x-ray Comparison: 08/25/2024 Clinical History: Cardiac abnormalities Findings: There is mild bibasilar interstitial prominence. No consolidation or pleural effusion othe rwise. Cardiomediastinal silhouette is stable. Bones and soft tissues are unremarkable. Impression: Bibasilar interstitial prominence. Correlate for chronic interstitial disease, possibly sequela of pr ior aspiration. Reviewed, dictated and finalized at [facility]. NALISM TEACHER Impression: Bibasilar interstitial prominence. Correlate for chronic interstitial disease, possibly sequela of prior aspiration.
--- NOTE | ~2024-08-25 | XR_ITS ---
EXAMINATION: XR barium swallow modified DATE: 09/06/2024 14:50 INDICATION: Aspiration. TECHNIQUE: The patient was given barium-containing material of multiple consistencies to swallow by t oscar speech pathologist while I performed fluoroscopy. Fluoroscopy exposure time was 1.4 minutes. The n umber of fluoroscopy images saved to the PACS was 1. Dose-area product was 0.942 Gy-cm^2. FINDINGS: There is reduced laryngeal seal. There is reduced laryngeal elevation, reduced laryngeal adduction, r educed tongue base retraction, reduced pharyngeal squeeze, vallecular residue, pyriform sinus residue , pharyngeal wall residue, and laryngeal penetration. There is silent aspiration of thin liquids and pudding. IMPRESSION: 1. Silent aspiration. 2. Please refer to the speech therapy report for recommendations. Reviewed, dictated and finalized at location A. SETTING OUT MACHINE OPERATOR
--- NOTE | ~2024-08-25 | XR_ITS ---
MODIFIED ESOPHAGRAM HISTORY: Aspiration TECHNIQUE: Modified barium esophagram was performed on 09/05/2024. I administered fluoroscopy and perfo rmed the exam with speech pathologist. Patient was seated for lateral fluoroscopic imaging for inges tion of thin liquids, pudding, solids and quantified amounts, followed by thin liquids in uncontrolle d amounts. This was recorded on tape. A single fluoroscopic spot image was also recorded. The DAP for this procedure was 0.883 Gycm2. The amount of fluoroscopy time used during this procedure was 1.4 mi nutes. FINDINGS: Oral stage: Adequate function. Pharyngeal stage: There is reduced laryngeal elevation and adduction. There is reduced tongue base re traction and pharyngeal squeeze. Vallecular, piriform sinus and pharyngeal wall residue. There is lar yngeal penetration with silent aspiration.. Cervical/esophageal stage: Adequate function. IMPRESSION: Pharyngeal dysphagia with laryngeal penetration and silent aspiration. Please correlate with speech pathologist findings and specific feeding recommendations. Reviewed, dictated and finalized at location A. CUTTER IMPRESSION: Pharyngeal dysphagia with laryngeal penetration and silent aspirati on. Please correlate with speech pathologist findings and specific feeding rec ommendations.
--- NOTE | ~2024-08-25 | CT_ITS ---
EXAMINATION: CT lumbar spine wo con DATE: 08/30/2024 12:08 INDICATION: Acute left-sided low back pain. TECHNIQUE: Computed tomography (CT) of the lumbar spine was performed without intravenous contrast. A utomated exposure control and iterative reconstruction technique were employed. The dose-length produ ct was 601.02 mGy-cm. COMPARISON: Lumbar spine CT 01/19/2023 FINDINGS: There is 3 degrees levocurvature of lumbar spine. There is mild chronic height loss of L3 a nd L5 vertebral bodies. There is mildly decreased disc height at L2-L3. The following disc levels are specifically discussed: L1-L2: The disc is bulging. There is severe bilateral facet joint osteoarthritis. There is mild left neural foraminal stenosis. There is mild central canal stenosis. L2-L3: The disc is bulging. There is severe bilateral facet joint osteoarthritis. There is mild bilat eral neural foraminal stenosis. There is mild central canal stenosis. L3-L4: The disc is bulging. There is moderate bilateral facet joint osteoarthritis. There is mild luigi ateral neural foraminal stenosis. There is no central canal stenosis. L4-L5: The disc is bulging. There is moderate bilateral facet joint osteoarthritis. There is mild luigi ateral neural foraminal stenosis. There is mild central canal stenosis. L5-S1: The disc is bulging. There is moderate bilateral facet joint osteoarthritis. There is mild luigi ateral neural foraminal stenosis. There is mild central canal stenosis. IMPRESSION: 1. Mild lumbar spondylosis, stable from 01/19/2023. Reviewed, dictated and finalized at location A. OR [employer]
--- OUTSIDE RECORDS SUMMARY | 2024-08-25 14:45 | XMS_ITS | Clinical Summary ---
Author Organization [facility] Address [address], [address] [address] Phone Care Team Providers Care Portal Administrator Name Role Phone Neal Baugh MD Primary Care Provider [phone] River Sommer DO Unavailable [phone] Medications polyethylene glycol (MIRALAX) Powder Mix the entire bottle with 64 oz of a clear liquid. Use as directed by the office for colonoscopy prep. 255 g 0 6 Active Meloxicam 15 MG Tablet Take 15 mg by mouth daily. Active omeprazole (PRILOSEC) 40 MG CAPSULE DELAYED RELEASE Take 40 mg by mouth daily. Active pravastatin (PRAVACHOL) 80 MG Tablet Take 80 mg by mouth daily. Active ezetimibe (ZETIA) 5 MG Tablet Take 10 mg by mouth nightly. Active PARoxetine (PAXIL) 30 MG Tablet Take 30 mg by mouth daily. Active Telmisartan-HCT Z 80-12.5 MG Tablet Take 1 Tab by mouth daily. Active phenytoin (DILANTIN) 100 MG ER capsuleIndicati ons:Every other day take BID Take 100 mg by mouth 3 times daily. Indications: Every other day take BID Active Immunizations Immunization Administration Dates Next Due Covid-19, Mrna, Lnp-s, Pf, 30 Mcg/0.3 Ml Dose (Elvin maloney) 10/30/2020,10/09/2020 Family History Medical History Relation Name Comments Kidney Disease Brother Lung Cancer Brother Cancer Father Larynx Heart Disease Mother Cancer Sister Leukemia Heart Disease Sister Relation Name Status Comments Brother Father Mother Sister Social History Tobacco Use Types Packs/Day Years Used Date Smoking Tobacco: Never Smokeless Tobacco: Never Alcohol Use Standard Drinks/Week Comments No 0 (1 standard drink = 0.6 oz pur e alcohol) Quit 25 years ago Sex and Gender Information Value Date Recorded Sex Assigned at Not on file Legal Sex Male 9:59 PM CDT Gender Identity Not on file Sexual Orientation Not on file Plan of Treatment Health Maintenance Due Date Last Done Comments Hepatitis C Virus (HCV) Screening 1945 TdaP Immunization 1945 Zoster Immunization (1 of 2) 1997 Pneumococcal Immunization (50+ years) (2 of 2 - PPSV23) 06/20/2020 06/20/2019 Respiratory Syncytial Virus (RSV) Immunization (Adult) (1 - 1-dose 75+ series) 2022 Influenza Immunization (#1) 03/31/202403/31, 05/15/2019, 04/04/2018, Additional history exists SARS-COV-2 Immunization ( season) 2024 08/25/2021, 10/30/2020, 10/09/2020 Colonoscopy High Risk Discontinued 06/09/2016 Colonoscopy Discontinued 06/09/2016 Colorectal Cancer Screening Discontinued Pneumococcal Immunization Combined Discontinued 06/20/2019 Cologuard Discontinued Hepatitis B Immunization Aged Out No longer eligible based on patient's age to complete this topic Immunochemical Fecal Occult Blood Discontinued Meningococcal Immunization (ACWY) Aged Out No longer eligible based on patient's age to complete this topic Rotavirus Immunization Aged Out No lo nger eligible based on patient's age to complete this topic Procedures Procedure Name Priority Date/Time Associated Diagnosis Comments COLONOSCOPY Routine 06/09/2016 from Last 3 Months or Most Recently Relevant to Health Maintenance Results * COLONOSCOPY (06/09/2016) Neal Baugh MD PROCEDURE/MINOR SURGICAL ORDER EUNICE Final Result from Last 3 Months or Most Recently Relevant to Health Maintenance Insurance MEDICARE RAILROAD Care Teams Portal Administrator Relationship Specialty Start Date End Date Neal Baugh MD [address] [place] [address] PCP - General Internal Medicine 06/14/16 River Sommer DO [address] [place] [address] Gastroenterology 06/14/16
--- OUTSIDE RECORDS SUMMARY | 2024-08-25 14:45 | XMS_ITS | Referral Summary ---
Author Organization [facility] Address [address] [place] [address] Care Team Providers Care Linen Attendant Name Role Phone Neal Baugh MD Primary Care Provider [phone] Source Comments [facility],non-owned Affiliates and Associated Physician Practices is amultiple site organization consisting of ambulatory clinics and hospital sitesin [place], [place], [place] and [place]. This disclosure is being madepursuant to the Care Everywhere program and may not contain all information available regarding this patient. Last updated 18.[facility] [employer] Social History Tobacco Use Types Packs/Day Years Used Date Smoking Tobacco: Never Assessed Sex and Gender Information Value Date Recorded Sex Assigned at Not on file Gender Identity Not on file Sexual Orientation Not on file Plan of Treatment Not on file Care Teams Linen Attendant Relationship Specialty Start Date End Date Neal Baugh MD [address] [place] [address] PCP - General 11/06/19
--- OUTSIDE RECORDS SUMMARY | 2024-08-25 14:45 | XMS_ITS | Encounter Summary ---
Author Organization [facility] Address [address] [place] [address] Care Team Providers Care Medical Researcher Name Role Phone Neal Baugh MD Primary Care Provider [phone] Encounter Details Date Type Department Care Team (Late st Contact Info) Description 11/06/2019 Lab Requisition [facility] Care Pathology Lab [address] [place] [address] Jake Carbone MD [address] [place] [address] Decreased white blood cell count, unspecified Social History Tobacco Use Types Packs/Day Years Used Date Smoking Tobacco: Never Assessed Sex and Gender Information Value Date Recorded Sex Assigned at Not on file Gender Identity Not on file Sexual Orientation Not on file documented as of this encounter Plan of Treatment Not on file documented as of this encounter Procedures Procedure Name Priority Date/Time Associated Diagnosis Comments FLOW CYTOMETRY BONE MARROW Routine 11/06/2019 9:45 AM CDT Decreased white blood cell count, unspecified documented in this encounter Results * FLOW CYTOMETRY BONE MARROW (11/06/2019 9:45 AM CDT) Case Report Flow Cytometry ?Case: [id number] ? Authorizing Provider: ??Jake Carbone MD ?Collected: ? 11/06/2019 09:45 AM ? Ordering Location: ? [facility] Pathology Lab ? Received: ?11/06/2019 01:47 PM ? Pathologist: ? Olive Blevins Mai, DO ? Specimen: ?Bone Marrow, Right ? 11/06/2019 5:40 PM CDT [facility] PATHOLOGY LAB Final Diagnosis Bone marrow, flow cytometric immunophenotypic analysis: - No evidence of non-Hodgkin lymphoma or high-grade myeloid neoplasm. - See interpretation. 11/06/2019 5:40 PM [facility] PATHOLOGY LAB Flow Cytometry Interpretation The bone marrow specimen has a viability of 95%. The lymphocyte, dim CD45, monocyte, and granulocyte heart are normal in relative proportion. Within the lymphocyte gate, there is no monotypic B-cell population identified (kappa: lambda ratio = 1.2:1). There is no expanded T-cell population seen. By CD34, 1.3% of all events analyzed are blasts. A bone marrow aspirate smear prepared from the flow cytometry specimen is reviewed for air quality manager purposes. The bone marrow aspirate specimen shows no evidence of involvement by non-Hodgkin lymphoma or a high-grade myeloid neoplasm. Correlation with clinical findings, the concurrent bone marrow core biopsy, and relevant cytogenetic/molecu lar studies is required. VH[facility]MM [facility] Results Differential Result Comment Flow Cell Count /uL 105,000 Total Viability % 95.0 Lymphocytes % 8 Dim CD45 Region % 3 Monocytes % 10 Granulocytes % 79 11/06/2019 5:40 PM CDT [facility] Reason for test Decreased white blood cell count, unspecified 11/06/2019 5:40 PM CDT [facility] Client Specimen ID # [id number] 11/06/2019 5:40 PM CDT [facility] PATHOLOGY LAB Number of markers 10 were performed. A-2 Flow CD10 A-3 Flow CD13 A-5 Flow CD20 A-1 Flow CD5 A-4 Flow CD19 A-6 Flow CD33 A-7 Flow CD34 A-8 Flow CD45 A-9 [place]+CD19+ A-10 Lambda+CD19+ 11/06/2019 5:40 PM CDT [facility] Disclaimer Test performed at [facility], [address] [place] [address], [facility]. *The established laboratory minimum viability is 70%. Values below the minimum may result in the failure to find an abnormal population of cells. This test was developed and its performance characteristics determined by the Flow Cytometry Laboratory. It has not been cleared by the [place] Food and Drug Administration (FDA). The FDA has determined that such clearance or approval is not necessary. This test is used for clinical purposes. It should not be regarded as investigational or for research. This laboratory is regulated under the Clinical Laboratory Improvement Amendments of 1998 (CLIA) as a qualified to perform high complexity clinical testing. 11/06/2019 5:40 PM CDT [facility] PATHOLOGY LAB Embedded Images 0 5:40 PM CDT [facility] PATHOLOGY LAB Pathology/Cytolo gy BONE MARROW SPECIMEN / Unknown 11/06/2019 9:45 AM CDT 11/06/2019 1:47 PM CDT Jake Carbone MD LAB - PATHOLOGY/CYTO LOGY ORDERABLES [facility] PATHOLOGY LAB [address] [place] [address]. [address] [phone] documented in this encounter Visit Diagnoses Diagnosis Decreased white blood cell count, unspecified documented in this encounter Care Teams Medical Researcher Relationship Specialty Start Date End Date Neal Baugh MD [address] [facility] [place] [address] [place] [address] PCP - General 11/06/19 documented as of this encounter
--- OUTSIDE RECORDS SUMMARY | 2024-08-25 14:45 | XMS_ITS | Clinical Summary ---
Author Organization [facility] Address [address] [place] [address] Care Team Providers Care Aquaculture Worker Name Role Phone Neal Baugh MD Primary Care Provider [phone] Source Comments [facility],non-owned Affiliates and Associated Physician Practices is amultiple site organization consisting of ambulatory clinics and hospital sitesin [place], [place], [place] and [place]. This disclosure is being madepursuant to the Care Everywhere program and may not contain all information available regarding this patient. Last updated 18.[facility] [employer] Social History Tobacco Use Types Packs/Day Years Used Date Smoking Tobacco: Never Assessed Sex and Gender Information Value Date Recorded Sex Assigned at Not on file Gender Identity Not on file Sexual Orientation Not on file Plan of Treatment Health Maintenance Due Date Last Done Comments MEDICARE AWV ? 12 MONTHS 1945 HEPATITIS C SCREENING 03/10/1965 DTAP/TDAP/TD VACCINES (1 - Tdap) 1966 PNEUMOCOCCAL VACCINE 50+ (1 of 1 - PCV) 1997 ZOSTER VACCINE (1 of 2) 1997 Respiratory Syncytial Virus (RSV) Vaccine Pt: or over 60 yrs (1 - 1-dose 75+ series) 2022 COVID-19 VACCINE ( - 2023-2 5 season) 2024 INFLUENZA VACCINE (#1) 2024 DEPRESSION SCREENING 07/31/2024 HEPATITIS B VACCINE Aged Out No longe r eligible based on patient's age to complete this topic HIB VACCINE Aged Out No longer eligi ble based on patient's age to complete this topic HPV VACCINE Aged Out No longer eligi ble based on patient's age to complete this topic MENINGOCOCCAL (Group B) VACCINE Aged Out No longer eligible based on patient's age to complete this topic MENINGOCOCCAL VACCINE Aged Out No chris natacha eligible based on patient's age to complete this topic Care Teams Aquaculture Worker Relationship Specialty Start Date End Date Neal Baugh MD [address] [place] [address] PCP - General 11/06/19
--- OUTSIDE RECORDS SUMMARY | 2024-08-25 14:45 | XMS_ITS | Encounter Summary ---
Author Organization [facility] Health Address [address] [place] [address] Care Team Providers Care Reel Man Name Role Phone Neal Baugh MD Primary Care Provider [phone] Encounter Details Date Type Department Care Team (Late st Contact Info) Description 11/07/2019 Lab Requisition [facility] Care Pathology Lab [address] [place] [address] Jake Carbone MD [address] [place] [address] Illness, unspecified Social History Tobacco Use Types Packs/Day Years Used Date Smoking Tobacco: Never Assessed Sex and Gender Information Value Date Recorded Sex Assigned at Not on file Gender Identity Not on file Sexual Orientation Not on file documented as of this encounter Plan of Treatment Not on file documented as of this encounter Procedures Procedure Name Priority Date/Time Associated Diagnosis Comments BONE MARROW BIOPSY (STL) Routine 11/06/2019 8:00 AM CDT Illness, unspecified documented in this encounter Results * BONE MARROW BIOPSY (STL) (11/06/2019 8:00 AM CDT) Case Report Bone Marrow Patholog y Report ?Case: [id number] ? Authorizing Provider: ??Jake Carbone MD ?Collected: ? 11/06/2019 08:00 AM ? Ordering Location: ? [facility] Pathology Lab ? Received: ?11/07/2019 03:08 PM ? Pathologist: ? Gen, Olive Allan, DO ? Specimens: ?? A) - Bone Marrow Clot, AB20-17 ? B) - Bone Marrow Core, AB20-17 ? C) - Blood Peripheral, AB20-17 ? D) - Bone Marrow Aspirate, AB20-17 ? 12/05/2019 5:34 PM CDT [facility] Final Diagnosis Bone marrow, aspirate, clot section, and core biopsy: - Hypercellular marrow with maturing trilineage hematopoiesis and mild dyspoiesis. - No evidence of lymphoma or high-grade myeloid neoplasm. - See description. Peripheral blood smear: - Leukopenia. - Macrocytic anemia. - See description. 12/05/2019 5:[address] [facility] Comment Overall, the bone marrow specimen is hypercellular for age with maturing trilineage hematopoiesis and mild dyspoiesis (hypogranular granulocytes, erythroids with nuclear contour irregularity). There is no increase in blasts. The peripheral blood shows leukopenia and macrocytic anemia. Dyspoiesis is a morphologic change that may be seen in nutritional deficiency, viral infection, drug/medication effects, toxin exposure, autoimmune disorder, or in the appropriate clinical and cytogenetic context, a primary myelodysplastic syndrome (MDS). A diagnosis of MDS may be considered if all secondary causes are excluded and established if an appropriate cytogenetic abnormality is identified. Findings discussed with Dr. Patrice Carbone 11/08/2019 at 14:[address] Chito Blevins. 12/05/2019 5:[address] [facility] Peripheral Smear Description Outside CBC 11/06/2019: WBC = 2.4 K/uL RBC = 3.47 M/uL Plt = 180 K/uL Hgb = 12.7 g/dL Hct = 35.6% MCV = 102.6 fL MCH = 36.6 pg MCHC = 35.7 g/dL RDW = 12.8% Manual Differential Count (100 cells): 28% neutrophils, 52% lymphocytes, 11% monocytes, 9% eosinophils, and 0% basophils. 0 nRBCs / 100 WBCs. Leukocyte number: decreased. Granulocyte morphology: occasional forms with hypogranular cytoplasm and hypolobation. Lymphocyte morphology: occasional reactive forms. Erythrocyte number: decreased. Erythrocyte morphology: macrocytic. Anisopoikilocytosis: mild. Polychromasia: not significant. Platelet number: normal. Platelet morphology: normal. 12/05/2019 5:[address] [facility] Bone Marrow Aspirate Differential count (200 cells): 1% blasts, 68% maturing myeloid precursors, 21.5% erythroid progenitors, 2.5% monocytes, 0% eosinophils, 5% lymphocytes, 2% plasma cells. Specimen quality: suboptimal, hemodilute. Spicules: small. Trilineage Hematopoiesis: present. Myeloid:Erythroid ratio: 3.3:1 Myeloid Maturation: normal maturation with some forms showing hypogranular cytoplasm and hypolobated nuclei. Erythroid Maturation: normal maturation with some forms showing irregular nuclear contours. Megakaryocyte morphology: rare hypolobation, too few to assess for dysplasia. Storage iron (by special stain): decreased. Sideroblastic iron (by special stain): no ring sideroblasts. 12/05/2019 5:[address] [facility] Bone Marrow Core Biopsy and Clot Section Description Specimen quality: adequate. Cellularity: 50-60% Trilineage Hematopoiesis: adequate. Myeloid to Erythroid ratio: normal. Myeloid maturation and localization: normal. Erythroid maturation and localization: normal. Megakaryocyte number: normal with no significant morphologic abnormality. Megakaryocyte distribution: normal. Lymphoid aggregates: focal, small, non-paratrabecular, composed of small, mature lymphocytes, favor benign. Bone trabeculae: normal. Blood vessels: normal. Clot section marrow particles: many. Clot section morphology: similar to core biopsy. Clot section storage iron (by special stain): decreased. Immunohistochemical stains are performed on the clot section in the [facility] Department of Pathology, with appropriately reactive controls, and demonstrate the following: CD34: no increase in blasts (less than 5% marrow cellularity) with high background staining of granular precipitate material and weak nonspecific staining in cytoplasmic granules. CD117: highlights blasts and immature precursors. E-cadherin: highlights immature erythroid precursors. CD138, kappa and lambda are pending and will be reported in an addendum. 12/05/2019 5:[address] [facility] Flow Cytometry Summary Concurrent flow cytometry ([id number]) shows no evidence of non-Hodgkin lymphoma or high-grade myeloid neoplasm. 12/05/2019 5:[address] [facility] Clinical History Leukopenia. 12/05/2019 5:[address] [facility] Materials Received Received are 18 slides and 3 blocks labeled as [id number] along with the outside pathology report. [place] [address]. All materials are returned to the referring institution, along with a copy of our final report. 12/05/2019 5:[address] [facility] Disclaimer The performance characteristics of all immunohistochemical and indirect immunofluorescence stains (if any) cited in this report were determined by the [facility] Laboratory of [facility]. Some of these tests were developed by our own laboratory and have not been cleared or approved by the US Food and Drug Administration. The FDA does not require this test to go through premarket FDA review. These tests are used for clinical purposes. They should not be regarded as investigational or for research. This laboratory is certified under the Clinical Laboratory Improvement Amendments (CLIA) as qualified to perform high complexity clinical laboratory testing. This case has been personally reviewed and interpreted by the attending (teaching) pathologist. 12/05/2019 5:[address] [facility] Addendum 1 Immunoperoxidase and light chain in situ hybridization were performed and interpreted at [facility] Department of Pathology with the following findings: CD138: Highlights plasma cells distributed singly and in small perivascular clusters, <10% overall. Myrtle and lambda JUAN FRANCISCO: Myrtle is focally positive and lambda is negative but this is not felt to be true kappa restriction because kappa showed nonspecific staining of non-plasma cell components in the background. The result is deferred to immunohistochemistry. Myrtle and lambda IHC: Both kappa and lambda positive plasma cells are seen, indicating a polyclonal population. The positive controls are appropriately reactive. 12/05/2019 5:[address] [facility] Addendum electronically signed by Olive Blevins Mai, DO on 12/05/2019 at 5:30 PM Addendum [address] Patrice Carbone, 12/05/2019, the patient demonstrated a normal male karyotype and an MDS FISH panel did not reveal any cytogenetic aberrations. 12/05/2019 5:[address] [facility] Addendum electronically signed by Olive Blevins Mai, DO on 12/05/2019 at 5:34 PM Embedded Images 12/05/2019 5:[address] [facility] Pathology/Cytology SPECIMEN FROM BONE MARROW OBTAINED BY ASPIRATION / Unknown 11/06/2019 8:00 AM CDT 11/07/2019 3:08 PM CDT Miscellaneous samples (specimen) BONE MARROW SPECIMEN / Unknown 11/06/2019 8:00 AM CDT 11/07/2019 3:08 PM CDT Miscellaneous samples (specimen) PERIPHERAL BLOOD / Unknown 11/06/2019 8:00 AM CDT 11/07/2019 3:08 PM CDT Miscellaneous samples (specimen) SPECIMEN FROM BONE MARROW OBTAINED BY ASPIRATION / Unknown 11/06/2019 8:00 AM CDT 11/07/2019 3:08 PM CDT Jake Carbone MD LAB - PATHOLOGY/CYTO LOGY ORDERABLES [facility] PATHOLOGY LAB [address] [phone] documented in this encounter Visit Diagnoses Diagnosis Illness, unspecified documented in this encounter Care Teams Reel Man Relationship Specialty Start Date End Date Neal Baugh MD [address] [facility] [address] [place] [address] PCP - General 11/06/19 documented as of this encounter
--- OUTSIDE RECORDS SUMMARY | 2024-08-25 14:45 | XMS_ITS | Patient Health Summary ---
Author Organization [facility] Address [address] [facility] [place] [address] Care Team Providers Care Spa Coordinator Name Role Phone Neal Baugh MD Primary Care Provider [phone] Note from [facility],non-owned Affiliates and Associated Physician Practices is amultiple site organization consisting of ambulatory clinics and hospital sitesin [place], [place], [place] and [place]. This disclosure is being madepursuant to the Care Everywhere program and may not contain all information available regarding this patient. Last updated 18.[facility] Social History Tobacco Use Types Packs/Day Years Used Date Smoking Tobacco: Never Assessed Sex and Gender Information Value Date Recorded Sex Assigned at Not on file Gender Identity Not on file Sexual Orientation Not on file Procedures * FLOW CYTOMETRY BONE MARROW(Performed 11/06/2019) Performed for Decreased white blood cell count, unspecified * BONE MARROW BIOPSY (STL)(Performed 11/06/2019) Performed for Illness, unspecified Results * FLOW CYTOMETRY BONE MARROW (11/06/2019 9:45 AM CDT) Case Report Flow Cytometry ?Case: [id number] ? Authorizing Provider: ??Jake Carbone MD ?Collected: ? 11/06/2019 09:45 AM ? Ordering Location: ? [facility] Pathology Lab ? Received: ?11/06/2019 01:47 PM ? Pathologist: ? Olive Blevins Mai, DO ? Specimen: ?Bone Marrow, Right ? 11/06/2019 5:40 PM CDT [facility] PATHOLOGY LAB Final Diagnosis Bone marrow, flow cytometric immunophenotypic analysis: - No evidence of non-Hodgkin lymphoma or high-grade myeloid neoplasm. - See interpretation. 11/06/2019 5:[address] [facility] PATHOLOGY LAB Flow Cytometry Interpretation The [...] the flow cytometry specimen is reviewed for quality supervisor purposes. The bone marrow aspirate specimen shows no evidence of involvement by non-Hodgkin lymphoma or a high-grade myeloid neoplasm. Correlation with clinical findings, the concurrent bone marrow core biopsy, and relevant cytogenetic/molecu lar studies is required. VH/MM 11/06/2019 5:[address] [facility] PATHOLOGY LAB Flow Cytometry Results Differential Result Comment Flow Cell Count /uL 105,000 Total Viability % 95.0 Lymphocytes % 8 Dim CD45 Region % 3 Monocytes % 10 Granulocytes % 79 11/06/2019 5:40 PM CDT [facility] PATH[facility] Reason for test Decreased white blood cell count, unspecified 11/06/2019 5:40 PM CDT [facility] PATH[facility] Client Specimen ID # [id number] 11/06/2019 5:40 PM CDT [facility] Number of markers 10 were performed. A-2 Flow CD10 A-3 Flow CD13 A-5 Flow CD20 A-1 Flow CD5 A-4 Flow CD19 A-6 Flow CD33 A-7 Flow CD34 A-8 Flow CD45 A-9 Nanakuli+CD19+ A-10 Lambda+CD19+ 11/06/2019 5:40 PM CDT [facility] PATH[facility] Disclaimer Test performed at [facility], [address] [place] [address], [id number]. *The established laboratory minimum viability is 70%. [...] complexity clinical testing. 11/06/2019 5:40 PM CDT [facility] PATH[facility] Embedded Images 0 5:40 PM CDT [facility] Pathology/Cytolo gy BONE MARROW SPECIMEN / Unknown 11/06/2019 9:45 AM CDT 11/06/2019 1:47 PM CDT Jake Carbone MD LAB - PATHOLOGY/CYTO LOGY ORDERABLES [facility] [address] [place] [address]. [place] [address], [facility] [phone] * BONE MARROW BIOPSY (STL) (11/06/2019 8:00 AM CDT) Case Report Bone Marrow Patholog y Report ?Case: [id number] ? Authorizing Provider: ??Jake Carbone MD ?Collected: ? 11/06/2019 08:00 AM ? Ordering Location: ? [facility] Care Pathology Lab ? Received: ?11/07/2019 03:08 PM ? Pathologist: ? Olive Blevins Mai, DO ? Specimens: ?? A) - Bone Marrow Clot, [id number] ? B) - Bone Marrow Core, [id number] ? C) - Blood Peripheral, AB20-17 ? D) - Bone Marrow Aspirate, [id number] ? 12/05/2019 5:34 PM CDT [facility] Final Diagnosis Bone marrow, aspirate, clot section, and core biopsy: - Hypercellular marrow with maturing trilineage hematopoiesis and mild dyspoiesis. - No evidence of lymphoma or high-grade myeloid neoplasm. - See description. Peripheral blood smear: - Leukopenia. - Macrocytic anemia. - See description. 12/05/2019 5:[address] [facility] PATHOLOG[facility] Comment Overall, the bone marrow [...] by Dr. Chito Blevins. 12/05/2019 5:[address] [facility] PATHOLOGY LAB Peripheral Smear Description Outside CBC [...] normal. Platelet morphology: normal. 12/05/2019 5:[address] [facility] PATHOLOG[facility] LAB Bone Marrow Aspirate Differential count [...] stain): no ring sideroblasts. 12/05/2019 5:[address] [facility] PATHOLOGY LAB Bone Marrow Core Biopsy and [...] performed on the clot section in the [facility] Department of Pathology, with appropriately reactive controls, and demonstrate the following: CD34: no increase in blasts (less than 5% marrow cellularity) with high background staining of granular precipitate material and weak nonspecific staining in cytoplasmic granules. CD117: highlights blasts and immature precursors. E-cadherin: highlights immature erythroid precursors. CD138, kappa and lambda are pending and will be reported in an addendum. 12/05/2019 5:[address] [facility] PATHOLOGY LAB Flow Cytometry Summary Concurrent flow cytometry ([id number]) shows no evidence of non-Hodgkin lymphoma or high-grade myeloid neoplasm. 12/05/2019 5:[address] [facility] PATHOLOGY LAB Clinical History Leukopenia. 12/05/2019 5:[address] [facility] PATHOLOGY LAB Materials Received Received are 18 slides and 3 blocks labeled as [id number] along with the outside pathology report. [place] [address]. All materials are returned to the referring institution, along with a copy of our final report. 12/05/2019 5:[address] [facility] PATHOLOGY LAB Disclaimer The performance characteristics of all immunohistochemical and indirect immunofluorescence stains (if any) cited in this report were determined by the Histopathology Laboratory of [facility]. Some of these tests were developed by [...] the attending (teaching) pathologist. 12/05/2019 5:[address] [facility] PATHOLOG[facility] Addendum 1 Immunoperoxidase and light chain in situ hybridization were performed and interpreted at [facility] Department of Pathology with the following findings: CD138: Highlights plasma cells distributed singly and in small perivascular clusters, <10% overall. Nanakuli and lambda JUAN FRANCISCO: Nanakuli is focally positive and lambda is negative but this is not felt to be true kappa restriction because kappa showed nonspecific staining of non-plasma cell components in the background. The result is deferred to immunohistochemistry. Nanakuli and lambda IHC: Both kappa and lambda positive plasma cells are seen, indicating a polyclonal population. The positive controls are appropriately reactive. 12/05/2019 5:[address] [facility] PATH[facility] Addendum electronically signed by Olive Blevins Mai, DO on 12/05/2019 at 5:30 PM Addendum [address] Patrice Carbone, 12/05/2019, the patient demonstrated a normal male karyotype and an MDS FISH panel did not reveal any cytogenetic aberrations. 12/05/2019 5:[address] [facility] PATHOLOGY LAB Addendum electronically signed by Olive Blevins Mai, DO on 12/05/2019 at 5:34 PM Embedded Images 12/05/2019 5:[address] [facility] PATHOLOG[facility] LAB Pathology/Cytology SPECIMEN FROM BONE MARROW [...] Carbone MD LAB - PATHOLOGY/CYTO LOGY ORDERABLES Performing Organization Address [facility] de Phone Number [facility] PATH[facility] [address] [phone] Care Teams Spa Coordinator Relationship Specialty Start Date End Date Neal Baugh MD [address] [facility] [address] [place] [address] PCP - General 11/06/19
--- OUTSIDE RECORDS SUMMARY | 2024-08-25 14:46 | XMS_ITS | Referral Summary ---
Author Organization [facility] Address [address] [place] [address] Care Team Providers Care Inspector Conveyor Line Name Role Phone Neal Baugh MD Primary Care Provider [phone] Neal Baugh MD Unavailable [phone] Allergies No known active allergies Medications meloxicam (MOBIC) 15 mg tablet Take 1 tablet (15 mg total) by mouth daily 1 Active potassium chloride ER 10 mEq CR tablet Take 1 tablet/capsule (10 mEq total) by mouth daily 0 Active cyanocobalamin (Vitamin B-12) 500 mcg tabletIndication s:Prevention of Vitamin B12 Deficiency Take 1 tablet (500 mcg total) by mouth daily Active omeprazole (PriLOSEC) 40 mg capsule Take 1 capsule (40 mg total) by mouth daily Active ezetimibe (ZETIA) 10 mg tablet Take 0.5 tablets (5 mg total) by mouth daily Active PARoxetine (PAXIL) 30 mg tablet Take 1 tablet (30 mg total) by mouth every morning Active rosuvastatin (CRESTOR) 20 mg tablet Take 1 tablet (20 mg total) by mouth daily 1 Active amLODIPine (NORVASC) 5 mg tablet Take 1 tablet (5 mg total) by mouth daily 8 Active pyridoxine (VITAMIN B-6) 100 mg tablet Take 1 tablet (100 mg total) by mouth daily Active levETIRAcetam (KEPPRA) 750 mg tabletIndication s: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) Take 1 tablet (750 mg total) by mouth 2 (two) times a day 180 tablet 3 4 12/20/19 25 Active phenytoin ER (DILANTIN) 100 mg ER capsuleIndicatio ns: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) TAKE 2 CAPSULES DAILY ALTERNATING WITH 3 CAPSULES DAILY 225 capsule 3 4 Active Active Problems Problem Noted Date Diagnosed Date 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 His current cognitive examination is similar to what was reported in prior [facility] records. Supportive care is indicated at this time Medication monitoring encounter 08/25/2020 Assessment & Plan (08/25/2020 11:59 AM JIG AND FIXTURE BUILDER): I will obtain a trough phenytoin level, AST, and ALT for medication monitoring a trough medication levels in addition to screening for potential liver dysfunction associated with continued phenytoin usage. Complex partial seizures shelbie lving to generalized tonic-clonic seizures 08/25/2020 Assessment & Plan (08/25/2020 11:58 AM JIG AND FIXTURE BUILDER): Patient is a prior patient of [facility]. Prior medical records from [facility] have been reviewed during today's visit in effort to facilitate transfer in care. He has no complex partial seizure secondary generalization as a sequelae to a traumatic brain injury. Since last being seen a [facility] in 2019, he has been maintained on phenytoin and levetiracetam. He reports good tolerability and no seizures over the interval. He is in need of refill of medication specifically phenytoin as he says his levetiracetam is being filled by his PCP. He has also need of medication laboratory for monitoring of continued phenytoin usage. I have renewed his phenytoin 200 mg q.o.d. 300 mg q.o.d. as previously prescribed. He will continue his levetiracetam being filled by his PCP at a 1000 mg b.i.d.. I will see him back in the office in 1 year. Macrocytic anemia with vitamin B12 deficiency Seizure disorder (CMS/HCC) 10/22/2019 Immunizations Name Administration Dates Next Due Flucelvax Influenza Quad 05/15/2019,05/15/2019 Influenza, Quadrivalent, Hig h Dose, Preservative Free, Intrr 04/14/2020,04/14/2020 Influenza, Trivalent, Adjuva nted, Intramuscular 05/17/2017,05/17/2017 Influenza, Trivalent, High D ose, Split, Preservative Free, Intramuscular 04/04/2018,04/04/2018,04/05/2016,04/05,05/22/2014,05/22/2014 Influenza, Trivalent, IM (MDV) 06/03/2013,2012 Influenza, Trivalent, Preser vative Free, Intramuscular 04/30/2017,05/10/2015,05/10/2015 Influenza, Unspecified 05/30/2020,2015,03/05/2015,02/17,05/11/2012,05/11/2012 Pneumococcal Conjugate PCV 13 06/20/2019, 019 ZOSTER LIVE 03/03/2017 Social History Tobacco Use Types Packs/Day Years Used Date Smoking Tobacco: Never Smokeless Tobacco: Never Tobacco Cessation:Counseling Given: Not Answered Alcohol Use Standard Drinks/Week Comments Never 0 (1 standard drink = 0.6 oz pur e alcohol) AUDIT-C Answer Date Recorded Q1: How often do you have a drink containing alcohol? Never 01/26/2024 Q2: How many drinks containi ng alcohol do you have on a typical day when you are drinking? Patient does not drink Q3: How often do you have si x or more drinks on one occasion? Never 01/26/2024 Sex and Gender Information Value Date Recorded Sex Assigned at Not on file Legal Sex Male 12:29 AM JIG AND FIXTURE BUILDER Gender Identity Not on file Sexual Orientation Not on file Last Filed Vital Signs Vital Sign Reading Time Taken Comments Blood Pressure 136/86 12/20/2023 1:04 PM CDT Pulse 73 12/20/2023 1:04 PM CDT Temperature 36.5 ??C (97.7 ??F) 10/14/2022 3:23 PM CD T Respiratory Rate 20 10/14/2022 3:23 PM CDT Oxygen Saturation 98% 10/14/2022 3:23 PM CDT Inhaled Oxygen Concentration - - Weight 67.6 kg (149 lb) 01/26/2024 12:27 PM CDT Height 177.8 cm (5' 10 ) 01/26/2024 12:27 PM CDT Body Mass Index 21.38 01/26/2024 12:27 PM CDT Plan of Treatment Not on file Medical Devices Implanted Type Area Seamer Device Identifier Shelf Expiration Date Model / Serial / Lot VODECLIC [id number] Vial 180-300um Particles 1ml Embolization Pva Foam Sterile - [id number] Implanted:Qty: 1 on 09/08/2020 at [facility] VODECLIC [id number] / / Insurance MEDICARE RAILROAD T MEDICARE [facility] [employer] [place] [address] Advance Directives For more information, please contact: [phone] * Full Code (Latest Code Status on File) Date Activated Date Inactivated Comments 09/07/2020 3:11 PM 09/16/2020 8:52 PM Care Teams Inspector Conveyor Line Relationship Specialty Start Date End Date Neal Baugh MD [address] [place] [address] PCP - General Internal Medicine 07/09/20 Neal Baugh MD [address] [place] [address] 07/09/20
--- OUTSIDE RECORDS SUMMARY | 2024-08-25 14:46 | XMS_ITS | Encounter Summary ---
Author Organization [facility] Healthcare Address [address] [place] [address] Care Team Providers Care Lease Buyer Name Role Phone Neal Baugh MD Primary Care Provider [phone] Neal Baugh MD Unavailable [phone] Encounter Details Date Type Department Care Team (Late st Contact Info) Description 01/05/2021 Telephone [facility] Radiology [address] [place] [address] Edin Clayton MD [address] [place] [address] DR DEPT NEUROSURGERY, [place] [address] Social History Tobacco Use Types Packs/Day Years Used Date Smoking Tobacco: Never Smokeless Tobacco: Never Alcohol Use Standard Drinks/Week Comments Never 0 (1 standard drink = 0.6 oz pur e alcohol) AUDIT-C Answer Date Recorded Q1: How often do you have a drink containing alc ohol? Never 08/25/2020 Average Number of Drinks Not on file 021 Frequency of Binge Drinking Not on file 08/01 Sex and Gender Information Value Date Recorded Sex Assigned at Not on file Legal Sex Male 12:29 AM CONCRETE ROD BUSTER Gender Identity Not on file Sexual Orientation Not on file documented as of this encounter Plan of Treatment Not on file documented as of this encounter Visit Diagnoses Not on filedocumented in this encounter Care Teams Lease Buyer Relationship Specialty Start Date End Date Neal Baugh MD [address] [facility] [address] [place] [address] PCP - General Internal Medicine 07/09/20 Neal Baugh MD [address] [facility] [address] [place] [address] 07/09/20 documented as of this encounter
--- OUTSIDE RECORDS SUMMARY | 2024-08-25 14:46 | XMS_ITS | Clinical Summary ---
Author Organization [facility] Address [address] [place] [address] Care Team Providers Care Main Line Assembler Name Role Phone Neal Baugh MD Primary Care Provider + Allergies No known active allergies Medications meloxicam (MOBIC) 15 mg tablet Take 15 mg by mouth daily. Active ezetimibe (ZETIA) 10 mg tablet Take 5 mg by mouth daily. Active PARoxetine HCl (PAXIL) 30 mg tablet Take 30 mg by mouth daily. Active omeprazole (PriLOSEC) 40 mg Capsule, Delayed Release(E.C.) Take 40 mg by mouth daily. Active Telmisartan-Hyd rochlorothiazid 80-12.5 mg Tablet Take 1 Tablet by mouth daily. Active levETIRAcetam (KEPPRA) 1,000 mg tablet Take 1,000 mg by mouth 2 times daily. Active phenytoin sodium (DILANTIN) 100 mg extended release capsule Take 200 mg by mouth daily 200/300 mg alternating days . Active amLODIPine (NORVASC) 5 mg tablet TK 1 T PO QD 4 8 Active FLUZONE HIGH-DOSE , PF, 180 mcg/0.5 mL Syringe syringe ADM 0.5ML IM UTD 0 04/05/20 1 8 Active rosuvastatin (CRESTOR) 20 mg tablet 0 Active POTASSIUM-99 ORAL Take by mouth. Activ e cyanocobalamin, vitamin B-12, (VITAMIN B12 ORAL) Take by mouth. Activ e potassium chloride (KLOR-CON) 10 mEq Extended Release tablet 0 Active pantoprazole (PROTONIX) 40 mg Tablet, Delayed Release (E.C.) 40 mg. 1 Active celecoxib (CeleBREX) 100 mg capsule 200 mg. 1 Active atorvastatin (LIPITOR) 40 mg tablet 40 mg. 1 Active Active Problems Problem Noted Date Diagnosed Date Macrocytic anemia with vitamin B12 deficiency Seizure disorder 10/22/2019 Leukopenia 03/07/2018 Encounters Date Type Department Care Team Description 08/19/2024 Orders Only [facility] [place] [address] [place] [address] Francisco Couch MD Macrocytic anemia with vitamin B12 deficiency (Primary Dx) from Last 3 Months Family History Medical History Relation Name Comments Other Brother 1 Other Brother 2 Lung Cancer Brother 3 Liver Disease Brother 4 Other Brother 5 Cancer Father Heart Disease Mother Cancer Sister 1 Heart Disease Sister 2 Relation Name Status Comments Brother 1 Brother 2 Brother 3 Brother 4 Brother 5 Alive Father Mother Sister 1 Sister 2 Social History Tobacco Use Types Packs/Day Years Used Date Smoking Tobacco: Never Tobacco Cessation:Counseling Given: Not Answered Alcohol Use Standard Drinks/Week Comments No 0 (1 standard drink = 0.6 oz pur e alcohol) Sex and Gender Information Value Date Recorded Sex Assigned at Not on file Legal Sex Male 11:09 AM CDT Gender Identity Not on file Sexual Orientation Not on file Last Filed Vital Signs Vital Sign Reading Time Taken Comments Blood Pressure 184/92 08/16/2022 2:59 PM PEST CONTROL OPERATOR Pulse 68 08/16/2022 2:56 PM PEST CONTROL OPERATOR Temperature 36.5 ??C (97.7 ??F) 08/16/2022 2:56 PM CS T Respiratory Rate 14 08/16/2022 2:56 PM PEST CONTROL OPERATOR Oxygen Saturation 100% 08/16/2022 2:56 PM PEST CONTROL OPERATOR Inhaled Oxygen Concentration - - Weight 71.8 kg (158 lb 3.2 oz) 08/16/2022 2:56 P M PEST CONTROL OPERATOR Height 177.8 cm (5' 10 ) 05/16/2022 11:57 AM CDT Body Mass Index 22.7 05/16/2022 11:57 AM CDT Plan of Treatment Upcoming Encounters Date Type Department Care Team (Late st Contact Info) Description 11/01/2024 11:30 AM CDT Office Visit [facility] [place] [address] [place] [address] Francisco Couch MD [facility] [address] [place] [address] Health Maintenance Due Date Last Done Comments DTAP/TDAP/TD VACCINES (1 - Tdap) 1964 Traditional Medicare (ACO) A nnual Wellness Visit 1964 ZOSTER VACCINE (2 of 3) 04/28/2017 03/03/2017 PNEUMOCOCCAL VACCINE 65+ YEA RS (2 of 2 - PPSV23) 06/20/2020 06/20/2019 RSV VACCINE (60+ or ) (1 - 1-dose 75+ series) 2022 INFLUENZA VACCINE (#1) 2024 0, 05/15/2019, 04/04/2018, Additional history exists COVID-19 Vaccine (3 - 2023-2 5 season) 2024 10/30/2020, 10/09/2020 COLORECTAL SCREENING Discontinued 09/13/2019, 06/09/2016, 06/09/2016 Colorectal Cancer Screening Discontinued FIT-DNA Q 3 years Discontinued FIT/FOBT Q 1 year Discontinued Flex Sig/CT Colonography Q 5 years Discontinued Additional Health Concerns Infection Onset Date Last Indicated R/O C. diff 08/17/2022 08/17/2022 Insurance MEDICARE RAILROAD MEDICARE RAILROAD [facility] [id number] [facility] Care Teams Main Line Assembler Relationship Specialty Start Date End Date Neal Baugh MD [address] [place] [address] PCP - General Internal Medicine 02/12/18
--- OUTSIDE RECORDS SUMMARY | 2024-08-25 14:46 | XMS_ITS | Clinical Summary ---
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 His current cognitive examination is similar to what was reported in prior [facility] records. Supportive care is indicated at this time Medication monitoring encounter 08/25/2020 Assessment & Plan (08/25/2020 11:59 AM TOBACCO DRYING MACHINE OPERATOR): I will obtain a trough phenytoin level, AST, and ALT for medication monitoring a trough medication levels in addition to screening for potential liver dysfunction associated with continued phenytoin usage. Complex partial seizures shelbie lving to generalized tonic-clonic seizures 08/25/2020 Assessment & Plan (08/25/2020 11:58 AM TOBACCO DRYING MACHINE OPERATOR): Patient is a prior patient of [facility]. Prior medical records from [facility] have been reviewed during today's visit in effort to facilitate transfer in care. He has no complex partial seizure secondary generalization as a sequelae to a traumatic brain injury. Since last being seen a [facility] in 2019, he has been maintained [...] PCV 13 06/20/2019, 019 ZOSTER LIVE 03/03/2017 Surgical History Surgery Date Site/Laterality Comments ANKLE SURGERY Left ORAL SURGERY BRAIN SURGERY Left Patient states that he has plastic clips in his skull Medical History Medical History Date Comments Seizures (HCC) Dementia (HCC) GERD (gastroesophageal reflux disease) Arthritis Hypertension Colon cancer (CMS/HCC) (HCC) Hyperlipidemia Myelodysplastic syndrome (HCC) Subdural hematoma (HCC) Depression Hypokalemia AVM (arteriovenous malformation) Family History Medical History Relation Name Comments Cancer Father Heart disease Mother Relation Name Status Comments Father Mother Social History Tobacco Use Types Packs/Day Years [...] on file Legal Sex Male 12:29 AM 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 DRYING MACHINE 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 Gender Identity Not on file Sexual Orientation Not on file Obstetrics History Last Filed Vital Signs Vital Sign Reading [...] 01/26/2024 12:27 PM CDT Plan of Treatment Health Maintenance Due Date Last Done Comments Depression Screening 1945 Hepatitis C Screening 1945 DTaP/Tdap/Td Vaccine (1 - Tdap) 1958 Hepatitis B Screening 1965 Well Visit 65+ 2012 Zoster Vaccine (2 of 3) 04/28/2017 03/03/2017 Pneumococcal vaccine 65+ (2 of 2 - PPSV23 or PCV20) 06/20/2020 06/20/2019, 06/20/2019 Fall Risk Assessment 01/12/2022 01/12/2021, 09/16/19 21 Covid-19 Vaccine (3 - 2023-2 5 season) 2024 10/30/2020, 10/09/2020 Influenza Vaccine (#1) 2024 0, 04/14/2020, 04/14/2020, Additional history exists Medical Devices Implanted Type Area Gas Appliance Mechanic Device Identifier Shelf Expiration Date Model / Serial / Lot Petnet [id number] Vial 180-300um Particles 1ml Embolization Pva Foam Sterile - [id number] Implanted:Qty: 1 on 09/08/2020 at [facility] Petnet [id number] / / Insurance MEDICARE RAILROAD Member Subscriber Plan / Payer (Ef fective 2012-Present) Name:Edin Melchor Member ID:[id number] Relation to Subscriber:Self Name:Edin Melchor Subscriber ID:[id number] Payer ID:[id number] Group ID:Not on file Type:MEDICARE TRADITIONAL Address: [address] [id number] [employer] [address] [employer] MEDICARE GOLD Advance Directives For more information, please contact: [phone] * Full Code (Latest Code Status on File) Date Activated Date Inactivated Comments 09/07/2020 3:11 PM 09/16/2020 8:52 PM Care Teams Extrusion Operator Relationship Specialty Start Date End Date Neal Baugh MD [address] [place] [address] PCP - General Internal Medicine 07/09/20 Neal Baugh MD [address] [place] [address] 07/09/20
--- NOTE | 2024-08-25 15:10 | ED.BACK ---
HPI - Back Pain/Injury General Chief Complaint: Back Pain/Injury Stated Complaint: found on floor Time Seen by Provider: 08/25/24 14:39 History of Present Illness HPI Narrative: Patient states he has chronic back pain and pain was so bad he lowered himself off of the couch and then lay on the ground. His nephew found him in the morning laying on the ground covered in feces/urine. Patient says last meal was yesterday. Related Data Home Medications ?Medication ?Instructions ?Recorded ?Confirmed ?Last Taken ?Type phenytoin sodium extended 200 mg See Rx Instructions PO .COMPLEX 07/16/24 Unknown History capsule Allergies Allergy/AdvReac Type Severity Reaction Status Date / Time No Known Allergies Allergy Verified 06/24/24 11:24 Review of Systems Review of Systems: All systems reviewed & are unremarkable except as noted in HPI and below [facility] Past Medical History Medical History (Updated 08/25/24 @ 17:37 by Brianna Harmon, INVOICE CODER) Peripheral neuropathy due to chemotherapy Arrhythmia Follow up Meningioma Swelling of right hand Hospital discharge follow-up Fall BMI 21.0-21.9, adult Pancytopenia BMI 24.0-24.9, adult Left shoulder pain Eczema Dry skin Neutropenia Vitamin D deficiency Vitamin B12 deficiency BMI 25.0-25.9,adult Subdural hematoma MDS (myelodysplastic syndrome) Vision changes Encounter for special screening examination for neoplasm of prostate BMI 27.0-27.9,adult Encounter for routine adult health examination without abnormal findings DJD (degenerative joint disease), multiple sites Blood dyscrasia Anxiety with depression Other specified abnormal findings of blood chemistry Vision changes Hearing loss Rash Colon cancer screening Peripheral neuropathy History of colon cancer Hypokalemia Seizure Encounter for Medicare annual wellness exam On assisted drug therapy Hyperlipidemia Benign essential hypertension Surgical History Surgical History S/P craniotomy Family History Family History Mother Family history of heart disease in male family member before age 55 Family history of cardiovascular disease Father Family history of malignant neoplasm Social History Social History Smoking status: Never smoker Second hand tobacco smoke exposure: No Alcohol intake: never Substance use: never Substance use type: does not use Lack of Transportation: YES Lack of Food: Never True Current Housing: I Have Housing Concerned About Future Housing: No Difficulty Paying Gas/Electric Bills: No Difficulty Paying for Meds: No Currently Unemployed: No Education: High School Diploma/GED Difficulty w/ Childcare or Family Care: No Living arrangements: alone Gender identity (if verbalized by the patient): Male Spiritual care concerns: No Exam Narrative: EXAMINATION OF ORGAN SYSTEMS/BODY AREAS: Constitutional: Vital signs per nursing GENERAL:[No acute distress, non-toxic appearing.] HEAD: Normal with no signs of head trauma. EYES: EOMI, conjunctiva normal ENT: Hearing grossly intact LUNGS: Nonlabored breathing. HEART: [Regular rate and rhythm] ABD: [Soft], [nontender to palpation] BACK: No midline tenderness EXT: Normal range of motion SKIN: Some bruising to bilateral knees NEURO: [Alert and oriented x 3. No gross focal sensory or strength deficits.] PSYCH: Normal affect Course Vital Signs Vital signs: Vital Signs Temperature 97.5 F L 08/25/24 14:45 Pulse Rate 81 08/25/24 14:45 Respiratory Rate 20 08/25/24 14:45 Blood Pressure 196/103 H 08/25/24 14:45 Pulse Oximetry 98 08/25/24 14:45 Oxygen Delivery Room Air 08/25/24 14:45 Temperature 98.0 F 08/25/24 18:30 Pulse Rate 81 08/25/24 18:30 Respiratory Rate 16 08/25/24 18:30 Blood Pressure 192/83 H 08/25/24 18:30 Pulse Oximetry 100 08/25/24 18:30 Oxygen Delivery Room Air 08/25/24 14:45 MDM - Back Pain/Injury MDM Narrative Medical decision making narrative: Patient states he has chronic back pain and pain was so bad he lowered himself off of the couch and then lay on the ground. His nephew found him in the morning laying on the ground covered in feces/urine. On exam his knees report used as of he avidly on the ground for a long time, he lives alone at home and given EMS report, at this point I am very concerned that he is no longer capable of caring for self. Patient agrees and thinks that he may be better off in assisted-living. Will admit at this time for further disposition for failure to thrive. I did obtain labs and imaging, do appear consistent with dehydration. Stable at this time for the admission, discussed with hospitalist who accepts. Lab Data 08/25/24 15:29 08/25/24 15:29 Labs: Lab Results 08/25/24 Range/Units 15:29 WBC 2.0 L (4.5-10.0) K/mm3 RBC 3.38 L (4.6-6.20) M/mm3 Hgb 12.6 L (14.0-18.0) g/dL Hct 36.3 L (42.0-52.0) % MCV 107.4 H (80-100) fl MCH 37.3 H (26-34) pg MCHC 34.7 (32-36) g/dl RDW 13.5 (11.5-14.5) % Plt Count 237 (150-375) k/mm3 MPV 10.4 (7.4-10.4) fl Immature Gran % (Auto) 1.0 H (0-0.5) % Neut % (Auto) 38.8 L (45.5-73.1) % Lymph % (Auto) 25.9 (18.3-44.2) % [place] % (Auto) 33.3 H (2.6-8.5) % Eos % (Auto) 0.0 (0-4.4) % Baso % (Auto) 1.0 (0.2-1.2) % Lymph # (Auto) 0.52 L (0.9-3.2) K/mm3 [place] # (Auto) 0.7 H (0.1-0.6) K/mm3 Eos # (Auto) 0.0 (0-0.3) K/mm3 Baso # (Auto) 0.0 (0.0-0.1) K/mm3 Abs Immat Gran (auto) 0.02 (0.00-0.031) K/mm3 Absolute Neuts (auto) 0.8 L (1.3-6.7) K/mm3 Absolute Nucleated RBC 0.000 (0.0-0.012) K/mm3 Nucleated RBC % 0.0 (0.0-0.2) % Sodium 144 (137-145) mmol/L Potassium 4.2 (3.4-5.0) mmol/L Chloride 104 (98-107) mmol/L Carbon Dioxide 24 (22-30) mmol/L Anion Gap 16 H (4-12) mmol/L BUN 26 H (9-20) mg/dL Creatinine 0.80 (0.7-1.3) mg/dL Estim Creat Clear Calc 70 ml/min Estimated GFR > 60 (59 - ) Glucose 109 (65-110) mg/dL Lactic Acid 2.0 (0.7-2.0) mmol/L Calcium 9.3 (8.4-10.2) mg/dL Total Bilirubin 2.1 H (0.2-1.3) mg/dL AST 63 H (17-59) U/L ALT 51 H (6-50) U/L Alkaline Phosphatase 128 H (38-126) U/L Total Creatine Kinase 233 H (55-170) U/L Total Protein 9.0 H (6.3-8.2) g/dL Albumin 4.2 (3.5-5.1) g/dL Urine Color Dark yellow (Yellow) Urine Appearance Cloudy H (Clear) Urine pH 5.5 (5.0-9.0) Ur Specific [place] 1.030 (1.001-1.035) Urine Protein 3+ H (Negative) mg/dL Urine Glucose (UA) Negative (Negative) mg/dL Urine Ketones 3+ H (Negative) mg/dL Ur Blood (Man) 2+ H (Negative) Urine Nitrate Positive H (Negative) Urine Bilirubin 2+ H (Negative) Urine Urobilinogen 4.0 H (<2.0) mg/dL Add Ur Microanalysis Reviewed Leukocyte Esterase Rfl Negative (Negative) DANG/UL Urine RBC 11-20 H (0-2) /hpf Urine WBC 0-5 (0-3) /hpf Ur Squamous Epith Cells None seen (Few) /hpf Urine Bacteria None seen /hpf Urine Casts 6-10
[2024-08-25 15:52] LABS: Alanine Aminotransferase 51 U/L (6-50); Albumin Level 4.2 g/dL (3.5-5.1); Alkaline Phosphatase 128 U/L (38-126); Anion Gap 16 mmol/L (4-12); Aspartate Amino Transferase 63 U/L (17-59); Bilirubin,Total 2.1 mg/dL (0.2-1.3); Blood Urea Nitrogen 26 mg/dL (9-20); Calcium 9.3 mg/dL (8.4-10.2); Carbon Dioxide 24 mmol/L (22-30); Chloride 104 mmol/L (98-107); Creatine Kinase 233 U/L (55-170); Estimated CRCL calculation 70 ml/min; Estimated Glomerular Filt Rate > 60; Glucose 109 mg/dL (65-110); Potassium 4.2 mmol/L (3.4-5.0); Sodium 144 mmol/L (137-145)
[2024-08-25 16:09] LABS: Hematocrit 36.3 % (42.0-52.0); Hemoglobin 12.6 g/dL (14.0-18.0); Immature Granulocyte Absolute 0.02 K/mm3 (0.00-0.031); Lymphocytes Absolute Auto 0.52 K/mm3 (0.9-3.2); Lymphocytes Percent Auto 25.9 % (18.3-44.2); Mean Corpuscular HGB Conc 34.7 g/dl (32-36); Mean Corpuscular Hemoglobin 37.3 pg (26-34); Mean Corpuscular Volume 107.4 fl (80-100); Mean Platelet Volume 10.4 fl (7.4-10.4); Monocytes Absolute Auto 0.7 K/mm3 (0.1-0.6); Monocytes Percent Auto 33.3 % (2.6-8.5); Neutrophils Absolute Auto 0.8 K/mm3 (1.3-6.7); Neutrophils Percent Auto 38.8 % (45.5-73.1); Platelet Count Result 237 k/mm3 (150-375); Red Blood Count 3.38 M/mm3 (4.6-6.20); Red Cell Distribution Width 13.5 % (11.5-14.5)
[2024-08-25 16:28] LABS: Add Urine Microscopic? YES; Appearance Urine Cloudy (Clear); Bacteria Urine None Seen /hpf; Bilirubin Urine 2+ (Negative); Blood Urine 2+ (Negative); Color Urine Dark Yellow (Yellow); Glucose Urine UA Negative (Negative); Ketones Urine 3+ mg/dL (Negative); Leukocyte Esterase Ur Negative LEU/UL (Negative); Need Manual Microscopic Reviewed; Nitrate Urine Positive (Negative); Protein Urine 3+ mg/dL (Negative); Squamous Epithelial Cell Urine None Seen /hpf (Few); WBC Urine 0-5 /hpf (0-3); pH Urine 5.5 (5.0-9.0)
--- NOTE | 2024-08-25 17:26 | P.HP_ITS ---
H&P: HPI History of Present Illness Date/Time: 08/25/24 17:26 Chief Complaint: Fall found down Narrative: 79-year-old male past medical history of MDS, blood dyscrasia, history of colon cancer, seizures, hypertension hyperlipidemia l presents the hospital you are after a fall where he was found down. Leukopenia at 2.0, total bilirubin 2.1, AST 63, ALT 51, alkaline phos 128, total protein 9.0 UA shows positive nitrates negative for leukocyte esterase. Chest x-ray shows no acute process, pelvis x-ray shows no acute process. CT findings suggestive of acute frontal, ethmoid, and left sphenoid sinusitis. Trace fluid in the right mastoid air cells and trace fluid/debris in the right middle ear space, correlate for clinical findings of otomastoiditis. Cervical spine CT shows no acute process. COUNT INCLUDES THE [facility] Past Medical History Medical History (Updated 08/25/24 @ 22:58 by Brianna Harmon, CREDENTIALING ASSISTANT) Peripheral neuropathy due to chemotherapy Arrhythmia Follow up Meningioma Swelling of right hand Hospital discharge follow-up Fall BMI 21.0-21.9, adult Pancytopenia BMI 24.0-24.9, adult Left shoulder pain Eczema Dry skin Neutropenia Vitamin D deficiency Vitamin B12 deficiency BMI 25.0-25.9,adult Subdural hematoma MDS (myelodysplastic syndrome) Vision changes Encounter for special screening examination for neoplasm of prostate BMI 27.0-27.9,adult Encounter for routine adult health examination without abnormal findings DJD (degenerative joint disease), multiple sites Blood dyscrasia Anxiety with depression Other specified abnormal findings of blood chemistry Vision changes Hearing loss Rash Colon cancer screening Peripheral neuropathy History of colon cancer Hypokalemia Seizure Encounter for Medicare annual wellness exam On 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 Hyperlipidemia Benign essential hypertension Surgical History Surgical History S/P craniotomy Family History Family History Mother Family history of heart disease in male family member before age 55 Family history of cardiovascular disease Father Family history of malignant neoplasm Social History Social History Smoking status: Never smoker Second hand tobacco smoke exposure: No Alcohol intake: never Substance use: never Substance use type: does not use Do You Feel Safe in your Home?: Yes Lack of Transportation: No Lack of Food: Never True Current Housing: I Have Housing Concerned About Future Housing: No Difficulty Paying Gas/Electric Bills: No Difficulty Paying for Meds: No Currently Unemployed: No Education: Don't Know Difficulty w/ Childcare or Family Care: No Living arrangements: alone Gender identity (if verbalized by the patient): Male Spiritual care concerns: No Meds Home Medications and Allergies Home Medications ?Medication ?Instructions ?Recorded ?Confirmed ?Type acetaminophen 325 mg tablet (Mapap 650 mg (2 x 325 mg) PO Q6H PRN 12/08/22 08/25/24 Rx (acetaminophen)) Pain #30 tabs levetiracetam 500 mg tablet 1,000 mg (2 x 500 mg) PO Q12HR #60 12/08/22 08/25/24 Rx (Keppra) tabs terazosin 1 mg capsule 4 mg (4 x 1 mg) PO HS #30 caps 12/08/22 08/25/24 Rx losartan 100 1 tablet PO DAILY #90 tabs 01/29/24 08/25/24 Rx mg-hydrochlorothiazide 12.5 mg tablet gabapentin 100 mg capsule 100 mg PO TID #90 caps 02/12/24 08/25/24 Rx potassium chloride 20 mEq 20 meq PO DAILY #30 tabs 05/07/24 08/25/24 Rx tablet,extended release pravastatin 40 mg tablet 40 mg PO DAILY #90 tabs 06/24/24 08/25/24 Rx pantoprazole 40 mg tablet,delayed 40 mg PO QAM #90 tabs 06/26/24 08/25/24 Rx release phenytoin sodium extended 200 mg See Rx Instructions PO .COMPLEX 07/16/24 08/25/24 History capsule amlodipine 10 mg tablet See Rx Instructions .Route 07/25/24 08/25/24 Rx .COMPLEX #90 tabs Allergies Allergy/AdvReac Type Severity Reaction Status Date / Time No Known Allergies Allergy Verified 06/24/24 11:24 Vital Signs Vital Signs - 24 hr 08/25/24 14:45 08/25/24 14:45 08/25/24 14:46 Temperature 97.5 F L Pulse Rate 81 92 Respiratory Rate 20 32 H 23 H Blood Pressure 196/103 H 177/99 H Pulse Oximetry 98 100 Oxygen Delivery Room Air 08/25/24 14:47 08/25/24 15:17 08/25/24 15:30 Temperature Pulse Rate 101 H 78 77 Respiratory Rate 15 17 21 H Blood Pressure 188/131 H Pulse Oximetry 100 100 100 Oxygen Delivery 08/25/24 15:51 08/25/24 15:56 08/25/24 16:10 Temperature Pulse Rate 93 80 78 Respiratory Rate 17 20 8 L Blood Pressure 185/98 H Pulse Oximetry 86 L 100 99 Oxygen Delivery 08/25/24 16:15 08/25/24 16:34 08/25/24 16:51 Temperature Pulse Rate 77 78 78 Respiratory Rate 10 L 8 L 15 Blood Pressure Pulse Oximetry 100 99 99 Oxygen Delivery Exam Narrative: General: Chronically ill-appearing HEENT: normocephalic, atraumatic. Mucous membranes moist. EOMI, PERRLA, bilateral sclera anicteric, no conjunctival injection. Neck supple without JVD, lymphadenopathy, or bruit. Respiratory: clear to ascultation bilaterally. No rales/rhonic/wheezes. Cardiovascular: Regular rate and rhythm, normal S1-S2 upon ascultation. No murmurs, rubs, or clicks. PMI is nondisplaced, capillary refill less than 3 second. Abdomen: Soft, round, no pulsatile masses, nondistended and nontender. No rebound, no guarding. No CVA tenderness, no hepatosplenomegaly. Bowel sounds present to all four quadrants. No high pitch or tinkling sounds, resonant to pe rcussion. Extremities: No cyanosis, clubbing, or edema present. Pulses are palpable 2/2. Active ROM to all four extremities. Neuro: Alert and orientated x 4. PERRLA. Cranial nerves 2-12 intact without focal deficit. Skin: Warm, dry, and intact, without rash, abrasions to knees and feet Psych: pleasant, cooperative, normal speech, normal affect, no hallucinations, no dysarthia H&P: Results Labs Labs: Short CBC 08/25/24 Range/Units 15:29 WBC 2.0 L (4.5-10.0) K/mm3 Hgb 12.6 L (14.0-18.0) g/dL Hct 36.3 L (42.0-52.0) % Plt Count 237 (150-375) k/mm3 [facility] 08/25/24 15:29 Sodium 144 Potassium 4.2 Chloride 104 Carbon Dioxide 24 BUN 26 H Creatinine 0.80 Glucose 109 Calcium 9.3 Cardiac Enzymes 08/25/24 Range/Units 15:29 Total Creatine Kinase 233 H (55-170) U/L Liver Function 08/25/24 Range/Units 15:29 Total Bilirubin 2.1 H (0.2-1.3) mg/dL AST 63 H (17-59) U/L ALT 51 H (6-50) U/L Alkaline Phosphatase 128 H (38-126) U/L Albumin 4.2 (3.5-5.1) g/dL Urine 08/25/24 Range/Units 15:29 Urine Color Dark yellow (Yellow) Urine Appearance Cloudy H (Clear) Urine pH 5.5 (5.0-9.0) Ur Specific Lane 1.030 (1.001-1.035) Urine Protein 3+ H (Negative) mg/dL Urine Glucose (UA) Negative (Negative) mg/dL Assessment and Plan Assessment and plan (1) Fall: Qualifiers: Encounter type: initial encounter Qualified Code(s): W19.XXXA - Unspecified fall, initial encounter Code(s): W19.XXXA - Unspecified fall, initial encounter Status: Acute Assessment and Plan: Likely due to dehydration and failure to thrive PT and OT Case management patient states that he likely needs assisted livin, if not more (2) Mastoiditis: Code(s): H70.90 - Unspecified mastoiditis, unspecified ear Status: Acute Assessment and Plan: Rocephin (3) Rhabdomyolysis: Code(s): M62.82 - Rhabdomyolysis Status: Acute Assessment and Plan: Patient fell early in the morning was found later on afternoon on the floor he states that he was able to scoot around and rolled IV fluid for hydration (4) Seizure: Code(s): R56.9 - Unspecified convulsions Status: Acute Assessment and Plan: Continue home med (5) Chronic leukopenia: Code(s): D72.819 - Decreased white blood cell count, unspecified Status: Acute Assessment and Plan: Daily labs (6) MDS (myelodysplastic syndrome): Code(s): D46.9 - Myelodysplastic syndrome, unspecified Status: Acute Assessment and Plan: PT and OT (7) Hypertension: Code(s): I10 - Essential (primary) hypertension Status: Acute Assessment and Plan: Holding hydrocolloid due to dehydration And okay for losartan Quality VTE Prophylaxis VTE prophylaxis: mechanical ordered and pharmacologic ordered Hospitalist [facility] Advance Care Plan I have confirmed that the patient's Advanced Care Plan is present, code status is documented, or surrogate decision maker is listed in patient medical record.: Yes Medication Reconciliation I have utilized all available resources to obtain, update and review the patients current medications (includes all prescriptions, OTC, herbals, cannabis, and nutritional supplements).: Yes
[2024-08-25] MEDS: ACETAMINOPHEN 325 MG TABLET 650 MG PO (18:23)
[2024-08-25] MEDS: HYDROcodone/acetaminophen (*CRX) 5-325 MG TABLET 1 TAB PO (18:24)
[2024-08-25] MEDS: SODIUM CHLORIDE 0.9% IV 1,000 ML 100 ML IV CONT (18:25)
[2024-08-25 19:48] LABS: Creatine Kinase 344 U/L (55-170)
[2024-08-25] MEDS: LOSARTAN POTASSIUM 100 MG TABLET PO (22:02)
[2024-08-25] MEDS: hydroCHLOROthiazide 12.5 MG CAPSULE PO (22:03)
[2024-08-25] MEDS: METOPROLOL TARTRATE 25 MG TABLET PO (22:03)
--- NOTE | 2024-08-25 22:17 | ADMGEN ---
This patient, Edin Diggs, was admitted to 3 [facility] Surg Room 321-02. Patient/family oriented to hospital policies and general routines including ID bracelet, bed and alarms, visiting hours, pain management, procedures, bathroom and other care routines, personal items, smoking policy, room service/diet, and visiting hours. Information on how to activate the Rapid Response Team has been discussed. Patient/Family are encouraged to report perceived risks to care and to ask questions if they do not understand what they are told or what they should do.
[2024-08-25] MEDS: PHENYTOIN SODIUM 100 MG EXTENDED RELEASE CAP 300 MG PO (23:18)
[2024-08-25] MEDS: levETIRAcetam 500 MG TABLET 1000 MG PO (23:19)
[2024-08-26 05:51] VITALS: BP 167/81; PULSE 79; RESP 16; TEMP 36.7; O2SAT 95
[2024-08-26 07:08] LABS: Basophils Percent Auto 0.4 % (0.2-1.2); Eosinophils Percent Auto 0.9 % (0-4.4); Hematocrit 30.9 % (42.0-52.0); Hemoglobin 10.7 g/dL (14.0-18.0); Immature Granulocyte Absolute 0.01 K/mm3 (0.00-0.031); Immature Granulocyte Percent A 0.4 % (0-0.5); Lymphocytes Absolute Auto 0.41 K/mm3 (0.9-3.2); Lymphocytes Percent Auto 18.2 % (18.3-44.2); Mean Corpuscular HGB Conc 34.6 g/dl (32-36); Mean Corpuscular Hemoglobin 37.3 pg (26-34); Mean Corpuscular Volume 107.7 fl (80-100); Mean Platelet Volume 10.2 fl (7.4-10.4); Monocytes Absolute Auto 0.8 K/mm3 (0.1-0.6); Monocytes Percent Auto 35.1 % (2.6-8.5); Platelet Count Result 192 k/mm3 (150-375); Red Blood Count 2.87 M/mm3 (4.6-6.20); Red Cell Distribution Width 13.5 % (11.5-14.5); White Blood Count 2.3 K/mm3 (4.5-10.0)
[2024-08-26 07:27] LABS: Anion Gap 11 mmol/L (4-12); Blood Urea Nitrogen 22 mg/dL (9-20); Calcium 8.4 mg/dL (8.4-10.2); Carbon Dioxide 24 mmol/L (22-30); Chloride 106 mmol/L (98-107); Estimated CRCL calculation 63 ml/min; Estimated Glomerular Filt Rate > 60; Glucose 97 mg/dL (65-110); Potassium 3.4 mmol/L (3.4-5.0); Sodium 141 mmol/L (137-145)
[2024-08-26 07:55] LABS: Anisocytosis 1+; Macrocytosis 1+ (NORMAL); Platelet Estimate Adequate (Adequate)
[2024-08-26 07:56] LABS: Burr Cells 1+; Schistocytes Rare
[2024-08-26] MEDS: polyethylene glycoL 3350 17 GM POWD.PACK PO (08:23)
[2024-08-26] MEDS: PRAVASTATIN SODIUM 20 MG TABLET 40 MG PO (08:23)
[2024-08-26] MEDS: PHENYTOIN SODIUM 100 MG EXTENDED RELEASE CAP 300 MG PO ×2 (08:24→20:23)
[2024-08-26] MEDS: levETIRAcetam 500 MG TABLET 1000 MG PO ×2 (08:24→20:23)
[2024-08-26] MEDS: METOPROLOL TARTRATE 25 MG TABLET PO ×2 (08:24→20:24)
[2024-08-26] MEDS: ENOXAPARIN 40 MG/0.4 ML SYRINGE SUB-Q (08:24)
[2024-08-26] MEDS: POTASSIUM CHLORIDE 20 MEQ ER TABLET PO (08:24)
[2024-08-26] MEDS: DOCUSATE SODIUM 100 MG CAPSULE PO ×2 (08:24→18:19)
[2024-08-26] MEDS: LOSARTAN POTASSIUM 100 MG TABLET PO (08:24)
[2024-08-26] MEDS: SODIUM CHLORIDE 0.9% IV 1,000 ML 100 ML IV CONT ×2 (08:27→18:49)
[2024-08-26] MEDS: HYDROcodone/acetaminophen (*CRX) 5-325 MG TABLET 1 TAB PO ×2 (10:16→18:48)
[2024-08-26 14:00] VITALS: BP 122/67; PULSE 68; RESP 20; TEMP 37; O2SAT 97
--- NOTE | 2024-08-26 16:50 | P.PNIM_ITS ---
Progress Note: A&P Assessment and Plan (1) Fall: Qualifiers: Encounter type: initial encounter Qualified Code(s): W19.XXXA - Unspecified fall, initial encounter Code(s): W19.XXXA - Unspecified fall, initial encounter Status: Acute Assessment and Plan: Mechanical per patient possibly due to deconditioning. Continue PT and OT treatment. Will likely needs placement. Case management to assist with placement options. (2) Mastoiditis: Code(s): H70.90 - Unspecified mastoiditis, unspecified ear Status: Acute Assessment and Plan: Covered by Doug. Will consider p.o. antibiotics in a.m. (3) Rhabdomyolysis: Code(s): M62.82 - Rhabdomyolysis Status: Acute Assessment and Plan: Likely from prolonged period on the floor post fall. Continue IV fluid hydration. Monitor CK. Encourage good p.o. fluid intake. (4) Seizure: Code(s): R56.9 - Unspecified convulsions Status: Acute Assessment and Plan: Denies any recent seizure activity. Seizure precautions. Continue home antiepileptics. (5) Chronic leukopenia: Code(s): D72.819 - Decreased white blood cell count, unspecified Status: Acute Assessment and Plan: Likely related to #6 below. Monitor trend. (6) MDS (myelodysplastic syndrome): Code(s): D46.9 - Myelodysplastic syndrome, unspecified Status: Acute Assessment and Plan: Stable. Continue outpatient follow-up by pcp and home health nurse licensed practical. (7) Hypertension: Code(s): I10 - Essential (primary) hypertension Status: Acute Assessment and Plan: Blood pressure values reviewed. Continue current treatment. Adjust meds as needed. Time Spent With Patient Time with patient: 15 - 25 minutes Subjective Date/time seen: 08/26/24 11:50 Patient sitting on chair after assistance with PT but states he has a lot of back pain. His reports falling twice this week at home and it took a lot of time before he got himself. He reports tripping outside his house after picking up mail and again falling in the house after tripping on the stairs. States he was well oriented during those episodes and did not pass out or have any seizure episodes. Interval history: Patient sitting up went to undergo to be in moderate distress with back pain. Review of Systems Review of Systems: All systems reviewed & are unremarkable except as noted in HPI and below Exam Narrative: General: Chronically ill-appearing, moderate distress with pain. HEENT: normocephalic, atraumatic. Mucous membranes moist. EOMI, PERRLA, bilateral sclera anicteric, no conjunctival injection. Neck supple. Respiratory: clear to ascultation bilaterally. Cardiovascular: Regular rate and rhythm, normal S1-S2, No murmurs. Abdomen: Soft, round, nondistended and nontender. Bowel sounds present to all four quadrants. Extremities: No cyanosis, clubbing, or edema present. Neuro: Alert and orientated x 4. PERRLA. Cranial nerves 2-12 intact without focal deficit. Skin: Warm, dry, and intact, without rash. Psych: pleasant, cooperative. Objective Data Vital Signs Vital Signs: Vital Signs - 24 hr 08/25/24 16:51 08/25/24 18:30 08/25/24 21:00 Temperature 98.0 F 98.0 F Pulse Rate 78 81 81 Respiratory Rate 15 16 18 Blood Pressure 192/83 H 190/82 H Pulse Oximetry 99 100 100 Oxygen Delivery 08/25/24 22:03 08/25/24 23:52 08/26/24 05:51 Temperature 98.0 F Pulse Rate 80 79 Respiratory Rate 16 Blood Pressure 144/72 H 167/81 H Pulse Oximetry 95 Oxygen Delivery 08/26/24 09:39 08/26/24 11:17 08/26/24 14:00 Temperature 98.6 F Pulse Rate 68 Respiratory Rate 20 Blood Pressure 122/67 Pulse Oximetry 97 Oxygen Delivery Room Air Room Air Intake/Output Intake/Output: Intake & Output 08/23/24 08/24/24 08/25/24 08/26/24 23:59 23:59 23:59 23:59 Intake Total 1558 Output Total 100 300 Balance -100 1258 Meds/Results Medications: Active Medications Generic Name Dose Route Start Last Admin Trade Name Freq PRN Reason Stop Dose Admin Acetaminophen 650 mg 08/25/24 17:38 08/25/24 18:23 Acetaminophen 325 Mg Tablet PO 650 mg Q4H PRN Administration Mild Pain (1-3) or Fever Hydrocodone Bitart/Acetaminophen 1 tab 08/25/24 17:38 08/26/24 10:16 Hydrocodone/Acetaminophen (*Crx) 5-325 Mg Tablet PO 1 tab Q4H PRN Administration Moderate Pain (4-6) Docusate Sodium 100 mg 08/26/24 09:00 08/26/24 08:24 Docusate Sodium 100 Mg Capsule PO 100 mg BID EMILY Administration Enoxaparin Sodium 40 mg 08/26/24 09:00 08/26/24 08:24 Enoxaparin 40 Mg/0.4 Ml Syringe SUB-Q 40 mg DAILY EMILY Administration Hydrochlorothiazide 12.5 mg 08/25/24 21:15 08/25/24 22:03 Hydrochlorothiazide 12.5 Mg Capsule PO 12.5 mg QAM EMILY Administration Sodium Chloride 1,000 mls @ 100 mls/hr 08/25/24 17:40 08/26/24 08:27 Normal Saline Iv IV CONT 100 mls/hr .Q10H EMILY Administration Ceftriaxone Sodium 1 gm in 50 mls @ 100 mls/hr 08/25/24 22:50 08/25/24 23:19 Rocephin 1 Gm/Ns 50 Ml IVPB 100 mls/hr HS EMILY Administration Levetiracetam 1,000 mg 08/25/24 23:05 08/26/24 08:24 Levetiracetam 500 Mg Tablet PO 1,000 mg Q12HR EMILY Administration Losartan Potassium 100 mg 08/25/24 21:20 08/26/24 08:24 Losartan Potassium 100 Mg Tablet PO 100 mg DAILY EMILY Administration Metoprolol Tartrate 25 mg 08/25/24 21:20 08/26/24 08:24 Metoprolol Tartrate 25 Mg Tablet PO 25 mg Q12HR EMILY Administration Phenytoin Sodium 300 mg 08/25/24 23:05 08/26/24 08:24 Phenytoin Sodium 100 Mg Extended Release Cap PO 300 mg Q12HR EMILY Administration Polyethylene Glycol 17 gm 08/26/24 09:00 08/26/24 08:23 Polyethylene Glycol 3350 17 Gm Powd.Pack PO 17 gm QAM EMILY Administration Potassium Chloride 20 meq 08/26/24 09:00 08/26/24 08:24 Potassium Chloride 20 Meq Er Tablet PO 20 meq DAILY EMILY Administration Pravastatin Sodium 40 mg 08/26/24 09:00 08/26/24 08:23 Pravastatin Sodium 20 Mg Tablet PO 40 mg DAILY EMILY Administration Radiology Results: ITS Impressions Chest X-Ray 08/25/24 15:48 IMPRESSION: No acute cardiopulmonary process. Pelvis X-Ray 08/25/24 15:50 IMPRESSION: No acute osseous finding in the pelvis. Head CT 08/25/24 15:56 IMPRESSION: No acute intracranial process. CT findings suggestive of acute frontal, ethmoid, and left sphenoid sinusitis. Trace fluid in the right mastoid air cells and trace fluid/debris in the right middle ear space, correlate for clinical findings of otomastoiditis. Cervical Spine CT 08/25/24 16:07 IMPRESSION: No acute fracture or traumatic malalignment in the cervical spine. Labs Labs: Laboratory Results - last 24 hr 08/25/24 08/26/24 19:32 06:30 WBC 2.3 L RBC 2.87 L Hgb 10.7 L Hct 30.9 L MCV 107.7 H MCH 37.3 H MCHC 34.6 RDW 13.5 Plt Count 192 MPV 10.2 Immature Gran % (Auto) 0.4 Neut % (Auto) 45.0 L Lymph % (Auto) 18.2 L [place] % (Auto) 35.1 H Eos % (Auto) 0.9 Baso % (Auto) 0.4 Lymph # (Auto) 0.41 L [place] # (Auto) 0.8 H Eos # (Auto) 0.0 Baso # (Auto) 0.0 Abs Immat Gran (auto) 0.01 Absolute Neuts (auto) 1.0 L Absolute Nucleated RBC 0.000 Nucleated RBC % 0.0 Platelet Estimate Adequate Anisocytosis 1+ Macrocytosis 1+ Alan Cells 1+ Schistocytes Rare Sodium 141 Potassium 3.4 Chloride 106 Carbon Dioxide 24 Anion Gap 11 BUN 22 H Creatinine 0.86 Estim Creat Clear Calc 63 Estimated GFR > 60 Glucose 97 Calcium 8.4 Total Creatine Kinase 344 H Quality VTE Prophylaxis VTE prophylaxis: mechanical ordered and pharmacologic ordered Hospitalist MIPS Advance Care Plan I have confirmed that the patient's Advanced Care Plan is present, code status is documented, or surrogate decision maker is listed in patient medical record.: Yes Medication Reconciliation I have utilized all available resources to obtain, update and review the patients current medications (includes all prescriptions, OTC, herbals, cannabis, and nutritional supplements).: Yes
[2024-08-26 20:24] VITALS: PULSE 68
[2024-08-26 22:00] VITALS: BP 129/65; PULSE 57; RESP 16; TEMP 36.7; O2SAT 98
[2024-08-27] MEDS: SODIUM CHLORIDE 0.9% IV 1,000 ML 100 ML IV CONT ×2 (03:51→17:20)
[2024-08-27 06:00] VITALS: BP 163/73; PULSE 57; RESP 20; TEMP 36.9; O2SAT 97
[2024-08-27 06:42] LABS: Creatine Kinase 95 U/L (55-170)
[2024-08-27] MEDS: HYDROcodone/acetaminophen (*CRX) 5-325 MG TABLET 1 TAB PO (09:17)
[2024-08-27] MEDS: levETIRAcetam 500 MG TABLET 1000 MG PO ×2 (09:19→20:23)
[2024-08-27] MEDS: DOCUSATE SODIUM 100 MG CAPSULE PO ×2 (09:19→17:14)
[2024-08-27] MEDS: POTASSIUM CHLORIDE 20 MEQ ER TABLET PO (09:19)
[2024-08-27] MEDS: PRAVASTATIN SODIUM 20 MG TABLET 40 MG PO (09:19)
[2024-08-27 09:20] VITALS: PULSE 57
[2024-08-27] MEDS: METOPROLOL TARTRATE 25 MG TABLET PO ×2 (09:20→20:24)
[2024-08-27] MEDS: PHENYTOIN SODIUM 100 MG EXTENDED RELEASE CAP 300 MG PO ×2 (09:20→20:23)
[2024-08-27] MEDS: LOSARTAN POTASSIUM 100 MG TABLET PO (09:20)
[2024-08-27] MEDS: ENOXAPARIN 40 MG/0.4 ML SYRINGE SUB-Q (09:21)
[2024-08-27] MEDS: polyethylene glycoL 3350 17 GM POWD.PACK PO (09:21)
--- NOTE | 2024-08-27 13:08 | P.PNIM_ITS ---
Progress Note: A&P Assessment and Plan (1) Fall: Qualifiers: Encounter type: initial encounter Qualified Code(s): W19.XXXA - Unspecified fall, initial encounter Code(s): W19.XXXA - Unspecified fall, initial encounter Status: Acute Assessment and Plan: Mechanical per patient possibly due to deconditioning. Continue PT and OT treatment. Will likely needs placement. Case management to assist with placement options. Maintain fall precautions. (2) Mastoiditis: Code(s): H70.90 - Unspecified mastoiditis, unspecified ear Status: Acute Assessment and Plan: Covered by Rocephin initially. Will discontinue Rocephin and start Keflex. (3) Rhabdomyolysis: Code(s): M62.82 - Rhabdomyolysis Status: Acute Assessment and Plan: Likely from prolonged period on the floor post fall. Resolved with IV fluid hydration. CK currently wnl. Encourage with p.o. fluid intake. (4) Seizure: Code(s): R56.9 - Unspecified convulsions Status: Acute Assessment and Plan: Denies any recent seizure activity. Seizure precautions. Continue home antiepileptics. (5) Chronic leukopenia: Code(s): D72.819 - Decreased white blood cell count, unspecified Status: Acute Assessment and Plan: Likely related to #6 below. Monitor trend. (6) MDS (myelodysplastic syndrome): Code(s): D46.9 - Myelodysplastic syndrome, unspecified Status: Acute Assessment and Plan: Stable. 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 (7) Hypertension: Code(s): I10 - Essential (primary) hypertension Status: Acute Assessment and Plan: Blood pressure values reviewed. Continue current treatment. Adjust meds as needed. (8) Bunion of left foot: Code(s): M21.612 - Bunion of left foot Status: Acute Assessment and Plan: -surrounding skin appears red and possibly infected. -started on Keflex. -supportive care. (9) Bunion of great toe of right foot: Code(s): M21.611 - Bunion of right foot Status: Acute Assessment and Plan: -surrounding skin red and appear infected. -started on Keflex. -supportive care. Time Spent With Patient Time with patient: 15 - 25 minutes Subjective Date/time seen: 08/27/24 11:08 Patient calm on bedrest and states he still has some back pain, only slightly reduced. States will try and sit up some more and do more with PT as he wants to go back home rather than rehab placement. Interval history: Patient calm on bedrest and looks to be in no acute distress. Patient admitted for increased generalized weakness with recurrent falls. Patient currently working with PT/OT and will likely need placement. Review of Systems Review of Systems: All systems reviewed & are unremarkable except as noted in HPI and below Exam Narrative: General: Chronically ill-appearing, slight distress with pain. HEENT: normocephalic, atraumatic. Mucous membranes moist. EOMI, PERRLA, bilateral sclera anicteric. Neck: supple. Respiratory: clear to auscultation bilaterally. Cardiovascular: Regular rate and rhythm, normal S1-S2, No murmurs. Abdomen: Soft, round, nondistended and nontender. Bowel sounds present to all four quadrants. Extremities: No cyanosis, clubbing, or edema present. Neuro: Alert and orientated x 4. PERRLA. Cranial nerves 2-12 intact without focal deficit. Skin: Warm and dry. Bunions bilaterally with surrounding skin reddened. Psych: pleasant, cooperative. Objective Data Vital Signs Vital Signs: Vital Signs - 24 hr 08/26/24 14:00 08/26/24 20:00 08/26/24 20:24 Temperature 98.6 F Pulse Rate 68 68 Respiratory Rate 20 Blood Pressure 122/67 Pulse Oximetry 97 Oxygen Delivery Room Air 08/26/24 22:00 08/27/24 06:00 08/27/24 09:20 Temperature 98.1 F 98.4 F Pulse Rate 57 L 57 L 57 L Respiratory Rate 16 20 Blood Pressure 129/65 163/73 H Pulse Oximetry 98 97 Oxygen Delivery Intake/Output Intake/Output: Intake & Output 08/24/24 08/25/24 08/26/24 08/27/24 23:59 23:59 23:59 23:59 Intake Total 50 3798 1143.3 Output Total 100 1325 0 Balance -50 2473 1143.3 Meds/Results Medications: Active Medications Generic Name Dose Route Start Last Admin Trade Name Freq PRN Reason Stop Dose Admin Acetaminophen 650 mg 08/25/24 17:38 08/25/24 18:23 Acetaminophen 325 Mg Tablet PO 650 mg Q4H PRN Administration Mild Pain (1-3) or Fever Hydrocodone Bitart/Acetaminophen 1 tab 08/25/24 17:38 08/27/24 09:17 Hydrocodone/Acetaminophen (*Crx) 5-325 Mg Tablet PO 1 tab Q4H PRN Administration Moderate Pain (4-6) Docusate Sodium 100 mg 08/26/24 09:00 08/27/24 09:19 Docusate Sodium 100 Mg Capsule PO 100 mg BID EMILY Administration Enoxaparin Sodium 40 mg 08/26/24 09:00 08/27/24 09:21 Enoxaparin 40 Mg/0.4 Ml Syringe SUB-Q 40 mg DAILY EMILY Administration Hydrochlorothiazide 12.5 mg 08/25/24 21:15 08/25/24 22:03 Hydrochlorothiazide 12.5 Mg Capsule PO 12.5 mg QAM EMILY Administration Sodium Chloride 1,000 mls @ 100 mls/hr 08/25/24 17:40 08/27/24 03:51 Normal Saline Iv IV CONT 100 mls/hr .Q10H EMILY Administration Ceftriaxone Sodium 1 gm in 50 mls @ 100 mls/hr 08/25/24 22:50 08/26/24 20:26 Rocephin 1 Gm/Ns 50 Ml IVPB 100 mls/hr HS EMILY Administration Levetiracetam 1,000 mg 08/25/24 23:05 08/27/24 09:19 Levetiracetam 500 Mg Tablet PO 1,000 mg Q12HR EMILY Administration Losartan Potassium 100 mg 08/25/24 21:20 08/27/24 09:20 Losartan Potassium 100 Mg Tablet PO 100 mg DAILY EMILY Administration Metoprolol Tartrate 25 mg 08/25/24 21:20 08/27/24 09:20 Metoprolol Tartrate 25 Mg Tablet PO 25 mg Q12HR EMILY Administration Phenytoin Sodium 300 mg 08/25/24 23:05 08/27/24 09:20 Phenytoin Sodium 100 Mg Extended Release Cap PO 300 mg Q12HR EMILY Administration Polyethylene Glycol 17 gm 08/26/24 09:00 08/27/24 09:21 Polyethylene Glycol 3350 17 Gm Powd.Pack PO 17 gm QAM EMILY Administration Potassium Chloride 20 meq 08/26/24 09:00 08/27/24 09:19 Potassium Chloride 20 Meq Er Tablet PO 20 meq DAILY EMILY Administration Pravastatin Sodium 40 mg 08/26/24 09:00 08/27/24 09:19 Pravastatin Sodium 20 Mg Tablet PO 40 mg DAILY EMILY Administration Radiology Results: ITS Impressions Chest X-Ray 08/25/24 15:48 IMPRESSION: No acute cardiopulmonary process. Pelvis X-Ray 08/25/24 15:50 IMPRESSION: No acute osseous finding in the pelvis. Head CT 08/25/24 15:56 IMPRESSION: No acute intracranial process. CT findings suggestive of acute frontal, ethmoid, and left sphenoid sinusitis. Trace fluid in the right mastoid air cells and trace fluid/debris in the right middle ear space, correlate for clinical findings of otomastoiditis. Cervical Spine CT 08/25/24 16:07 IMPRESSION: No acute fracture or traumatic malalignment in the cervical spine. Labs Labs: Laboratory Results - last 24 hr 08/27/24 06:04 Total Creatine Kinase 95 Quality VTE Prophylaxis VTE prophylaxis: mechanical ordered and pharmacologic ordered Hospitalist MIPS Advance Care Plan I have confirmed that the patient's Advanced Care Plan is present, code status is documented, or surrogate decision maker is listed in patient medical record.: Yes Medication Reconciliation I have utilized all available resources to obtain, update and review the patients current medications (includes all prescriptions, OTC, herbals, cannabis, and nutritional supplements).: Yes
[2024-08-27 14:00] VITALS: BP 140/58; PULSE 62; RESP 18; TEMP 36.5; O2SAT 95
--- NOTE | 2024-08-27 15:42 | PCPTNOTE ---
On 08/27/24, the student, SALVATORE Aragon, provided care and completed [facility] documentation on this patient. I have reviewed the student's documentation and agree with the findings.
[2024-08-27 20:24] VITALS: PULSE 62
[2024-08-27] MEDS: CEPHALEXIN 500 MG CAPSULE PO (20:24)
[2024-08-27 22:00] VITALS: BP 147/82; PULSE 69; RESP 20; TEMP 36.4; O2SAT 96
[2024-08-28] VITALS (7 sets, daily range): BP systolic 143–168; BP diastolic 63–79; PULSE 58–76; RESP 12–20; TEMP 36.5–37.1; O2SAT 94–100
[2024-08-28 07:07] LABS: Potassium 3.3 mmol/L (3.4-5.0)
[2024-08-28 08:38] LABS: Glucose Point of Care 99 mg/dl (65-105)
[2024-08-28] MEDS: PRAVASTATIN SODIUM 20 MG TABLET 40 MG PO (08:45)
[2024-08-28] MEDS: POTASSIUM CHLORIDE 20 MEQ ER TABLET PO (08:45)
[2024-08-28] MEDS: PHENYTOIN SODIUM 100 MG EXTENDED RELEASE CAP 300 MG PO ×2 (08:46→20:18)
[2024-08-28] MEDS: polyethylene glycoL 3350 17 GM POWD.PACK PO (08:46)
[2024-08-28] MEDS: LOSARTAN POTASSIUM 100 MG TABLET PO (08:46)
[2024-08-28] MEDS: DOCUSATE SODIUM 100 MG CAPSULE PO ×2 (08:46→17:25)
[2024-08-28] MEDS: levETIRAcetam 500 MG TABLET 1000 MG PO ×2 (08:46→20:18)
[2024-08-28] MEDS: CEPHALEXIN 500 MG CAPSULE PO ×2 (08:46→20:18)
[2024-08-28] MEDS: METOPROLOL TARTRATE 25 MG TABLET PO ×2 (08:47→20:19)
[2024-08-28] MEDS: ENOXAPARIN 40 MG/0.4 ML SYRINGE SUB-Q (08:48)
[2024-08-28] MEDS: SODIUM CHLORIDE 0.9% IV 1,000 ML 100 ML IV CONT (08:53)
--- NOTE | 2024-08-28 09:46 | P.PNIM_ITS ---
Progress Note: A&P Assessment and Plan (1) Fall: Qualifiers: Encounter type: initial encounter Qualified Code(s): W19.XXXA - Unspecified fall, initial encounter Code(s): W19.XXXA - Unspecified fall, initial encounter Status: Acute Assessment and Plan: Mechanical per patient possibly due to deconditioning. Continue PT and OT treatment. Will likely needs placement. Case management to assist with placement options. Maintain fall precautions. (2) Mastoiditis: Code(s): H70.90 - Unspecified mastoiditis, unspecified ear Status: Acute Assessment and Plan: Covered by Rocephin initially. Will discontinue Rocephin and start Keflex. (3) Rhabdomyolysis: Code(s): M62.82 - Rhabdomyolysis Status: Acute Assessment and Plan: Likely from prolonged period on the floor post fall. Discontinued IV fluids CK currently wnl. Encourage with p.o. fluid intake. (4) Bunion of left foot: Code(s): M21.612 - Bunion of left foot Status: Acute Assessment and Plan: -surrounding skin appears red and possibly infected. -started on Keflex. -supportive care. (5) Bunion of great toe of right foot: Code(s): M21.611 - Bunion of right foot Status: Acute Assessment and Plan: -surrounding skin red and appear infected. -started on Keflex. -supportive care. (6) Chronic leukopenia: Code(s): D72.819 - Decreased white blood cell count, unspecified Status: Acute Assessment and Plan: Likely related to #6 below. Monitor trend. (7) MDS (myelodysplastic syndrome): Code(s): D46.9 - Myelodysplastic syndrome, unspecified Status: Acute Assessment and Plan: Stable. Continue outpatient follow-up by pcp and home health aide caregiver. (8) Seizure: Code(s): R56.9 - Unspecified convulsions Status: Acute Assessment and Plan: Denies any recent seizure activity. Seizure precautions. Continue home antiepileptics. (9) Hypertension: Code(s): I10 - Essential (primary) hypertension Status: Acute Assessment and Plan: Blood pressure values reviewed. Continue current treatment. Adjust meds as needed. (10) Right hip pain: Code(s): M25.551 - Pain in right hip Status: Acute Assessment and Plan: No acute fracture on x-ray Will try muscle relaxers Continue PT and OT patient will likely need placement Time Spent With Patient Time with patient: Greater than 35 minutes Subjective Date/time seen: 08/28/24 09:46 Interval history: 79-year-old male past medical history of MDS, blood dyscrasia, history of colon cancer, seizures, hypertension hyperlipidemia presents to the hospital after a fall where he was found down. Patient calm on bedrest and looks to be in no acute distress. Patient admitted for increased generalized weakness with recurrent falls. Patient currently working with PT/OT and will likely need placement. complains of right hip pain, pelvis x ray with no acute fracture, right femur x ray ordered with no acute fracture Review of Systems Review of Systems: All systems reviewed & are unremarkable except as noted in HPI and below Exam Narrative: General: Chronically ill-appearing, no apparent distress HEENT: normocephalic, atraumatic. Mucous membranes moist. EOMI, PERRLA, bilateral sclera anicteric. Neck: supple. Respiratory: clear to auscultation bilaterally. Cardiovascular: Regular rate and rhythm, normal S1-S2, No murmurs. Abdomen: Soft, round, nondistended and nontender. Bowel sounds present to all four quadrants. Extremities: No cyanosis, clubbing, or edema present. Neuro: Alert and orientated x 4. PERRLA. Cranial nerves 2-12 intact without focal deficit. Skin: Warm and dry. Bunions bilaterally with surrounding with erythema. Psych: pleasant, cooperative. Objective Data Vital Signs Vital Signs: Vital Signs - 24 hr 08/27/24 14:00 08/27/24 20:24 08/27/24 22:00 Temperature 97.7 F 97.6 F Pulse Rate 62 62 69 Respiratory Rate 18 20 Blood Pressure 140/58 L 147/82 H Pulse Oximetry 95 96 Oxygen Delivery 08/28/24 05:41 08/28/24 08:00 08/28/24 08:47 Temperature 97.7 F Pulse Rate 66 69 Respiratory Rate 20 Blood Pressure 157/79 H Pulse Oximetry 100 Oxygen Delivery Room Air Intake/Output Intake/Output: Intake & Output 08/25/24 08/26/24 08/27/24 08/28/24 23:59 23:59 23:59 23:59 Intake Total 50 3798 2813.3 1050 Output Total 100 1325 200 125 Balance -50 2473 2613.3 925 Meds/Results Medications: Active Medications Generic Name Dose Route Start Last Admin Trade Name Freq PRN Reason Stop Dose Admin Acetaminophen 650 mg 08/25/24 17:38 08/25/24 18:23 Acetaminophen 325 Mg Tablet PO 650 mg Q4H PRN Administration Mild Pain (1-3) or Fever Hydrocodone Bitart/Acetaminophen 1 tab 08/25/24 17:38 08/27/24 09:17 Hydrocodone/Acetaminophen (*Crx) 5-325 Mg Tablet PO 1 tab Q4H PRN Administration Moderate Pain (4-6) Cephalexin HCl 500 mg 08/27/24 21:00 08/28/24 08:46 Cephalexin 500 Mg Capsule PO 500 mg Q12HR EMILY Administration Docusate Sodium 100 mg 08/26/24 09:00 08/28/24 08:46 Docusate Sodium 100 Mg Capsule PO 100 mg BID EMILY Administration Enoxaparin Sodium 40 mg 08/26/24 09:00 08/28/24 08:48 Enoxaparin 40 Mg/0.4 Ml Syringe SUB-Q 40 mg DAILY EMILY Administration Hydrochlorothiazide 12.5 mg 08/25/24 21:15 08/25/24 22:03 Hydrochlorothiazide 12.5 Mg Capsule PO 12.5 mg QAM EMILY Administration Sodium Chloride 1,000 mls @ 100 mls/hr 08/25/24 17:40 08/28/24 08:56 Normal Saline Iv IV CONT Not Given .Q10H EMILY Levetiracetam 1,000 mg 08/25/24 23:05 08/28/24 08:46 Levetiracetam 500 Mg Tablet PO 1,000 mg Q12HR EMILY Administration Losartan Potassium 100 mg 08/25/24 21:20 08/28/24 08:46 Losartan Potassium 100 Mg Tablet PO 100 mg DAILY EMILY Administration Metoprolol Tartrate 25 mg 08/25/24 21:20 08/28/24 08:47 Metoprolol Tartrate 25 Mg Tablet PO 25 mg Q12HR EMILY Administration Phenytoin Sodium 300 mg 08/25/24 23:05 08/28/24 08:46 Phenytoin Sodium 100 Mg Extended Release Cap PO 300 mg Q12HR EMILY Administration Polyethylene Glycol 17 gm 08/26/24 09:00 08/28/24 08:46 Polyethylene Glycol 3350 17 Gm Powd.Pack PO 17 gm QAM EMILY Administration Potassium Chloride 20 meq 08/26/24 09:00 08/28/24 08:45 Potassium Chloride 20 Meq Er Tablet PO 20 meq DAILY EMILY Administration Pravastatin Sodium 40 mg 08/26/24 09:00 08/28/24 08:45 Pravastatin Sodium 20 Mg Tablet PO 40 mg DAILY EMILY Administration Radiology Results: ITS Impressions Chest X-Ray 08/25/24 15:48 IMPRESSION: No acute cardiopulmonary process. Pelvis X-Ray 08/25/24 15:50 IMPRESSION: No acute osseous finding in the pelvis. Head CT 08/25/24 15:56 IMPRESSION: No acute intracranial process. CT findings suggestive of acute frontal, ethmoid, and left sphenoid sinusitis. Trace fluid in the right mastoid air cells and trace fluid/debris in the right middle ear space, correlate for clinical findings of otomastoiditis. Cervical Spine CT 08/25/24 16:07 IMPRESSION: No acute fracture or traumatic malalignment in the cervical spine. Labs Labs: Laboratory Results - last 24 hr 08/28/24 08/28/24 06:22 08:02 Potassium 3.3 L POC Capillary Glucose 99 Quality VTE Prophylaxis VTE prophylaxis: mechanical ordered and pharmacologic ordered
[2024-08-28] MEDS: POTASSIUM CHLORIDE 20 MEQ PACKET (FOR LIQUID) 40 MEQ PO (12:42)
--- NOTE | 2024-08-28 16:37 | PCPTNOTE ---
On 08/28/24, the student, SALVATORE Aragon, provided care and completed [facility] documentation on this patient. I have reviewed the student's documentation and agree with the findings.
--- NOTE | 2024-08-28 16:56 | PC.NURSE ---
On 08/28/24, the student, [Omid Mcdermott ], provided care and completed [facility] documentation on this patient. I have reviewed the student's documentation and agree with the findings.
[2024-08-28] MEDS: methocarbamoL 500 MG TABLET PO ×2 (17:25→20:19)
[2024-08-28] MEDS: HYDROcodone/acetaminophen (*CRX) 5-325 MG TABLET 1 TAB PO (20:18)
[2024-08-29 06:00] VITALS: BP 169/74; PULSE 63; RESP 12; TEMP 36.4; O2SAT 98
[2024-08-29 07:29] LABS: Hematocrit 29.6 % (42.0-52.0); Hemoglobin 10.2 g/dL (14.0-18.0); Mean Corpuscular HGB Conc 34.5 g/dl (32-36); Mean Corpuscular Volume 107.2 fl (80-100); Mean Platelet Volume 9.9 fl (7.4-10.4); Platelet Count Result 202 k/mm3 (150-375); Red Blood Count 2.76 M/mm3 (4.6-6.20); Red Cell Distribution Width 13.1 % (11.5-14.5)
[2024-08-29 07:35] LABS: White Blood Count 1.4 K/mm3 (4.5-10.0)
[2024-08-29 07:47] LABS: Anion Gap 9 mmol/L (4-12); Blood Urea Nitrogen 9 mg/dL (9-20); Calcium 8.3 mg/dL (8.4-10.2); Carbon Dioxide 25 mmol/L (22-30); Chloride 105 mmol/L (98-107); Estimated CRCL calculation 74 ml/min; Estimated Glomerular Filt Rate > 60; Glucose 105 mg/dL (65-110); Potassium 3.6 mmol/L (3.4-5.0); Sodium 139 mmol/L (137-145)
[2024-08-29] MEDS: levETIRAcetam 500 MG TABLET 1000 MG PO ×2 (08:54→20:41)
[2024-08-29] MEDS: ENOXAPARIN 40 MG/0.4 ML SYRINGE SUB-Q (08:54)
[2024-08-29] MEDS: AMPICILLIN SULB 3 GM/NS 100 ML 3 GM/100 ML VIAL IVPB ×2 (08:55→20:40)
[2024-08-29] MEDS: polyethylene glycoL 3350 17 GM POWD.PACK PO (08:55)
[2024-08-29 08:56] VITALS: PULSE 64
[2024-08-29] MEDS: METOPROLOL TARTRATE 25 MG TABLET PO ×2 (08:56→20:41)
[2024-08-29] MEDS: LOSARTAN POTASSIUM 100 MG TABLET PO (08:58)
[2024-08-29] MEDS: POTASSIUM CHLORIDE 20 MEQ ER TABLET PO (08:58)
[2024-08-29] MEDS: DOCUSATE SODIUM 100 MG CAPSULE PO ×2 (08:58→17:07)
[2024-08-29] MEDS: methocarbamoL 500 MG TABLET PO ×4 (08:58→20:41)
[2024-08-29] MEDS: PHENYTOIN SODIUM 100 MG EXTENDED RELEASE CAP 300 MG PO ×2 (08:59→20:41)
[2024-08-29] MEDS: PRAVASTATIN SODIUM 20 MG TABLET 40 MG PO (08:59)
[2024-08-29 14:00] VITALS: BP 170/79; PULSE 60; RESP 20; TEMP 36.9; O2SAT 97
--- NOTE | 2024-08-29 16:43 | P.PNIM_ITS ---
Progress Note: A&P Assessment and Plan (1) Fall: Qualifiers: Encounter type: initial encounter Qualified Code(s): W19.XXXA - Unspecified fall, initial encounter Code(s): W19.XXXA - Unspecified fall, initial encounter Status: Acute Assessment and Plan: Mechanical per patient possibly due to deconditioning. Continue PT and OT treatment. Will likely needs placement. Case management to assist with placement options. Maintain fall precautions. (2) Mastoiditis: Code(s): H70.90 - Unspecified mastoiditis, unspecified ear Status: Acute Assessment and Plan: Covered by Rocephin initially, changed to Keflex Broadened to Unasyn for now (3) Rhabdomyolysis: Code(s): M62.82 - Rhabdomyolysis Status: Acute Assessment and Plan: Likely from prolonged period on the floor post fall. Discontinued IV fluids CK currently wnl. Encourage with p.o. fluid intake. (4) Bunion of left foot: Code(s): M21.612 - Bunion of left foot Status: Acute Assessment and Plan: -surrounding skin appears red and possibly infected. -started on Keflex, broadened to Unasyn -supportive care. (5) Chronic leukopenia: Code(s): D72.819 - Decreased white blood cell count, unspecified Status: Acute Assessment and Plan: Likely related to #6 below. Monitor trend. (6) MDS (myelodysplastic syndrome): Code(s): D46.9 - Myelodysplastic syndrome, unspecified Status: Acute Assessment and Plan: Stable. 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 WBC 2.3>1.4 (7) Seizure: Code(s): R56.9 - Unspecified convulsions Status: Acute Assessment and Plan: No reported recent seizure activity. Seizure precautions. Continue home antiepileptics. (8) Hypertension: Code(s): I10 - Essential (primary) hypertension Status: Acute Assessment and Plan: Blood pressure values reviewed. Continue current treatment. Adjust meds as needed. (9) Right hip pain: Code(s): M25.551 - Pain in right hip Status: Acute Assessment and Plan: No acute fracture on x-ray Started muscle relaxers Continue PT and OT patient will likely need rehab (10) Altered mental status: Code(s): R41.82 - Altered mental status, unspecified Status: Acute Assessment and Plan: Oriented x1-2 today, nonfocal neuro exam. No headache. Urine culture 08/25 looked positive but was negative. Oriented x3 during recent PCP office visit in May. Acute sinusitis on CT Time Spent With Patient Time: 59 minutes Subjective Date/time seen: 08/29/24 16:43 Interval history: Confused, WBC low, 1.4. No fevers. 79-year-old male past medical history of MDS, blood dyscrasia, history of colon cancer, seizures, hypertension hyperlipidemia who presented to the hospital after a fall where he was found down. A&Ox3 in clinic recently PT/OT recommending therapy Complains of right hip pain, pelvis x ray with no acute fracture, right femur x ray ordered with no acute fracture Review of Systems Review of Systems: All systems reviewed & are unremarkable except as noted in HPI and below Exam Narrative: General: Chronically ill-appearing, no apparent distress HEENT: normocephalic, atraumatic. Mucous membranes moist. EOMI, PERRLA, bilateral sclera anicteric. Neck: supple. Respiratory: clear to auscultation bilaterally. Cardiovascular: Regular rate and rhythm, normal S1-S2, No murmurs. Abdomen: Soft, round, nondistended and nontender. Bowel sounds present to all four quadrants. Extremities: No cyanosis, clubbing, or edema present. Neuro: Alert and orientated x 2, unable to state month or year. PERRLA, strength grossly normal. Cranial nerves 2-12 intact without focal deficit. Generalized weakness Skin: Warm and dry. Bunions bilaterally with surrounding with erythema. Psych: pleasant, cooperative. Objective Data Vital Signs Vital Signs: Vital Signs - 24 hr 08/28/24 20:10 08/28/24 20:19 08/28/24 21:27 Temperature 98.1 F Pulse Rate 76 76 66 Respiratory Rate 20 12 Blood Pressure 168/74 H Pulse Oximetry 96 97 Oxygen Delivery Room Air 08/29/24 06:00 08/29/24 08:00 08/29/24 08:56 Temperature 97.5 F L Pulse Rate 63 64 Respiratory Rate 12 Blood Pressure 169/74 H Pulse Oximetry 98 Oxygen Delivery Room Air 08/29/24 14:00 Temperature 98.4 F Pulse Rate 60 Respiratory Rate 20 Blood Pressure 170/79 H Pulse Oximetry 97 Oxygen Delivery Intake/Output Intake/Output: Intake & Output 08/26/24 08/27/24 08/28/24 08/29/24 23:59 23:59 23:59 23:59 Intake Total 3798 2813.3 2150 820 Output Total 1325 200 975 800 Balance 2473 2613.3 1175 20 Meds/Results Medications: Active Medications Generic Name Dose Route Start Last Admin Trade Name Freq PRN Reason Stop Dose Admin Acetaminophen 650 mg 08/25/24 17:38 08/25/24 18:23 Acetaminophen 325 Mg Tablet PO 650 mg Q4H PRN Administration Mild Pain (1-3) or Fever Hydrocodone Bitart/Acetaminophen 1 tab 08/25/24 17:38 08/28/24 20:18 Hydrocodone/Acetaminophen (*Crx) 5-325 Mg Tablet PO 1 tab Q4H PRN Administration Moderate Pain (4-6) Chlorhexidine Gluconate 15 ml 08/29/24 17:00 Chlorhexidine Gluconate 0.12% Oral Rinse 473 Ml Btl (*Bkc) SWISH/SPIT BID EMILY Docusate Sodium 100 mg 08/26/24 09:00 08/29/24 08:58 Docusate Sodium 100 Mg Capsule PO 100 mg BID EMILY Administration Enoxaparin Sodium 40 mg 08/26/24 09:00 08/29/24 08:54 Enoxaparin 40 Mg/0.4 Ml Syringe SUB-Q 40 mg DAILY EMILY Administration Hydrochlorothiazide 12.5 mg 08/25/24 21:15 08/25/24 22:03 Hydrochlorothiazide 12.5 Mg Capsule PO 12.5 mg QAM EMILY Administration Ampicillin Sodium/Sulbactam Sodium 3 gm in 100 mls @ 200 mls/hr 08/29/24 20:00 Unasyn 3 Gm/Ns 100 Ml IVPB Q6H EMILY Levetiracetam 1,000 mg 08/25/24 23:05 08/29/24 08:54 Levetiracetam 500 Mg Tablet PO 1,000 mg Q12HR EMILY Administration Losartan Potassium 100 mg 08/25/24 21:20 08/29/24 08:58 Losartan Potassium 100 Mg Tablet PO 100 mg DAILY EMILY Administration Methocarbamol 500 mg 08/28/24 17:00 08/29/24 14:05 Methocarbamol 500 Mg Tablet PO 500 mg QID EMILY Administration Metoprolol Tartrate 25 mg 08/25/24 21:20 08/29/24 08:56 Metoprolol Tartrate 25 Mg Tablet PO 25 mg Q12HR EMILY Administration Phenytoin Sodium 300 mg 08/25/24 23:05 08/29/24 08:59 Phenytoin Sodium 100 Mg Extended Release Cap PO 300 mg Q12HR EMILY Administration Polyethylene Glycol 17 gm 08/26/24 09:00 08/29/24 08:55 Polyethylene Glycol 3350 17 Gm Powd.Pack PO 17 gm QAM EMILY Administration Potassium Chloride 20 meq 08/26/24 09:00 08/29/24 08:58 Potassium Chloride 20 Meq Er Tablet PO 20 meq DAILY EMILY Administration Pravastatin Sodium 40 mg 08/26/24 09:00 08/29/24 08:59 Pravastatin Sodium 20 Mg Tablet PO 40 mg DAILY EMILY Administration Radiology Results: ITS Impressions Chest X-Ray 08/25/24 15:48 IMPRESSION: No acute cardiopulmonary process. Pelvis X-Ray 08/25/24 15:50 IMPRESSION: No acute osseous finding in the pelvis. Head CT 08/25/24 15:56 IMPRESSION: No acute intracranial process. CT findings suggestive of acute frontal, ethmoid, and left sphenoid sinusitis. Trace fluid in the right mastoid air cells and trace fluid/debris in the right middle ear space, correlate for clinical findings of otomastoiditis. Cervical Spine CT 08/25/24 16:07 IMPRESSION: No acute fracture or traumatic malalignment in the cervical spine. Femur X-Ray 08/28/24 10:42 IMPRESSION: 1. No acute osseous abnormality. Labs Labs: Laboratory Results - last 24 hr 08/29/24 07:02 WBC 1.4 L* RBC 2.76 L Hgb 10.2 L Hct 29.6 L MCV 107.2 H MCH 37.0 H MCHC 34.5 RDW 13.1 Plt Count 202 MPV 9.9 Sodium 139 Potassium 3.6 Chloride 105 Carbon Dioxide 25 Anion Gap 9 BUN 9 D Creatinine 0.72 Estim Creat Clear Calc 74 Estimated GFR > 60 Glucose 105 Calcium 8.3 L Quality VTE Prophylaxis VTE prophylaxis: mechanical ordered and pharmacologic ordered Hospitalist MIPS Advance Care Plan I have confirmed that the patient's Advanced Care Plan is present, code status is documented, or surrogate decision maker is listed in patient medical record.: Yes Medication Reconciliation I have utilized all available resources to obtain, update and review the patients current medications (includes all prescriptions, OTC, herbals, cannabis, and nutritional supplements).: Yes
[2024-08-29] MEDS: CHLORHEXIDINE GLUCONATE 0.12% ORAL RINSE 473 ML BTL (*BKC) 15 ML SWISH/SPIT (17:06)
[2024-08-29 20:00] VITALS: PULSE 70; RESP 16; O2SAT 98
[2024-08-29 21:47] VITALS: BP 168/76; PULSE 70; RESP 16; TEMP 36.6; O2SAT 98
[2024-08-30] MEDS: AMPICILLIN SULB 3 GM/NS 100 ML 3 GM/100 ML VIAL IVPB ×4 (05:54→23:59)
[2024-08-30 06:00] VITALS: BP 164/74; PULSE 71; RESP 16; TEMP 36.7; O2SAT 93
[2024-08-30 07:33] LABS: Potassium 4.1 mmol/L (3.4-5.0)
[2024-08-30 08:48] LABS: Basophils Percent Auto 1.1 % (0.2-1.2); Eosinophils Percent Auto 2.2 % (0-4.4); Hematocrit 32.5 % (42.0-52.0); Hemoglobin 11.4 g/dL (14.0-18.0); Immature Granulocyte Absolute 0.06 K/mm3 (0.00-0.031); Immature Granulocyte Percent A 3.3 % (0-0.5); Lymphocytes Absolute Auto 0.58 K/mm3 (0.9-3.2); Lymphocytes Percent Auto 31.9 % (18.3-44.2); Mean Corpuscular HGB Conc 35.1 g/dl (32-36); Mean Corpuscular Hemoglobin 37.4 pg (26-34); Mean Corpuscular Volume 106.6 fl (80-100); Mean Platelet Volume 9.9 fl (7.4-10.4); Monocytes Absolute Auto 0.5 K/mm3 (0.1-0.6); Monocytes Percent Auto 27.5 % (2.6-8.5); Neutrophils Absolute Auto 0.6 K/mm3 (1.3-6.7); Platelet Count Result 238 k/mm3 (150-375); Red Blood Count 3.05 M/mm3 (4.6-6.20); Red Cell Distribution Width 13.1 % (11.5-14.5)
[2024-08-30 08:55] LABS: White Blood Count 1.8 K/mm3 (4.5-10.0)
[2024-08-30 08:55] LABS: Alanine Aminotransferase 32 U/L (6-50); Albumin Level 3.5 g/dL (3.5-5.1); Alkaline Phosphatase 112 U/L (38-126); Anion Gap 10 mmol/L (4-12); Aspartate Amino Transferase 31 U/L (17-59); Bilirubin,Total 0.8 mg/dL (0.2-1.3); Blood Urea Nitrogen 11 mg/dL (9-20); Calcium 8.8 mg/dL (8.4-10.2); Carbon Dioxide 27 mmol/L (22-30); Chloride 102 mmol/L (98-107); Estimated CRCL calculation 66 ml/min; Estimated Glomerular Filt Rate > 60; Glucose 98 mg/dL (65-110); Magnesium 1.8 mg/dL (1.6-2.3); Phosphorus 3.4 mg/dL (2.5-4.5); Potassium 4.2 mmol/L (3.4-5.0); Sodium 139 mmol/L (137-145)
[2024-08-30] MEDS: polyethylene glycoL 3350 17 GM POWD.PACK PO (09:30)
[2024-08-30] MEDS: HYDROcodone/acetaminophen (*CRX) 5-325 MG TABLET 1 TAB PO (09:30)
[2024-08-30] MEDS: DOCUSATE SODIUM 100 MG CAPSULE PO ×2 (09:31→17:18)
[2024-08-30] MEDS: PHENYTOIN SODIUM 100 MG EXTENDED RELEASE CAP 300 MG PO ×2 (09:31→20:26)
[2024-08-30 09:32] VITALS: PULSE 80
[2024-08-30] MEDS: PRAVASTATIN SODIUM 20 MG TABLET 40 MG PO (09:32)
[2024-08-30] MEDS: FLUTICASONE PROPIONATE 0.05% NA SPR 16 GM BTL (*BKC) 2 SPRAY NASAL (09:32)
[2024-08-30] MEDS: LOSARTAN POTASSIUM 100 MG TABLET PO (09:32)
[2024-08-30] MEDS: METOPROLOL TARTRATE 25 MG TABLET PO (09:32)
[2024-08-30] MEDS: POTASSIUM CHLORIDE 20 MEQ ER TABLET PO (09:32)
[2024-08-30] MEDS: ENOXAPARIN 40 MG/0.4 ML SYRINGE SUB-Q (09:32)
[2024-08-30] MEDS: methocarbamoL 500 MG TABLET PO (09:32)
[2024-08-30] MEDS: levETIRAcetam 500 MG TABLET 1000 MG PO ×2 (09:32→20:29)
--- NOTE | 2024-08-30 09:35 | PCPTNOTE ---
On 08/30/24, the student, SALVATORE Aragon, provided care and completed [facility] documentation on this patient. I have reviewed the student's documentation and agree with the findings.
[2024-08-30] MEDS: CHLORHEXIDINE GLUCONATE 0.12% ORAL RINSE 473 ML BTL (*BKC) 15 ML SWISH/SPIT ×2 (09:36→17:19)
--- NOTE | 2024-08-30 09:55 | P.PNIM_ITS ---
Progress Note: A&P Assessment and Plan (1) Altered mental status: Code(s): R41.82 - Altered mental status, unspecified Status: Acute Assessment and Plan: Oriented x 2 today, nonfocal neuro exam. No headache. Urine culture 08/25 looked positive but was negative. Oriented x3 during recent PCP office visit in May. Family also confirms that he is oriented x3 at baseline. Acute sinusitis on CT. Also started methocarbamol recently. 08/30 MRI brain showed a 1. 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 The differential diagnosis includes meningioma and arteriovenous malformation. 2. Chronic encephalomalacia in right frontal parietal region and left frontal parietal region. 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 --EEG --neurology consulted, not available over the weekend --Stop methocarbamol --Decrease opiates as able --started aspirin 81mg daily for hx stroke. Continue statin --outpatient neurosurgery follow up for left parietal lobe mass. --Niece is next of kin, Huma Sanford [phone] - (2) Left low back pain: Code(s): M54.50 - Low back pain, unspecified Status: Acute Assessment and Plan: Left low back TTP. Acute change per family. No pain to left hip currently. No fracture to left hip Lumbar spine xray, check L spine CT --Started muscle relaxers. Stop since continued pain and increased risk of seizures. Can consider a low dose of baclofen if needed and altered mental status improving --Increase gabapentin 100 TID<200 TID --Schedule tylenol, stop [place], change to oxycodone 2.5-5mg q6 prn --Toradol 15 q8 x3 days --Consider MRI Lspine if not improving, may benefit from steroid injection to l spine --Continue PT and OT patient will likely need rehab, SNF vs acute rehab (3) Chronic leukopenia: Code(s): D72.819 - Decreased white blood cell count, unspecified Status: Acute Assessment and Plan: Likely related to MDS as noted Monitor trend Hematology consulted, appreciate recommendations --ordered 1 dose of neupogen (4) Fall: Qualifiers: Encounter type: initial encounter Qualified Code(s): W19.XXXA - Unspecified fall, initial encounter Code(s): W19.XXXA - Unspecified fall, initial encounter Status: Acute Assessment and Plan: Hx mechanical falls, unclear if mechanical or other process. Having acute left low back pain. --Continue PT and OT treatment. --Will likely needs placement, SNF vs inpatient rehab. --Case management to assist with placement options. --Maintain fall precautions. --Treatment of low back pain as noted (5) Mastoiditis: Code(s): H70.90 - Unspecified mastoiditis, unspecified ear Status: Acute Assessment and Plan: Rocephin>Keflex<Unasyn --Continue Unasyn (6) Rhabdomyolysis: Code(s): M62.82 - Rhabdomyolysis Status: Acute Assessment and Plan: Likely from prolonged period on the floor post fall. Discontinued IV fluids CK currently wnl. Encourage with p.o. fluid intake. (7) Bunion of left foot: Code(s): M21.612 - Bunion of left foot Status: Acute Assessment and Plan: -surrounding skin appears red and possibly infected. -started on Keflex, broadened to Unasyn -supportive care. (8) MDS (myelodysplastic syndrome): Code(s): D46.9 - Myelodysplastic syndrome, unspecified Status: Acute Assessment and Plan: Stable. WBC 2.3>1.4<1.8 Hematology consulted, will follow up in clinic (9) Hypertension: Code(s): I10 - Essential (primary) hypertension Status: Acute Assessment and Plan: Home meds: Amlodipine 10mg daily, Losartan-HCTZ 100-12.5mg daily Blood pressure values reviewed. Continue Home dose of losartan/hctz Off amlodipine and on metoprolol 25m q12. Stop metoprolol and restart home amlodipine 5mg daily Adjust meds as needed. (10) History of seizure: Code(s): Z87.898 - Personal history of other specified conditions Status: Acute Assessment and Plan: Home meds: Keppra 500mg q12, Phenytoin 300mg q12, gabapentin 100mg TID Hx seizures. No reported recent seizure activity but new confusion. Given confusion, patient an unreliable historian, unclear if he has been taking his meds regularly --Seizure precautions. --Continue home antiepileptics --Workup for Altered mental status and neurology consult as noted --MRI brain notable for encephalomalacia, prior strokes, and slightly increased size of mass --EEG Time Spent With Patient Time: 57 minutes Subjective Date/time seen: 08/30/24 09:55 Interval history: Still confused today. No other complaints Spoke with POA and he is usually Sharp as a tack but unsanitary/disorganized house per family and they report confusion is new. Has a history of seizures and subdural hematoma in the after a fall Neurology consult, EEG, MRI brain Stopped driving a year ago. Trouble staying upright per family and have been talking about assisted living assisted living, but patient hasn't been interested. Has right hand weakness/ stiffness since he was a child Acute left back pain new per family. CT L-spine today showed mild lumbar spondylosis, stable since 2022. hematology follow up planned months from now. WBC low but improved slightly, hematology consulted Review of Systems Review of Systems: All systems reviewed & are unremarkable except as noted in HPI and below Exam Narrative: General: Chronically ill-appearing, no apparent distress HEENT: normocephalic, atraumatic. Mucous membranes moist. EOMI, PERRLA, bilateral sclera anicteric. Neck: supple. Respiratory: clear to auscultation bilaterally. Cardiovascular: Regular rate and rhythm, normal S1-S2, No murmurs. Abdomen: Soft, round, nondistended and nontender. Bowel sounds present to all four quadrants. Extremities: No cyanosis, clubbing, or edema present. MSK: Left lower back pain, TTP Neuro: Alert and orientated x 2 September 29, 2075 . PERRLA, strength grossly normal. Cranial nerves 2-12 intact without focal deficit. Generalized weakness, exam somewhat limited by pain and participation Skin: Warm and dry. Bunions bilaterally with surrounding with erythema. Psych: pleasant, cooperative. Objective Data Vital Signs Vital Signs: Vital Signs - 24 hr 08/29/24 14:00 08/29/24 20:00 08/29/24 21:47 Temperature 98.4 F 97.9 F Pulse Rate 60 70 70 Respiratory Rate 20 16 16 Blood Pressure 170/79 H 168/76 H Pulse Oximetry 97 98 98 Oxygen Delivery Room Air 08/30/24 06:00 08/30/24 09:32 Temperature 98.0 F Pulse Rate 71 80 Respiratory Rate 16 Blood Pressure 164/74 H Pulse Oximetry 93 Oxygen Delivery Intake/Output Intake/Output: Intake & Output 08/27/24 08/28/24 08/29/24 08/30/24 23:59 23:59 23:59 23:59 Intake Total 2813.3 2150 1392 440 Output Total 089 836 5881 Balance 2613.3 1175 92 440 Meds/Results Medications: Active Medications Generic Name Dose Route Start Last Admin Trade Name Freq PRN Reason Stop Dose Admin Acetaminophen 650 mg 08/25/24 17:38 08/25/24 18:23 Acetaminophen 325 Mg Tablet PO 650 mg Q4H PRN Administration Mild Pain (1-3) or Fever Hydrocodone Bitart/Acetaminophen 1 tab 08/25/24 17:38 08/30/24 09:30 Hydrocodone/Acetaminophen (*Crx) 5-325 Mg Tablet PO 1 tab Q4H PRN Administration Moderate Pain (4-6) Chlorhexidine Gluconate 15 ml 08/29/24 17:00 08/30/24 09:36 Chlorhexidine Gluconate 0.12% Oral Rinse 473 Ml Btl (*Bkc) SWISH/SPIT 15 ml BID EMILY Administration Docusate Sodium 100 mg 08/26/24 09:00 08/30/24 09:31 Docusate Sodium 100 Mg Capsule PO 100 mg BID EMILY Administration Enoxaparin Sodium 40 mg 08/26/24 09:00 08/30/24 09:32 Enoxaparin 40 Mg/0.4 Ml Syringe SUB-Q 40 mg DAILY EMILY Administration Fluticasone Propionate 2 spray 08/30/24 09:00 08/30/24 09:32 Fluticasone Propionate 0.05% Na Spr 16 Gm Btl (*Bkc) NASAL 2 spray QAM EMILY Administration Hydrochlorothiazide 12.5 mg 08/25/24 21:15 08/25/24 22:03 Hydrochlorothiazide 12.5 Mg Capsule PO 12.5 mg QAM EMILY Administration Ampicillin Sodium/Sulbactam Sodium 3 gm in 100 mls @ 200 mls/hr 08/30/24 12:00 Unasyn 3 Gm/Ns 100 Ml IVPB Q6HR EMILY Levetiracetam 1,000 mg 08/25/24 23:05 08/30/24 09:32 Levetiracetam 500 Mg Tablet PO 1,000 mg Q12HR EMILY Administration Losartan Potassium 100 mg 08/25/24 21:20 08/30/24 09:32 Losartan Potassium 100 Mg Tablet PO 100 mg DAILY EMILY Administration Methocarbamol 500 mg 08/28/24 17:00 08/30/24 09:32 Methocarbamol 500 Mg Tablet PO 500 mg QID EMILY Administration Metoprolol Tartrate 25 mg 08/25/24 21:20 08/30/24 09:32 Metoprolol Tartrate 25 Mg Tablet PO 25 mg Q12HR EMILY Administration Phenytoin Sodium 300 mg 08/25/24 23:05 08/30/24 09:31 Phenytoin Sodium 100 Mg Extended Release Cap PO 300 mg Q12HR EMILY Administration Polyethylene Glycol 17 gm 08/26/24 09:00 08/30/24 09:30 Polyethylene Glycol 3350 17 Gm Powd.Pack PO 17 gm QAM EMILY Administration Potassium Chloride 20 meq 08/26/24 09:00 08/30/24 09:32 Potassium Chloride 20 Meq Er Tablet PO 20 meq DAILY EMILY Administration Pravastatin Sodium 40 mg 08/26/24 09:00 08/30/24 09:32 Pravastatin Sodium 20 Mg Tablet PO 40 mg DAILY EMILY Administration Radiology Results: ITS Impressions Chest X-Ray 08/25/24 15:48 IMPRESSION: No acute cardiopulmonary process. Pelvis X-Ray 08/25/24 15:50 IMPRESSION: No acute osseous finding in the pelvis. Head CT 08/25/24 15:56 IMPRESSION: No acute intracranial process. CT findings suggestive of acute frontal, ethmoid, and left sphenoid sinusitis. Trace fluid in the right mastoid air cells and trace fluid/debris in the right middle ear space, correlate for clinical findings of otomastoiditis. Cervical Spine CT 08/25/24 16:07 IMPRESSION: No acute fracture or traumatic malalignment in the cervical spine. Femur X-Ray 08/28/24 10:42 IMPRESSION: 1. No acute osseous abnormality. Labs Labs: Laboratory Results - last 24 hr 08/30/24 08/30/24 06:58 07:01 WBC 1.8 L* RBC 3.05 L Hgb 11.4 L Hct 32.5 L MCV 106.6 H MCH 37.4 H MCHC 35.1 RDW 13.1 Plt Count 238 MPV 9.9 Immature Gran % (Auto) 3.3 H Neut % (Auto) 34.0 L Lymph % (Auto) 31.9 [place] % (Auto) 27.5 H Eos % (Auto) 2.2 Baso % (Auto) 1.1 Lymph # (Auto) 0.58 L [place] # (Auto) 0.5 Eos # (Auto) 0.0 Baso # (Auto) 0.0 Abs Immat Gran (auto) 0.06 H Absolute Neuts (auto) 0.6 L Absolute Nucleated RBC 0.000 Nucleated RBC % 0.0 Sodium 139 Potassium 4.2 4.1 Chloride 102 Carbon Dioxide 27 Anion Gap 10 BUN 11 Creatinine 0.82 Estim Creat Clear Calc 66 Estimated GFR > 60 Glucose 98 Calcium 8.8 Phosphorus 3.4 Magnesium 1.8 Total Bilirubin 0.8 AST 31 ALT 32 Alkaline Phosphatase 112 Total Protein 8.0 Albumin 3.5 Quality VTE Prophylaxis VTE prophylaxis: mechanical ordered and pharmacologic ordered Hospitalist MIPS Advance Care Plan I have confirmed that the patient's Advanced Care Plan is present, code status is documented, or surrogate decision maker is listed in patient medical record.: Yes Medication Reconciliation I have utilized all available resources to obtain, update and review the patients current medications (includes all prescriptions, OTC, herbals, cannabis, and nutritional supplements).: Yes
[2024-08-30] MEDS: GABAPENTIN 100 MG CAPSULE 200 MG PO ×2 (12:31→17:18)
[2024-08-30] MEDS: ACETAMINOPHEN 500 MG TABLET 1000 MG PO ×2 (12:31→17:18)
[2024-08-30] MEDS: KETOROLAC 15 MG/ML VIAL (*BKC) IV PUSH ×2 (12:31→20:25)
[2024-08-30 14:00] VITALS: BP 148/61; PULSE 57; RESP 18; TEMP 36.8; O2SAT 99
--- NOTE | 2024-08-30 16:12 | P.CONONC_ITS ---
Assessment and Plan Assessment and plan (1) MDS (myelodysplastic syndrome): Code(s): D46.9 - Myelodysplastic syndrome, unspecified Status: Acute Assessment and Plan: This is the 79-year-old male with history of low-grade myelodysplastic syndrome status post bone marrow biopsy done in October of 2019. Bone marrow biopsy at that time showed mild dyspoiesis with hypercellular marrow without any excess blast. Cytogenetics were normal male karyotype. Patient came into the hospital with status post fall. Labs reviewed. WBC count is low but very close to his baseline. Hemoglobin and platelet counts are stable since the last visit 2 years ago. I do not see need for bone marrow biopsy at this time. Vitamin B12 level came back low. I will start him on vitamin B12 injection and follow- up in the office. ANC is 600. I will give him a dose of Neupogen today and tomorrow as well. He will follow-up in the office. HPI Data of Consult Date/Time: 08/30/24 16:12 Requesting Physician: Payton Paitner APRN Primary Care Provider: Neal Baugh MD Consult Narrative Narrative: Edin Diggs is a 79 year old male with history of low-grade myelodysplastic syndrome status post bone marrow biopsy done in October of 2019. Patient was kept under observation and was last seen in July 2022. He failed to keep the follow-up appointments. He also had vitamin B12 deficiency and has used vitamin B12 injection in the past. Patient also has history of seizure disorder under control with Keppra. He came into the hospital status post fall. CT scan was suggestive of acute sinusitis. Chest x-ray showed no acute process. Labs showed WBC count of 1.5 with platelet count of [id number]. Hemoglobin was 11.2. Brain MRI showed the meter extra-axial enhancing mass in the left parietal lobe increase in size from 2.5 cm in December 2023. Likely meningioma or AV malformation. Other labs showed low vitamin B12 level. His WBC count is low but very close to his baseline. Review of Systems 2 Review of Systems: Review of system as per HPI otherwise negative [facility] Past Medical History Medical History (Updated 08/30/24 @ 11:18 by Payton Painter APRN) Peripheral neuropathy due to chemotherapy Arrhythmia Follow up Meningioma Swelling of right hand Hospital discharge follow-up Fall BMI 21.0-21.9, adult Pancytopenia BMI 24.0-24.9, adult Left shoulder pain Eczema Dry skin Neutropenia Vitamin D deficiency Vitamin B12 deficiency BMI 25.0-25.9,adult Subdural hematoma MDS (myelodysplastic syndrome) Vision changes Encounter for special screening examination for neoplasm of prostate BMI 27.0-27.9,adult Encounter for routine adult health examination without abnormal findings DJD (degenerative joint disease), multiple sites Blood dyscrasia Anxiety with depression Other specified abnormal findings of blood chemistry Vision changes Hearing loss Rash Colon cancer screening Peripheral neuropathy History of colon cancer Hypokalemia Seizure Encounter for Medicare annual wellness exam On retirement drug therapy Hyperlipidemia Benign essential hypertension Surgical History Surgical History S/P craniotomy Family History Family History Mother Family history of heart disease in male family member before age 55 Family history of cardiovascular disease Father Family history of malignant neoplasm Social History Social History Smoking status: Never smoker Second hand tobacco smoke exposure: No Alcohol intake: never Substance use: never Substance use type: does not use Do You Feel Safe in your Home?: Yes Lack of Transportation: No Lack of Food: Never True Current Housing: I Have Housing Concerned About Future Housing: No Difficulty Paying Gas/Electric Bills: No Difficulty Paying for Meds: No Currently Unemployed: No Education: Don't Know Difficulty w/ Childcare or Family Care: No Living arrangements: alone Gender identity (if verbalized by the patient): Male Spiritual care concerns: No Meds Home Medications and Allergies Home Medications ?Medication ?Instructions ?Recorded ?Confirmed ?Type acetaminophen 325 mg tablet (Mapap 650 mg (2 x 325 mg) PO Q6H PRN 12/08/22 08/25/24 Rx (acetaminophen)) Pain #30 tabs levetiracetam 500 mg tablet 1,000 mg (2 x 500 mg) PO Q12HR #60 12/08/22 08/25/24 Rx (Keppra) tabs terazosin 1 mg capsule 4 mg (4 x 1 mg) PO HS #30 caps 12/08/22 08/25/24 Rx losartan 100 1 tablet PO DAILY #90 tabs 01/29/24 08/25/24 Rx mg-hydrochlorothiazide 12.5 mg tablet gabapentin 100 mg capsule 100 mg PO TID #90 caps 02/12/24 08/25/24 Rx potassium chloride 20 mEq 20 meq PO DAILY #30 tabs 05/07/24 08/25/24 Rx tablet,extended release pravastatin 40 mg tablet 40 mg PO DAILY #90 tabs 06/24/24 08/25/24 Rx pantoprazole 40 mg tablet,delayed 40 mg PO QAM #90 tabs 06/26/24 08/25/24 Rx release phenytoin sodium extended 200 mg See Rx Instructions PO .COMPLEX 07/16/24 08/25/24 History capsule amlodipine 10 mg tablet See Rx Instructions .Route 07/25/24 08/25/24 Rx .COMPLEX #90 tabs Allergies Allergy/AdvReac Type Severity Reaction Status Date / Time No Known Allergies Allergy Verified 06/24/24 11:24 Vital Signs Vital Signs - 24 hr 08/29/24 20:00 08/29/24 21:47 08/30/24 06:00 Temperature 36.6 C 36.7 C Pulse Rate 70 70 71 Respiratory Rate 16 16 16 Blood Pressure 168/76 H 164/74 H Pulse Oximetry 98 98 93 Oxygen Delivery Room Air 08/30/24 09:32 08/30/24 14:00 Temperature 36.8 C Pulse Rate 80 57 L Respiratory Rate 18 Blood Pressure 148/61 H Pulse Oximetry 99 Oxygen Delivery Exam 2 Narrative: Lungs are clear to auscultation bilaterally Cardiovascular regular rate rhythm no murmurs Abdomen soft nontender nondistended bowel sounds are positive Extremities no edema Results Labs 08/30/24 07:01 08/30/24 07:01 Labs: Short CBC 08/30/24 Range/Units 07:01 WBC 1.8 L* (4.5-10.0) K/mm3 Hgb 11.4 L (14.0-18.0) g/dL Hct 32.5 L (42.0-52.0) % Plt Count 238 (150-375) k/mm3 [facility] 08/30/24 08/30/24 06:58 07:01 Sodium 139 Potassium 4.2 4.1 Chloride 102 Carbon Dioxide 27 BUN 11 Creatinine 0.82 Glucose 98 Calcium 8.8 Liver Function 08/30/24 Range/Units 06:58 Total Bilirubin 0.8 (0.2-1.3) mg/dL AST 31 (17-59) U/L ALT 32 (6-50) U/L Alkaline Phosphatase 112 (38-126) U/L Albumin 3.5 (3.5-5.1) g/dL
[2024-08-30] MEDS: amLODIPine BESYLATE 5 MG TABLET PO (17:18)
[2024-08-30 19:49] VITALS: PULSE 57; RESP 18; O2SAT 99
[2024-08-30 21:12] VITALS: BP 166/72; PULSE 81; RESP 18; TEMP 36.6; O2SAT 97
[2024-08-31] MEDS: AMPICILLIN SULB 3 GM/NS 100 ML 3 GM/100 ML VIAL IVPB ×4 (04:53→23:50)
[2024-08-31] MEDS: KETOROLAC 15 MG/ML VIAL (*BKC) IV PUSH ×3 (04:53→20:58)
[2024-08-31 05:30] VITALS: BP 137/76; PULSE 88; RESP 16; TEMP 37.9; O2SAT 96
[2024-08-31 06:52] LABS: Basophils Percent Auto 0.6 % (0.2-1.2); Eosinophils Absolute Auto 0.1 K/mm3 (0-0.3); Eosinophils Percent Auto 1.6 % (0-4.4); Hemoglobin 11.5 g/dL (14.0-18.0); Immature Granulocyte Absolute 0.08 K/mm3 (0.00-0.031); Immature Granulocyte Percent A 2.5 % (0-0.5); Lymphocytes Absolute Auto 0.17 K/mm3 (0.9-3.2); Lymphocytes Percent Auto 5.4 % (18.3-44.2); Mean Corpuscular HGB Conc 34.8 g/dl (32-36); Mean Corpuscular Hemoglobin 37.2 pg (26-34); Mean Corpuscular Volume 106.8 fl (80-100); Mean Platelet Volume 9.6 fl (7.4-10.4); Monocytes Absolute Auto 0.7 K/mm3 (0.1-0.6); Monocytes Percent Auto 22.9 % (2.6-8.5); Neutrophils Absolute Auto 2.1 K/mm3 (1.3-6.7); Platelet Count Result 243 k/mm3 (150-375); Red Blood Count 3.09 M/mm3 (4.6-6.20); Red Cell Distribution Width 13.2 % (11.5-14.5); White Blood Count 3.1 K/mm3 (4.5-10.0)
[2024-08-31 07:14] LABS: Alanine Aminotransferase 47 U/L (6-50); Albumin Level 3.5 g/dL (3.5-5.1); Alkaline Phosphatase 113 U/L (38-126); Anion Gap 14 mmol/L (4-12); Aspartate Amino Transferase 52 U/L (17-59); Blood Urea Nitrogen 24 mg/dL (9-20); Calcium 8.5 mg/dL (8.4-10.2); Carbon Dioxide 22 mmol/L (22-30); Chloride 104 mmol/L (98-107); Estimated CRCL calculation 61 ml/min; Estimated Glomerular Filt Rate > 60; Glucose 105 mg/dL (65-110); Potassium 4.2 mmol/L (3.4-5.0); Sodium 140 mmol/L (137-145)
[2024-08-31 07:51] LABS: Anisocytosis 1+; Macrocytosis 1+ (NORMAL); Ovalocytes 1+; Platelet Estimate Adequate (Adequate)
[2024-08-31 07:52] LABS: Schistocytes None Seen
[2024-08-31] MEDS: levETIRAcetam 500 MG TABLET 1000 MG PO ×2 (09:13→20:58)
[2024-08-31] MEDS: GABAPENTIN 100 MG CAPSULE 200 MG PO ×3 (09:13→17:24)
[2024-08-31] MEDS: CYANOCOBALAMIN INJ 1,000 MCG/ML VIAL 1000 MCG IM (09:13)
[2024-08-31] MEDS: LOSARTAN POTASSIUM 100 MG TABLET PO (09:13)
[2024-08-31] MEDS: FLUTICASONE PROPIONATE 0.05% NA SPR 16 GM BTL (*BKC) 2 SPRAY NASAL (09:13)
[2024-08-31] MEDS: PHENYTOIN SODIUM 100 MG EXTENDED RELEASE CAP 300 MG PO ×2 (09:13→20:58)
[2024-08-31] MEDS: ASPIRIN 81 MG CHEWABLE TABLET PO (09:14)
[2024-08-31] MEDS: POTASSIUM CHLORIDE 20 MEQ ER TABLET PO (09:14)
[2024-08-31] MEDS: DOCUSATE SODIUM 100 MG CAPSULE PO ×2 (09:14→17:25)
[2024-08-31] MEDS: ACETAMINOPHEN 500 MG TABLET 1000 MG PO ×3 (09:14→17:25)
[2024-08-31] MEDS: PRAVASTATIN SODIUM 20 MG TABLET 40 MG PO (09:14)
[2024-08-31] MEDS: ENOXAPARIN 40 MG/0.4 ML SYRINGE SUB-Q (09:15)
[2024-08-31] MEDS: amLODIPine BESYLATE 5 MG TABLET PO (09:15)
[2024-08-31] MEDS: FILGRASTIM-SNDZ 300 MCG/0.5 ML SYRINGE SUB-Q (09:27)
[2024-08-31 14:00] VITALS: BP 130/55; PULSE 74; RESP 16; TEMP 36.6; O2SAT 97
--- NOTE | 2024-08-31 16:48 | P.PNIM_ITS ---
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 * continue aspirin and statin * will need outpatient neurosurgery follow-up for left parietal lobe mass (2) Left low back pain: Code(s): M54.50 - Low back pain, unspecified Status: Acute Assessment and Plan: * lumbar spine CT showing bulge disc at L1 to L2, L2-L3, L3-L4, L4-L5, L5-S1, mild lumbar spondylosis * lumbar spine x-ray showed mild lumbar spondylosis * methocarbamol discontinued due to altered mental status increased risk of seizures * continue Neurontin * continue pain control * PT and OT ordered (3) Fall: Qualifiers: Encounter type: initial encounter Qualified Code(s): W19.XXXA - Unspecified fall, initial encounter Code(s): W19.XXXA - Unspecified fall, initial encounter Status: Acute Assessment and Plan: * status post mechanical fall * continue PT and OT * Case management working on outpatient rehab needs * continue fall precautions (4) Mastoiditis: Code(s): H70.90 - Unspecified mastoiditis, unspecified ear Status: Acute Assessment and Plan: * continue Unasyn (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 Assessment and Plan: * CK 233> 344> 95 * patient was given IV fluids initially * CK now corrected and rhabdomyolysis resolved (6) 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 this morning, Will continue to monitor. (7) Hypertension: Code(s): I10 - Essential (primary) hypertension Status: Chronic Assessment and Plan: * blood pressure ranging 137/76 to 168/76 * continue losartan/ hydrochlorothiazide * will increase amlodipine to 10 mg daily as his normal prescribed dose (8) History of seizure: Code(s): Z87.898 - Personal history of other specified conditions Status: Chronic Assessment and Plan: * continue Keppra, phenytoin * continue seizure precautions * continue neuro checks * neurology consulted * lactic acid was normal at 2.0 * EEG results pending * head CT was negative for any acute intracranial process, CT finding suggestive of acute frontal, ethmoid, left sphenoid sinusitis, trace fluid in the right mastoid air cells and trace fluid / debris in the right middle ear space suggestive of otomastoiditis * MRI of the brain showing 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 Workup in the hospital included a chest x-ray which was negative. He also had a pelvis x-ray which was negative for any acute osseous findings in the pelvis or fractures/ dislocation. Head CT was negative for any acute intracranial process, CT finding suggestive of acute frontal ethmoid and left sphenoid sinusitis, trace fluid in the right mastoid air cells and trace fluid/ debris in the right middle ear space suggestive of otomastoiditis. Cervical spine CT was negative for acute fracture or traumatic malalignment in the cervical spine. Right femur x-ray was negative for any acute osseous abnormality. 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 Lumbar spine CT shown bulging disc in L1- L2, L2-L3, L3-L4, L4-L5, L5-S1, mild lumbar spondylosis, stable from prior examination. Lumbar spine x-ray shows mild lumbar spondylosis. Initial labs showed a white blood cell count of 2.0, RBC 3.38, hemoglobin 12.6, anion gap 16, total bilirubin 2.1, AST 63, ALT 51, alkaline phosphate 128, total CK 233> 344> 95. UA showed cloudy urine appearance, 3+ urine protein, 3+ urine ketone, 2+ urine blood, positive nitrate, 2+ urine bili, , 11-20 urine RBC. TSH was 2.230, vitamin B12 263. Patient became neutropenic while in the hospital requiring hematology evaluation. He was given 2 doses of Neupogen and vitamin B12 injections with improvement in his white blood cell count absolute neutrophil count. His absolute neutrophil count got down as low as 0.6 and is now up to 2.1. Neurology was consulted and an EEG result is pending. Subjective: patient is alert to voice and oriented times 1-2, he denies any new complaints at this time. Labs and imaging reviewed. Review of Systems Review of Systems: All systems reviewed & are unremarkable except as noted in HPI and below Exam Narrative: General: In no acute distress, malnourished Head: atraumatic, acute encephalopathy Eyes: PERRLA ENT: moist mucous membranes, nasal passages clear Neck: supple, no JVD, no adenopathy, trachea midline Cardiac: Normal S1 and S2. No murmur, gallops or friction rubs, peripheral pulses intact. Respiratory: Lungs clear to auscultation, no adventitious lung sounds, currently on room air Gastrointestinal: soft, non-distended, non-tender, normoactive bowel sounds. : voiding without difficulty. Extremities: moves all extremities well, no edema Skin: clean, dry, intact. No wounds or lesions. Neuro: Alert to voice and oriented x1-2 Psych: minimally interactive Objective Data Vital Signs Vital Signs: Vital Signs - 24 hr 08/30/24 19:49 08/30/24 21:12 08/31/24 05:30 Temperature 97.8 F 100.2 F H Pulse Rate 57 L 81 88 Respiratory Rate 18 18 16 Blood Pressure 166/72 H 137/76 Pulse Oximetry 99 97 96 Oxygen Delivery Room Air Intake/Output Intake/Output: Intake & Output 08/28/24 08/29/24 08/30/24 08/31/24 23:59 23:59 23:59 23:59 Intake Total 2150 1392 1120 650 Output Total 975 1300 100 Balance 1175 92 1020 650 Meds/Results Medications: Active Medications Generic Name Dose Route Start Last Admin Trade Name Freq PRN Reason Stop Dose Admin Acetaminophen 650 mg 08/25/24 17:38 08/25/24 18:23 Acetaminophen 325 Mg Tablet PO 650 mg Q4H PRN Administration Mild Pain (1-3) or Fever Acetaminophen 1,000 mg 08/30/24 13:00 08/31/24 12:02 Acetaminophen 500 Mg Tablet PO 1,000 mg TID EMILY Administration Amlodipine Besylate 5 mg 08/30/24 16:40 08/31/24 09:15 Amlodipine Besylate 5 Mg Tablet PO 5 mg DAILY EMILY Administration Aspirin 81 mg 08/31/24 08:00 08/31/24 09:14 Aspirin 81 Mg Chewable Tablet PO 81 mg DAILY@0800 [facility] Administration Chlorhexidine Gluconate 15 ml 08/29/24 17:00 08/31/24 09:14 Chlorhexidine Gluconate 0.12% Oral Rinse 473 Ml Btl (*Bkc) SWISH/SPIT Not Given BID [facility] Cyanocobalamin 1,000 mcg 08/31/24 09:00 08/31/24 09:13 Cyanocobalamin Inj 1,000 Mcg/Ml Vial IM 09/02/24 09:01 1,000 mcg DAILY EMILY Administration Docusate Sodium 100 mg 08/26/24 09:00 08/31/24 09:14 Docusate Sodium 100 Mg Capsule PO 100 mg BID EMILY Administration Enoxaparin Sodium 40 mg 08/26/24 09:00 08/31/24 09:15 Enoxaparin 40 Mg/0.4 Ml Syringe SUB-Q 40 mg DAILY EMILY Administration Filgrastim-Sndz 300 mcg 08/31/24 09:30 08/31/24 09:27 Filgrastim-Sndz 300 Mcg/0.5 Ml Syringe SUB-Q 09/01/24 09:01 300 mcg DAILY EMILY Administration Fluticasone Propionate 2 spray 08/30/24 09:00 08/31/24 09:13 Fluticasone Propionate 0.05% Na Spr 16 Gm Btl (*Bkc) NASAL 2 spray QAM EMILY Administration Gabapentin 200 mg 08/30/24 13:00 08/31/24 12:02 Gabapentin 100 Mg Capsule PO 200 mg TID EMILY Administration Hydrochlorothiazide 12.5 mg 08/25/24 21:15 08/25/24 22:03 Hydrochlorothiazide 12.5 Mg Capsule PO 12.5 mg QAM EMILY Administration Ampicillin Sodium/Sulbactam Sodium 3 gm in 100 mls @ 200 mls/hr 08/30/24 12:00 08/31/24 12:31 Unasyn 3 Gm/Ns 100 Ml IVPB Infused Q6HR EMILY Infusion Ketorolac Tromethamine 15 mg 08/30/24 12:00 08/31/24 12:02 Ketorolac 15 Mg/Ml Vial (*Bkc) IV PUSH 09/02/24 11:59 15 mg Q8H EMILY Administration Levetiracetam 1,000 mg 08/25/24 23:05 08/31/24 09:13 Levetiracetam 500 Mg Tablet PO 1,000 mg Q12HR EMILY Administration Losartan Potassium 100 mg 08/25/24 21:20 08/31/24 09:13 Losartan Potassium 100 Mg Tablet PO 100 mg DAILY EMILY Administration Oxycodone HCl 2.5 mg 08/30/24 11:12 Oxycodone Hcl (*Crx) 2.5 Mg Tab Ir PO Q4H PRN Pain Rated 4-6 Oxycodone HCl 5 mg 08/30/24 11:12 Oxycodone Hcl (*Crx) 5 Mg Tab Ir PO Q4H PRN Pain Rated 7-10 Phenytoin Sodium 300 mg 08/25/24 23:05 08/31/24 09:13 Phenytoin Sodium 100 Mg Extended Release Cap PO 300 mg Q12HR EMILY Administration Polyethylene Glycol 17 gm 08/26/24 09:00 08/31/24 09:16 Polyethylene Glycol 3350 17 Gm Powd.Pack PO Not Given QAM EMILY Potassium Chloride 20 meq 08/26/24 09:00 08/31/24 09:14 Potassium Chloride 20 Meq Er Tablet PO 20 meq DAILY EMILY Administration Pravastatin Sodium 40 mg 08/26/24 09:00 08/31/24 09:14 Pravastatin Sodium 20 Mg Tablet PO 40 mg DAILY EMILY Administration Radiology Results: ITS Impressions Chest X-Ray 08/25/24 15:48 IMPRESSION: No acute cardiopulmonary process. Pelvis X-Ray 08/25/24 15:50 IMPRESSION: No acute osseous finding in the pelvis. Head CT 08/25/24 15:56 IMPRESSION: No acute intracranial process. CT findings suggestive of acute frontal, ethmoid, and left sphenoid sinusitis. Trace fluid in the right mastoid air cells and trace fluid/debris in the right middle ear space, correlate for clinical findings of otomastoiditis. Cervical Spine CT 08/25/24 16:07 IMPRESSION: No acute fracture or traumatic malalignment in the cervical spine. Femur X-Ray 08/28/24 10:42 IMPRESSION: 1. No acute osseous abnormality. Brain MRI 08/30/24 12:03 IMPRESSION: 1. 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 The differential diagnosis includes meningioma and arteriovenous malformation. 2. Chronic encephalomalacia in right frontal parietal region and left frontal parietal region. 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 Lumbar Spine CT 08/30/24 12:36 IMPRESSION: 1. Mild lumbar spondylosis, stable from 01/19/2023. Lumbar Spine X-Ray 08/30/24 12:48 IMPRESSION: 1. Mild lumbar spondylosis. Labs Labs: Laboratory Results - last 24 hr 08/31/24 06:38 WBC 3.1 L RBC 3.09 L Hgb 11.5 L Hct 33.0 L MCV 106.8 H MCH 37.2 H MCHC 34.8 RDW 13.2 Plt Count 243 MPV 9.6 Immature Gran % (Auto) 2.5 H Neut % (Auto) 67.0 Lymph % (Auto) 5.4 L Karn[place] % (Auto) 22.9 H Eos % (Auto) 1.6 Baso % (Auto) 0.6 Lymph # (Auto) 0.17 L [place] # (Auto) 0.7 H Eos # (Auto) 0.1 Baso # (Auto) 0.0 Abs Immat Gran (auto) 0.08 H Absolute Neuts (auto) 2.1 Absolute Nucleated RBC 0.000 Nucleated RBC % 0.0 Platelet Estimate Adequate Anisocytosis 1+ Macrocytosis 1+ Ovalocytes 1+ Schistocytes None seen Sodium 140 Potassium 4.2 Chloride 104 Carbon Dioxide 22 Anion Gap 14 H BUN 24 H D Creatinine 0.89 Estim Creat Clear Calc 61 Estimated GFR > 60 Glucose 105 Calcium 8.5 Total Bilirubin 1.0 AST 52 ALT 47 Alkaline Phosphatase 113 Total Protein 8.0 Albumin 3.5 Quality VTE Prophylaxis VTE prophylaxis: mechanical ordered and pharmacologic ordered
[2024-08-31] MEDS: CHLORHEXIDINE GLUCONATE 0.12% ORAL RINSE 473 ML BTL (*BKC) 15 ML SWISH/SPIT (17:25)
[2024-08-31 20:00] VITALS: PULSE 74; RESP 16; O2SAT 97
[2024-08-31 22:00] VITALS: BP 138/60; PULSE 69; RESP 13; TEMP 36.7; O2SAT 94
[2024-09-01] MEDS: KETOROLAC 15 MG/ML VIAL (*BKC) IV PUSH ×3 (05:21→21:54)
[2024-09-01] MEDS: AMPICILLIN SULB 3 GM/NS 100 ML 3 GM/100 ML VIAL IVPB ×4 (05:22→23:59)
[2024-09-01 06:00] VITALS: BP 147/63; PULSE 68; RESP 12; TEMP 36.6; O2SAT 98
[2024-09-01 08:16] LABS: Hematocrit 32.1 % (42.0-52.0); Hemoglobin 10.6 g/dL (14.0-18.0); Mean Corpuscular Hemoglobin 36.8 pg (26-34); Mean Corpuscular Volume 111.5 fl (80-100); Mean Platelet Volume 9.9 fl (7.4-10.4); Platelet Count Result 232 k/mm3 (150-375); Red Blood Count 2.88 M/mm3 (4.6-6.20); Red Cell Distribution Width 13.6 % (11.5-14.5); White Blood Count 26.2 K/mm3 (4.5-10.0)
--- NOTE | 2024-09-01 08:34 | P.PNIM_ITS ---
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 * continue aspirin and statin * will need outpatient neurosurgery follow-up for left parietal lobe mass 2/2 * will decrease Neurontin back to home dose of 100 mg t.i.d. * neurology consulted however has not come to see the patient as of yet * awaiting EEG results * will check ammonia level and urine drug screen * left parietal lobe mass was noted to be a meningioma previous exam and AVM was was likely * will await neurology's recommendations (2) Left low back pain: Code(s): M54.50 - Low back pain, unspecified Status: Acute Assessment and Plan: * lumbar spine CT showing bulge disc at L1 to L2, L2-L3, L3-L4, L4-L5, L5-S1, mild lumbar spondylosis * lumbar spine x-ray showed mild lumbar spondylosis * methocarbamol discontinued due to altered mental status increased risk of seizures * continue Neurontin * continue pain control * PT and OT ordered 2/2 * Neurontin increased to home dose of 100 mg t.i.d. * continue PT and OT * continue pain control (3) Fall: Qualifiers: Encounter type: initial encounter Qualified Code(s): W19.XXXA - Un specified fall, initial encounter Code(s): W19.XXXA - Unspecified fall, initial encounter Status: Acute Assessment and Plan: * status post mechanical fall * continue PT and OT * Case management working on outpatient rehab needs * continue fall precautions 2/2 * no change to current treatment plan (4) Mastoiditis: Code(s): H70.90 - Unspecified mastoiditis, unspecified ear Status: Acute Assessment and Plan: * continue Unasyn 2/2 * no change to current treatment plan (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 Assessment and Plan: * CK 233> 344> 95 * patient was given IV fluids initially * CK now corrected and rhabdomyolysis resolved (6) 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 this morning, Will continue to monitor. 2/2 * white blood count 26.2, absolute neutrophils 23.84-- likely reactive to the Neupogen * afebrile overnight (7) Hypertension: Code(s): I10 - Essential (primary) hypertension Status: Chronic Assessment and Plan: * blood pressure ranging 137/76 to 168/76 * continue losartan/ hydrochlorothiazide * will increase amlodipine to 10 mg daily as his normal prescribed dose 2/2 * blood pressures ranging 130/55 to 147/63 * continue losartan/ hydrochlorothiazide and amlodipine at current dose. (8) History of seizure: Code(s): Z87.898 - Personal history of other specified conditions Status: Chronic Assessment and Plan: * continue Keppra, phenytoin * continue seizure precautions * continue neuro checks * neurology consulted * lactic acid was normal at 2.0 * EEG results pending * head CT was negative for any acute intracranial process, CT finding suggestive of acute frontal, ethmoid, left sphenoid sinusitis, trace fluid in the right mastoid air cells and trace fluid / debris in the right middle ear space suggestive of otomastoiditis * MRI of the brain showing 3.2 cm extra-axial enhancing mass in the left parietal lobe that measures 2.5 cm on 01/04/2024 and was not visualized on 01/19/2023 examination, chronic encephalomalacia in right frontal parietal r egion and left frontal parietal region, 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 2/ * Continue neuro checks * continue seizure precaution * neurology consulted however has yet to see the patient * EEG results pending * continue Keppra and phenytoin Time Spent With Patient Time with patient: 25 - 35 minutes Subjective Date/time seen: 09/01/24 08:34 Interval history: Interval history: This is a 79-year-old male who presented to the hospital on 08/25/2024 after sustaining a ground level fall. Workup in the hospital included a chest x-ray which was negative. He also had a pelvis x-ray which was negative for any acute osseous findings in the pelvis or fractures/ dislocation. Head CT was negative for any acute intracranial process, CT finding suggestive of acute frontal eth moid and left sphenoid sinusitis, trace fluid in the right mastoid air cells and trace fluid/ debris in the right middle ear space suggestive of otomastoiditis. Cervical spine CT was negative for acute fracture or traumatic malalignment in the cervical spine. Right femur x-ray was negative for any acute osseous abnormality. 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 Lumbar spine CT shown bulging disc in L1-L2, L2-L3, L3-L4, L4-L5, L5-S1, mild lumbar spondylosis, stable from prior examination. Lumbar spine x-ray shows mild lumbar spondylosis. Initial labs showed a white blood cell count of 2.0, RBC 3.38, hemoglobin 12.6, anion gap 16, total bilirubin 2.1, AST 63, ALT 51, alkaline phosphate 128, total CK 233> 344> 95. UA showed cloudy urine appearance, 3+ urine protein, 3+ urine ketone, 2+ urine blood, positive nitrate, 2+ urine bili, , 11-20 urine RBC. TSH was 2.230, vitamin B12 263. Patient became neutropenic while in the hospital requiring hematology evaluation. He was given 2 doses of Neupogen and vitamin B12 injections with improvement in his white blood cell count absolute neutrophil c ount. His absolute neutrophil count got down as low as 0.6 and is now up to 2.1. Neurology was consulted and an EEG result is pending. Subjective: Patient is alert and oriented x1 -2 at best. He is able to track me with his eyes and has been answering some questions today , much improved from yesterday. Labs reviewed. Review of Systems Review of Systems: All systems reviewed & are unremarkable except as noted in HPI and below Exam Narrative: General: In no acute distress, malnourished Head: atraumatic, acute encephalopathy Cardiac: Normal S1 and S2. No murmur, gallops or friction rubs, peripheral p ulses intact. Respiratory: Lungs clear to auscultation, no adventitious lung sounds, currently on room air Gastrointestinal: soft, non-distended, non-tender, normoactive bowel sounds. : voiding without difficulty. Neuro: Alert to voice and oriented x1-2 , more interactive today, tracking me today and answering some questions Objective Data Vital Signs Vital Signs: Vital Signs - 24 hr 08/31/24 14:00 08/31/24 20:00 08/31/24 22:00 Temperature 97.8 F 98.0 F Pulse Rate 74 74 69 Respiratory Rate 16 16 13 Blood Pressure 130/55 L 138/60 Pulse Oximetry 97 97 94 Oxygen Delivery Room Air 09/01/24 06:00 Temperature 97.9 F Pulse Rate 68 Respiratory Rate 12 Blood Pressure 147/63 H Pulse Oximetry 98 Oxygen Delivery Intake/Output Intake/Output: Intake & Output 08/29/24 08/30/24 08/31/24 09/01/24 23:59 23:59 23:59 23:59 Intake Total 1392 1120 870 400 Output Total 1300 100 Balance 92 1020 870 400 Meds/Results Medications: Active Medications Generic Name Dose Route Start Last Admin Trade Name Freq PRN Reason Stop Dose Admin Acetaminophen 650 mg 08/25/24 17:38 08/25/24 18:23 Acetaminophen 325 Mg Tablet PO 650 mg Q4H PRN Administration Mild Pain (1-3) or Fever Acetaminophen 1,000 mg 08/30/24 13:00 08/31/24 17:25 Acetaminophen 500 Mg Tablet PO 1,000 mg TID EMILY Administration Amlodipine Besylate 10 mg 09/01/24 09:00 Amlodipine Besylate 10 Mg Tablet PO DAILY [facility] Aspirin 81 mg 08/31/24 08:00 08/31/24 09:14 Aspirin 81 Mg Chewable Tablet PO 81 mg DAILY@0800 EMILY Administration Chlorhexidine Gluconate 15 ml 08/29/24 17:00 08/31/24 17:25 Chlorhexidine Gluconate 0.12% Oral Rinse 473 Ml Btl (*Bkc) SWISH/SPIT 15 ml BID EMILY Administration Cyanocobalamin 1,000 mcg 08/31/24 09:00 08/31/24 09:13 Cyanocobalamin Inj 1,000 Mcg/Ml Vial IM 09/02/24 09:01 1,000 mcg DAILY EMILY Administration Docusate Sodium 100 mg 08/26/24 09:00 08/31/24 17:25 Docusate Sodium 100 Mg Capsule PO 100 mg BID EMILY Administration Enoxaparin Sodium 40 mg 08/26/24 09:00 08/31/24 09:15 Enoxaparin 40 Mg/0.4 Ml Syringe SUB-Q 40 mg DAILY EMILY Administration Filgrastim-Sndz 300 mcg 08/31/24 09:30 08/31/24 09:27 Filgrastim-Sndz 300 Mcg/0.5 Ml Syringe SUB-Q 09/01/24 09:01 300 mcg DAILY EMILY Administration Fluticasone Propionate 2 spray 08/30/24 09:00 08/31/24 09:13 Fluticasone Propionate 0.05% Na Spr 16 Gm Btl (*Bkc) NASAL 2 spray QAM EMILY Administration Gabapentin 200 mg 08/30/24 13:00 08/31/24 17:24 Gabapentin 100 Mg Capsule PO 200 mg TID EMILY Administration Hydrochlorothiazide 12.5 mg 08/25/24 21:15 08/25/24 22:03 Hydrochlorothiazide 12.5 Mg Capsule PO 12.5 mg QAM EMILY Administration Ampicillin Sodium/Sulbactam Sodium 3 gm in 100 mls @ 200 mls/hr 08/30/24 12:00 09/01/24 05:52 Unasyn 3 Gm/Ns 100 Ml IVPB Infused Q6HR EMILY Infusion Ketorolac Tromethamine 15 mg 08/30/24 12:00 09/01/24 05:21 Ketorolac 15 Mg/Ml Vial (*Bkc) IV PUSH 09/02/24 11:59 15 mg Q8H EMILY Administration Levetiracetam 1,000 mg 08/25/24 23:05 08/31/24 20:58 Levetiracetam 500 Mg Tablet PO 1,000 mg Q12HR EMILY Administration Losartan Potassium 100 mg 08/25/24 21:20 08/31/24 09:13 Losartan Potassium 100 Mg Tablet PO 100 mg DAILY EMILY Administration Oxycodone HCl 2.5 mg 08/30/24 11:12 Oxycodone Hcl (*Crx) 2.5 Mg Tab Ir PO Q4H PRN Pain Rated 4-6 Oxycodone HCl 5 mg 08/30/24 11:12 Oxycodone Hcl (*Crx) 5 Mg Tab Ir PO Q4H PRN Pain Rated 7-10 Phenytoin Sodium 300 mg 08/25/24 23:05 08/31/24 20:58 Phenytoin Sodium 100 Mg Extended Release Cap PO 300 mg Q12HR EMILY Administration Polyethylene Glycol 17 gm 08/26/24 09:00 08/31/24 09:16 Polyethylene Glycol 3350 17 Gm Powd.Pack PO Not Given QAM [facility] Potassium Chloride 20 meq 08/26/24 09:00 08/31/24 09:14 Potassium Chloride 20 Meq Er Tablet PO 20 meq DAILY EMILY Administration Pravastatin Sodium 40 mg 08/26/24 09:00 08/31/24 09:14 Pravastatin Sodium 20 Mg Tablet PO 40 mg DAILY EMILY Administration Radiology Results: ITS Impressions Chest X-Ray 08/25/24 15:48 IMPRESSION: No acute cardiopulmonary process. Pelvis X-Ray 08/25/24 15:50 IMPRESSION: No acute osseous finding in the pelvis. Head CT 08/25/24 15:56 IMPRESSION: No acute intracranial process. CT findings suggestive of acute frontal, ethmoid, and left sphenoid sinusitis. Trace fluid in the right mastoid air cells and trace fluid/debris in the right middle ear space, correlate for clinical findings of otomastoiditis. Cervical Spine CT 08/25/24 16:07 IMPRESSION: No acute fracture or traumatic malalignment in the cervical spine. Femur X-Ray 08/28/24 10:42 IMPRESSION: 1. No acute osseous abnormality. Brain MRI 08/30/24 12:03 IMPRESSION: 1. 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 The differential diagnosis includes meningioma and arteriovenous malformation. 2. Chronic encephalomalacia in right frontal parietal region and left frontal parietal region. 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 Lumbar Spine CT 08/30/24 12:36 IMPRESSION: 1. Mild lumbar spondylosis, stable from 01/19/2023. Lumbar Spine X-Ray 08/30/24 12:48 IMPRESSION: 1. Mild lumbar spondylosis. Quality VTE Prophylaxis VTE prophylaxis: mechanical ordered and pharmacologic ordered
[2024-09-01 09:09] LABS: Alanine Aminotransferase 40 U/L (6-50); Albumin Level 3.4 g/dL (3.5-5.1); Alkaline Phosphatase 109 U/L (38-126); Anion Gap 13 mmol/L (4-12); Aspartate Amino Transferase 42 U/L (17-59); Bilirubin,Total 0.6 mg/dL (0.2-1.3); Blood Urea Nitrogen 35 mg/dL (9-20); Calcium 8.3 mg/dL (8.4-10.2); Carbon Dioxide 24 mmol/L (22-30); Chloride 105 mmol/L (98-107); Estimated CRCL calculation 46 ml/min; Estimated Glomerular Filt Rate 59; Glucose 92 mg/dL (65-110); Potassium 3.8 mmol/L (3.4-5.0); Sodium 142 mmol/L (137-145)
[2024-09-01 09:37] LABS: Band Neutrophils Percent 10 % (0-6); Lymphocytes Absolute Manual 0.78 K/mm3 (1.1-4.5); Lymphocytes Percent Manual 3 % (18-44); Monocytes Absolute Manual 1.57 K/mm3 (0.1-0.90); Monocytes Percent Manual 6 % (3-9); Neutrophils Absolute Manual 23.84 K/mm3 (1.3-6.7); Neutrophils Percent Manual 81 % (46-73); Total Cells Counted 100
[2024-09-01 09:38] LABS: Macrocytosis 1+ (NORMAL); Ovalocytes 1+; Platelet Estimate Adequate (Adequate); Schistocytes None Seen
[2024-09-01] MEDS: FLUTICASONE PROPIONATE 0.05% NA SPR 16 GM BTL (*BKC) 2 SPRAY NASAL (09:52)
[2024-09-01] MEDS: amLODIPine BESYLATE 10 MG TABLET PO (09:54)
[2024-09-01] MEDS: ENOXAPARIN 40 MG/0.4 ML SYRINGE SUB-Q (09:54)
[2024-09-01] MEDS: ASPIRIN 81 MG CHEWABLE TABLET PO (09:54)
[2024-09-01] MEDS: ACETAMINOPHEN 500 MG TABLET 1000 MG PO ×3 (09:54→16:42)
[2024-09-01] MEDS: DOCUSATE SODIUM 100 MG CAPSULE PO ×2 (09:55→16:42)
[2024-09-01] MEDS: CYANOCOBALAMIN INJ 1,000 MCG/ML VIAL 1000 MCG IM (09:55)
[2024-09-01] MEDS: CHLORHEXIDINE GLUCONATE 0.12% ORAL RINSE 473 ML BTL (*BKC) 15 ML SWISH/SPIT ×2 (09:55→16:44)
[2024-09-01] MEDS: FILGRASTIM-SNDZ 300 MCG/0.5 ML SYRINGE SUB-Q (09:58)
[2024-09-01] MEDS: levETIRAcetam 500 MG TABLET 1000 MG PO ×2 (10:10→21:54)
[2024-09-01] MEDS: GABAPENTIN 100 MG CAPSULE 200 MG PO (10:10)
[2024-09-01] MEDS: polyethylene glycoL 3350 17 GM POWD.PACK PO (10:10)
[2024-09-01] MEDS: LOSARTAN POTASSIUM 100 MG TABLET PO (10:11)
[2024-09-01] MEDS: POTASSIUM CHLORIDE 20 MEQ ER TABLET PO (10:11)
[2024-09-01] MEDS: PHENYTOIN SODIUM 100 MG EXTENDED RELEASE CAP 300 MG PO ×2 (10:11→21:54)
[2024-09-01] MEDS: PRAVASTATIN SODIUM 20 MG TABLET 40 MG PO (10:12)
[2024-09-01 12:47] LABS: Ammonia < 9 umol/L (9-30)
[2024-09-01 14:00] VITALS: BP 159/63; PULSE 63; RESP 16; TEMP 36.8; O2SAT 96
[2024-09-01] MEDS: GABAPENTIN 100 MG CAPSULE PO ×2 (14:35→16:43)
[2024-09-01 20:00] VITALS: PULSE 62; RESP 17; O2SAT 93
[2024-09-01 21:59] VITALS: BP 155/58; PULSE 62; RESP 17; TEMP 36.6; O2SAT 93
--- NOTE | 2024-09-01 23:06 | ECG_ITS ---
Test Date: 2024-09-01 23:31:23 Measurements Intervals [place] Rate: 62 P: 42 CT: 147 QRS: -7 QRSD: 117 T: 66 QT: 455 QTc: 463 Interpretive Statements SINUS RHYTHM INTRAVENTRICULAR CONDUCTION DELAY MODERATE ST DEPRESSION IN ANTEROLAT/HIGH LAT LEADS ABNORMAL ECG No previous ECG available for comparison Electronically Signed On 09-02-2024 07:06:33 [employer] by Chris Cantrell D.O.
[2024-09-01] MEDS: ONDANSETRON INJ 4 MG/2 ML VIAL IV PUSH (23:59)
[2024-09-02] MEDS: KETOROLAC 15 MG/ML VIAL (*BKC) IV PUSH (05:40)
[2024-09-02] MEDS: AMPICILLIN SULB 3 GM/NS 100 ML 3 GM/100 ML VIAL IVPB ×4 (05:41→23:59)
[2024-09-02 06:00] VITALS: BP 154/57; PULSE 61; RESP 17; TEMP 36.6; O2SAT 98
[2024-09-02 06:19] LABS: Amphetamine Screen Urine Negative (Negative); Barbiturate Screen Urine Negative (Negative); Benzodiazepines Screen Urine Negative (Negative); Cannabinoid Screen Urine Negative (Negative); Cocaine Screen Urine Negative (Negative); Methadone Screen Urine Negative (Negative); Opiate Screen Urine Negative (Negative); Phencyclidine Screen Urine Negative (Negative)
[2024-09-02 07:06] LABS: Hematocrit 31.6 % (42.0-52.0); Hemoglobin 10.6 g/dL (14.0-18.0); Mean Corpuscular HGB Conc 33.5 g/dl (32-36); Mean Corpuscular Hemoglobin 37.9 pg (26-34); Mean Corpuscular Volume 112.9 fl (80-100); Mean Platelet Volume 10.1 fl (7.4-10.4); Platelet Count Result 205 k/mm3 (150-375); Red Cell Distribution Width 13.6 % (11.5-14.5); White Blood Count 49.3 K/mm3 (4.5-10.0)
[2024-09-02 08:29] LABS: Band Neutrophils Percent 16 % (0-6); Lymphocytes Absolute Manual 1.47 K/mm3 (1.1-4.5); Lymphocytes Percent Manual 3 % (18-44); Monocytes Absolute Manual 1.47 K/mm3 (0.1-0.90); Monocytes Percent Manual 3 % (3-9); Neutrophils Absolute Manual 46.34 K/mm3 (1.3-6.7); Neutrophils Percent Manual 78 % (46-73); Total Cells Counted 100
[2024-09-02 08:31] LABS: Macrocytosis 1+ (NORMAL); Platelet Estimate Adequate (Adequate)
[2024-09-02 08:32] LABS: Schistocytes None Seen
[2024-09-02] MEDS: ACETAMINOPHEN 500 MG TABLET 1000 MG PO ×3 (09:28→17:14)
[2024-09-02] MEDS: PHENYTOIN SODIUM 100 MG EXTENDED RELEASE CAP 300 MG PO ×2 (09:28→21:50)
[2024-09-02] MEDS: LOSARTAN POTASSIUM 100 MG TABLET PO (09:29)
[2024-09-02] MEDS: POTASSIUM CHLORIDE 20 MEQ ER TABLET PO (09:29)
[2024-09-02] MEDS: levETIRAcetam 500 MG TABLET 1000 MG PO ×2 (09:29→21:50)
[2024-09-02] MEDS: amLODIPine BESYLATE 10 MG TABLET PO (09:29)
[2024-09-02] MEDS: CYANOCOBALAMIN INJ 1,000 MCG/ML VIAL 1000 MCG IM (09:30)
[2024-09-02] MEDS: ASPIRIN 81 MG CHEWABLE TABLET PO (09:30)
[2024-09-02] MEDS: DOCUSATE SODIUM 100 MG CAPSULE PO ×2 (09:30→17:16)
[2024-09-02] MEDS: GABAPENTIN 100 MG CAPSULE PO ×2 (09:30→13:17)
[2024-09-02] MEDS: PRAVASTATIN SODIUM 20 MG TABLET 40 MG PO (09:30)
[2024-09-02] MEDS: polyethylene glycoL 3350 17 GM POWD.PACK PO (09:31)
[2024-09-02] MEDS: CHLORHEXIDINE GLUCONATE 0.12% ORAL RINSE 473 ML BTL (*BKC) 15 ML SWISH/SPIT ×2 (09:31→17:16)
[2024-09-02 11:38] LABS: Alanine Aminotransferase 33 U/L (6-50); Albumin Level 3.2 g/dL (3.5-5.1); Alkaline Phosphatase 112 U/L (38-126); Anion Gap 9 mmol/L (4-12); Aspartate Amino Transferase 77 U/L (17-59); Bilirubin,Total 0.5 mg/dL (0.2-1.3); Blood Urea Nitrogen 27 mg/dL (9-20); Calcium 8.1 mg/dL (8.4-10.2); Carbon Dioxide 26 mmol/L (22-30); Chloride 107 mmol/L (98-107); Estimated CRCL calculation 60 ml/min; Estimated Glomerular Filt Rate > 60; Glucose 86 mg/dL (65-110); Potassium 4.1 mmol/L (3.4-5.0); Sodium 142 mmol/L (137-145)
--- NOTE | 2024-09-02 11:50 | WPDNEUROSGCN ---
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 The lesion is not appreciated on imaging from December 2022 and has grown since imaging in December 2023. He has a history of altered mental status and has been found down multiple times. Plan: - Given patient's history of malignancy, would recommend obtaining CT scan of chest/ abdomen /pelvis to assess for metastases - agree with Keppra, phenytoin, and home gabapentin dosing - consideration for steroids as lesion does demonstrate surrounding inflammation - Monitor EEG results - No imminent neurosurgical interventions at this time Thank you for this consult and allowing us to participate in the care this patient. I have consulted with Dr. Laureano and Dr. Albrecht in the formulation of this plan. Stephanie Singer NP Neurosurgery Consult date: 09/02/24 Time Seen: 10:30 Reason for consult: Left dural-based lesion on brain MRI HPI: Edin Diggs is a 79 year old male found down at home on August 25, 2024 and presented to ED via EMS. He was admitted for failure to thrive and consideration for placement. Workup in the hospital included a brain MRI which demonstrated a 3.2 cm enhancing mass in the left parietal lobe that had grown from 2.5 cm on January 04, 2024 and was not appreciated on CT from January 19, 2023 for which Neurosurgery is consulted. Workup demonstrated degenerative changes but no acute fractures in the cervical or lumbar spine. Since his admission, he has developed altered mental status and has now been A&Ox1-2 for several days. His neurological history is significant for a left subdural hematoma requiring craniotomy in 2020, epilepsy, colon cancer, and neuropathy. This morning, the patient is resting in bed. He denies any significant pain , headache, dizziness, etc.. [facility] Past Medical History Medical History (Updated 08/31/24 @ 17:16 by Anais Sidhu, [employer]) Peripheral neuropathy due to chemotherapy Arrhythmia Follow up Meningioma Swelling of right hand Hospital discharge follow-up Fall BMI 21.0-21.9, adult Pancytopenia BMI 24.0-24.9, adult Left shoulder pain Eczema Dry skin Neutropenia Vitamin D deficiency Vitamin B12 deficiency BMI 25.0-25.9,adult Subdural hematoma MDS (myelodysplastic syndrome) Vision changes Encounter for special screening examination for neoplasm of prostate BMI 27.0-27.9,adult Encounter for routine adult health examination without abnormal findings DJD (degenerative joint disease), multiple sites Blood dyscrasia Anxiety with depression Other specified abnormal findings of blood chemistry Vision changes Hearing loss Rash Colon cancer screening Peripheral neuropathy History of colon cancer Hypokalemia Seizure Encounter for Medicare annual wellness exam On [facility] drug therapy Hyperlipidemia Benign essential hypertension Surgical History Surgical History S/P craniotomy Family History Family History Mother Family history of heart disease in male family member before age 55 Family history of cardiovascular disease Father Family history of malignant neoplasm Social History Social History Smoking status: Never smoker Second hand tobacco smoke exposure: No Alcohol intake: never Substance use: never Substance use type: does not use Do You Feel Safe in your Home?: Yes Lack of Transportation: No Lack of Food: Never True Current Housing: I Have Housing Concerned About Future Housing: No Difficulty Paying Gas/Electric Bills: No Difficulty Paying for Meds: No Currently Unemployed: No Education: Don't Know Difficulty w/ Childcare or Family Care: No Living arrangements: alone Gender identity (if verbalized by the patient): Male Spiritual care concerns: No Meds Home Medications and Allergies Home Medications ?Medication ?Instructions ?Recorded ?Confirmed ?Type acetaminophen 325 mg tablet (Mapap 650 mg (2 x 325 mg) PO Q6H PRN 12/08/22 08/25/24 Rx (acetaminophen)) Pain #30 tabs levetiracetam 500 mg tablet 1,000 mg (2 x 500 mg) PO Q12HR #60 12/08/22 08/25/24 Rx (Keppra) tabs terazosin 1 mg capsule 4 mg (4 x 1 mg) PO HS #30 caps 12/08/22 08/25/24 Rx losartan 100 1 tablet PO DAILY #90 tabs 01/29/24 08/25/24 Rx mg-hydrochlorothiazide 12.5 mg tablet gabapentin 100 mg capsule 100 mg PO TID #90 caps 02/12/24 08/25/24 Rx potassium chloride 20 mEq 20 meq PO DAILY #30 tabs 05/07/24 08/25/24 Rx tablet,extended release pravastatin 40 mg tablet 40 mg PO DAILY #90 tabs 06/24/24 08/25/24 Rx pantoprazole 40 mg tablet,delayed 40 mg PO QAM #90 tabs 06/26/24 08/25/24 Rx release phenytoin sodium extended 200 mg See Rx Instructions PO .COMPLEX 07/16/24 08/25/24 History capsule amlodipine 10 mg tablet See Rx Instructions .Route 07/25/24 08/25/24 Rx .COMPLEX #90 tabs Allergies Allergy/AdvReac Type Severity Reaction Status Date / Time No Known Allergies Allergy Verified 06/24/24 11:24 Vital Signs Vital Signs - 24 hr 09/01/24 14:00 09/01/24 20:00 09/01/24 21:59 Temperature 98.3 F 97.8 F Pulse Rate 63 62 62 Respiratory Rate 16 17 17 Blood Pressure 159/63 H 155/58 H Pulse Oximetry 96 93 93 Oxygen Delivery Room Air 09/02/24 06:00 Temperature 97.8 F Pulse Rate 61 Respiratory Rate 17 Blood Pressure 154/57 H Pulse Oximetry 98 Oxygen Delivery Exam Const: Other: Patient is chronically ill appearing. He is alert and oriented to self only. He does not appear to be in significant pain. He is following commands but does demonstrate latency of speech. He has no problems with word finding. Eyes: General: appearance normal, both eyes and all related structures EOM: EOMs intact bilaterally Resp: Effort & Inspection: normal respiratory effort Neuro: General: oriented to person and moves all extremities ( mild right hemiparesis upper and lower extremities) Cranial nerves: Yes CN's II-XII intact bilaterally, Yes facial sensation intact/muscles of mastication intact, Yes facial symmetry, Yes Midline tongue present and Yes Normal hearing present Cognition (Neuro): abnormal cognition ( answering some questions. Follows commands slowly.) Speech: Abnormal speech present ( latency. No difficulty with word finding.) Gait exam (Neuro): Unable to assess gait Sensory Exam: normal sensation Pupils: Normal pupillary reactivity/response: bilateral Results Labs 09/02/24 06:41 09/02/24 06:41 Labs: Short CBC 09/02/24 Range/Units 06:41 WBC 49.3 H (4.5-10.0) K/mm3 Hgb 10.6 L (14.0-18.0) g/dL Hct 31.6 L (42.0-52.0) % Plt Count 205 (150-375) k/mm3 BMP 09/02/24 06:41 Sodium 142 Potassium 4.1 Chloride 107 Carbon Dioxide 26 BUN 27 H Creatinine 0.91 Glucose 86 Calcium 8.1 L Liver Function 09/02/24 Range/Units 06:41 Total Bilirubin 0.5 (0.2-1.3) mg/dL AST 77 H (17-59) U/L ALT 33 (6-50) U/L Alkaline Phosphatase 112 (38-126) U/L Albumin 3.2 L (3.5-5.1) g/dL Imaging My impression: Brain MRI obtained on August 30, 2024 was reviewed. This demonstrates a 3.1 x 3.2 cm enhancing cystic mass in the medial left parietal lobe. When compared to patient's previous brain MRI on January 04, 2024, there has been at least a 0.5 cm of growth. The lesion is not appreciated on the patient's head CT obtained in December 2022. The appearance of the lesion is concerning for possible metastatic dural-based lesion rather than meningioma or AVM. There is some edema surrounding the mass. Patient's previous sara holes are appreciated. There are multiple old infarcts and enlargement of the left lateral ventricle, stable from previous imaging. I also reviewed the patient's lumbar spine CT and x-rays. These do not demonstrate any evidence of acute fracture. These do demonstrate expected age related degenerative changes including disc height loss, lumbar spondylosis, and mild central canal and neuroforaminal stenosis diffusely throughout lumbar spine.
[2024-09-02 13:07] VITALS: BMI 22.3
--- NOTE | 2024-09-02 13:28 | P.PNIM_ITS ---
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 * continue aspirin and statin * will need outpatient neurosurgery follow-up for left parietal lobe mass 2/2 * will decrease Neurontin back to home dose of 100 mg t.i.d. 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 He also vomited. * Neurosurgery consulted * Awaiting EEG results * UDS negative, Ammonia level negative * Will hold Neurontin (2) Left low back pain: Code(s): M54.50 - Low back pain, unspecified Status: Acute Assessment and Plan: * lumbar spine CT showing bulge disc at L1 to L2, L2-L3, L3-L4, L4-L5, L5-S1, mild lumbar spondylosis * lumbar spine x-ray showed mild lumbar spondylosis * methocarbamol discontinued due to altered mental status increased risk of seizures * continue Neurontin * continue pain control * PT and OT ordered 2/2 * Neurontin decreased to home dose of 100 mg t.i.d. * continue PT and OT * continue pain control 2/3 * Will hold Neurontin * continue PT and OT (3) Fall: Qualifiers: Encounter type: initial encounter Qualified Code(s): W19.XXXA - Unspecified fall, initial encounter Code(s): W19.XXXA - Unspecified fall, initial encounter Status: Acute Assessment and Plan: * status post mechanical fall * continue PT and OT * Case management working on outpatient rehab needs * continue fall precautions 2/2 * no change to current treatment plan (4) Mastoiditis: Code(s): H70.90 - Unspecified mastoiditis, unspecified ear Status: Acute Assessment and Plan: * continue Unasyn 2/2 * no change to current treatment plan (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 Assessment and Plan: * CK 233> 344> 95 * patient was given IV fluids initially * CK now corrected and rhabdomyolysis resolved (6) 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 this morning, Will continue to monitor. 2/2 * white blood count 26.2, absolute neutrophils 23.84-- likely reactive to the Neupogen * afebrile overnight 2/3 * WBC 49.3, Abs Neuts 46.34 * Reverse isolation discontinued (7) Hypertension: Code(s): I10 - Essential (primary) hypertension Status: Chronic Assessment and Plan: * blood pressure ranging 137/76 to 168/76 * continue losartan/ hydrochlorothiazide * will increase amlodipine to 10 mg daily as his normal prescribed dose 2/2 * blood pressures ranging 130/55 to 147/63 * continue losartan/ hydrochlorothiazide and amlodipine at current dose. 2/3 * No change to current treatment plan (8) History of seizure: Code(s): Z87.898 - Personal history of other specified conditions Status: Chronic Assessment and Plan: * continue Keppra, phenytoin * continue seizure precautions * continue neuro checks * neurology consulted * lactic acid was normal at 2.0 * EEG results pending * head CT was negative for any acute intracranial process, CT finding suggestive of acute frontal, ethmoid, left sphenoid sinusitis, trace fluid in the right mastoid air cells and trace fluid / debris in the right middle ear space suggestive of otomastoiditis * MRI of the brain showing 3.2 cm extra-axial enhancing mass in the left parietal lobe that measures 2.5 cm on 01/04/2024 and was not visualized on 01/19/2023 examination, chronic encephalomalacia in right frontal parietal region and left frontal parietal region, 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 Workup in the hospital included a chest x-ray which was negative. He also had a pelvis x-ray which was negative for any acute osseous findings in the pelvis or fractures/ dislocation. Head CT was negative for any acute intracranial process, CT finding suggestive of acute frontal ethmoid and left sphenoid sinusitis, trace fluid in the right mastoid air cells and trace fluid/ debris in the right middle ear space suggestive of otomastoiditis. Cervical spine CT was negative for acute fracture or traumatic malalignment in the cervical spine. Right femur x-ray was negative for any acute osseous abnormality. 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 Lumbar spine CT shown bulging disc in L1- L2, L2-L3, L3-L4, L4-L5, L5-S1, mild lumbar spondylosis, stable from prior examination. Lumbar spine x-ray shows mild lumbar spondylosis. Initial labs showed a white blood cell count of 2.0, RBC 3.38, hemoglobin 12.6, anion gap 16, total bilirubin 2.1, AST 63, ALT 51, alkaline phosphate 128, total CK 233> 344> 95. UA showed cloudy urine appearance, 3+ urine protein, 3+ urine ketone, 2+ urine blood, positive nitrate, 2+ urine bili, , 11-20 urine RBC. TSH was 2.230, vitamin B12 263. Patient became neutropenic while in the hospital requiring hematology evaluation. He was given 2 doses of Neupogen and vitamin B12 injections with improvement in his white blood cell count absolute neutrophil count. His absolute neutrophil count got down as low as 0.6 and is now up to 2.1. Neurology was consulted and an EEG result is pending. Subjective: Patient is alert and oriented x1 -2 at best. Nursing reporting that he vomited t his morning. Labs and imaging reviewed. Review of Systems Review of Systems: All systems reviewed & are unremarkable except as noted in HPI and below Exam Narrative: General: In no acute distress, malnourished Head: atraumatic, acute encephalopathy Eyes: PERRLA, vertical nystagmus Cardiac: Normal S1 and S2. No murmur, gallops or friction rubs, peripheral pulses intact. Respiratory: Lungs clear to auscultation, no adventitious lung sounds, currently on room air Gastrointestinal: soft, non-distended, non-tender, normoactive bowel sounds. vomited today. : voiding without difficulty. Neuro: Alert to voice and oriented x1-2 , more interactive today, tracking me today and answering some questions Objective Data Vital Signs Vital Signs: Vital Signs - 24 hr 09/01/24 14:00 09/01/24 20:00 09/01/24 21:59 Temperature 98.3 F 97.8 F Pulse Rate 63 62 62 Respiratory Rate 16 17 17 Blood Pressure 159/63 H 155/58 H Pulse Oximetry 96 93 93 Oxygen Delivery Room Air 09/02/24 06:00 Temperature 97.8 F Pulse Rate 61 Respiratory Rate 17 Blood Pressure 154/57 H Pulse Oximetry 98 Oxygen Delivery Intake/Output Intake/Output: Intake & Output 08/30/24 08/31/24 09/01/24 09/02/24 23:59 23:59 23:59 23:59 Intake Total 1120 870 850 590 Output Total 100 250 Balance 1020 870 850 340 Meds/Results Medications: Active Medications Generic Name Dose Route Start Last Admin Trade Name Freq PRN Reason Stop Dose Admin Acetaminophen 650 mg 08/25/24 17:38 08/25/24 18:23 Acetaminophen 325 Mg Tablet PO 650 mg Q4H PRN Administration Mild Pain (1-3) or Fever Acetaminophen 1,000 mg 08/30/24 13:00 09/02/24 13:17 Acetaminophen 500 Mg Tablet PO 1,000 mg TID EMILY Administration Amlodipine Besylate 10 mg 09/01/24 09:00 09/02/24 09:29 Amlodipine Besylate 10 Mg Tablet PO 10 mg DAILY EMIYL Administration Aspirin 81 mg 08/31/24 08:00 09/02/24 09:30 Aspirin 81 Mg Chewable Tablet PO 81 mg DAILY@0800 EMILY Administration Chlorhexidine Gluconate 15 ml 08/29/24 17:00 09/02/24 09:31 Chlorhexidine Gluconate 0.12% Oral Rinse 473 Ml Btl (*Bkc) SWISH/SPIT 15 ml BID EMILY Administration Docusate Sodium 100 mg 08/26/24 09:00 09/02/24 09:30 Docusate Sodium 100 Mg Capsule PO 100 mg BID EMILY Administration Enoxaparin Sodium 40 mg 08/26/24 09:00 09/02/24 09:42 Enoxaparin 40 Mg/0.4 Ml Syringe SUB-Q Not Given DAILY [facility] Fluticasone Propionate 2 spray 08/30/24 09:00 09/02/24 13:17 Fluticasone Propionate 0.05% Na Spr 16 Gm Btl (*Bkc) NASAL Not Given QAM [facility] Gabapentin 100 mg 09/01/24 13:00 09/02/24 13:17 Gabapentin 100 Mg Capsule PO 100 mg TID EMILY Administration Hydrochlorothiazide 12.5 mg 08/25/24 21:15 08/25/24 22:03 Hydrochlorothiazide 12.5 Mg Capsule PO 12.5 mg QAM EMILY Administration Ampicillin Sodium/Sulbactam Sodium 3 gm in 100 mls @ 200 mls/hr 08/30/24 12:00 09/02/24 13:16 Unasyn 3 Gm/Ns 100 Ml IVPB 200 mls/hr Q6HR EMILY Administration Levetiracetam 1,000 mg 08/25/24 23:05 09/02/24 09:29 Levetiracetam 500 Mg Tablet PO 1,000 mg Q12HR EMILY Administration Losartan Potassium 100 mg 08/25/24 21:20 09/02/24 09:29 Losartan Potassium 100 Mg Tablet PO 100 mg DAILY EMILY Administration Ondansetron HCl 4 mg 09/01/24 23:34 09/01/24 23:59 Ondansetron Inj 4 Mg/2 Ml Vial IV PUSH 4 mg Q6H PRN Administration Nausea And Vomiting Oxycodone HCl 2.5 mg 08/30/24 11:12 Oxycodone Hcl (*Crx) 2.5 Mg Tab Ir PO Q4H PRN Pain Rated 4-6 Oxycodone HCl 5 mg 08/30/24 11:12 Oxycodone Hcl (*Crx) 5 Mg Tab Ir PO Q4H PRN Pain Rated 7-10 Phenytoin Sodium 300 mg 08/25/24 23:05 09/02/24 09:28 Phenytoin Sodium 100 Mg Extended Release Cap PO 300 mg Q12HR EMILY Administration Polyethylene Glycol 17 gm 08/26/24 09:00 09/02/24 09:31 Polyethylene Glycol 3350 17 Gm Powd.Pack PO 17 gm QAM EMILY Administration Potassium Chloride 20 meq 08/26/24 09:00 09/02/24 09:29 Potassium Chloride 20 Meq Er Tablet PO 20 meq DAILY EMILY Administration Pravastatin Sodium 40 mg 08/26/24 09:00 09/02/24 09:30 Pravastatin Sodium 20 Mg Tablet PO 40 mg DAILY EMILY Administration Radiology Results: ITS Impressions Chest X-Ray 08/25/24 15:48 IMPRESSION: No acute cardiopulmonary process. Pelvis X-Ray 08/25/24 15:50 IMPRESSION: No acute osseous finding in the pelvis. Head CT 08/25/24 15:56 IMPRESSION: No acute intracranial process. CT findings suggestive of acute frontal, ethmoid, and left sphenoid sinusitis. Trace fluid in the right mastoid air cells and trace fluid/debris in the right middle ear space, correlate for clinical findings of otomastoiditis. Cervical Spine CT 08/25/24 16:07 IMPRESSION: No acute fracture or traumatic malalignment in the cervical spine. Femur X-Ray 08/28/24 10:42 IMPRESSION: 1. No acute osseous abnormality. Brain MRI 08/30/24 12:03 IMPRESSION: 1. 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 The differential diagnosis includes meningioma and arteriovenous malformation. 2. Chronic encephalomalacia in right frontal parietal region and left frontal parietal region. 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 Lumbar Spine CT 08/30/24 12:36 IMPRESSION: 1. Mild lumbar spondylosis, stable from 01/19/2023. Lumbar Spine X-Ray 08/30/24 12:48 IMPRESSION: 1. Mild lumbar spondylosis. Labs Labs: Laboratory Results - last 24 hr 09/02/24 09/02/24 05:54 06:41 WBC 49.3 H RBC 2.80 L Hgb 10.6 L Hct 31.6 L MCV 112.9 H MCH 37.9 H MCHC 33.5 RDW 13.6 Plt Count 205 MPV 10.1 Immature Gran % (Auto) Not Reportable Neut % (Auto) Not Reportable Lymph % (Auto) Not Reportable [place] % (Auto) Not Reportable Eos % (Auto) Not Reportable Baso % (Auto) Not Reportable Lymph # (Auto) Not Reportable [place] # (Auto) Not Reportable Eos # (Auto) Not Reportable Baso # (Auto) Not Reportable Abs Immat Gran (auto) Not Reportable Absolute Neuts (auto) Not Reportable Absolute Nucleated RBC Not Reportable Total Counted 100 Neutrophils % (Manual) 78 H Band Neutrophils % 16 H Lymphocytes % (Manual) 3 L Monocytes % (Manual) 3 Nucleated RBC % Not Reportable Abs Neuts (Manual) 46.34 H Abs Lymphs (Manual) 1.47 Abs Monocytes (Manual) 1.47 H Platelet Estimate Adequate Macrocytosis 1+ Schistocytes None seen Sodium 142 Potassium 4.1 Chloride 107 Carbon Dioxide 26 Anion Gap 9 BUN 27 H Creatinine 0.91 Estim Creat Clear Calc 60 Estimated GFR > 60 Glucose 86 Calcium 8.1 L Total Bilirubin 0.5 AST 77 H ALT 33 Alkaline Phosphatase 112 Total Protein 7.0 Albumin 3.2 L Urine Opiates Screen Negative Urine Methadone Screen Negative Ur Barbiturates Screen Negative Ur Phencyclidine Scrn Negative Ur Amphetamine Screen Negative U Benzodiazepines Scrn Negative Urine Cocaine Screen Negative U Cannabinoids Screen Negative Quality VTE Prophylaxis VTE prophylaxis: mechanical ordered and pharmacologic ordered
[2024-09-02 14:00] VITALS: BP 168/70; PULSE 62; RESP 18; TEMP 36.4; O2SAT 96
--- NOTE | 2024-09-02 16:11 | PCPTNOTE ---
On 09/02/24, the student, SALVATORE Aragon, provided care and completed [facility] documentation on this patient. I have reviewed the student's documentation and agree with the findings.
[2024-09-02] MEDS: ONDANSETRON INJ 4 MG/2 ML VIAL IV PUSH (17:14)
[2024-09-02] MEDS: dexAMETHasone SOD PHOS INJ 10 MG/ML 1 ML VIAL IV PUSH ×2 (17:16→23:59)
[2024-09-02 20:00] VITALS: PULSE 62; RESP 18; O2SAT 96
[2024-09-02 22:50] VITALS: BP 175/67; PULSE 60; RESP 20; TEMP 36.9; O2SAT 96
[2024-09-03 04:30] VITALS: BP 153/80; PULSE 58; RESP 18; TEMP 36.6; O2SAT 100
[2024-09-03] MEDS: dexAMETHasone SOD PHOS INJ 10 MG/ML 1 ML VIAL IV PUSH ×4 (05:24→23:56)
[2024-09-03] MEDS: AMPICILLIN SULB 3 GM/NS 100 ML 3 GM/100 ML VIAL IVPB ×4 (05:24→23:59)
[2024-09-03 05:48] LABS: Hematocrit 33.8 % (42.0-52.0); Hemoglobin 11.6 g/dL (14.0-18.0); Mean Corpuscular HGB Conc 34.3 g/dl (32-36); Mean Corpuscular Hemoglobin 37.8 pg (26-34); Mean Corpuscular Volume 110.1 fl (80-100); Mean Platelet Volume 9.9 fl (7.4-10.4); Platelet Count Result 212 k/mm3 (150-375); Red Blood Count 3.07 M/mm3 (4.6-6.20); Red Cell Distribution Width 13.8 % (11.5-14.5); White Blood Count 36.9 K/mm3 (4.5-10.0)
[2024-09-03 05:57] LABS: Potassium 4.5 mmol/L (3.4-5.0)
[2024-09-03 07:23] LABS: Anisocytosis 1+; Band Neutrophils Percent 11 % (0-6); Lymphocytes Absolute Manual 1.47 K/mm3 (1.1-4.5); Lymphocytes Percent Manual 4 % (18-44); Macrocytosis 1+ (NORMAL); Monocytes Absolute Manual 1.84 K/mm3 (0.1-0.90); Monocytes Percent Manual 5 % (3-9); Neutrophils Absolute Manual 33.57 K/mm3 (1.3-6.7); Neutrophils Percent Manual 80 % (46-73); Platelet Estimate Adequate (Adequate); Schistocytes None Seen; Total Cells Counted 100
[2024-09-03] MEDS: ASPIRIN 81 MG CHEWABLE TABLET PO (08:43)
[2024-09-03] MEDS: polyethylene glycoL 3350 17 GM POWD.PACK PO (08:43)
[2024-09-03] MEDS: ENOXAPARIN 40 MG/0.4 ML SYRINGE SUB-Q (08:44)
[2024-09-03] MEDS: PHENYTOIN SODIUM 100 MG EXTENDED RELEASE CAP 300 MG PO ×2 (08:44→21:44)
[2024-09-03] MEDS: POTASSIUM CHLORIDE 20 MEQ ER TABLET PO (08:44)
[2024-09-03] MEDS: DOCUSATE SODIUM 100 MG CAPSULE PO (08:44)
[2024-09-03] MEDS: levETIRAcetam 500 MG TABLET 1000 MG PO ×2 (08:44→21:44)
[2024-09-03] MEDS: ACETAMINOPHEN 500 MG TABLET 1000 MG PO (08:44)
[2024-09-03] MEDS: PRAVASTATIN SODIUM 20 MG TABLET 40 MG PO (08:44)
[2024-09-03] MEDS: LOSARTAN POTASSIUM 100 MG TABLET PO (08:44)
[2024-09-03] MEDS: amLODIPine BESYLATE 10 MG TABLET PO (08:44)
--- NOTE | 2024-09-03 10:26 | WPDNEUROLOGY ---
Neurology EEG Report General Information Date of Study: 08/30/24 TEST Eeg DIAGNOSIS confusion with history of seizures in the past. CONDITION OF RECORDING awake ,drowsy and asleep. EEG NUMBER [id number] CLINICAL HISTORY Patient was brought into the hospital after being found on the ground and confused about 5 days ago. EEG DESCRIPTION Medium to high voltage 5 to 7 hertz per 2nd theta is seen admixed with 2 to 3 hertz per 2nd delta activity and also with Centro parietal dominance. Poor maged posterior gradient is noted in addition to the absence of the normal background rhythm. Photic stimulation not done. Hyperventilation not done. IMPRESSION Abnormal record due to the presence of slow activity generally and absence of the normal background rhythm although there is no evidence of any paroxysmal discharge on this particular tracing clinical correlation recommended. Possibility of the focal structure lesion needs to be ruled out.
--- NOTE | 2024-09-03 10:58 | P.PNIM_ITS ---
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 * continue aspirin and statin * will need outpatient neurosurgery follow-up for left parietal lobe mass 2/ * will decrease Neurontin back to home dose of 100 mg t.i.d. 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 He also vomited. * Neurosurgery consulted * Awaiting EEG results * UDS negative, Ammonia level negative * Will hold Neurontin / * Awaiting Neurology input * EEG was abnormal record due to the presence of slow activity generally and absence of the normal background rhythm although there is no evidence of any paroxysmal discharge * Continue to hold Neurontin * Added Decadron yesterday per Neurosurgery recommendation for inflammation surrounding mass of left parietal lobe. * Ct of the chest/abdomen/pelvis was negative for any metastatic disease, chronic bibasilar interstitial changes, with hyperdense tree-in-bud opacities likely representing chronic interstitial/aspiration changes. (2) Aspiration pneumonia: Code(s): J69.0 - Pneumonitis due to inhalation of food and vomit Status: Acute Assessment and Plan: * patient vomited yesterday with concerns for aspiration * CT of the chest/abdomen/pelvis shown hyperdense tree in bud opacities * currently on Unasyn, spoke with infectious disease pharmacist who agrees this is appropriate coverage for now considering he is not requiring any Oxygen support and does not have fever. If he starts requiring O2 or starts with fever then we can switch to Zosyn. (3) Left low back pain: Code(s): M54.50 - Low back pain, unspecified Status: Acute Assessment and Plan: * lumbar spine CT showing bulge disc at L1 to L2, L2-L3, L3-L4, L4-L5, L5-S1, mild lumbar spondylosis * lumbar spine x-ray showed mild lumbar spondylosis * methocarbamol discontinued due to altered mental status increased risk of seizures * continue Neurontin * continue pain control * PT and OT ordered 2/ * Neurontin decreased to home dose of 100 mg t.i.d. * continue PT and OT * continue pain control 2/ * Will hold Neurontin * continue PT and OT 2/ * continue PT and OT * Neurontin on hold due to altered mental status (4) Fall: Qualifiers: Encounter type: initial encounter Qualified Code(s): W19.XXXA - Unspecified fall, initial encounter Code(s): W19.XXXA - Unspecified fall, initial encounter Status: Acute Assessment and Plan: * status post mechanical fall * continue PT and OT * Case management working on outpatient rehab needs * continue fall precautions 2/2 * no change to current treatment plan (5) Mastoiditis: Code(s): H70.90 - Unspecified mastoiditis, unspecified ear Status: Acute Assessment and Plan: * continue Unasyn 2/2 * no change to current treatment plan (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 Assessment and Plan: * CK 233> 344> 95 * patient was given IV fluids initially * CK now corrected and rhabdomyolysis resolved (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 this morning, Will continue to monitor. 2 * white blood count 26.2, absolute neutrophils 23.84-- likely reactive to the Neupogen * afebrile overnight / * WBC 49.3, Abs Neuts 46.34 * Reverse isolation discontinued 09/03 * white blood cell count down to 36.9, absolute neutrophils 33.57 * continue to trend (8) Hypertension: Code(s): I10 - Essential (primary) hypertension Status: Chronic Assessment and Plan: * blood pressure ranging 137/76 to 168/76 * continue losartan/ hydrochlorothiazide * will increase amlodipine to 10 mg daily as his normal prescribed dose / * blood pressures ranging 130/55 to 147/63 * continue losartan/ hydrochlorothiazide and amlodipine at current dose. 09/02 * No change to current treatment plan (9) History of seizure: Code(s): Z87.898 - Personal history of other specified conditions Status: Chronic Assessment and Plan: * continue Keppra, phenytoin * continue seizure precautions * continue neuro checks * neurology consulted * lactic acid was normal at 2.0 * EEG results pending * head CT was negative for any acute intracranial process, CT finding suggestive of acute frontal, ethmoid, left sphenoid sinusitis, trace fluid in the right mastoid air cells and trace fluid / debris in the right middle ear space suggestive of otomastoiditis * MRI of the brain showing 3.2 cm extra-axial enhancing mass in the left parietal lobe that measures 2.5 cm on 01/04/2024 and was not visualized on 01/19/2023 examination, chronic encephalomalacia in right frontal parietal region and left frontal parietal region, 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 / * Continue neuro checks * continue seizure precaution * neurology consulted however has yet to see the patient * EEG results pending * continue Keppra and phenytoin 09/02 * Awaiting EEG results * No change 09/03 * EEG was abnormal due to the presence of slow activity an absence of normal background rhythm * awaiting Neurology input * continue Keppra and FENA to when * continue seizure precautions * continue neuro checks Time Spent With Patient Time with patient: 25 - 35 minutes Subjective Date/time seen: 09/03/24 10:58 Interval history: Interval history: This is a 79-year-old male who presented to the hospital on 08/25/2024 after sustaining a ground level fall. Workup in the hospital included a chest x-ray which was negative. He also had a pelvis x-ray which was negative for any acute osseous findings in the pelvis or fractures/ dislocation. Head CT was negative for any acute intracranial process, CT finding suggestive of acute frontal ethmoid and left sphenoid sinusitis, trace fluid in the right mastoid air cells and trace fluid/ debris in the right middle ear space suggestive of otomastoiditis. Cervical spine CT was negative for acute fracture or traumatic malalignment in the cervical spine. Right femur x-ray was negative for any acute osseous abnormality. 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 Lumbar spine CT shown bulging disc in L1- L2, L2-L3, L3-L4, L4-L5, L5-S1, mild lumbar spondylosis, stable from prior examination. Lumbar spine x-ray shows mild lumbar spondylosis. Initial labs showed a white blood cell count of 2.0, RBC 3.38, hemoglobin 12.6, anion gap 16, total bilirubin 2.1, AST 63, ALT 51, alkaline phosphate 128, total CK 233> 344> 95. UA showed cloudy urine appearance, 3+ urine protein, 3+ urine ketone, 2+ urine blood, positive nitrate, 2+ urine bili, , 11-20 urine RBC. TSH was 2.230, vitamin B12 263. Patient became neutropenic while in the hospital requiring hematology evaluation. He was given 2 doses of Neupogen and vitamin B12 injections with improvement in his white blood cell count absolute neutrophil count. His absolute neutrophil count got down as low as 0.6 and is now up to 2.1. Neurology was consulted and an EEG result is pending. Subjective: Patient is alert to voice and oriented x1 -2 at best.Would not follow commands for me today. Labs reviewed. Review of Systems Review of Systems: All systems reviewed & are unremarkable except as noted in HPI and below Exam Narrative: General: In no acute distress, malnourished Head: atraumatic, acute encephalopathy Cardiac: Normal S1 and S2. No murmur, gallops or friction rubs, peripheral pulses intact. Respiratory: Lungs clear to auscultation, no adventitious lung sounds, currently on room air Gastrointestinal: soft, non-distended, non-tender, normoactive bowel sounds. vomited today. : voiding without difficulty. Neuro: Alert to voice and oriented x1-2, would not interact today Objective Data Vital Signs Vital Signs: Vital Signs - 24 hr 09/02/24 14:00 09/02/24 20:00 09/02/24 22:50 Temperature 97.6 F 98.4 F Pulse Rate 62 62 60 Respiratory Rate 18 18 20 Blood Pressure 168/70 H 175/67 H Pulse Oximetry 96 96 96 Oxygen Delivery Room Air 09/03/24 04:30 Temperature 97.8 F Pulse Rate 58 L Respiratory Rate 18 Blood Pressure 153/80 H Pulse Oximetry 100 Oxygen Delivery Intake/Output Intake/Output: Intake & Output 08/31/24 09/01/24 09/02/24 09/03/24 23:59 23:59 23:59 23:59 Intake Total 870 850 790 400 Output Total 250 Balance 870 850 540 400 Meds/Results Medications: Active Medications Generic Name Dose Route Start Last Admin Trade Name Freq PRN Reason Stop Dose Admin Acetaminophen 650 mg 08/25/24 17:38 08/25/24 18:23 Acetaminophen 325 Mg Tablet PO 650 mg Q4H PRN Administration Mild Pain (1-3) or Fever Acetaminophen 1,000 mg 08/30/24 13:00 09/03/24 08:44 Acetaminophen 500 Mg Tablet PO 1,000 mg TID EMILY Administration Amlodipine Besylate 10 mg 09/01/24 09:00 09/03/24 08:44 Amlodipine Besylate 10 Mg Tablet PO 10 mg DAILY EMILY Administration Aspirin 81 mg 08/31/24 08:00 09/03/24 08:43 Aspirin 81 Mg Chewable Tablet PO 81 mg DAILY@0800 EMILY Administration Chlorhexidine Gluconate 15 ml 08/29/24 17:00 09/02/24 17:16 Chlorhexidine Gluconate 0.12% Oral Rinse 473 Ml Btl (*Bkc) SWISH/SPIT 15 ml BID EMILY Administration Dexamethasone Sodium Phosphate 10 mg 09/02/24 17:00 09/03/24 05:24 Dexamethasone Sod Phos Inj 10 Mg/Ml 1 Ml Vial IV PUSH 10 mg Q6HR EMILY Administration Docusate Sodium 100 mg 08/26/24 09:00 09/03/24 08:44 Docusate Sodium 100 Mg Capsule PO 100 mg BID EMILY Administration Enoxaparin Sodium 40 mg 08/26/24 09:00 09/03/24 08:44 Enoxaparin 40 Mg/0.4 Ml Syringe SUB-Q 40 mg DAILY EMILY Administration Fluticasone Propionate 2 spray 08/30/24 09:00 09/03/24 08:44 Fluticasone Propionate 0.05% Na Spr 16 Gm Btl (*Bkc) NASAL Not Given QAM EMILY Gabapentin 100 mg 09/01/24 13:00 09/02/24 13:17 Gabapentin 100 Mg Capsule PO 100 mg TID EMILY Administration Hydrochlorothiazide 12.5 mg 08/25/24 21:15 08/25/24 22:03 Hydrochlorothiazide 12.5 Mg Capsule PO 12.5 mg QAM [facility] Administration Ampicillin Sodium/Sulbactam Sodium 3 gm in 100 mls @ 200 mls/hr 08/30/24 12:00 09/03/24 05:54 Unasyn 3 Gm/Ns 100 Ml IVPB Infused Q6HR EMILY Infusion Levetiracetam 1,000 mg 08/25/24 23:05 09/03/24 08:44 Levetiracetam 500 Mg Tablet PO 1,000 mg Q12HR EMILY Administration Losartan Potassium 100 mg 08/25/24 21:20 09/03/24 08:44 Losartan Potassium 100 Mg Tablet PO 100 mg DAILY EMILY Administration Ondansetron HCl 4 mg 09/01/24 23:34 09/02/24 17:14 Ondansetron Inj 4 Mg/2 Ml Vial IV PUSH 4 mg Q6H PRN Administration Nausea And Vomiting Oxycodone HCl 2.5 mg 08/30/24 11:12 Oxycodone Hcl (*Crx) 2.5 Mg Tab Ir PO Q4H PRN Pain Rated 4-6 Oxycodone HCl 5 mg 08/30/24 11:12 Oxycodone Hcl (*Crx) 5 Mg Tab Ir PO Q4H PRN Pain Rated 7-10 Phenytoin Sodium 300 mg 08/25/24 23:05 09/03/24 08:44 Phenytoin Sodium 100 Mg Extended Release Cap PO 300 mg Q12HR EMILY Administration Polyethylene Glycol 17 gm 08/26/24 09:00 09/03/24 08:43 Polyethylene Glycol 3350 17 Gm Powd.Pack PO 17 gm QAM EMILY Administration Potassium Chloride 20 meq 08/26/24 09:00 09/03/24 08:44 Potassium Chloride 20 Meq Er Tablet PO 20 meq DAILY EMILY Administration Pravastatin Sodium 40 mg 08/26/24 09:00 09/03/24 08:44 Pravastatin Sodium 20 Mg Tablet PO 40 mg DAILY EMILY Administration Radiology Results: ITS Impressions Chest X-Ray 08/25/24 15:48 IMPRESSION: No acute cardiopulmonary process. Pelvis X-Ray 08/25/24 15:50 IMPRESSION: No acute osseous finding in the pelvis. Head CT 08/25/24 15:56 IMPRESSION: No acute intracranial process. CT findings suggestive of acute frontal, ethmoid, and left sphenoid sinusitis. Trace fluid in the right mastoid air cells and trace fluid/debris in the right middle ear space, correlate for clinical findings of otomastoiditis. Cervical Spine CT 08/25/24 16:07 IMPRESSION: No acute fracture or traumatic malalignment in the cervical spine. Femur X-Ray 08/28/24 10:42 IMPRESSION: 1. No acute osseous abnormality. Brain MRI 08/30/24 12:03 IMPRESSION: 1. 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 The differential diagnosis includes meningioma and arteriovenous malformation. 2. Chronic encephalomalacia in right frontal parietal region and left frontal parietal region. 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 Lumbar Spine CT 08/30/24 12:36 IMPRESSION: 1. Mild lumbar spondylosis, stable from 01/19/2023. Lumbar Spine X-Ray 08/30/24 12:48 IMPRESSION: 1. Mild lumbar spondylosis. Chest/Abdomen/Pelvis CT 09/02/24 21:21 IMPRESSION: Chronic bibasilar interstitial changes, with hyperdense tree-in-bud opacities likely representing chronic interstitial/aspiration changes, with interval progression. No acute process detected in the chest, abdomen, or pelvis. No CT evidence of metastatic disease in this noncontrast examination. Labs Labs: Laboratory Results - last 24 hr 09/02/24 09/03/24 06:41 05:43 WBC 36.9 H RBC 3.07 L Hgb 11.6 L Hct 33.8 L MCV 110.1 H MCH 37.8 H MCHC 34.3 RDW 13.8 Plt Count 212 MPV 9.9 Immature Gran % (Auto) Not Reportable Neut % (Auto) Not Reportable Lymph % (Auto) Not Reportable Gr[place]gs % (Auto) Not Reportable Eos % (Auto) Not Reportable Baso % (Auto) Not Reportable Lymph # (Auto) Not Reportable [place]gs # (Auto) Not Reportable Eos # (Auto) Not Reportable Baso # (Auto) Not Reportable Abs Immat Gran (auto) Not Reportable Absolute Neuts (auto) Not Reportable Absolute Nucleated RBC Not Reportable Total Counted 100 Neutrophils % (Manual) 80 H Band Neutrophils % 11 H Lymphocytes % (Manual) 4 L Monocytes % (Manual) 5 Nucleated RBC % Not Reportable Abs Neuts (Manual) 33.57 H Abs Lymphs (Manual) 1.47 Abs Monocytes (Manual) 1.84 H Platelet Estimate Adequate Anisocytosis 1+ Macrocytosis 1+ Schistocytes None seen Sodium 142 Potassium 4.1 4.5 Chloride 107 Carbon Dioxide 26 Anion Gap 9 BUN 27 H Creatinine 0.91 Estim Creat Clear Calc 60 Estimated GFR > 60 Glucose 86 Calcium 8.1 L Total Bilirubin 0.5 AST 77 H ALT 33 Alkaline Phosphatase 112 Total Protein 7.0 Albumin 3.2 L Quality VTE Prophylaxis VTE prophylaxis: mechanical ordered and pharmacologic ordered
--- NOTE | 2024-09-03 11:14 | PCPTNOTE ---
Attempted to see pt. Pt was non responsive when asked questions regarding pain and when trying to attempt to instruct pt in bed exercises, pt could not understand instructions to complete bed exercises. Pt quickly became agitated and started banging his head against bed rail and yelled, Go! When attempting to move his bedside table back over his bed, pt tried pushing/lifting table up in anger. Placed pillow on side of bed rail where he was banging head against. RN notified and emesis bag placed within reach of pt per RN. Will continue to follow per PT POC.
--- NOTE | 2024-09-03 12:29 | PCPTNOTE ---
On 09/03/24, the student, SALVATORE Aragon, provided care and completed [facility] documentation on this patient. I have reviewed the student's documentation and agree with the findings.
[2024-09-03 14:00] VITALS: BP 163/48; PULSE 59; RESP 16; TEMP 36.8; O2SAT 95
[2024-09-03] MEDS: CHLORHEXIDINE GLUCONATE 0.12% ORAL RINSE 473 ML BTL (*BKC) 15 ML SWISH/SPIT (18:15)
[2024-09-03 19:55] VITALS: BP 218/84; BP 248/100; PULSE 64; RESP 18; TEMP 36.6; O2SAT 95
[2024-09-03] MEDS: hydrALAZINE HCL 20 MG/ML VIAL 10 MG IV PUSH (22:49)
[2024-09-03 23:49] VITALS: BP 200/84
[2024-09-04] VITALS (8 sets, daily range): BP systolic 176–204; BP diastolic 58–80; PULSE 60–66; RESP 16–20; TEMP 36–36.9; O2SAT 95–100
[2024-09-04] MEDS: hydrALAZINE HCL 20 MG/ML VIAL 10 MG IV PUSH (00:58)
[2024-09-04] MEDS: METOPROLOL TARTRATE INJ 5 MG/5 ML VIAL 10 MG IV PUSH (03:06)
[2024-09-04] MEDS: OLANZapine 5 MG, WATER, STERILE FOR INJECTION 2.1 ML IM (03:53)
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
[2024-09-04] MEDS: dexAMETHasone SOD PHOS INJ 10 MG/ML 1 ML VIAL IV PUSH ×2 (05:39→12:41)
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
[2024-09-04] MEDS: PHENYTOIN SODIUM 100 MG EXTENDED RELEASE CAP 300 MG PO ×2 (08:37→20:25)
[2024-09-04] MEDS: ENOXAPARIN 40 MG/0.4 ML SYRINGE SUB-Q (08:37)
[2024-09-04] MEDS: levETIRAcetam 500 MG TABLET 1000 MG PO ×2 (08:37→20:25)
[2024-09-04] MEDS: polyethylene glycoL 3350 17 GM POWD.PACK PO (08:37)
[2024-09-04] MEDS: ASPIRIN 81 MG CHEWABLE TABLET PO (08:38)
[2024-09-04] MEDS: DOCUSATE SODIUM 100 MG CAPSULE PO ×2 (08:38→18:11)
[2024-09-04] MEDS: PRAVASTATIN SODIUM 20 MG TABLET 40 MG PO (08:38)
[2024-09-04] MEDS: ACETAMINOPHEN 500 MG TABLET 1000 MG PO ×3 (08:38→18:11)
[2024-09-04] MEDS: amLODIPine BESYLATE 10 MG TABLET PO (08:38)
[2024-09-04] MEDS: LOSARTAN POTASSIUM 100 MG TABLET PO (08:38)
[2024-09-04] MEDS: POTASSIUM CHLORIDE 20 MEQ ER TABLET PO (08:40)
[2024-09-04 08:51] LABS: Hepatitis B Surface Antigen Negative (Negative)
[2024-09-04 09:12] LABS: Hepatitis C Virus Antibody Negative (Negative)
[2024-09-04 09:41] LABS: Hematocrit 35.7 % (42.0-52.0); Mean Corpuscular HGB Conc 33.6 g/dl (32-36); Mean Corpuscular Hemoglobin 38.2 pg (26-34); Mean Corpuscular Volume 113.7 fl (80-100); Mean Platelet Volume 10.1 fl (7.4-10.4); Platelet Count Result 202 k/mm3 (150-375); Red Blood Count 3.14 M/mm3 (4.6-6.20); Red Cell Distribution Width 13.6 % (11.5-14.5); White Blood Count 27.8 K/mm3 (4.5-10.0)
--- NOTE | 2024-09-04 09:49 | P.PNCROSS_ITS ---
Event Note Event Note Event Note: Nursing staff called because the patient was more altered and had acutely eleva shawn blood pressures I went to evaluate the patient. The patient was alert moving all extremities and responding to simple questions. However he just kept repeating his 1st and last name. He also told me that it was December and could not tell me what year was. He did sit up unassisted and was able to take drinks of water. His pupils were equal and reactive he had no facial asymmetry high he had poor dentition his mucous membranes were markedly dry. He had no oral pharyngeal erythema he had normal muscle tone. There is no evidence of acute neurologic change. The patient was provided with a dose of IV hydralazine and IV Lopressor. The patient denied having any pain. He was not acutely agitated at the time of my evaluation exact reason for the patient's hypertension is unclear.? If this could be elevated due to subclinical seizures versus his accelerated hypertension verses steroid effect. Will plan to provide a IV hydralazine 10 mg q.4 hours p.r.n. and IV Lopressor 5 mg q.6 hours as needed for second-line therapy. After I left the patient's room the patient had then became agitated with nursing staff and was kicking and punching at staff. I did go re-evaluate patient. At I ordered 1 dose of IM Zyprexa. The patient's agitation did improve. 40 minutes spent in critical care activities. Due to a high probability of clinically significant, life threatening deterioration, the patient required my highest level of preparedness to intervene emergently and I personally spent this critical care time directly and personally managing the patient. This critical care time included obtaining a history; examining the patient; pulse oximetry; ordering and review of studies; arranging urgent treatment with development of a management plan; evaluation of patient's response to treatment; frequent reassessment; and discussions with other providers. It was exclusive of separately billable procedures and treating other patients and teaching time. Please see Assessment and Plan section and the rest of the note for further information on patient assessment and treatment.
[2024-09-04 09:59] LABS: HIV 1/2 Ab P24 Ag Result Negative (Negative)
[2024-09-04 10:07] LABS: Alanine Aminotransferase 108 U/L (6-50); Albumin Level 3.8 g/dL (3.5-5.1); Alkaline Phosphatase 132 U/L (38-126); Anion Gap 11 mmol/L (4-12); Aspartate Amino Transferase 203 U/L (17-59); Bilirubin,Total 0.6 mg/dL (0.2-1.3); Blood Urea Nitrogen 27 mg/dL (9-20); Calcium 8.9 mg/dL (8.4-10.2); Carbon Dioxide 26 mmol/L (22-30); Chloride 105 mmol/L (98-107); Estimated CRCL calculation 68 ml/min; Estimated Glomerular Filt Rate > 60; Glucose 138 mg/dL (65-110); Potassium 3.8 mmol/L (3.4-5.0); Sodium 142 mmol/L (137-145)
[2024-09-04 10:36] LABS: Total Cells Counted 100
[2024-09-04 10:37] LABS: Band Neutrophils Percent 14 % (0-6); Lymphocytes Absolute Manual 2.22 K/mm3 (1.1-4.5); Lymphocytes Percent Manual 8 % (18-44); Monocytes Absolute Manual 0.55 K/mm3 (0.1-0.90); Monocytes Percent Manual 2 % (3-9); Myelocytes Percent 4 %; Neutrophils Absolute Manual 22.79 K/mm3 (1.3-6.7); Neutrophils Percent Manual 68 % (46-73); Platelet Estimate Adequate (Adequate); Promyelocytes Percent 4 %
[2024-09-04 10:38] LABS: Anisocytosis 1+; Burr Cells 1+; Large Platelets Present; Ovalocytes 1+; Schistocytes None Seen
--- NOTE | 2024-09-04 11:05 | WPDNEUROSGPN ---
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 Diggs is a 79-year-old male with history of colon cancer and seizures who was admitted to the hospital on August 25 after being found down at home. He had an MRI on Monday showing a left frontoparietal heterogeneously enhancing mass measuring 2.7 x 2.7 x 2.6 cm with a large cystic component measuring 4.3 x 3.9cm causing brain compression which has enlarged compared to an MRI brain in December 2023. This appears to me to be more consistent with metastasis rather than a meningioma. I was able to access his medical record through [facility]. I see that he has a history of a left parietal craniotomy at a young age for a vascular lesion as well as right frontal AVM that was treated with gamma knife radio surgery in March 2021. He also has a history of subdural hematomas for which he underwent sara hole drainage in May 2017 and in August 2020 followed by middle meningeal artery embolization in August [address] Tom in December [address] Tom did not have access to his most recent imaging, and it is unclear what the recommendation was at that time. I had a long conversation on the phone with his niece Hanna who is his power of bag hanger. She states he was treated for colon cancer at least several years ago but does not know any details about that treatment. He seemingly did receive at least chemotherapy but has not required any treatment for a number of years. He also has a history of seizures dating back to childhood. Prior to this admission, he lived independently but did fall with increasing frequency over the last year. He often driving but has otherwise been able to care for himself. Hanna states that his home is very disorganized and does not appear well cared for, and she had been attempting to convince him to move into an assisted living facility for many months. He has seemingly had a significant decline since his hospitalization, although today is the 1st day I have met him in person. He certainly is diffusely weak on the right side. The brain mass could certainly explain that, although his weakness seems more acute in nature, and I am concerned that he is actually having seizures. I realize that he had an EEG several days ago which did not show active seizures, but he has apparently changed no since that study was performed. I would recommend checking a Dilantin level and consulting Neurology. He may benefit from a continuous EEG to better evaluate for seizures. It does not seem that the steroids have been helpful for him, so these can be discontinued from my standpoint. His brain mass is sizable enough that surgical resection could be considered. However, he is not a good surgical candidate at this time given his other active medical issues and possibly active seizures. If he were to return to his baseline, then we can certainly discuss the option of surgery on an outpatient basis. The other option for treatment would be radiation which could also be discussed on an outpatient basis. As he is established with [facility], he is welcome to follow up with them, or I am happy to see him as well. Subjective Date/time seen: 09/04/24 11:05 Interval history: He has become quite agitated and altered. He has recently been violent and is requiring a sitter at bedside. He is currently minimally interactive with me and is not answering questions. Exam Narrative: Awake, eyes open Answering some yes/no questions but otherwise not answering orientation questions Spontaneous movement on left side, did squeeze his hand and lift his left leg to command Not following commands on right side, no significant movement to pain Sensation intact to light touch Objective Data Vital Signs Vital Signs: Vital Signs - 24 hr 09/03/24 14:00 09/03/24 19:55 09/03/24 19:55 Temperature 98.2 F 98 F Pulse Rate 59 L 64 Respiratory Rate 16 18 Blood Pressure 163/48 H 248/100 H 218/84 H Pulse Oximetry 95 95 09/03/24 23:49 09/04/24 00:45 09/04/24 01:45 Temperature Pulse Rate Respiratory Rate Blood Pressure 200/84 H 200/80 H 204/80 H Pulse Oximetry 09/04/24 02:02 09/04/24 03:06 09/04/24 04:43 Temperature Pulse Rate 62 Respiratory Rate Blood Pressure 200/80 H 180/74 H Pulse Oximetry 09/04/24 06:15 Temperature 96.8 F L Pulse Rate 63 Respiratory Rate 20 Blood Pressure 188/58 H Pulse Oximetry 98 Intake/Output Intake/Output: Intake & Output 09/01/24 09/02/24 09/03/24 09/04/24 23:59 23:59 23:59 23:59 Intake Total 850 790 650 450 Output Total 250 Balance 850 540 650 450 Meds/Results Medications: Active Medications Generic Name Dose Route Start Last Admin Trade Name Freq PRN Reason Stop Dose Admin Acetaminophen 650 mg 08/25/24 17:38 08/25/24 18:23 Acetaminophen 325 Mg Tablet PO 650 mg Q4H PRN Administration Mild Pain (1-3) or Fever Acetaminophen 1,000 mg 08/30/24 13:00 09/04/24 08:38 Acetaminophen 500 Mg Tablet PO 1,000 mg TID EMILY Administration Amlodipine Besylate 10 mg 09/01/24 09:00 09/04/24 08:38 Amlodipine Besylate 10 Mg Tablet PO 10 mg DAILY EMILY Administration Aspirin 81 mg 08/31/24 08:00 09/04/24 08:38 Aspirin 81 Mg Chewable Tablet PO 81 mg DAILY@0800 EMILY Administration Chlorhexidine Gluconate 15 ml 08/29/24 17:00 09/03/24 18:15 Chlorhexidine Gluconate 0.12% Oral Rinse 473 Ml Btl (*Bkc) SWISH/SPIT 15 ml BID EMILY Administration Dexamethasone Sodium Phosphate 10 mg 09/02/24 17:00 09/04/24 05:39 Dexamethasone Sod Phos Inj 10 Mg/Ml 1 Ml Vial IV PUSH 10 mg Q6HR EMILY Administration Docusate Sodium 100 mg 08/26/24 09:00 09/04/24 08:38 Docusate Sodium 100 Mg Capsule PO 100 mg BID EMILY Administration Enoxaparin Sodium 40 mg 08/26/24 09:00 09/04/24 08:37 Enoxaparin 40 Mg/0.4 Ml Syringe SUB-Q 40 mg DAILY EMILY Administration Fluticasone Propionate 2 spray 08/30/24 09:00 09/03/24 08:44 Fluticasone Propionate 0.05% Na Spr 16 Gm Btl (*Bkc) NASAL Not Given QAM [facility] Gabapentin 100 mg 09/01/24 13:00 09/02/24 13:17 Gabapentin 100 Mg Capsule PO 100 mg TID EMILY Administration Hydrochlorothiazide 12.5 mg 08/25/24 21:15 08/25/24 22:03 Hydrochlorothiazide 12.5 Mg Capsule PO 12.5 mg QAM EMILY Administration Ampicillin Sodium/Sulbactam Sodium 3 gm in 100 mls @ 200 mls/hr 08/30/24 12:00 09/04/24 06:58 Unasyn 3 Gm/Ns 100 Ml IVPB Not Given Q6HR [facility] Levetiracetam 1,000 mg 08/25/24 23:05 09/04/24 08:37 Levetiracetam 500 Mg Tablet PO 1,000 mg Q12HR EMILY Administration Losartan Potassium 100 mg 08/25/24 21:20 09/04/24 08:38 Losartan Potassium 100 Mg Tablet PO 100 mg DAILY EMILY Administration Ondansetron HCl 4 mg 09/01/24 23:34 09/02/24 17:14 Ondansetron Inj 4 Mg/2 Ml Vial IV PUSH 4 mg Q6H PRN Administration Nausea And Vomiting Oxycodone HCl 2.5 mg 08/30/24 11:12 Oxycodone Hcl (*Crx) 2.5 Mg Tab Ir PO Q4H PRN Pain Rated 4-6 Oxycodone HCl 5 mg 08/30/24 11:12 Oxycodone Hcl (*Crx) 5 Mg Tab Ir PO Q4H PRN Pain Rated 7-10 Phenytoin Sodium 300 mg 08/25/24 23:05 09/04/24 08:37 Phenytoin Sodium 100 Mg Extended Release Cap PO 300 mg Q12HR EMILY Administration Polyethylene Glycol 17 gm 08/26/24 09:00 09/04/24 08:37 Polyethylene Glycol 3350 17 Gm Powd.Pack PO 17 gm QAM EMILY Administration Potassium Chloride 20 meq 08/26/24 09:00 09/04/24 08:40 Potassium Chloride 20 Meq Er Tablet PO 20 meq DAILY EMILY Administration Pravastatin Sodium 40 mg 08/26/24 09:00 09/04/24 08:38 Pravastatin Sodium 20 Mg Tablet PO 40 mg DAILY EMILY Administration Radiology Results: ITS Impressions Pelvis X-Ray 08/25/24 15:50 IMPRESSION: No acute osseous finding in the pelvis. Head CT 08/25/24 15:56 IMPRESSION: No acute intracranial process. CT findings suggestive of acute frontal, ethmoid, and left sphenoid sinusitis. Trace fluid in the right mastoid air cells and trace fluid/debris in the right middle ear space, correlate for clinical findings of otomastoiditis. Cervical Spine CT 08/25/24 16:07 IMPRESSION: No acute fracture or traumatic malalignment in the cervical spine. Femur X-Ray 08/28/24 10:42 IMPRESSION: 1. No acute osseous abnormality. Brain MRI 08/30/24 12:03 IMPRESSION: 1. 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 The differential diagnosis includes meningioma and arteriovenous malformation. 2. Chronic encephalomalacia in right frontal parietal region and left frontal parietal region. 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 Lumbar Spine CT 08/30/24 12:36 IMPRESSION: 1. Mild lumbar spondylosis, stable from 01/19/2023. Lumbar Spine X-Ray 08/30/24 12:48 IMPRESSION: 1. Mild lumbar spondylosis. Chest/Abdomen/Pelvis CT 09/02/24 21:21 IMPRESSION: Chronic bibasilar interstitial changes, with hyperdense tree-in-bud opacities likely representing chronic interstitial/aspiration changes, with interval progression. No acute process detected in the chest, abdomen, or pelvis. No CT evidence of metastatic disease in this noncontrast examination. Chest X-Ray 09/04/24 06:29 Impression: Bibasilar interstitial prominence. Correlate for chronic interstitial disease, possibly sequela of prior aspiration. Labs Labs: Laboratory Results - last 24 hr 09/04/24 09/04/24 09/04/24 06:58 07:02 07:05 WBC 27.8 H RBC 3.14 L Hgb 12.0 L Hct 35.7 L MCV 113.7 H MCH 38.2 H MCHC 33.6 RDW 13.6 Plt Count 202 MPV 10.1 Immature Gran % (Auto) Not Reportable Neut % (Auto) Not Reportable Lymph % (Auto) Not Reportable [place] % (Auto) Not Reportable Eos % (Auto) Not Reportable Baso % (Auto) Not Reportable Lymph # (Auto) Not Reportable [place] # (Auto) Not Reportable Eos # (Auto) Not Reportable Baso # (Auto) Not Reportable Abs Immat Gran (auto) Not Reportable Absolute Neuts (auto) Not Reportable Absolute Nucleated RBC Not Reportable Total Counted 100 Neutrophils % (Manual) 68 Band Neutrophils % 14 H Lymphocytes % (Manual) 8 L Monocytes % (Manual) 2 L Myelocytes % 4 Promyelocytes % (Man) 4 Nucleated RBC % Not Reportable Abs Neuts (Manual) 22.79 H Abs Lymphs (Manual) 2.22 Abs Monocytes (Manual) 0.55 Platelet Estimate Adequate Large Platelets Present Anisocytosis 1+ Ovalocytes 1+ Mcintyre Cells 1+ Schistocytes None seen Sodium 142 Potassium 3.8 Chloride 105 Carbon Dioxide 26 Anion Gap 11 BUN 27 H Creatinine 0.79 Estim Creat Clear Calc 68 Estimated GFR > 60 Glucose 138 H Calcium 8.9 Total Bilirubin 0.6 AST 203 H ALT 108 H Alkaline Phosphatase 132 H Total Protein 8.0 Albumin 3.8 Hep Bs Antigen Negative Hepatitis C Ab Screen Negative HIV 1&2 Ab/P24 Ag 4thGn Negative
--- NOTE | 2024-09-04 11:07 | PCOTNOTE ---
Patient per RN, had a code purple last night , has been given medications and is unable to participate at this time. Patient has sitter in the room
[2024-09-04] MEDS: AMPICILLIN SULB 3 GM/NS 100 ML 3 GM/100 ML VIAL IVPB (12:41)
--- NOTE | 2024-09-04 13:48 | PCOTNOTE ---
Attempted again this P.M. Patient does have his eyes open but very lethargic and unable to participate in therapy services at this time.
--- NOTE | 2024-09-04 15:09 | PCPTNOTE ---
Attempted to see patient this afternoon, however patient refused to participate. Patient alert and oriented to self but did not follow directions to initiate activity. Patient stated No. when asked to participate.
[2024-09-04] MEDS: ONDANSETRON INJ 4 MG/2 ML VIAL IV PUSH (18:11)
[2024-09-04] MEDS: AMOXICILLIN/CLAVULANATE K 875-125 MG TAB 1 TABLET PO (18:11)
--- NOTE | 2024-09-04 19:04 | P.PNIM_ITS ---
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 * continue aspirin and statin * will need outpatient neurosurgery follow-up for left parietal lobe mass 09/01 * will decrease Neurontin back to home dose of 100 mg t.i.d. 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 He also vomited. * Neurosurgery consulted * Awaiting EEG results * UDS negative, Ammonia level negative * Will hold Neurontin 09/03 * Awaiting Neurology input * EEG was abnormal record due to the presence of slow activity generally and absence of the normal background rhythm although there is no evidence of any paroxysmal discharge * Continue to hold Neurontin * Added Decadron yesterday per Neurosurgery recommendation for inflammation surrounding mass of left parietal lobe. * Ct of the chest/abdomen/pelvis was negative for any metastatic disease, chronic bibasilar interstitial changes, with hyperdense tree-in-bud opacities likely representing chronic interstitial/aspiration changes. 09/04 * are recommending transfer to tertiary care hospital for continuous EEG as we do not have these capabilities here. We will start the transfer process. * Decadron discontinued as patient became very agitated through the night, hitting staff and requiring Zyprexa (2) Aspiration pneumonia: Code(s): J69.0 - Pneumonitis due to inhalation of food and vomit Status: Acute Assessment and Plan: * patient vomited yesterday with concerns for aspiration * CT of the chest/abdomen/pelvis shown hyperdense tree in bud opacities * currently on Unasyn, spoke with infectious disease pharmacist who agrees this is appropriate coverage for now considering he is not requiring any Oxygen support and does not have fever. If he starts requiring O2 or starts with fever then we can switch to Zosyn. 09/04 * Unasyn switched to Augmentin today (3) Left low back pain: Code(s): M54.50 - Low back pain, unspecified Status: Acute Assessment and Plan: * lumbar spine CT showing bulge disc at L1 to L2, L2-L3, L3-L4, L4-L5, L5-S1, mild lumbar spondylosis * lumbar spine x-ray showed mild lumbar spondylosis * methocarbamol discontinued due to altered mental status increased risk of seizures * continue Neurontin * continue pain control * PT and OT ordered 09/01 * Neurontin decreased to home dose of 100 mg t.i.d. * continue PT and OT * continue pain control 09/02 * Will hold Neurontin * continue PT and OT 09/03 * continue PT and OT * Neurontin on hold due to altered mental status 09/04 * no change to current treatment plan (4) Fall: Qualifiers: Encounter type: initial encounter Qualified Code(s): W19.XXXA - Unspecified fall, initial encounter Code(s): W19.XXXA - Unspecified fall, initial encounter Status: Acute Assessment and Plan: * status post mechanical fall * continue PT and OT * Case management working on outpatient rehab needs * continue fall precautions 09/01 * no change to current treatment plan (5) Mastoiditis: Code(s): H70.90 - Unspecified mastoiditis, unspecified ear Status: Acute Assessment and Plan: * continue Unasyn 2/ * no change to current treatment plan 09/04 * switched to Augmentin today and will need 14 more days (6) Rhabdomyolysis: Code(s): M62.82 - Rhabdomyolysis Status: Resolved Assessment and Plan: * CK 233> 344> 95 * patient was given IV fluids initially * CK now corrected and rhabdomyolysis resolved (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 this morning, Will continue to monitor. 2/2 * white blood count 26.2, absolute neutrophils 23.84-- likely reactive to the Neupogen * afebrile overnight 2/3 * WBC 49.3, Abs Neuts 46.34 * Reverse isolation discontinued 2/ * white blood cell count down to 36.9, absolute neutrophils 33.57 * continue to trend 2/ * white blood cell count 27.8, absolute neutrophils 22.79 * continue to trend (8) Hypertension: Code(s): I10 - Essential (primary) hypertension Status: Chronic Assessment and Plan: * blood pressure ranging 137/76 to 168/76 * continue losartan/ hydrochlorothiazide * will increase amlodipine to 10 mg daily as his normal prescribed dose 2/2 * blood pressures ranging 130/55 to 147/63 * continue losartan/ hydrochlorothiazide and amlodipine at current dose. 2/3 * No change to current treatment plan (9) History of seizure: Code(s): Z87.898 - Personal history of other specified conditions Status: Chronic Assessment and Plan: * continue Keppra, phenytoin * continue seizure precautions * continue neuro checks * neurology consulted * lactic acid was normal at 2.0 * EEG results pending * head CT was negative for any acute intracranial process, CT finding suggestive of acute frontal, ethmoid, left sphenoid sinusitis, trace fluid in the right mastoid air cells and trace fluid / debris in the right middle ear space suggestive of otomastoiditis * MRI of the brain showing 3.2 cm extra-axial enhancing mass in the left parietal lobe that measures 2.5 cm on 01/04/2024 and was not visualized on 01/19/2023 examination, chronic encephalomalacia in right frontal parietal region and left frontal parietal region, 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 09/01 * Continue neuro checks * continue seizure precaution * neurology consulted however has yet to see the patient * EEG results pending * continue Keppra and phenytoin 09/02 * Awaiting EEG results * No change 09/03 * EEG was abnormal due to the presence of slow activity an absence of normal ba ckground rhythm * awaiting Neurology input * continue Keppra and phenytoin * continue seizure precautions * continue neuro checks 09/04 * neurology and neurosurgery agreed that his findings could not rule out that he was having breakthrough seizures and would need to go to a hospital with continuous EEG capabilities to further evaluate * continue Keppra and phenytoin * continue seizure precautions * continue neuro checks Time Spent With Patient Time with patient: 25 - 35 minutes Subjective Date/time seen: 09/04/24 19:04 Interval history: Interval history: This is a 79-year-old male who presented to the hospital on 08/25/2024 after sustaining a ground level fall. Workup in the hospital included a chest x-ray which was negative. He also had a pelvis x-ray which was negative for any acute osseous findings in the pelvis or fractures/ dislocation. Head CT was negative for any acute intracranial process, CT finding suggestive of acute frontal ethmoid and left sphenoid sinusitis, trace fluid in the right mastoid air cells and trace fluid/ debris in the right middle ear space suggestive of otomastoiditis. Cervical spine CT was negative for acute fracture or traumatic malalignment in the cervical spine. Right femur x-ray was negative for any acute osseous abnormality. 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 Lumbar spine CT shown bulging disc in L1- L2, L2-L3, L3-L4, L4-L5, L5-S1, mild lumbar spondylosis, stable from prior examination. Lumbar spine x-ray shows mild lumbar spondylosis. Initial labs showed a white blood cell count of 2.0, RBC 3.38, hemoglobin 12.6, anion gap 16, total bilirubin 2.1, AST 63, ALT 51, alkaline phosphate 128, total CK 233> 344> 95. UA showed cloudy urine appearance, 3+ urine protein, 3+ urine ketone, 2+ urine blood, positive nitrate, 2+ urine bili, , 11-20 urine RBC. TSH was 2.230, vitamin B12 263. Patient became neutropenic while in the hospital requiring hem atology evaluation. He was given 2 doses of Neupogen and vitamin B12 injections with improvement in his white blood cell count absolute neutrophil count. His absolute neutrophil count got down as low as 0.6 and is now up to 2.1. Neurology was consulted and an EEG result is pending. Subjective: Patient is alert and oriented x1 at best. patient able to track me in the room and follow some commands. Labs reviewed. Review of Systems Review of Systems: All systems reviewed & are unremarkable except as noted in HPI and below Exam Narrative: General: In no acute distress, malnourished Head: atraumatic, acute encephalopathy Cardiac: Normal S1 and S2. No murmur, gallops or friction rubs, peripheral pulses intact. Respiratory: Lungs clear to auscultation, no adventitious lung sounds, currently on room air Gastrointestinal: soft, non-distended, non-tender, normoactive bowel sounds. : voiding without difficulty. Neuro: Alert to voice and oriented x1, Would follow commands and track me in the room today Objective Data Vital Signs Vital Signs: Vital Signs - 24 hr 09/03/24 19:55 09/03/24 19:55 09/03/24 23:49 Temperature 98 F Pulse Rate 64 Respiratory Rate 18 Blood Pressure 248/100 H 218/84 H 200/84 H Pulse Oximetry 95 Oxygen Delivery 09/04/24 00:45 09/04/24 01:45 09/04/24 02:02 Temperature Pulse Rate Respiratory Rate Blood Pressure 200/80 H 204/80 H 200/80 H Pulse Oximetry Oxygen Delivery 09/04/24 03:06 09/04/24 04:43 09/04/24 06:15 Temperature 96.8 F L Pulse Rate 62 63 Respiratory Rate 20 Blood Pressure 180/74 H 188/58 H Pulse Oximetry 98 Oxygen Delivery 09/04/24 08:00 09/04/24 14:00 Temperature 97.9 F Pulse Rate 60 Respiratory Rate 16 Blood Pressure 186/66 H Pulse Oximetry 100 Oxygen Delivery Room Air Intake/Output Intake/Output: Intake & Output 09/01/24 09/02/24 09/03/24 09/04/24 23:59 23:59 23:59 23:59 Intake Total 850 790 650 890 Output Total 250 Balance 850 540 650 890 Meds/Results Medications: Active Medications Generic Name Dose Route Start Last Admin Trade Name Freq PRN Reason Stop Dose Admin Acetaminophen 650 mg 08/25/24 17:38 08/25/24 18:23 Acetaminophen 325 Mg Tablet PO 650 mg Q4H PRN Administration Mild Pain (1-3) or Fever Acetaminophen 1,000 mg 08/30/24 13:00 09/04/24 18:11 Acetaminophen 500 Mg Tablet PO 1,000 mg TID EMILY Administration Amlodipine Besylate 10 mg 09/01/24 09:00 09/04/24 08:38 Amlodipine Besylate 10 Mg Tablet PO 10 mg DAILY EMILY Administration Amoxicillin/Clavulanate Potassium 1 tablet 09/04/24 19:30 09/04/24 18:11 Amoxicillin/Clavulanate K 875-125 Mg Tab PO 09/18/24 21:01 1 tablet Q12HR EMILY Administration Aspirin 81 mg 08/31/24 08:00 09/04/24 08:38 Aspirin 81 Mg Chewable Tablet PO 81 mg DAILY@0800 EMILY Administration Chlorhexidine Gluconate 15 ml 08/29/24 17:00 09/04/24 18:37 Chlorhexidine Gluconate 0.12% Oral Rinse 473 Ml Btl (*Bkc) SWISH/SPIT Not Given BID [facility] Docusate Sodium 100 mg 08/26/24 09:00 09/04/24 18:11 Docusate Sodium 100 Mg Capsule PO 100 mg BID EMILY Administration Enoxaparin Sodium 40 mg 08/26/24 09:00 09/04/24 08:37 Enoxaparin 40 Mg/0.4 Ml Syringe SUB-Q 40 mg DAILY EMILY Administration Fluticasone Propionate 2 spray 08/30/24 09:00 09/04/24 11:34 Fluticasone Propionate 0.05% Na Spr 16 Gm Btl (*Bkc) NASAL Not Given QAM [facility] Gabapentin 100 mg 09/01/24 13:00 09/02/24 13:17 Gabapentin 100 Mg Capsule PO 100 mg TID EMILY Administration Hydrochlorothiazide 12.5 mg 08/25/24 21:15 08/25/24 22:03 Hydrochlorothiazide 12.5 Mg Capsule PO 12.5 mg QAM EMILY Administration Levetiracetam 1,000 mg 08/25/24 23:05 09/04/24 08:37 Levetiracetam 500 Mg Tablet PO 1,000 mg Q12HR EMILY Administration Losartan Potassium 100 mg 08/25/24 21:20 09/04/24 08:38 Losartan Potassium 100 Mg Tablet PO 100 mg DAILY EMILY Administration Ondansetron HCl 4 mg 09/01/24 23:34 09/04/24 18:11 Ondansetron Inj 4 Mg/2 Ml Vial IV PUSH 4 mg Q6H PRN Administration Nausea And Vomiting Oxycodone HCl 2.5 mg 08/30/24 11:12 Oxycodone Hcl (*Crx) 2.5 Mg Tab Ir PO Q4H PRN Pain Rated 4-6 Oxycodone HCl 5 mg 08/30/24 11:12 Oxycodone Hcl (*Crx) 5 Mg Tab Ir PO Q4H PRN Pain Rated 7-10 Phenytoin Sodium 300 mg 08/25/24 23:05 09/04/24 08:37 Phenytoin Sodium 100 Mg Extended Release Cap PO 300 mg Q12HR EMILY Administration Polyethylene Glycol 17 gm 08/26/24 09:00 09/04/24 08:37 Polyethylene Glycol 3350 17 Gm Powd.Pack PO 17 gm QAM EMILY Administration Potassium Chloride 20 meq 08/26/24 09:00 09/04/24 08:40 Potassium Chloride 20 Meq Er Tablet PO 20 meq DAILY EMILY Administration Pravastatin Sodium 40 mg 08/26/24 09:00 09/04/24 08:38 Pravastatin Sodium 20 Mg Tablet PO 40 mg DAILY EMILY Administration Radiology Results: ITS Impressions Pelvis X-Ray 08/25/24 15:50 IMPRESSION: No acute osseous finding in the pelvis. Head CT 08/25/24 15:56 IMPRESSION: No acute intracranial process. CT findings suggestive of acute frontal, ethmoid, and left sphenoid sinusitis. Trace fluid in the right mastoid air cells and trace fluid/debris in the right middle ear space, correlate for clinical findings of otomastoiditis. Cervical Spine CT 08/25/24 16:07 IMPRESSION: No acute fracture or traumatic malalignment in the cervical spine. Femur X-Ray 08/28/24 10:42 IMPRESSION: 1. No acute osseous abnormality. Brain MRI 08/30/24 12:03 IMPRESSION: 1. 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 The differential diagnosis includes meningioma and arteriovenous malformation. 2. Chronic encephalomalacia in right frontal parietal region and left frontal parietal region. 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 Lumbar Spine CT 08/30/24 12:36 IMPRESSION: 1. Mild lumbar spondylosis, stable from 01/19/2023. Lumbar Spine X-Ray 08/30/24 12:48 IMPRESSION: 1. Mild lumbar spondylosis. Chest/Abdomen/Pelvis CT 09/02/24 21:21 IMPRESSION: Chronic bibasilar interstitial changes, with hyperdense tree-in-bud opacities likely representing chronic interstitial/aspiration changes, with interval progression. No acute process detected in the chest, abdomen, or pelvis. No CT evidence of metastatic disease in this noncontrast examination. Chest X-Ray 09/04/24 06:29 Impression: Bibasilar interstitial prominence. Correlate for chronic interstitial disease, possibly sequela of prior aspiration. Labs Labs: Laboratory Results - last 24 hr 09/04/24 09/04/24 09/04/24 06:58 07:02 07:05 WBC 27.8 H RBC 3.14 L Hgb 12.0 L Hct 35.7 L MCV 113.7 H MCH 38.2 H MCHC 33.6 RDW 13.6 Plt Count 202 MPV 10.1 Immature Gran % (Auto) Not Reportable Neut % (Auto) Not Reportable Lymph % (Auto) Not Reportable [place] % (Auto) Not Reportable Eos % (Auto) Not Reportable Baso % (Auto) Not Reportable Lymph # (Auto) Not Reportable [place] # (Auto) Not Reportable Eos # (Auto) Not Reportable Baso # (Auto) Not Reportable Abs Immat Gran (auto) Not Reportable Absolute Neuts (auto) Not Reportable Absolute Nucleated RBC Not Reportable Total Counted 100 Neutrophils % (Manual) 68 Band Neutrophils % 14 H Lymphocytes % (Manual) 8 L Monocytes % (Manual) 2 L Myelocytes % 4 Promyelocytes % (Man) 4 Nucleated RBC % Not Reportable Abs Neuts (Manual) 22.79 H Abs Lymphs (Manual) 2.22 Abs Monocytes (Manual) 0.55 Platelet Estimate Adequate Large Platelets Present Anisocytosis 1+ Ovalocytes 1+ Ragland Cells 1+ Schistocytes None seen Sodium 142 Potassium 3.8 Chloride 105 Carbon Dioxide 26 Anion Gap 11 BUN 27 H Creatinine 0.79 Estim Creat Clear Calc 68 Estimated GFR > 60 Glucose 138 H Calcium 8.9 Total Bilirubin 0.6 AST 203 H ALT 108 H Alkaline Phosphatase 132 H Total Protein 8.0 Albumin 3.8 Hep Bs Antigen Negative Hepatitis C Ab Screen Negative HIV 1&2 Ab/P24 Ag 4thGn Negative Quality VTE Prophylaxis VTE prophylaxis: mechanical ordered and pharmacologic ordered
[2024-09-05 06:00] VITALS: BP 160/59; PULSE 61; RESP 18; TEMP 36.6; O2SAT 97
--- NOTE | 2024-09-05 09:32 | P.PNIM_ITS ---
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 * continue aspirin and statin * will need outpatient neurosurgery follow-up for left parietal lobe mass 09/01 * will decrease Neurontin back to home dose of 100 mg t.i.d. 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 He also vomited. * Neurosurgery consulted * Awaiting EEG results * UDS negative, Ammonia level negative * Will hold Neurontin 09/03 * Awaiting Neurology input * EEG was abnormal record due to the presence of slow activity generally and absence of the normal background rhythm although there is no evidence of any paroxysmal discharge * Continue to hold Neurontin * Added Decadron yesterday per Neurosurgery recommendation for inflammation surrounding mass of left parietal lobe. * Ct of the chest/abdomen/pelvis was negative for any metastatic disease, chronic bibasilar interstitial changes, with hyperdense tree-in-bud opacities likely representing chronic interstitial/aspiration changes. 09/04 * are recommending transfer to tertiary care hospital for continuous EEG as we do not have these capabilities here. We will start the transfer process. * Decadron discontinued as patient became very agitated through the night, hitting staff and requiring Zyprexa 09/05 * More alert today, following some commands. (2) Aspiration pneumonia: Code(s): J69.0 - Pneumonitis due to inhalation of food and vomit Status: Acute Assessment and Plan: * patient vomited yesterday with concerns for aspiration * CT of the chest/abdomen/pelvis shown hyperdense tree in bud opacities * currently on Unasyn, spoke with infectious disease pharmacist who agrees this is appropriate coverage for now considering he is not requiring any Oxygen support and does not have fever. If he starts requiring O2 or starts with fe luis alberto then we can switch to Zosyn. 09/04 * Unasyn switched to Augmentin today 09/05 * continue Augmentin * Failed bedside swallow * MBS ordered (3) Left low back pain: Code(s): M54.50 - Low back pain, unspecified Status: Acute Assessment and Plan: * lumbar spine CT showing bulge disc at L1 to L2, L2-L3, L3-L4, L4-L5, L5-S1, mild lumbar spondylosis * lumbar spine x-ray showed mild lumbar spondylosis * methocarbamol discontinued due to altered mental status increased risk of seizures * continue Neurontin * continue pain control * PT and OT ordered 09/01 * Neurontin decreased to home dose of 100 mg t.i.d. * continue PT and OT * continue pain control 09/02 * Will hold Neurontin * continue PT and OT 09/03 * continue PT and OT * Neurontin on hold due to altered mental status 09/04 * no change to current treatment plan (4) Fall: Qualifiers: Encounter type: initial encounter Qualified Code(s): W19.XXXA - Unspecified fall, initial encounter Code(s): W19.XXXA - Unspecified fall, initial encounter Status: Acute Assessment and Plan: * status post mechanical fall * continue PT and OT * Case management working on outpatient rehab needs * continue fall precautions 09/01 * no change to current treatment plan (5) Mastoiditis: Code(s): H70.90 - Unspecified mastoiditis, unspecified ear Status: Acute Assessment and Plan: * continue Unasyn 09/01 * no change to current treatment plan 09/04 * switched to Augmentin today and will need 14 more days 2/6 * No change (6) Rhabdomyolysis: Code(s): M62.82 - Rhabdomyolysis Status: Resolved Assessment and Plan: * CK 233> 344> 95 * patient was given IV fluids initially * CK now corrected and rhabdomyolysis resolved (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 this morning, Will continue to monitor. 2/ * white blood count 26.2, absolute neutrophils 23.84-- likely reactive to the Neupogen * afebrile overnight 2/3 * WBC 49.3, Abs Neuts 46.34 * Reverse isolation discontinued 2/ * white blood cell count down to 36.9, absolute neutrophils 33.57 * continue to trend 2/ * white blood cell count 27.8, absolute neutrophils 22.79 * continue to trend 2/6 * WBC 10.0, absolute neutrophils 6.60 (8) Hypertension: Code(s): I10 - Essential (primary) hypertension Status: Chronic Assessment and Plan: * blood pressure ranging 137/76 to 168/76 * continue losartan/ hydrochlorothiazide * will increase amlodipine to 10 mg daily as his normal prescribed dose 2/2 * blood pressures ranging 130/55 to 147/63 * continue losartan/ hydrochlorothiazide and amlodipine at current dose. 2/3 * No change to current treatment plan (9) History of seizure: Code(s): Z87.898 - Personal history of other specified conditions Status: Chronic Assessment and Plan: * continue Keppra, phenytoin * continue seizure precautions * continue neuro checks * neurology consulted * lactic acid was normal at 2.0 * EEG results pending * head CT was negative for any acute intracranial process, CT finding suggestive of acute frontal, ethmoid, left sphenoid sinusitis, trace fluid in the right mastoid air cells and trace fluid / debris in the right middle ear space suggestive of otomastoiditis * MRI of the brain showing 3.2 cm extra-axial enhancing mass in the left parietal lobe that measures 2.5 cm on 01/04/2024 and was not visualized on 01/19/2023 examination, chronic encephalomalacia in right frontal parietal region and left frontal parietal region, 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 2/ * Continue neuro checks * continue seizure precaution * neurology consulted however has yet to see the patient * EEG results pending * continue Keppra and phenytoin 09/02 * Awaiting EEG results * No change 09/03 * EEG was abnormal due to the presence of slow activity an absence of normal background rhythm * awaiting Neurology input * continue Keppra and phenytoin * continue seizure precautions * continue neuro checks 09/04 * neurology and neurosurgery agreed that his findings could not rule out that he was having breakthrough seizures and would need to go to a hospital with continuous EEG capabilities to further evaluate * continue Keppra and phenytoin * continue seizure precautions * continue neuro checks 09/05 * No change Subjective Date/time seen: 09/05/24 09:32 Interval history: Interval history: This is a 79-year-old male who presented to the hospital on 08/25/2024 after sustaining a ground level fall. Workup in the hospital included a chest x-ray which was negative. He also had a pelvis x-ray which was negative for any acute osseous findings in the pelvis or fractures/ dislocation. Head CT was negative for any acute intracranial process, CT finding suggestive of acute frontal ethmoid and left sphenoid sinusitis, trace fluid in the right mastoid air cells and trace fluid/ debris in the right middle ear space suggestive of otomastoiditis. Cervical spine CT was negative for acute fracture or traumatic malalignment in the cervical spine. Right femur x-ray was negative for any acute osseous abnormality. 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 Lumbar spine CT shown bulging disc in L1- L2, L2-L3, L3-L4, L4-L5, L5-S1, mild lumbar spondylosis, stable from prior examination. Lumbar spine x-ray shows mild lumbar spondylosis. Initial labs showed a white blood cell count of 2.0, RBC 3.38, hemoglobin 12.6, anion gap 16, total bilirubin 2.1, AST 63, ALT 51, alkaline phosphate 128, total CK 233> 344> 95. UA showed cloudy urine appearance, 3+ urine protein, 3+ urine ketone, 2+ urine blood, positive nitrate, 2+ urine bili, , 11-20 urine RBC. TSH was 2.230, vitamin B12 263. Patient became neutropenic while in the hospital requiring hematology evaluation. He was given 2 doses of Neupogen and vitamin B12 injections with improvement in his white blood cell count absolute neutrophil count. His absolute neutrophil count got down as low as 0.6 and is now up to 2.1. Neurology was consulted and an EEG result is pending. Subjective: Patient is alert and oriented x1 at best. Patient has hiccups today. Nursing reported trouble with swallowing this morning. Labs reviewed. Review of Systems Review of Systems: All systems reviewed & are unremarkable except as noted in HPI and below Exam Narrative: General: In no acute distress, malnourished Head: atraumatic, acute encephalopathy Cardiac: Normal S1 and S2. No murmur, gallops or friction rubs, peripheral pulses intact. Respiratory: Lungs clear to auscultation, no adventitious lung sounds, currently on room air Gastrointestinal: soft, non-distended, non-tender, normoactive bowel sounds. : voiding without difficulty. Neuro: Alert to voice and oriented x1, Objective Data Vital Signs Vital Signs: Vital Signs - 24 hr 09/04/24 14:00 09/04/24 20:00 09/04/24 22:00 Temperature 97.9 F 98.4 F Pulse Rate 60 66 Respiratory Rate 16 18 Blood Pressure 186/66 H 176/63 H Pulse Oximetry 100 95 Oxygen Delivery Room Air 09/05/24 06:00 Temperature 97.8 F Pulse Rate 61 Respiratory Rate 18 Blood Pressure 160/59 H Pulse Oximetry 97 Oxygen Delivery Intake/Output Intake/Output: Intake & Output 09/02/24 09/03/24 09/04/24 09/05/24 23:59 23:59 23:59 23:59 Intake Total 790 650 890 120 Output Total 250 Balance 540 650 890 120 Meds/Results Medications: Active Medications Generic Name Dose Route Start Last Admin Trade Name Patrickq PRN Reason Stop Dose Admin Acetaminophen 650 mg 08/25/24 17:38 08/25/24 18:23 Acetaminophen 325 Mg Tablet PO 650 mg Q4H PRN Administration Mild Pain (1-3) or Fever Acetaminophen 1,000 mg 08/30/24 13:00 09/04/24 18:11 Acetaminophen 500 Mg Tablet PO 1,000 mg TID EMILY Administration Amlodipine Besylate 10 mg 09/01/24 09:00 09/04/24 08:38 Amlodipine Besylate 10 Mg Tablet PO 10 mg DAILY EMILY Administration Amoxicillin/Clavulanate Potassium 1 tablet 09/04/24 19:30 09/04/24 18:11 Amoxicillin/Clavulanate K 875-125 Mg Tab PO 09/18/24 21:01 1 tablet Q12HR EMILY Administration Aspirin 81 mg 08/31/24 08:00 09/04/24 08:38 Aspirin 81 Mg Chewable Tablet PO 81 mg DAILY@0800 EMILY Administration Chlorhexidine Gluconate 15 ml 08/29/24 17:00 09/04/24 18:37 Chlorhexidine Gluconate 0.12% Oral Rinse 473 Ml Btl (*Bkc) SWISH/SPIT Not Given BID [facility] Docusate Sodium 100 mg 08/26/24 09:00 09/04/24 18:11 Docusate Sodium 100 Mg Capsule PO 100 mg BID EMILY Administration Enoxaparin Sodium 40 mg 08/26/24 09:00 09/04/24 08:37 Enoxaparin 40 Mg/0.4 Ml Syringe SUB-Q 40 mg DAILY [facility] Administration Fluticasone Propionate 2 spray 08/30/24 09:00 09/04/24 11:34 Fluticasone Propionate 0.05% Na Spr 16 Gm Btl (*Bkc) NASAL Not Given QAM [facility] Gabapentin 100 mg 09/01/24 13:00 09/02/24 13:17 Gabapentin 100 Mg Capsule PO 100 mg TID EMILY Administration Hydrochlorothiazide 12.5 mg 08/25/24 21:15 08/25/24 22:03 Hydrochlorothiazide 12.5 Mg Capsule PO 12.5 mg QAM [facility] Administration Levetiracetam 1,000 mg 08/25/24 23:05 09/04/24 20:25 Levetiracetam 500 Mg Tablet PO 1,000 mg Q12HR EMILY Administration Losartan Potassium 100 mg 08/25/24 21:20 09/04/24 08:38 Losartan Potassium 100 Mg Tablet PO 100 mg DAILY EMILY Administration Ondansetron HCl 4 mg 09/01/24 23:34 09/04/24 18:11 Ondansetron Inj 4 Mg/2 Ml Vial IV PUSH 4 mg Q6H PRN Administration Nausea And Vomiting Oxycodone HCl 2.5 mg 08/30/24 11:12 Oxycodone Hcl (*Crx) 2.5 Mg Tab Ir PO Q4H PRN Pain Rated 4-6 Oxycodone HCl 5 mg 08/30/24 11:12 Oxycodone Hcl (*Crx) 5 Mg Tab Ir PO Q4H PRN Pain Rated 7-10 Phenytoin Sodium 300 mg 08/25/24 23:05 09/04/24 20:25 Phenytoin Sodium 100 Mg Extended Release Cap PO 300 mg Q12HR EMILY Administration Polyethylene Glycol 17 gm 08/26/24 09:00 09/04/24 08:37 Polyethylene Glycol 3350 17 Gm Powd.Pack PO 17 gm QAM EMILY Administration Potassium Chloride 20 meq 08/26/24 09:00 09/04/24 08:40 Potassium Chloride 20 Meq Er Tablet PO 20 meq DAILY EMILY Administration Pravastatin Sodium 40 mg 08/26/24 09:00 09/04/24 08:38 Pravastatin Sodium 20 Mg Tablet PO 40 mg DAILY EMILY Administration Radiology Results: ITS Impressions Pelvis X-Ray 08/25/24 15:50 IMPRESSION: No acute osseous finding in the pelvis. Head CT 08/25/24 15:56 IMPRESSION: No acute intracranial process. CT findings suggestive of acute frontal, ethmoid, and left sphenoid sinusitis. Trace fluid in the right mastoid air cells and trace fluid/debris in the right middle ear space, correlate for clinical findings of otomastoiditis. Cervical Spine CT 08/25/24 16:07 IMPRESSION: No acute fracture or traumatic malalignment in the cervical spine. Femur X-Ray 08/28/24 10:42 IMPRESSION: 1. No acute osseous abnormality. Brain MRI 08/30/24 12:03 IMPRESSION: 1. 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 The differential diagnosis includes meningioma and arteriovenous malformation. 2. Chronic encephalomalacia in right frontal parietal region and left frontal parietal region. 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 Lumbar Spine CT 08/30/24 12:36 IMPRESSION: 1. Mild lumbar spondylosis, stable from 01/19/2023. Lumbar Spine X-Ray 08/30/24 12:48 IMPRESSION: 1. Mild lumbar spondylosis. Chest/Abdomen/Pelvis CT 09/02/24 21:21 IMPRESSION: Chronic bibasilar interstitial changes, with hyperdense tree-in-bud opacities likely representing chronic interstitial/aspiration changes, with interval progression. No acute process detected in the chest, abdomen, or pelvis. No CT evidence of metastatic disease in this noncontrast examination. Chest X-Ray 09/04/24 06:29 Impression: Bibasilar interstitial prominence. Correlate for chronic interstitial disease, possibly sequela of prior aspiration. Labs Labs: Laboratory Results - last 24 hr 09/04/24 09/04/24 09/04/24 06:58 07:02 07:05 WBC 27.8 H RBC 3.14 L Hgb 12.0 L Hct 35.7 L MCV 113.7 H MCH 38.2 H MCHC 33.6 RDW 13.6 Plt Count 202 MPV 10.1 Immature Gran % (Auto) Not Reportable Neut % (Auto) Not Reportable Lymph % (Auto) Not Reportable [place] % (Auto) Not Reportable Eos % (Auto) Not Reportable Baso % (Auto) Not Reportable Lymph # (Auto) Not Reportable [place] # (Auto) Not Reportable Eos # (Auto) Not Reportable Baso # (Auto) Not Reportable Abs Immat Gran (auto) Not Reportable Absolute Neuts (auto) Not Reportable Absolute Nucleated RBC Not Reportable Total Counted 100 Neutrophils % (Manual) 68 Band Neutrophils % 14 H Lymphocytes % (Manual) 8 L Monocytes % (Manual) 2 L Myelocytes % 4 Promyelocytes % (Man) 4 Nucleated RBC % Not Reportable Abs Neuts (Manual) 22.79 H Abs Lymphs (Manual) 2.22 Abs Monocytes (Manual) 0.55 Platelet Estimate Adequate Large Platelets Present Anisocytosis 1+ Ovalocytes 1+ Alan Cells 1+ Schistocytes None seen Sodium 142 Potassium 3.8 Chloride 105 Carbon Dioxide 26 Anion Gap 11 BUN 27 H Creatinine 0.79 Estim Creat Clear Calc 68 Estimated GFR > 60 Glucose 138 H Calcium 8.9 Total Bilirubin 0.6 AST 203 H ALT 108 H Alkaline Phosphatase 132 H Total Protein 8.0 Albumin 3.8 HIV 1&2 Ab/P24 Ag 4thGn Negative Quality VTE Prophylaxis VTE prophylaxis: mechanical ordered and pharmacologic ordered
[2024-09-05 10:07] LABS: Hematocrit 33.3 % (42.0-52.0); Hemoglobin 11.3 g/dL (14.0-18.0); Mean Corpuscular HGB Conc 33.9 g/dl (32-36); Mean Corpuscular Hemoglobin 37.7 pg (26-34); Platelet Count Result 143 k/mm3 (150-375); Red Cell Distribution Width 13.6 % (11.5-14.5)
[2024-09-05 10:16] LABS: Lactic Acid Reflex 1.1 mmol/L (0.7-2.0)
[2024-09-05 10:18] LABS: Alanine Aminotransferase 108 U/L (6-50); Albumin Level 3.6 g/dL (3.5-5.1); Alkaline Phosphatase 113 U/L (38-126); Anion Gap 6 mmol/L (4-12); Aspartate Amino Transferase 112 U/L (17-59); Bilirubin,Total 0.6 mg/dL (0.2-1.3); Blood Urea Nitrogen 30 mg/dL (9-20); Calcium 8.6 mg/dL (8.4-10.2); Carbon Dioxide 31 mmol/L (22-30); Chloride 104 mmol/L (98-107); Estimated CRCL calculation 58 ml/min; Estimated Glomerular Filt Rate > 60; Glucose 117 mg/dL (65-110); Potassium 3.6 mmol/L (3.4-5.0); Sodium 141 mmol/L (137-145)
[2024-09-05 10:46] LABS: Band Neutrophils Percent 20 % (0-6); Basophils Percent Manual 1 % (0-1); Metamyelocytes Percent 2 %; Monocytes Percent Manual 11 % (3-9); Myelocytes Percent 8 %; Neutrophils Percent Manual 46 % (46-73); Platelet Estimate Adequate (Adequate); Total Cells Counted 100
[2024-09-05 10:47] LABS: Schistocytes None Seen
--- NOTE | 2024-09-05 12:20 | PCSTNOTE ---
Please refer to the Bedside Swallow Evaluation in the EMR. Please note, silent aspiration cannot be ruled out at bedside.
[2024-09-05 14:00] VITALS: BP 141/90; PULSE 71; RESP 18; TEMP 36.9; O2SAT 98
--- NOTE | 2024-09-05 14:30 | PCOTNOTE ---
Patient unavailable for OT treatment session. Working with PT and just returning from having a MBS, decreased participation
--- NOTE | 2024-09-05 14:44 | PCPTNOTE ---
On 09/05/24, the student, SALVATORE Aragon, provided care and completed [facility] documentation on this patient. I have reviewed the student's documentation and agree with the findings.
--- NOTE | 2024-09-05 15:27 | PCSTNOTE ---
Please refer to the Modified Barium Swallow Evaluation in the EMR. 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 A bedside swallow evaluation revealed overt s/s of aspiration warranting the need for a modified barium swallow. The pt was seated for a lateral view; only minimally responsive even having difficulty holding head in neutral position (fell back at times). Pt was presented with thin liquid and pudding in small controlled amounts via a spoon. With the first 5ml presentation of thin liquids, pt made no attempt to close mouth around spoon with contents spilling from mouth; with verbal cues to try to swallow, on the 2nd trial he was able to maintain labial seal. He was then able to propel contents posteriorly into pharynx. Upon triggering the swallow of both consistencies, reduced tongue base retraction was exhibited as evidenced by (moderate) vallecular residue and reduced laryngeal elevation as evidenced by (moderate) pyriform sinus residue and laryngeal penetration during the swallow. Larygeal penetration as well as silent aspiration occurred after the swallow. No study modifications were attempted due to pt's increased fatigue. Impression: severe dysphagia Recommendation: non oral feeding; trial dysphagia therapy
[2024-09-05 20:40] VITALS: BP 167/69; PULSE 68; RESP 16; TEMP 36.4; O2SAT 93
[2024-09-05] MEDS: DEXTROSE 5%/0.9% SOD CHL 1,000 ML 100 ML IV CONT (21:52)
[2024-09-05] MEDS: levETIRAcetam 1000MG/NACL100ML 1,000 MG/100 ML BAG 400 MG IVPB (22:40)
[2024-09-06 04:42] VITALS: BP 183/68; PULSE 64; RESP 16; TEMP 36.5; O2SAT 100
[2024-09-06 06:38] VITALS: BP 194/80
[2024-09-06] MEDS: hydrALAZINE HCL 20 MG/ML VIAL 10 MG IV PUSH (07:44)
[2024-09-06] MEDS: levETIRAcetam 1000MG/NACL100ML 1,000 MG/100 ML BAG 400 MG IVPB ×2 (09:41→17:37)
[2024-09-06] MEDS: ENOXAPARIN 40 MG/0.4 ML SYRINGE SUB-Q (09:41)
[2024-09-06] MEDS: FLUTICASONE PROPIONATE 0.05% NA SPR 16 GM BTL (*BKC) 2 SPRAY NASAL (09:42)
[2024-09-06] MEDS: CHLORHEXIDINE GLUCONATE 0.12% ORAL RINSE 473 ML BTL (*BKC) 15 ML SWISH/SPIT ×2 (09:43→18:00)
[2024-09-06 11:36] LABS: Hematocrit 34.6 % (42.0-52.0); Hemoglobin 11.8 g/dL (14.0-18.0); Mean Corpuscular HGB Conc 34.1 g/dl (32-36); Mean Corpuscular Hemoglobin 36.8 pg (26-34); Mean Corpuscular Volume 107.8 fl (80-100); Mean Platelet Volume 10.1 fl (7.4-10.4); Platelet Count Result 137 k/mm3 (150-375); Red Blood Count 3.21 M/mm3 (4.6-6.20); Red Cell Distribution Width 13.2 % (11.5-14.5); White Blood Count 5.7 K/mm3 (4.5-10.0)
--- NOTE | 2024-09-06 11:44 | PCOTNOTE ---
Patient refused to participate in any activities at this time. Patient easily agitated, I'm 79, leave me alone . RN notified and aware
[2024-09-06 11:52] LABS: Alanine Aminotransferase 93 U/L (6-50); Albumin Level 3.4 g/dL (3.5-5.1); Alkaline Phosphatase 117 U/L (38-126); Anion Gap 11 mmol/L (4-12); Aspartate Amino Transferase 70 U/L (17-59); Bilirubin,Total 0.6 mg/dL (0.2-1.3); Blood Urea Nitrogen 21 mg/dL (9-20); Calcium 8.4 mg/dL (8.4-10.2); Carbon Dioxide 26 mmol/L (22-30); Chloride 106 mmol/L (98-107); Estimated CRCL calculation 68 ml/min; Estimated Glomerular Filt Rate > 60; Glucose 129 mg/dL (65-110); Potassium 3.6 mmol/L (3.4-5.0); Sodium 143 mmol/L (137-145)
--- NOTE | 2024-09-06 12:03 | PCNFU ---
Nutrition Follow-Up Complete: Inadequate oral intake related to altered mental status as evidenced by intakes 0-50% PO intake >50% meals and supplements - Not progressing. failed MBSS yesterday. More alert today so MBSS will be repeated. Goal: Pt current nutrition is NPO. Failed MBSS. Nutrition recommendation: Nutrition recommendations to follow after speech recommendations. Pt was previously on heart healthy diet with Ensure Enlive TID Last recorded weight is 70.5 kg. Bowel Motility: +5 BMs 09/04/24 Labs Reviewed: Alb 3.4, BUN 21 Meds Noted: Hydrochlorothiazide, Zofran, Keppra miralax Skin: No pressure Additional Notes: Discussed with DAGOBERTO Manzo. Pt is more alert today so MBSS will be repeated if able. Pt was eating 5-25% on previous HHD Monitoring intakes, supplement tolerance, weights, labs, plan of care Follow up in 5 days
[2024-09-06 12:50] LABS: Anisocytosis 1+; Platelet Estimate Slightly Decreased (Adequate)
[2024-09-06 12:51] LABS: Band Neutrophils Percent 4 % (0-6); Basophils Absolute Manual 0.05 K/mm3 (0.0-0.1); Basophils Percent Manual 1 % (0-1); Lymphocytes Absolute Manual 2.05 K/mm3 (1.1-4.5); Lymphocytes Percent Manual 36 % (18-44); Metamyelocytes Percent 4 %; Monocytes Absolute Manual 0.57 K/mm3 (0.1-0.90); Monocytes Percent Manual 10 % (3-9); Myelocytes Percent 7 %; Neutrophils Absolute Manual 2.39 K/mm3 (1.3-6.7); Neutrophils Percent Manual 38 % (46-73); Schistocytes None Seen; Total Cells Counted 100
[2024-09-06 14:00] VITALS: BP 162/78; PULSE 67; RESP 18; TEMP 36.6; O2SAT 98
--- NOTE | 2024-09-06 14:06 | PM.IMPN ---
Progress Note: A&P Assessment and Plan (1) Altered mental status: Code(s): R41.82 - Altered mental status, unspecified Status: Acute Assessment and Plan: Alert to voice and oriented times 1-2 today, normally oriented x3 at baseline urine culture was negative this admission head CT was negative for any acute intracranial process, CT finding suggestive of acute frontal, ethmoid, and left sphenoid sinusitis, trace fluid in the right mastoid air cells and trace fluid/ debris in the right middle ear space consistent with otomastoiditis MRI of the brain showed a 3.2 cm extra-axial enhancing mass in the left parietal lobe that measures 2.5 cm on 01/04/2024 and was not visualized on 01/19/2023 examination, chronic encephalomalacia and right frontal parietal region and left frontal parietal region, 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 continue aspirin and statin will need outpatient neurosurgery follow-up for left parietal lobe mass 2/ will decrease Neurontin back to home dose of 100 mg t.i.d. 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 He also vomited. Neurosurgery consulted Awaiting EEG results UDS negative, Ammonia level negative Will hold Neurontin / Awaiting Neurology input EEG was abnormal record due to the presence of slow activity generally and absence of the normal background rhythm although there is no evidence of any paroxysmal discharge Continue to hold Neurontin Added Decadron yesterday per Neurosurgery recommendation for inflammation surrounding mass of left parietal lobe. Ct of the chest/abdomen/pelvis was negative for any metastatic disease, chronic bibasilar interstitial changes, with hyperdense tree-in-bud opacities likely representing chronic interstitial/aspiration changes. 09/04 are recommending transfer to tertiary care hospital for continuous EEG as we do not have these capabilities here. We will start the transfer process. Decadron discontinued as patient became very agitated through the night, hitting staff and requiring Zyprexa 09/05 More alert today, following some commands. 09/06 Alert and oriented x3 today. Much improved We will repeat MBS today (2) Aspiration pneumonia: Code(s): J69.0 - Pneumonitis due to inhalation of food and vomit Status: Acute Assessment and Plan: patient vomited yesterday with concerns for aspiration CT of the chest/abdomen/pelvis shown hyperdense tree in bud opacities currently on Unasyn, spoke with infectious disease pharmacist who agrees this is appropriate coverage for now considering he is not requiring any Oxygen support and does not have fever. If he starts requiring O2 or starts with fever then we can switch to Zosyn. 09/04 Unasyn switched to Augmentin today 09/05 continue Augmentin Failed bedside swallow MBS ordered 09/06 Failed MBS yesterday, however mentation is better today. He is alert and oriented x3 Will repeat MBS today (3) Left low back pain: Code(s): M54.50 - Low back pain, unspecified Status: Acute Assessment and Plan: lumbar spine CT showing bulge disc at L1 to L2, L2-L3, L3-L4, L4-L5, L5-S1, mild lumbar spondylosis lumbar spine x-ray showed mild lumbar spondylosis methocarbamol discontinued due to altered mental status increased risk of seizures continue Neurontin continue pain control PT and OT ordered 09/01 Neurontin decreased to home dose of 100 mg t.i.d. continue PT and OT continue pain control 2/ Will hold Neurontin continue PT and OT 2 continue PT and OT Neurontin on hold due to altered mental status 09/04 no change to current treatment plan (4) Fall: Qualifiers: Encounter type: initial encounter Qualified Code(s): W19.XXXA - Unspecified fall, initial encounter Code(s): W19.XXXA - Unspecified fall, initial encounter Status: Acute Assessment and Plan: status post mechanical fall continue PT and OT Case management working on outpatient rehab needs continue fall precautions / no change to current treatment plan (5) Mastoiditis: Code(s): H70.90 - Unspecified mastoiditis, unspecified ear Status: Acute Assessment and Plan: continue Unasyn / no change to current treatment plan 09/04 switched to Augmentin today and will need 14 more days 09/05 No change (6) Rhabdomyolysis: Code(s): M62.82 - Rhabdomyolysis Status: Resolved Assessment and Plan: CK 233> 344> 95 patient was given IV fluids initially CK now corrected and rhabdomyolysis resolved (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 this morning, Will continue to monitor. 2/2 white blood count 26.2, absolute neutrophils 23.84-- likely reactive to the Neupogen afebrile overnight 2/3 WBC 49.3, Abs Neuts 46.34 Reverse isolation discontinued 2/4 white blood cell count down to 36.9, absolute neutrophils 33.57 continue to trend 2/5 white blood cell count 27.8, absolute neutrophils 22.79 continue to trend 2/6 WBC 10.0, absolute neutrophils 6.60 2/7 WBC 5.7, absolute neutrophils 2.39 (8) Hypertension: Code(s): I10 - Essential (primary) hypertension Status: Chronic Assessment and Plan: blood pressure ranging 137/76 to 168/76 continue losartan/ hydrochlorothiazide will increase amlodipine to 10 mg daily as his normal prescribed dose 2/2 blood pressures ranging 130/55 to 147/63 continue losartan/ hydrochlorothiazide and amlodipine at current dose. 2/3 No change to current treatment plan (9) History of seizure: Code(s): Z87.898 - Personal history of other specified conditions Status: Chronic Assessment and Plan: continue Keppra, phenytoin continue seizure precautions continue neuro checks neurology consulted lactic acid was normal at 2.0 EEG results pending head CT was negative for any acute intracranial process, CT finding suggestive of acute frontal, ethmoid, left sphenoid sinusitis, trace fluid in the right mastoid air cells and trace fluid / debris in the right middle ear space suggestive of otomastoiditis MRI of the brain showing 3.2 cm extra-axial enhancing mass in the left parietal lobe that measures 2.5 cm on 01/04/2024 and was not visualized on 01/19/2023 examination, chronic encephalomalacia in right frontal parietal region and left frontal parietal region, 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 2/2 Continue neuro checks continue seizure precaution neurology consulted however has yet to see the patient EEG results pending continue Keppra and phenytoin 09/02 Awaiting EEG results No change 09/03 EEG was abnormal due to the presence of slow activity an absence of normal background rhythm awaiting Neurology input continue Keppra and phenytoin continue seizure precautions continue neuro checks 09/04 neurology and neurosurgery agreed that his findings could not rule out that he was having breakthrough seizures and would need to go to a hospital with continuous EEG capabilities to further evaluate continue Keppra and phenytoin continue seizure precautions continue neuro checks 09/05 No change Time Spent With Patient Time with patient: 25 - 35 minutes Subjective Date/time seen: 09/06/24 14:06 Interval history: Interval history: This is a 79-year-old male who presented to the hospital on 08/25/2024 after sustaining a ground level fall. Workup in the hospital included a chest x-ray which was negative. He also had a pelvis x-ray which was negative for any acute osseous findings in the pelvis or fractures/ dislocation. Head CT was negative for any acute intracranial process, CT finding suggestive of acute frontal ethmoid and left sphenoid sinusitis, trace fluid in the right mastoid air cells and trace fluid/ debris in the right middle ear space suggestive of otomastoiditis. Cervical spine CT was negative for acute fracture or traumatic malalignment in the cervical spine. Right femur x-ray was negative for any acute osseous abnormality. 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 Lumbar spine CT shown bulging disc in L1-L2, L2-L3, L3-L4, L4-L5, L5-S1, mild lumbar spondylosis, stable from prior examination. Lumbar spine x-ray shows mild lumbar spondylosis. Initial labs showed a white blood cell count of 2.0, RBC 3.38, hemoglobin 12.6, anion gap 16, total bilirubin 2.1, AST 63, ALT 51, alkaline phosphate 128, total CK 233> 344> 95. UA showed cloudy urine appearance, 3+ urine protein, 3+ urine ketone, 2+ urine blood, positive nitrate, 2+ urine bili, , 11-20 urine RBC. TSH was 2.230, vitamin B12 263. Patient became neutropenic while in the hospital requiring hematology evaluation. He was given 2 doses of Neupogen and vitamin B12 injections with improvement in his white blood cell count absolute neutrophil count. His absolute neutrophil count got down as low as 0.6 and is now up to 2.1. Neurology was consulted and an EEG result is pending. Subjective: Patient is alert and oriented x3. He is more alert today and asking questions. Labs reviewed. Review of Systems Review of Systems: All systems reviewed & are unremarkable except as noted in HPI and below Exam Narrative: General: In no acute distress, malnourished Head: atraumatic, acute encephalopathy Cardiac: Normal S1 and S2. No murmur, gallops or friction rubs, peripheral pulses intact. Respiratory: Lungs clear to auscultation, no adventitious lung sounds, currently on room air Gastrointestinal: soft, non-distended, non-tender, normoactive bowel sounds. : voiding without difficulty. Neuro: Alert to voice and oriented x3 Objective Data Vital Signs Vital Signs: Vital Signs - 24 hr 09/05/24 20:00 09/05/24 20:40 09/06/24 04:42 Temperature 97.6 F 97.7 F Pulse Rate 68 64 Respiratory Rate 16 16 Blood Pressure 167/69 H 183/68 H Pulse Oximetry 93 100 Oxygen Delivery Room Air 09/06/24 06:38 09/06/24 07:50 Temperature Pulse Rate Respiratory Rate Blood Pressure 194/80 H Pulse Oximetry Oxygen Delivery Room Air Intake/Output Intake/Output: Intake & Output 09/03/24 09/04/24 09/05/24 09/06/24 23:59 23:59 23:59 23:59 Intake Total 650 890 220 100 Output Total 300 150 Balance 650 890 -80 -50 Meds/Results Medications: Active Medications Generic Name Dose Route Start Last Admin Trade Name Freq PRN Reason Stop Dose Admin Acetaminophen 1,000 mg 08/30/24 13:00 09/06/24 12:42 Acetaminophen 500 Mg Tablet PO Not Given TID [facility] Amlodipine Besylate 10 mg 09/01/24 09:00 09/06/24 09:52 Amlodipine Besylate 10 Mg Tablet PO Not Given DAILY [facility] Amoxicillin/Clavulanate Potassium 1 tablet 09/04/24 19:30 09/06/24 09:52 Amoxicillin/Clavulanate K 875-125 Mg Tab PO 09/18/24 21:01 Not Given Q12HR [facility] Aspirin 81 mg 08/31/24 08:00 09/06/24 09:52 Aspirin 81 Mg Chewable Tablet PO Not Given DAILY@0800 [facility] Chlorhexidine Gluconate 15 ml 08/29/24 17:00 09/06/24 09:43 Chlorhexidine Gluconate 0.12% Oral Rinse 473 Ml Btl (*Bkc) SWISH/SPIT 15 ml BID [facility] Administration Chlorpromazine HCl 10 mg 09/05/24 10:56 Chlorpromazine Hcl 10 Mg Tablet PO Q6HR PRN Hiccups Docusate Sodium 100 mg 08/26/24 09:00 09/06/24 09:52 Docusate Sodium 100 Mg Capsule PO Not Given BID [facility] Enoxaparin Sodium 40 mg 08/26/24 09:00 09/06/24 09:41 Enoxaparin 40 Mg/0.4 Ml Syringe SUB-Q 40 mg DAILY [facility] Administration Fluticasone Propionate 2 spray 08/30/24 09:00 09/06/24 09:42 Fluticasone Propionate 0.05% Na Spr 16 Gm Btl (*Bkc) NASAL 2 spray QAM [facility] Administration Gabapentin 100 mg 09/01/24 13:00 09/02/24 13:17 Gabapentin 100 Mg Capsule PO 100 mg TID [facility] Administration Hydralazine HCl 10 mg 09/06/24 07:33 09/06/24 07:44 Hydralazine Hcl 20 Mg/Ml Vial IV PUSH 10 mg Q8H PRN Administration Blood Pressure - High Hydrochlorothiazide 12.5 mg 08/25/24 21:15 08/25/24 22:03 Hydrochlorothiazide 12.5 Mg Capsule PO 12.5 mg QAM [facility] Administration Dextrose/Sodium Chloride 1,000 mls @ 100 mls/hr 09/05/24 18:50 09/05/24 21:52 Dextrose 5% Sodium Chloride 0.9% IV CONT 100 mls/hr .Q10H [facility] Administration Levetiracetam 1,000 mg in 100 mls @ 400 mls/hr 09/05/24 23:00 09/06/24 09:56 Keppra Iv IVPB Infused BID [facility] Infusion Levetiracetam 1,000 mg 08/25/24 23:05 09/06/24 09:52 Levetiracetam 500 Mg Tablet PO Not Given Q12HR [facility] Losartan Potassium 100 mg 08/25/24 21:20 09/06/24 09:52 Losartan Potassium 100 Mg Tablet PO Not Given DAILY [facility] Ondansetron HCl 4 mg 09/01/24 23:34 09/04/24 18:11 Ondansetron Inj 4 Mg/2 Ml Vial IV PUSH 4 mg Q6H PRN Administration Nausea And Vomiting Oxycodone HCl 2.5 mg 08/30/24 11:12 Oxycodone Hcl (*Crx) 2.5 Mg Tab Ir PO Q4H PRN Pain Rated 4-6 Oxycodone HCl 5 mg 08/30/24 11:12 Oxycodone Hcl (*Crx) 5 Mg Tab Ir PO Q4H PRN Pain Rated 7-10 Phenytoin Sodium 300 mg 08/25/24 23:05 09/06/24 09:52 Phenytoin Sodium 100 Mg Extended Release Cap PO Not Given Q12HR [facility] Polyethylene Glycol 17 gm 08/26/24 09:00 09/06/24 09:52 Polyethylene Glycol 3350 17 Gm Powd.Pack PO Not Given QAM [facility] Potassium Chloride 20 meq 08/26/24 09:00 09/06/24 09:52 Potassium Chloride 20 Meq Er Tablet PO Not Given DAILY [facility] Pravastatin Sodium 40 mg 08/26/24 09:00 09/06/24 09:52 Pravastatin Sodium 20 Mg Tablet PO Not Given DAILY [facility] Radiology Results: ITS Impressions Pelvis X-Ray 08/25/24 15:50 IMPRESSION: No acute osseous finding in the pelvis. Head CT 08/25/24 15:56 IMPRESSION: No acute intracranial process. CT findings suggestive of acute frontal, ethmoid, and left sphenoid sinusitis. Trace fluid in the right mastoid air cells and trace fluid/debris in the right middle ear space, correlate for clinical findings of otomastoiditis. Cervical Spine CT 08/25/24 16:07 IMPRESSION: No acute fracture or traumatic malalignment in the cervical spine. Femur X-Ray 08/28/24 10:42 IMPRESSION: 1. No acute osseous abnormality. Brain MRI 08/30/24 12:03 IMPRESSION: 1. 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 The differential diagnosis includes meningioma and arteriovenous malformation. 2. Chronic encephalomalacia in right frontal parietal region and left frontal parietal region. 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 Lumbar Spine CT 08/30/24 12:36 IMPRESSION: 1. Mild lumbar spondylosis, stable from 01/19/2023. Lumbar Spine X-Ray 08/30/24 12:48 IMPRESSION: 1. Mild lumbar spondylosis. Chest/Abdomen/Pelvis CT 09/02/24 21:21 IMPRESSION: Chronic bibasilar interstitial changes, with hyperdense tree-in-bud opacities likely representing chronic interstitial/aspiration changes, with interval progression. No acute process detected in the chest, abdomen, or pelvis. No CT evidence of metastatic disease in this noncontrast examination. Chest X-Ray 09/04/24 06:29 Impression: Bibasilar interstitial prominence. Correlate for chronic interstitial disease, possibly sequela of prior aspiration. Modified Barium Swallow 09/05/24 14:42 IMPRESSION: Pharyngeal dysphagia with laryngeal penetration and silent aspiration. Please correlate with speech pathologist findings and specific feeding recommendations. Labs Labs: Laboratory Results - last 24 hr 09/06/24 11:17 WBC 5.7 RBC 3.21 L Hgb 11.8 L Hct 34.6 L MCV 107.8 H MCH 36.8 H MCHC 34.1 RDW 13.2 Plt Count 137 L MPV 10.1 Immature Gran % (Auto) Not Reportable Neut % (Auto) Not Reportable Lymph % (Auto) Not Reportable [place] % (Auto) Not Reportable Eos % (Auto) Not Reportable Baso % (Auto) Not Reportable Lymph # (Auto) Not Reportable [place] # (Auto) Not Reportable Eos # (Auto) Not Reportable Baso # (Auto) Not Reportable Abs Immat Gran (auto) Not Reportable Absolute Neuts (auto) Not Reportable Absolute Nucleated RBC Not Reportable Total Counted 100 Neutrophils % (Manual) 38 L Band Neutrophils % 4 Lymphocytes % (Manual) 36 Monocytes % (Manual) 10 H Basophils % (Manual) 1 Metamyelocytes % 4 Myelocytes % 7 Nucleated RBC % Not Reportable Abs Neuts (Manual) 2.39 Abs Lymphs (Manual) 2.05 Abs Monocytes (Manual) 0.57 Abs Basophils (Manual) 0.05 Platelet Estimate Slightly decreased Anisocytosis 1+ Schistocytes None seen Sodium 143 Potassium 3.6 Chloride 106 Carbon Dioxide 26 Anion Gap 11 BUN 21 H Creatinine 0.79 Estim Creat Clear Calc 68 Estimated GFR > 60 Glucose 129 H Calcium 8.4 Total Bilirubin 0.6 AST 70 H ALT 93 H Alkaline Phosphatase 117 Total Protein 7.0 Albumin 3.4 L Quality VTE Prophylaxis VTE prophylaxis: mechanical ordered and pharmacologic ordered
--- NOTE | 2024-09-06 15:03 | PCSTNOTE ---
Please refer to the REPEAT Modified Barium Swallow Evaluation in the EMR. Pt was seen for a repeat Modified Barium Swallow as per [facility] [facility] he is more alert and Ox3; pt was seated for a lateral view and presented with 5ml thin liquid and tsp amounts of pudding via a spoon. Oral stage symptoms: reduced labial seal which appeared slightly improved from yesterday as no leakage occurred on this date; pt was cued to close mouth tight around spoon ; reduced lingual movement as evidenced by residue on the tongue but pt was able to dry swallow and clear all oral contents. Pharyngeal stage findings: reduced tongue base retraction as evidenced by moderate vallecular residue across both consistencies; reduced laryngeal elevation as evidenced by laryngeal penetration during the swallow as well as pyriform sinus residue (min) with both consistencies; reduced laryngeal closure as evidenced by aspiration during (& after) the swallow of both consistencies; & reduced pharyngeal squeeze as evidenced by coating on the pharyngeal wall (min) with thin liquid. Chin tuck posture was attempted to decrease residual and provide airway protection, but it was unsuccessful for either; moderate pharyngeal residue, laryngeal penetration and aspiration still occurred. All instances of aspiration were silent. Impression: severe dysphagia Recommendation: Non oral feeding; ST for dysphagia therapy. Thank you for this referral
--- NOTE | 2024-09-06 15:54 | PCPTNOTE ---
On 09/06/24, the student, SALVATORE Aragon, provided care and completed [facility] documentation on this patient. I have reviewed the student's documentation and agree with the findings.
--- NOTE | 2024-09-06 18:03 | PC.NURSE ---
3 attempts to insert NG tube, both nostrils attempted, pt did not tolerate procedure and he would grab at my hand and at tube at only about 10 cm, he became agitated and would not allow tube, encouraged pt that he needs it for nutrition and medications
[2024-09-06 22:00] VITALS: BP 173/74; PULSE 74; RESP 18; TEMP 36.2; O2SAT 99
[2024-09-06] MEDS: DEXTROSE 5%/0.9% SOD CHL 1,000 ML 100 ML IV CONT (23:25)
[2024-09-07 06:25] VITALS: BP 188/74; PULSE 64; RESP 18; TEMP 36.3; O2SAT 97
[2024-09-07 06:57] LABS: Hematocrit 31.2 % (42.0-52.0); Hemoglobin 10.6 g/dL (14.0-18.0); Immature Platelet Fraction Pct 5.1 % (0.9-11.2); Mean Corpuscular Hemoglobin 37.3 pg (26-34); Mean Corpuscular Volume 109.9 fl (80-100); Mean Platelet Volume 10.6 fl (7.4-10.4); Platelet Count Result 128 k/mm3 (150-375); Red Blood Count 2.84 M/mm3 (4.6-6.20); Red Cell Distribution Width 13.2 % (11.5-14.5); White Blood Count 4.1 K/mm3 (4.5-10.0)
[2024-09-07 07:07] LABS: Alanine Aminotransferase 85 U/L (6-50); Albumin Level 3.3 g/dL (3.5-5.1); Alkaline Phosphatase 102 U/L (38-126); Anion Gap 7 mmol/L (4-12); Aspartate Amino Transferase 57 U/L (17-59); Bilirubin,Total 0.6 mg/dL (0.2-1.3); Blood Urea Nitrogen 16 mg/dL (9-20); Calcium 8.4 mg/dL (8.4-10.2); Carbon Dioxide 25 mmol/L (22-30); Chloride 109 mmol/L (98-107); Estimated CRCL calculation 75 ml/min; Estimated Glomerular Filt Rate > 60; Glucose 117 mg/dL (65-110); Phosphorus 3.5 mg/dL (2.5-4.5); Potassium 3.4 mmol/L (3.4-5.0); Sodium 141 mmol/L (137-145)
[2024-09-07] MEDS: levETIRAcetam 1000MG/NACL100ML 1,000 MG/100 ML BAG 400 MG IVPB ×2 (08:19→17:31)
[2024-09-07] MEDS: CHLORHEXIDINE GLUCONATE 0.12% ORAL RINSE 473 ML BTL (*BKC) 15 ML SWISH/SPIT ×2 (08:24→17:36)
[2024-09-07] MEDS: FLUTICASONE PROPIONATE 0.05% NA SPR 16 GM BTL (*BKC) 2 SPRAY NASAL (08:24)
[2024-09-07] MEDS: ENOXAPARIN 40 MG/0.4 ML SYRINGE SUB-Q (08:25)
[2024-09-07 08:49] LABS: Anisocytosis 1+; Band Neutrophils Percent 22 % (0-6); Large Platelets Present; Lymphocytes Absolute Manual 1.14 K/mm3 (1.1-4.5); Metamyelocytes Percent 13 %; Monocytes Absolute Manual 0.53 K/mm3 (0.1-0.90); Monocytes Percent Manual 13 % (3-9); Myelocytes Percent 1 %; Neutrophils Absolute Manual 1.84 K/mm3 (1.3-6.7); Neutrophils Percent Manual 23 % (46-73); Platelet Estimate Decreased (Adequate); Schistocytes None Seen; Total Cells Counted 100
--- NOTE | 2024-09-07 10:50 | P.PNIM_ITS ---
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 * continue aspirin and statin * will need outpatient neurosurgery follow-up for left parietal lobe mass 09/01 * will decrease Neurontin back to home dose of 100 mg t.i.d. 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 He also vomited. * Neurosurgery consulted * Awaiting EEG results * UDS negative, Ammonia level negative * Will hold Neurontin 09/03 * Awaiting Neurology input * EEG was abnormal record due to the presence of slow activity generally and absence of the normal background rhythm although there is no evidence of any paroxysmal discharge * Continue to hold Neurontin * Added Decadron yesterday per Neurosurgery recommendation for inflammation surrounding mass of left parietal lobe. * Ct of the chest/abdomen/pelvis was negative for any metastatic disease, chronic bibasilar interstitial changes, with hyperdense tree-in-bud opacities likely representing chronic interstitial/aspiration changes. 09/04 * are recommending transfer to tertiary care hospital for continuous EEG as we do not have these capabilities here. We will start the transfer process. * Decadron discontinued as patient became very agitated through the night, hitting staff and requiring Zyprexa 09/05 * More alert today, following some commands. 09/06 * Alert and oriented x3 today. Much improved * We will repeat MBS today 09/07 * alert and oriented times 2-3 * patient failed MBS again yesterday * speech therapy will work with him, in the meantime we will go ahead and start PPN with lipids (2) Aspiration pneumonia: Code(s): J69.0 - Pneumonitis due to inhalation of food and vomit Status: Acute Assessment and Plan: * patient vomited yesterday with concerns for aspiration * CT of the chest/abdomen/pelvis shown hyperdense tree in bud opacities * currently on Unasyn, spoke with infectious disease pharmacist who agrees this is appropriate coverage for now considering he is not requiring any Oxygen support and does not have fever. If he starts requiring O2 or starts with fever then we can switch to Zosyn. 09/04 * Unasyn switched to Augmentin today 09/05 * continue Augmentin * Failed bedside swallow * MBS ordered 09/06 * Failed MBS yesterday, however mentation is better today. He is alert and oriented x3 * Will repeat MBS today 09/07 * failed MBS yesterday again * start PPN and lipids (3) Left low back pain: Code(s): M54.50 - Low back pain, unspecified Status: Acute Assessment and Plan: * lumbar spine CT showing bulge disc at L1 to L2, L2-L3, L3-L4, L4-L5, L5-S1, mild lumbar spondylosis * lumbar spine x-ray showed mild lumbar spondylosis * methocarbamol discontinued due to altered mental status increased risk of seizures * continue Neurontin * continue pain control * PT and OT ordered 09/01 * Neurontin decreased to home dose of 100 mg t.i.d. * continue PT and OT * continue pain control 09/02 * Will hold Neurontin * continue PT and OT 09/03 * continue PT and OT * Neurontin on hold due to altered mental status 09/04 * no change to current treatment plan (4) Fall: Qualifiers: Encounter type: initial encounter Qualified Code(s): W19.XXXA - Unspecified fall, initial encounter Code(s): W19.XXXA - Unspecified fall, initial encounter Status: Acute Assessment and Plan: * status post mechanical fall * continue PT and OT * Case management working on outpatient rehab needs * continue fall precautions / * no change to current treatment plan (5) Mastoiditis: Code(s): H70.90 - Unspecified mastoiditis, unspecified ear Status: Acute Assessment and Plan: * continue Unasyn / * no change to current treatment plan 09/04 * switched to Augmentin today and will need 14 more days 09/05 * No change (6) Rhabdomyolysis: Code(s): M62.82 - Rhabdomyolysis Status: Resolved Assessment and Plan: * CK 233> 344> 95 * patient was given IV fluids initially * CK now corrected and rhabdomyolysis resolved (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 this morning, Will continue to monitor. 2 * white blood count 26.2, absolute neutrophils 23.84-- likely reactive to the Neupogen * afebrile overnight 2/3 * WBC 49.3, Abs Neuts 46.34 * Reverse isolation discontinued 09/03 * white blood cell count down to 36.9, absolute neutrophils 33.57 * continue to trend 2/ * white blood cell count 27.8, absolute neutrophils 22.79 * continue to trend 2/ * WBC 10.0, absolute neutrophils 6.60 2/7 * WBC 5.7, absolute neutrophils 2.39 2/8 * white blood cell count 4.3, absolute neutrophils 1.63 (8) Hypertension: Code(s): I10 - Essential (primary) hypertension Status: Chronic Assessment and Plan: * blood pressure ranging 137/76 to 168/76 * continue losartan/ hydrochlorothiazide * will increase amlodipine to 10 mg daily as his normal prescribed dose 2/2 * blood pressures ranging 130/55 to 147/63 * continue losartan/ hydrochlorothiazide and amlodipine at current dose. 2/3 * No change to current treatment plan (9) History of seizure: Code(s): Z87.898 - Personal history of other specified conditions Status: Chronic Assessment and Plan: * continue Keppra, phenytoin * continue seizure precautions * continue neuro checks * neurology consulted * lactic acid was normal at 2.0 * EEG results pending * head CT was negative for any acute intracranial process, CT finding suggestive of acute frontal, ethmoid, left sphenoid sinusitis, trace fluid in the right mastoid air cells and trace fluid / debris in the right middle ear space suggestive of otomastoiditis * MRI of the brain showing 3.2 cm extra-axial enhancing mass in the left parietal lobe that measures 2.5 cm on 01/04/2024 and was not visualized on 01/19/2023 examination, chronic encephalomalacia in right frontal parietal region and left frontal parietal region, 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 09/01 * Continue neuro checks * continue seizure precaution * neurology consulted however has yet to see the patient * EEG results pending * continue Keppra and phenytoin 09/02 * Awaiting EEG results * No change 09/03 * EEG was abnormal due to the presence of slow activity an absence of normal background rhythm * awaiting Neurology input * continue Keppra and phenytoin * continue seizure precautions * continue neuro checks 09/04 * neurology and neurosurgery agreed that his findings could not rule out that he was having breakthrough seizures and would need to go to a hospital with continuous EEG capabilities to further evaluate * continue Keppra and phenytoin * continue seizure precautions * continue neuro checks 09/05 * No change Time Spent With Patient Time with patient: 15 - 25 minutes Subjective Date/time seen: 09/07/24 10:50 Interval history: Interval history: This is a 79-year-old male who presented to the hospital on 08/25/2024 after sustaining a ground level fall. Workup in the hospital included a chest x-ray which was negative. He also had a pelvis x-ray which was negative for any acute osseous findings in the pelvis or fractures/ dislocation. Head CT was negative for any acute intracranial process, CT finding suggestive of acute frontal ethmoid and left sphenoid sinusitis, trace fluid in the right mastoid air cells and trace fluid/ debris in the right middle ear space suggestive of otomastoiditis. Cervical spine CT was negative for acute fracture or traumatic malalignment in the cervical spine. Right femur x-ray was negative for any acute osseous abnormality. 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 Lumbar spine CT shown bulging disc in L1- L2, L2-L3, L3-L4, L4-L5, L5-S1, mild lumbar spondylosis, stable from prior examination. Lumbar spine x-ray shows mild lumbar spondylosis. Initial labs showed a white blood cell count of 2.0, RBC 3.38, hemoglobin 12.6, anion gap 16, total bilirubin 2.1, AST 63, ALT 51, alkaline phosphate 128, total CK 233> 344> 95. UA showed cloudy urine appearance, 3+ urine protein, 3+ urine ketone, 2+ urine blood, positive nitrate, 2+ urine bili, , 11-20 urine RBC. TSH was 2.230, vitamin B12 263. Patient became neutropenic while in the hospital requiring hematology evaluation. He was given 2 doses of Neupogen and vitamin B12 injections with improvement in his white blood cell count absolute neutrophil count. His absolute neutrophil count got down as low as 0.6 and is now up to 2.1. Neurology was consulted and an EEG result is pending. Subjective: Patient is alert and oriented x2-3. He is more alert today and asking questions. Labs reviewed. Review of Systems Review of Systems: All systems reviewed & are unremarkable except as noted in HPI and below Exam Narrative: General: In no acute distress, malnourished Head: atraumatic, acute encephalopathy Cardiac: Normal S1 and S2. No murmur, gallops or friction rubs, peripheral pulses intact. Respiratory: Lungs clear to auscultation, no adventitious lung sounds, currently on room air Gastrointestinal: soft, non-distended, non-tender, normoactive bowel sounds. : voiding without difficulty. Neuro: Alert to voice and oriented x3 Objective Data Vital Signs Vital Signs: Vital Signs - 24 hr 09/06/24 14:00 09/06/24 22:00 09/07/24 06:25 Temperature 98 F 97.2 F L 97.3 F L Pulse Rate 67 74 64 Respiratory Rate 18 18 18 Blood Pressure 162/78 H 173/74 H 188/74 H Pulse Oximetry 98 99 97 Intake/Output Intake/Output: Intake & Output 09/04/24 09/05/24 09/06/24 09/07/24 23:59 23:59 23:59 23:59 Intake Total 780 211 2307 Output Total 300 150 100 Balance 890 -80 1050 -100 Meds/Results Medications: Active Medications Generic Name Dose Route Start Last Admin Trade Name Freq PRN Reason Stop Dose Admin Acetaminophen 1,000 mg 08/30/24 13:00 09/06/24 17:57 Acetaminophen 500 Mg Tablet PO Not Given TID [facility] Amlodipine Besylate 10 mg 09/01/24 09:00 09/06/24 09:52 Amlodipine Besylate 10 Mg Tablet PO Not Given DAILY EMILY Amoxicillin/Clavulanate Potassium 1 tablet 09/04/24 19:30 09/06/24 21:41 Amoxicillin/Clavulanate K 875-125 Mg Tab PO 09/18/24 21:01 Not Given Q12HR [facility] Aspirin 81 mg 08/31/24 08:00 09/06/24 09:52 Aspirin 81 Mg Chewable Tablet PO Not Given DAILY@0800 [facility] Chlorhexidine Gluconate 15 ml 08/29/24 17:00 09/07/24 08:24 Chlorhexidine Gluconate 0.12% Oral Rinse 473 Ml Btl (*Bkc) SWISH/SPIT 15 ml BID EMILY Administration Chlorpromazine HCl 10 mg 09/05/24 10:56 Chlorpromazine Hcl 10 Mg Tablet PO Q6HR PRN Hiccups Docusate Sodium 100 mg 08/26/24 09:00 09/06/24 17:57 Docusate Sodium 100 Mg Capsule PO Not Given BID EMILY Enoxaparin Sodium 40 mg 08/26/24 09:00 09/07/24 08:25 Enoxaparin 40 Mg/0.4 Ml Syringe SUB-Q 40 mg DAILY EMILY Administration Fluticasone Propionate 2 spray 08/30/24 09:00 09/07/24 08:24 Fluticasone Propionate 0.05% Na Spr 16 Gm Btl (*Bkc) NASAL 2 spray QAM EMILY Administration Gabapentin 100 mg 09/01/24 13:00 09/02/24 13:17 Gabapentin 100 Mg Capsule PO 100 mg TID EMILY Administration Hydralazine HCl 10 mg 09/06/24 07:33 09/06/24 07:44 Hydralazine Hcl 20 Mg/Ml Vial IV PUSH 10 mg Q8H PRN Administration Blood Pressure - High Hydrochlorothiazide 12.5 mg 08/25/24 21:15 08/25/24 22:03 Hydrochlorothiazide 12.5 Mg Capsule PO 12.5 mg QAM EMILY Administration Dextrose/Sodium Chloride 1,000 mls @ 100 mls/hr 09/05/24 18:50 09/06/24 23:25 Dextrose 5% Sodium Chloride 0.9% IV CONT 100 mls/hr .Q10H EMILY Administration Levetiracetam 1,000 mg in 100 mls @ 400 mls/hr 09/05/24 23:00 09/07/24 08:19 Keppra Iv IVPB 400 mls/hr BID EMILY Administration Levetiracetam 1,000 mg 08/25/24 23:05 09/06/24 21:41 Levetiracetam 500 Mg Tablet PO Not Given Q12HR [facility]ILY Losartan Potassium 100 mg 08/25/24 21:20 09/06/24 09:52 Losartan Potassium 100 Mg Tablet PO Not Given DAILY EMILY Ondansetron HCl 4 mg 09/01/24 23:34 09/04/24 18:11 Ondansetron Inj 4 Mg/2 Ml Vial IV PUSH 4 mg Q6H PRN Administration Nausea And Vomiting Oxycodone HCl 2.5 mg 08/30/24 11:12 Oxycodone Hcl (*Crx) 2.5 Mg Tab Ir PO Q4H PRN Pain Rated 4-6 Oxycodone HCl 5 mg 08/30/24 11:12 Oxycodone Hcl (*Crx) 5 Mg Tab Ir PO Q4H PRN Pain Rated 7-10 Phenytoin Sodium 300 mg 08/25/24 23:05 09/06/24 21:41 Phenytoin Sodium 100 Mg Extended Release Cap PO Not Given Q12HR [facility]ILY Polyethylene Glycol 17 gm 08/26/24 09:00 09/06/24 09:52 Polyethylene Glycol 3350 17 Gm Powd.Pack PO Not Given QAM EMILY Potassium Chloride 20 meq 08/26/24 09:00 09/06/24 09:52 Potassium Chloride 20 Meq Er Tablet PO Not Given DAILY [facility] Pravastatin Sodium 40 mg 08/26/24 09:00 09/06/24 09:52 Pravastatin Sodium 20 Mg Tablet PO Not Given DAILY [facility] Radiology Results: ITS Impressions Pelvis X-Ray 08/25/24 15:50 IMPRESSION: No acute osseous finding in the pelvis. Head CT 08/25/24 15:56 IMPRESSION: No acute intracranial process. CT findings suggestive of acute frontal, ethmoid, and left sphenoid sinusitis. Trace fluid in the right mastoid air cells and trace fluid/debris in the right middle ear space, correlate for clinical findings of otomastoiditis. Cervical Spine CT 08/25/24 16:07 IMPRESSION: No acute fracture or traumatic malalignment in the cervical spine. Femur X-Ray 08/28/24 10:42 IMPRESSION: 1. No acute osseous abnormality. Brain MRI 08/30/24 12:03 IMPRESSION: 1. 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 The differential diagnosis includes meningioma and arteriovenous malformation. 2. Chronic encephalomalacia in right frontal parietal region and left frontal parietal region. 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 Lumbar Spine CT 08/30/24 12:36 IMPRESSION: 1. Mild lumbar spondylosis, stable from 01/19/2023. Lumbar Spine X-Ray 08/30/24 12:48 IMPRESSION: 1. Mild lumbar spondylosis. Chest/Abdomen/Pelvis CT 09/02/24 21:21 IMPRESSION: Chronic bibasilar interstitial changes, with hyperdense tree-in-bud opacities likely representing chronic interstitial/aspiration changes, with interval progression. No acute process detected in the chest, abdomen, or pelvis. No CT evidence of metastatic disease in this noncontrast examination. Chest X-Ray 09/04/24 06:29 Impression: Bibasilar interstitial prominence. Correlate for chronic interstitial disease, possibly sequela of prior aspiration. Modified Barium Swallow 09/06/24 14:53 IMPRESSION: 1. Silent aspiration. 2. Please refer to the speech therapy report for recommendations. Labs Labs: Laboratory Results - last 24 hr 09/06/24 09/07/24 11:17 06:19 WBC 5.7 4.1 L RBC 3.21 L 2.84 L Hgb 11.8 L 10.6 L Hct 34.6 L 31.2 L MCV 107.8 H 109.9 H MCH 36.8 H 37.3 H MCHC 34.1 34.0 RDW 13.2 13.2 Plt Count 137 L 128 L MPV 10.1 10.6 H Immature Gran % (Auto) Not Reportable Not Reportable Neut % (Auto) Not Reportable Not Reportable Lymph % (Auto) Not Reportable Not Reportable Cass % (Auto) Not Reportable Not Reportable Eos % (Auto) Not Reportable Not Reportable Baso % (Auto) Not Reportable Not Reportable Lymph # (Auto) Not Reportable Not Reportable Cass # (Auto) Not Reportable Not Reportable Eos # (Auto) Not Reportable Not Reportable Baso # (Auto) Not Reportable Not Reportable Abs Immat Gran (auto) Not Reportable Not Reportable Absolute Neuts (auto) Not Reportable Not Reportable Absolute Nucleated RBC Not Reportable Not Reportable Total Counted 100 100 Neutrophils % (Manual) 38 L 23 L Band Neutrophils % 4 22 H Lymphocytes % (Manual) 36 28.0 Monocytes % (Manual) 10 H 13 H Basophils % (Manual) 1 Metamyelocytes % 4 13 Myelocytes % 7 1 Nucleated RBC % Not Reportable Not Reportable Abs Neuts (Manual) 2.39 1.84 Abs Lymphs (Manual) 2.05 1.14 Abs Monocytes (Manual) 0.57 0.53 Abs Basophils (Manual) 0.05 Platelet Estimate Slightly decreased Decreased Large Platelets Present % Immature Plt Fraction 5.1 Anisocytosis 1+ 1+ Schistocytes None seen None seen Sodium 143 141 Potassium 3.6 3.4 Chloride 106 109 H Carbon Dioxide 26 25 Anion Gap 11 7 BUN 21 H 16 Creatinine 0.79 0.71 Estim Creat Clear Calc 68 75 Estimated GFR > 60 > 60 Glucose 129 H 117 H Calcium 8.4 8.4 Phosphorus 3.5 Total Bilirubin 0.6 0.6 AST 70 H 57 ALT 93 H 85 H Alkaline Phosphatase 117 102 Total Protein 7.0 7.0 Albumin 3.4 L 3.3 L Quality VTE Prophylaxis VTE prophylaxis: mechanical ordered and pharmacologic ordered
[2024-09-07 11:13] LABS: Hemoglobin 11.2 g/dL (14.0-18.0); Mean Corpuscular HGB Conc 33.9 g/dl (32-36); Mean Corpuscular Hemoglobin 36.8 pg (26-34); Mean Corpuscular Volume 108.6 fl (80-100); Mean Platelet Volume 10.4 fl (7.4-10.4); Platelet Count Result 130 k/mm3 (150-375); Red Blood Count 3.04 M/mm3 (4.6-6.20); Red Cell Distribution Width 13.4 % (11.5-14.5); White Blood Count 4.3 K/mm3 (4.5-10.0)
[2024-09-07 11:24] LABS: Alanine Aminotransferase 87 U/L (6-50); Albumin Level 3.5 g/dL (3.5-5.1); Alkaline Phosphatase 104 U/L (38-126); Anion Gap 9 mmol/L (4-12); Aspartate Amino Transferase 59 U/L (17-59); Bilirubin,Total 0.7 mg/dL (0.2-1.3); Blood Urea Nitrogen 16 mg/dL (9-20); Calcium 8.5 mg/dL (8.4-10.2); Carbon Dioxide 23 mmol/L (22-30); Chloride 109 mmol/L (98-107); Estimated CRCL calculation 75 ml/min; Estimated Glomerular Filt Rate > 60; Glucose 123 mg/dL (65-110); Magnesium 1.7 mg/dL (1.6-2.3); Potassium 3.6 mmol/L (3.4-5.0); Sodium 141 mmol/L (137-145)
[2024-09-07 11:31] LABS: Transferrin 126 mg/dL (206-381)
[2024-09-07 12:00] LABS: Band Neutrophils Percent 18 % (0-6); Lymphocytes Absolute Manual 1.07 K/mm3 (1.1-4.5); Metamyelocytes Percent 22 %; Monocytes Absolute Manual 0.47 K/mm3 (0.1-0.90); Monocytes Percent Manual 11 % (3-9); Myelocytes Percent 4 %; Neutrophils Absolute Manual 1.63 K/mm3 (1.3-6.7); Neutrophils Percent Manual 20 % (46-73); Total Cells Counted 100
[2024-09-07 12:01] LABS: Platelet Estimate Decreased (Adequate); Schistocytes None Seen
[2024-09-07] MEDS: AMINO ACIDS 4.25%/D5W/LYTES/CA 2,000 ML 80 ML IV CONT (12:50)
[2024-09-07] MEDS: FAT EMULSIONS IV 20% 250 ML 20.83 ML IVPB (12:53)
[2024-09-07 14:00] VITALS: BP 186/85; PULSE 75; RESP 18; TEMP 36.3; O2SAT 98
[2024-09-07 20:00] VITALS: PULSE 75; RESP 18; O2SAT 98
[2024-09-07 20:41] VITALS: BP 167/64; PULSE 70; RESP 18; TEMP 36.4; O2SAT 97
[2024-09-08 01:03] LABS: Glucose Point of Care 117 mg/dl (65-105)
[2024-09-08 04:57] VITALS: BP 154/65; PULSE 68; RESP 16; TEMP 36.4; O2SAT 98
[2024-09-08 06:31] LABS: Glucose Point of Care 119 mg/dl (65-105)
[2024-09-08 06:37] LABS: Hematocrit 32.6 % (42.0-52.0); Hemoglobin 11.2 g/dL (14.0-18.0); Mean Corpuscular HGB Conc 34.4 g/dl (32-36); Mean Corpuscular Volume 107.6 fl (80-100); Mean Platelet Volume 10.8 fl (7.4-10.4); Platelet Count Result 128 k/mm3 (150-375); Red Blood Count 3.03 M/mm3 (4.6-6.20); Red Cell Distribution Width 13.2 % (11.5-14.5); White Blood Count 3.8 K/mm3 (4.5-10.0)
[2024-09-08 06:48] LABS: Alanine Aminotransferase 96 U/L (6-50); Albumin Level 3.6 g/dL (3.5-5.1); Alkaline Phosphatase 110 U/L (38-126); Anion Gap 10 mmol/L (4-12); Aspartate Amino Transferase 69 U/L (17-59); Bilirubin,Total 0.9 mg/dL (0.2-1.3); Blood Urea Nitrogen 18 mg/dL (9-20); Calcium 8.8 mg/dL (8.4-10.2); Carbon Dioxide 23 mmol/L (22-30); Chloride 104 mmol/L (98-107); Estimated CRCL calculation 83 ml/min; Estimated Glomerular Filt Rate > 60; Glucose 112 mg/dL (65-110); Phosphorus 3.9 mg/dL (2.5-4.5); Potassium 3.7 mmol/L (3.4-5.0); Sodium 137 mmol/L (137-145); Triglycerides 181 mg/dL (<150)
[2024-09-08 07:55] LABS: Band Neutrophils Percent 23 % (0-6); Eosinophils Absolute Manual 0.15 K/mm3 (0.02-0.50); Eosinophils Percent Manual 4 % (0-4); Large Platelets Present; Lymphocytes Absolute Manual 1.02 K/mm3 (1.1-4.5); Metamyelocytes Percent 11 %; Monocytes Absolute Manual 0.41 K/mm3 (0.1-0.90); Monocytes Percent Manual 11 % (3-9); Myelocytes Percent 1 %; Neutrophils Absolute Manual 1.74 K/mm3 (1.3-6.7); Neutrophils Percent Manual 23 % (46-73); Platelet Estimate Decreased (Adequate); Schistocytes None Seen; Total Cells Counted 100
[2024-09-08] MEDS: levETIRAcetam 1000MG/NACL100ML 1,000 MG/100 ML BAG 400 MG IVPB ×2 (08:53→17:48)
[2024-09-08] MEDS: FLUTICASONE PROPIONATE 0.05% NA SPR 16 GM BTL (*BKC) 2 SPRAY NASAL (08:54)
[2024-09-08] MEDS: CHLORHEXIDINE GLUCONATE 0.12% ORAL RINSE 473 ML BTL (*BKC) 15 ML SWISH/SPIT (08:54)
[2024-09-08] MEDS: ENOXAPARIN 40 MG/0.4 ML SYRINGE SUB-Q (09:00)
--- NOTE | 2024-09-08 11:01 | P.PNIM_ITS ---
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 * continue aspirin and statin * will need outpatient neurosurgery follow-up for left parietal lobe mass 09/01 * will decrease Neurontin back to home dose of 100 mg t.i.d. 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 He also vomited. * Neurosurgery consulted * Awaiting EEG results * UDS negative, Ammonia level negative * Will hold Neurontin 09/03 * Awaiting Neurology input * EEG was abnormal record due to the presence of slow activity generally and absence of the normal background rhythm although there is no evidence of any paroxysmal discharge * Continue to hold Neurontin * Added Decadron yesterday per Neurosurgery recommendation for inflammation surrounding mass of left parietal lobe. * Ct of the chest/abdomen/pelvis was negative for any metastatic disease, chronic bibasilar interstitial changes, with hyperdense tree-in-bud opacities likely representing chronic interstitial/aspiration changes. 09/04 * are recommending transfer to tertiary care hospital for continuous EEG as we do not have these capabilities here. We will start the transfer process. * Decadron discontinued as patient became very agitated through the night, hitting staff and requiring Zyprexa 09/05 * More alert today, following some commands. 09/06 * Alert and oriented x3 today. Much improved * We will repeat MBS today 09/07 * alert and oriented times 2-3 * patient failed MBS again yesterday * speech therapy will work with him, in the meantime we will go ahead and start PPN with lipids 09/08 * Alert and oriented x2 * Continue PPN and lipids * Speech therapy working with him, will likely need another modified in few days * Spoke with thais Finn who is the POA about his current condition and updated on his inability to eat or drink without aspirating. We discussed code status, Peg tube and transfer to tertiary care [facility] and more focused comfort care. Neurosurgery deemed to not be a candidate for surgical intervention but he could have palliative radiation to shrink the brain lesions. She is going to discuss this with family and I will call back tomorrow for decision regar ding hospice versus full treatment and code status. (2) Aspiration pneumonia: Code(s): J69.0 - Pneumonitis due to inhalation of food and vomit Status: Acute Assessment and Plan: * patient vomited yesterday with concerns for aspiration * CT of the chest/abdomen/pelvis shown hyperdense tree in bud opacities * currently on Unasyn, spoke with infectious disease pharmacist who agrees this is appropriate coverage for now considering he is not requiring any Oxygen support and does not have fever. If he starts requiring O2 or starts with fever then we can switch to Zosyn. 09/04 * Unasyn switched to Augmentin today 09/05 * continue Augmentin * Failed bedside swallow * MBS ordered 09/06 * Failed MBS yesterday, however mentation is better today. He is alert and oriented x3 * Will repeat MBS today 09/07 * failed MBS yesterday again * start PPN and lipids 09/08 * Continue PPN and lipids (3) Left low back pain: Code(s): M54.50 - Low back pain, unspecified Status: Acute Assessment and Plan: * lumbar spine CT showing bulge disc at L1 to L2, L2-L3, L3-L4, L4-L5, L5-S1, mild lumbar spondylosis * lumbar spine x-ray showed mild lumbar spondylosis * methocarbamol discontinued due to altered mental status increased risk of seizures * continue Neurontin * continue pain control * PT and OT ordered 09/01 * Neurontin decreased to home dose of 100 mg t.i.d. * continue PT and OT * continue pain control 09/02 * Will hold Neurontin * continue PT and OT 09/03 * continue PT and OT * Neurontin on hold due to altered mental status 09/04 * no change to current treatment plan (4) Fall: Qualifiers: Encounter type: initial encounter Qualified Code(s): W19.XXXA - Unspecified fall, initial encounter Code(s): W19.XXXA - Unspecified fall, initial encounter Status: Acute Assessment and Plan: * status post mechanical fall * continue PT and OT * Case management working on outpatient rehab needs * continue fall precautions 09/01 * no change to current treatment plan (5) Mastoiditis: Code(s): H70.90 - Unspecified mastoiditis, unspecified ear Status: Acute Assessment and Plan: * continue Unasyn 09/01 * no change to current treatment plan 09/04 * switched to Augmentin today and will need 14 more days 09/05 * No change (6) Rhabdomyolysis: Code(s): M62.82 - Rhabdomyolysis Status: Resolved Assessment and Plan: * CK 233> 344> 95 * patient was given IV fluids initially * CK now corrected and rhabdomyolysis resolved (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 this morning, Will continue to monitor. 09/01 * white blood count 26.2, absolute neutrophils 23.84-- likely reactive to the Neupogen * afebrile overnight 09/02 * WBC 49.3, Abs Neuts 46.34 * Reverse isolation discontinued 09/03 * white blood cell count down to 36.9, absolute neutrophils 33.57 * continue to trend 09/04 * white blood cell count 27.8, absolute neutrophils 22.79 * continue to trend 09/05 * WBC 10.0, absolute neutrophils 6.60 2/ * WBC 5.7, absolute neutrophils 2.39 2/8 * white blood cell count 4.3, absolute neutrophils 1.63 (8) Hypertension: Code(s): I10 - Essential (primary) hypertension Status: Chronic Assessment and Plan: * blood pressure ranging 137/76 to 168/76 * continue losartan/ hydrochlorothiazide * will increase amlodipine to 10 mg daily as his normal prescribed dose 2 * blood pressures ranging 130/55 to 147/63 * continue losartan/ hydrochlorothiazide and amlodipine at current dose. 2 * No change to current treatment plan (9) History of seizure: Code(s): Z87.898 - Personal history of other specified conditions Status: Chronic Assessment and Plan: * continue Keppra, phenytoin * continue seizure precautions * continue neuro checks * neurology consulted * lactic acid was normal at 2.0 * EEG results pending * head CT was negative for any acute intracranial process, CT finding suggestive of acute frontal, ethmoid, left sphenoid sinusitis, trace fluid in the right mastoid air cells and trace fluid / debris in the right middle ear space suggestive of otomastoiditis * MRI of the brain showing 3.2 cm extra-axial enhancing mass in the left parietal lobe that measures 2.5 cm on 01/04/2024 and was not visualized on 01/19/2023 examination, chronic encephalomalacia in right frontal parietal region and left frontal parietal region, 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 09/01 * Continue neuro checks * continue seizure precaution * neurology consulted however has yet to see the patient * EEG results pending * continue Keppra and phenytoin 09/02 * Awaiting EEG results * No change 09/03 * EEG was abnormal due to the presence of slow activity an absence of normal background rhythm * awaiting Neurology input * continue Keppra and phenytoin * continue seizure precautions * continue neuro checks 09/04 * neurology and neurosurgery agreed that his findings could not rule out that he was having breakthrough seizures and would need to go to a hospital with continuous EEG capabilities to further evaluate * continue Keppra and phenytoin * continue seizure precautions * continue neuro checks 09/05 * No change Time Spent With Patient Time with patient: 25 - 35 minutes Subjective Date/time seen: 09/08/24 11:01 Interval history: Interval history: This is a 79-year-old male who presented to the hospital on 08/25/2024 after sustaining a ground level fall. Workup in the hospital included a chest x-ray which was negative. He also had a pelvis x-ray which was negative for any acute osseous findings in the pelvis or fractures/ dislocation. Head CT was negative for any acute intracranial process, CT finding suggestive of acute frontal ethmoid and left sphenoid sinusitis, trace fluid in the right mastoid air cells and trace fluid/ debris in the right middle ear space suggestive of otomastoiditis. Cervical spine CT was negative for acute fracture or traumatic malalignment in the cervical spine. Right femur x-ray was negative for any acute osseous abnormality. 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 Lumbar spine CT shown bulging disc in L1- L2, L2-L3, L3-L4, L4-L5, L5-S1, mild lumbar spondylosis, stable from prior examination. Lumbar spine x-ray shows mild lumbar spondylosis. Initial labs showed a white blood cell count of 2.0, RBC 3.38, hemoglobin 12.6, anion gap 16, total bilirubin 2.1, AST 63, ALT 51, alkaline phosphate 128, total CK 233> 344> 95. UA showed cloudy urine appearance, 3+ urine protein, 3+ urine ketone, 2+ urine blood, positive nitrate, 2+ urine bili, , 11-20 urine RBC. TSH was 2.230, vitamin B12 263. Patient became neutropenic while in the hospital requiring hematology evaluation. He was given 2 doses of Neupogen and vitamin B12 injections with improvement in his white blood cell count absolute neutrophil count. His absolute neutrophil count got down as low as 0.6 and is now up to 2 .1. Neurology was consulted and an EEG result is pending. Subjective: Patient is alert and oriented x2-3. He is more alert today and asking questions. Labs reviewed. Review of Systems Review of Systems: All systems reviewed & are unremarkable except as noted in HPI and below Exam Narrative: General: In no acute distress, malnourished Head: atraumatic, acute encephalopathy Cardiac: Normal S1 and S2. No murmur, gallops or friction rubs, peripheral pulses intact. Respiratory: Lungs clear to auscultation, no adventitious lung sounds, currently on room air Gastrointestinal: soft, non-distended, non-tender, normoactive bowel sounds. : voiding without difficulty. Neuro: Alert to voice and oriented x3 Objective Data Vital Signs Vital Signs: Vital Signs - 24 hr 09/07/24 14:00 09/07/24 20:00 09/07/24 20:41 Temperature 97.4 F L 97.6 F Pulse Rate 75 75 70 Respiratory Rate 18 18 18 Blood Pressure 186/85 H 167/64 H Pulse Oximetry 98 98 97 Oxygen Delivery Room Air 09/08/24 04:57 09/08/24 08:00 Temperature 97.6 F Pulse Rate 68 Respiratory Rate 16 Blood Pressure 154/65 H Pulse Oximetry 98 Oxygen Delivery Room Air Intake/Output Intake/Output: Intake & Output 09/05/24 09/06/24 09/07/24 09/08/24 23:59 23:59 23:59 23:59 Intake Total 220 1200 200 250 Output Total 300 150 100 500 Balance -80 1050 100 -250 Meds/Results Medications: Active Medications Generic Name Dose Route Start Last Admin Trade Name Freq PRN Reason Stop Dose Admin Acetaminophen 1,000 mg 08/30/24 13:00 09/08/24 08:54 Acetaminophen 500 Mg Tablet PO Not Given TID [facility] Amlodipine Besylate 10 mg 09/01/24 09:00 09/08/24 08:54 Amlodipine Besylate 10 Mg Tablet PO Not Given DAILY EMILY Amoxicillin/Clavulanate Potassium 1 tablet 09/04/24 19:30 09/08/24 08:54 Amoxicillin/Clavulanate K 875-125 Mg Tab PO 09/18/24 21:01 Not Given Q12HR EMILY Aspirin 81 mg 08/31/24 08:00 09/08/24 08:54 Aspirin 81 Mg Chewable Tablet PO Not Given DAILY@0800 EMILY Chlorhexidine Gluconate 15 ml 08/29/24 17:00 09/08/24 08:54 Chlorhexidine Gluconate 0.12% Oral Rinse 473 Ml Btl (*Bkc) SWISH/SPIT 15 ml BID EMILY Administration Chlorpromazine HCl 10 mg 09/05/24 10:56 Chlorpromazine Hcl 10 Mg Tablet PO Q6HR PRN Hiccups Docusate Sodium 100 mg 08/26/24 09:00 09/08/24 08:54 Docusate Sodium 100 Mg Capsule PO Not Given BID EMILY Enoxaparin Sodium 40 mg 08/26/24 09:00 09/08/24 09:00 Enoxaparin 40 Mg/0.4 Ml Syringe SUB-Q 40 mg DAILY EMILY Administration Fluticasone Propionate 2 spray 08/30/24 09:00 09/08/24 08:54 Fluticasone Propionate 0.05% Na Spr 16 Gm Btl (*Bkc) NASAL 2 spray QAM EIMLY Administration Gabapentin 100 mg 09/01/24 13:00 09/02/24 13:17 Gabapentin 100 Mg Capsule PO 100 mg TID EMILY Administration Hydralazine HCl 10 mg 09/06/24 07:33 09/06/24 07:44 Hydralazine Hcl 20 Mg/Ml Vial IV PUSH 10 mg Q8H PRN Administration Blood Pressure - High Hydrochlorothiazide 12.5 mg 08/25/24 21:15 08/25/24 22:03 Hydrochlorothiazide 12.5 Mg Capsule PO 12.5 mg QAM EMILY Administration Levetiracetam 1,000 mg in 100 mls @ 400 mls/hr 09/05/24 23:00 09/08/24 08:53 Keppra Iv IVPB 400 mls/hr BID EMILY Administration Dextrose 1,000 mls @ 50 mls/hr 09/07/24 10:50 Dextrose 10% IV CONT .Q20H PRN if PN is interrupted Amino Acids/Electrolytes/Dextrose 2,000 mls @ 80 mls/hr 09/07/24 12:00 09/07/24 12:50 Clinimix E 4.25%/5% Solution IV CONT 80 mls/hr .Q24H EMILY Administration Protocol Fat Emulsion Intravenous 250 mls @ 20.833 mls/hr 09/07/24 10:50 09/08/24 00:54 Lipids 20% IVPB Infused Q24H EMILY Infusion Levetiracetam 1,000 mg 08/25/24 23:05 09/08/24 08:55 Levetiracetam 500 Mg Tablet PO Not Given Q12HR EMILY Losartan Potassium 100 mg 08/25/24 21:20 09/08/24 08:55 Losartan Potassium 100 Mg Tablet PO Not Given DAILY EMILY Ondansetron HCl 4 mg 09/01/24 23:34 09/04/24 18:11 Ondansetron Inj 4 Mg/2 Ml Vial IV PUSH 4 mg Q6H PRN Administration Nausea And Vomiting Oxycodone HCl 2.5 mg 08/30/24 11:12 Oxycodone Hcl (*Crx) 2.5 Mg Tab Ir PO Q4H PRN Pain Rated 4-6 Oxycodone HCl 5 mg 08/30/24 11:12 Oxycodone Hcl (*Crx) 5 Mg Tab Ir PO Q4H PRN Pain Rated 7-10 Phenytoin Sodium 300 mg 08/25/24 23:05 09/08/24 08:55 Phenytoin Sodium 100 Mg Extended Release Cap PO Not Given Q12HR EMILY Polyethylene Glycol 17 gm 08/26/24 09:00 09/08/24 08:55 Polyethylene Glycol 3350 17 Gm Powd.Pack PO Not Given QAM [facility] Potassium Chloride 20 meq 08/26/24 09:00 09/08/24 08:55 Potassium Chloride 20 Meq Er Tablet PO Not Given DAILY EMILY Pravastatin Sodium 40 mg 08/26/24 09:00 09/08/24 08:55 Pravastatin Sodium 20 Mg Tablet PO Not Given DAILY [facility] Radiology Results: ITS Impressions Pelvis X-Ray 08/25/24 15:50 IMPRESSION: No acute osseous finding in the pelvis. Head CT 08/25/24 15:56 IMPRESSION: No acute intracranial process. CT findings suggestive of acute frontal, ethmoid, and left sphenoid sinusitis. Trace fluid in the right mastoid air cells and trace fluid/debris in the right middle ear space, correlate for clinical findings of otomastoiditis. Cervical Spine CT 08/25/24 16:07 IMPRESSION: No acute fracture or traumatic malalignment in the cervical spine. Femur X-Ray 08/28/24 10:42 IMPRESSION: 1. No acute osseous abnormality. Brain MRI 08/30/24 12:03 IMPRESSION: 1. 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 The differential diagnosis includes meningioma and arteriovenous malformation. 2. Chronic encephalomalacia in right frontal parietal region and left frontal parietal region. 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 Lumbar Spine CT 08/30/24 12:36 IMPRESSION: 1. Mild lumbar spondylosis, stable from 01/19/2023. Lumbar Spine X-Ray 08/30/24 12:48 IMPRESSION: 1. Mild lumbar spondylosis. Chest/Abdomen/Pelvis CT 09/02/24 21:21 IMPRESSION: Chronic bibasilar interstitial changes, with hyperdense tree-in-bud opacities likely representing chronic interstitial/aspiration changes, with interval progression. No acute process detected in the chest, abdomen, or pelvis. No CT evidence of metastatic disease in this noncontrast examination. Chest X-Ray 09/04/24 06:29 Impression: Bibasilar interstitial prominence. Correlate for chronic interstitial disease, possibly sequela of prior aspiration. Modified Barium Swallow 09/06/24 14:53 IMPRESSION: 1. Silent aspiration. 2. Please refer to the speech therapy report for recommendations. Labs Labs: Laboratory Results - last 24 hr 09/07/24 09/07/24 09/08/24 11:07 11:08 00:58 WBC 4.3 L RBC 3.04 L Hgb 11.2 L Hct 33.0 L MCV 108.6 H MCH 36.8 H MCHC 33.9 RDW 13.4 Plt Count 130 L MPV 10.4 Immature Gran % (Auto) Not Reportable Neut % (Auto) Not Reportable Lymph % (Auto) Not Reportable [place] % (Auto) Not Reportable Eos % (Auto) Not Reportable Baso % (Auto) Not Reportable Lymph # (Auto) Not Reportable [place] # (Auto) Not Reportable Eos # (Auto) Not Reportable Baso # (Auto) Not Reportable Abs Immat Gran (auto) Not Reportable Absolute Neuts (auto) Not Reportable Absolute Nucleated RBC Not Reportable Total Counted 100 Neutrophils % (Manual) 20 L Band Neutrophils % 18 H Lymphocytes % (Manual) 25.0 Monocytes % (Manual) 11 H Eosinophils % (Manual) Metamyelocytes % 22 Myelocytes % 4 Nucleated RBC % Not Reportable Abs Neuts (Manual) 1.63 Abs Lymphs (Manual) 1.07 L Abs Monocytes (Manual) 0.47 Absolute Eos (Manual) Platelet Estimate Decreased Large Platelets Schistocytes None seen APTT 55.0 H Sodium 141 Potassium 3.6 Chloride 109 H Carbon Dioxide 23 Anion Gap 9 BUN 16 Creatinine 0.71 Estim Creat Clear Calc 75 Estimated GFR > 60 Glucose 123 H POC Capillary Glucose 117 H Calcium 8.5 Phosphorus Magnesium 1.7 Transferrin 126 L Total Bilirubin 0.7 AST 59 ALT 87 H Alkaline Phosphatase 104 Total Protein 7.0 Albumin 3.5 Triglycerides 09/08/24 09/08/24 05:56 06:10 WBC 3.8 L RBC 3.03 L Hgb 11.2 L Hct 32.6 L MCV 107.6 H MCH 37.0 H MCHC 34.4 RDW 13.2 Plt Count 128 L MPV 10.8 H Immature Gran % (Auto) Not Reportable Neut % (Auto) Not Reportable Lymph % (Auto) Not Reportable [place] % (Auto) Not Reportable Eos % (Auto) Not Reportable Baso % (Auto) Not Reportable Lymph # (Auto) Not Reportable [place] # (Auto) Not Reportable Eos # (Auto) Not Reportable Baso # (Auto) Not Reportable Abs Immat Gran (auto) Not Reportable Absolute Neuts (auto) Not Reportable Absolute Nucleated RBC Not Reportable Total Counted 100 Neutrophils % (Manual) 23 L Band Neutrophils % 23 H Lymphocytes % (Manual) 27.0 Monocytes % (Manual) 11 H Eosinophils % (Manual) 4 Metamyelocytes % 11 Myelocytes % 1 Nucleated RBC % Not Reportable Abs Neuts (Manual) 1.74 Abs Lymphs (Manual) 1.02 L Abs Monocytes (Manual) 0.41 Absolute Eos (Manual) 0.15 Platelet Estimate Decreased Large Platelets Present Schistocytes None seen APTT Sodium 137 Potassium 3.7 Chloride 104 Carbon Dioxide 23 Anion Gap 10 BUN 18 Creatinine 0.61 L Estim Creat Clear Calc 83 Estimated GFR > 60 Glucose 112 H POC Capillary Glucose 119 H Calcium 8.8 Phosphorus 3.9 Magnesium Transferrin Total Bilirubin 0.9 AST 69 H ALT 96 H Alkaline Phosphatase 110 Total Protein 7.0 Albumin 3.6 Triglycerides 181 H Quality VTE Prophylaxis VTE prophylaxis: mechanical ordered and pharmacologic ordered
[2024-09-08 12:03] LABS: Glucose Point of Care 127 mg/dl (65-105)
[2024-09-08] MEDS: FAT EMULSIONS IV 20% 250 ML 21 ML IVPB (13:00)
[2024-09-08] MEDS: AMINO ACIDS 4.25%/D5W/LYTES/CA 2,000 ML 80 ML IV CONT (14:00)
[2024-09-08 16:08] VITALS: BP 156/76; PULSE 70; RESP 18; TEMP 36.7; O2SAT 97
[2024-09-08 18:10] LABS: Glucose Point of Care 110 mg/dl (65-105)
[2024-09-08 20:00] VITALS: PULSE 69; RESP 18; O2SAT 100
[2024-09-08 22:00] VITALS: BP 161/79; PULSE 69; RESP 18; TEMP 36.3; O2SAT 100
[2024-09-08 23:58] LABS: Glucose Point of Care 112 mg/dl (65-105)
[2024-09-09 06:00] VITALS: BP 133/58; PULSE 71; RESP 18; TEMP 36.2; O2SAT 99
[2024-09-09 06:22] LABS: Hematocrit 31.9 % (42.0-52.0); Mean Corpuscular HGB Conc 34.5 g/dl (32-36); Mean Corpuscular Hemoglobin 36.4 pg (26-34); Mean Corpuscular Volume 105.6 fl (80-100); Mean Platelet Volume 11.3 fl (7.4-10.4); Platelet Count Result 146 k/mm3 (150-375); Red Blood Count 3.02 M/mm3 (4.6-6.20); Red Cell Distribution Width 13.1 % (11.5-14.5); White Blood Count 2.8 K/mm3 (4.5-10.0)
[2024-09-09 06:38] LABS: Alanine Aminotransferase 110 U/L (6-50); Albumin Level 3.6 g/dL (3.5-5.1); Alkaline Phosphatase 105 U/L (38-126); Anion Gap 11 mmol/L (4-12); Aspartate Amino Transferase 72 U/L (17-59); Bilirubin,Total 0.6 mg/dL (0.2-1.3); Blood Urea Nitrogen 22 mg/dL (9-20); Carbon Dioxide 23 mmol/L (22-30); Chloride 104 mmol/L (98-107); Estimated CRCL calculation 73 ml/min; Estimated Glomerular Filt Rate > 60; Glucose 115 mg/dL (65-110); Phosphorus 4.4 mg/dL (2.5-4.5); Sodium 138 mmol/L (137-145)
[2024-09-09 06:45] LABS: Transferrin 137 mg/dL (206-381)
[2024-09-09 06:59] LABS: INR 1.1; Prothrombin Time 14.7 Seconds (11.1-14.7)
[2024-09-09 07:00] LABS: Partial Thromboplastin Time 27.9 Seconds (22.3-36.8)
[2024-09-09 07:21] LABS: Band Neutrophils Percent 11 % (0-6); Eosinophils Absolute Manual 0.02 K/mm3 (0.02-0.50); Eosinophils Percent Manual 1 % (0-4); Lymphocytes Absolute Manual 1.09 K/mm3 (1.1-4.5); Metamyelocytes Percent 5 %; Monocytes Absolute Manual 0.53 K/mm3 (0.1-0.90); Monocytes Percent Manual 19 % (3-9); Neutrophils Percent Manual 25 % (46-73); Total Cells Counted 100
[2024-09-09 07:22] LABS: Large Platelets Present; Platelet Estimate Slightly Decreased (Adequate); Schistocytes None Seen
[2024-09-09] MEDS: levETIRAcetam 1000MG/NACL100ML 1,000 MG/100 ML BAG 400 MG IVPB ×2 (08:50→17:23)
[2024-09-09] MEDS: PHENYTOIN SODIUM 100 MG EXTENDED RELEASE CAP 300 MG PO (08:50)
[2024-09-09] MEDS: CHLORHEXIDINE GLUCONATE 0.12% ORAL RINSE 473 ML BTL (*BKC) 15 ML SWISH/SPIT (08:51)
[2024-09-09] MEDS: FLUTICASONE PROPIONATE 0.05% NA SPR 16 GM BTL (*BKC) 2 SPRAY NASAL (08:51)
[2024-09-09] MEDS: ENOXAPARIN 40 MG/0.4 ML SYRINGE SUB-Q (08:53)
[2024-09-09 11:26] LABS: Glucose Point of Care 118 mg/dl (65-105)
--- NOTE | 2024-09-09 13:15 | P.PNIM_ITS ---
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 * continue aspirin and statin * will need outpatient neurosurgery follow-up for left parietal lobe mass 09/01 * will decrease Neurontin back to home dose of 100 mg t.i.d. 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 He also vomited. * Neurosurgery consulted * Awaiting EEG results * UDS negative, Ammonia level negative * Will hold Neurontin 09/03 * Awaiting Neurology input * EEG was abnormal record due to the presence of slow activity generally and absence of the normal background rhythm although there is no evidence of any paroxysmal discharge * Continue to hold Neurontin * Added Decadron yesterday per Neurosurgery recommendation for inflammation surrounding mass of left parietal lobe. * Ct of the chest/abdomen/pelvis was negative for any metastatic disease, chronic bibasilar interstitial changes, with hyperdense tree-in-bud opacities likely representing chronic interstitial/aspiration changes. 09/04 * are recommending transfer to tertiary care hospital for continuous EEG as we do not have these capabilities here. We will start the transfer process. * Decadron discontinued as patient became very agitated through the night, hitting staff and requiring Zyprexa 09/05 * More alert today, following some commands. 09/06 * Alert and oriented x3 today. Much improved * We will repeat MBS today 09/07 * alert and oriented times 2-3 * patient failed MBS again yesterday * speech therapy will work with him, in the meantime we will go ahead and start PPN with lipids 09/08 * Alert and oriented x2 * Continue PPN and lipids * Speech therapy working with him, will likely need another modified in few days * Spoke with niece Huma who is the POA about his current condition and updated on his inability to eat or drink without aspirating. We discussed code status, Peg tube and transfer to tertiary care [facility] hospice and more focused comfort care. Neurosurgery deemed to not be a candidate for surgical intervention but he could have palliative radiation to shrink the brain lesions. She is going to discuss this with family and I will call back tomorrow for decision regar ding hospice versus full treatment and code status. 09/09 * Tried calling his niece to reset again however went to voicemail. I also tried calling his nephew however there was no answer. I know that tree so was going to talk with his youngest brother about code status and hospice versus full treatment. Will need to try to get in touch with the niece again as she is the POA along with a nephew who is secondary. * Continue PPN and lipids for now * Patient has been awake and alert for days now and likely not active seizure activity. (2) Aspiration pneumonia: Code(s): J69.0 - Pneumonitis due to inhalation of food and vomit Status: Acute Assessment and Plan: * patient vomited yesterday with concerns for aspiration * CT of the chest/abdomen/pelvis shown hyperdense tree in bud opacities * currently on Unasyn, spoke with infectious disease pharmacist who agrees this is appropriate coverage for now considering he is not requiring any Oxygen support and does not have fever. If he starts requiring O2 or starts with fever then we can switch to Zosyn. 09/04 * Unasyn switched to Augmentin today 09/05 * continue Augmentin * Failed bedside swallow * MBS ordered 09/06 * Failed MBS yesterday, however mentation is better today. He is alert and oriented x3 * Will repeat MBS today 09/07 * failed MBS yesterday again * start PPN and lipids 09/08 * Continue PPN and lipids 09/09 * Continue PPN and lipids (3) Left low back pain: Code(s): M54.50 - Low back pain, unspecified Status: Acute Assessment and Plan: * lumbar spine CT showing bulge disc at L1 to L2, L2-L3, L3-L4, L4-L5, L5-S1, mild lumbar spondylosis * lumbar spine x-ray showed mild lumbar spondylosis * methocarbamol discontinued due to altered mental status increased risk of seizures * continue Neurontin * continue pain control * PT and OT ordered 09/01 * Neurontin decreased to home dose of 100 mg t.i.d. * continue PT and OT * continue pain control 09/02 * Will hold Neurontin * continue PT and OT 09/03 * continue PT and OT * Neurontin on hold due to altered mental status 09/04 * no change to current treatment plan (4) Fall: Qualifiers: Encounter type: initial encounter Qualified Code(s): W19.XXXA - Unspecified fall, initial encounter Code(s): W19.XXXA - Unspecified fall, initial encounter Status: Acute Assessment and Plan: * status post mechanical fall * continue PT and OT * Case management working on outpatient rehab needs * continue fall precautions 09/01 * no change to current treatment plan (5) Mastoiditis: Code(s): H70.90 - Unspecified mastoiditis, unspecified ear Status: Acute Assessment and Plan: * continue Unasyn 09/01 * no change to current treatment plan 09/04 * switched to Augmentin today and will need 14 more days 09/05 * No change 09/06 * Antibiotic changed back to Unasyn considering he is NPO (6) Rhabdomyolysis: Code(s): M62.82 - Rhabdomyolysis Status: Resolved Assessment and Plan: * CK 233> 344> 95 * patient was given IV fluids initially * CK now corrected and rhabdomyolysis resolved (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 this morning, Will continue to monitor. 2/ * white blood count 26.2, absolute neutrophils 23.84-- likely reactive to the Neupogen * afebrile overnight / * WBC 49.3, Abs Neuts 46.34 * Reverse isolation discontinued 09/03 * white blood cell count down to 36.9, absolute neutrophils 33.57 * continue to trend 2/ * white blood cell count 27.8, absolute neutrophils 22.79 * continue to trend 09/05 * WBC 10.0, absolute neutrophils 6.60 2/ * WBC 5.7, absolute neutrophils 2.39 2/8 * white blood cell count 4.3, absolute neutrophils 1.63 / * White blood cell count down to 2.8, absolute neutrophils 1.0 * Will give dose of Neupogen today (8) Hypertension: Code(s): I10 - Essential (primary) hypertension Status: Chronic Assessment and Plan: * blood pressure ranging 137/76 to 168/76 * continue losartan/ hydrochlorothiazide * will increase amlodipine to 10 mg daily as his normal prescribed dose 2/ * blood pressures ranging 130/55 to 147/63 * continue losartan/ hydrochlorothiazide and amlodipine at current dose. 2/ * No change to current treatment plan (9) History of seizure: Code(s): Z87.898 - Personal history of other specified conditions Status: Chronic Assessment and Plan: * continue Keppra, phenytoin * continue seizure precautions * continue neuro checks * neurology consulted * lactic acid was normal at 2.0 * EEG results pending * head CT was negative for any acute intracranial process, CT finding suggestive of acute frontal, ethmoid, left sphenoid sinusitis, trace fluid in the right mastoid air cells and trace fluid / debris in the right middle ear space suggestive of otomastoiditis * MRI of the brain showing 3.2 cm extra-axial enhancing mass in the left parietal lobe that measures 2.5 cm on 01/04/2024 and was not visualized on 01/19/2023 examination, chronic encephalomalacia in right frontal parietal region and left frontal parietal region, 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 09/01 * Continue neuro checks * continue seizure precaution * neurology consulted however has yet to see the patient * EEG results pending * continue Keppra and phenytoin 09/02 * Awaiting EEG results * No change 09/03 * EEG was abnormal due to the presence of slow activity an absence of normal background rhythm * awaiting Neurology input * continue Keppra and phenytoin * continue seizure precautions * continue neuro checks 09/04 * neurology and neurosurgery agreed that his findings could not rule out that he was having breakthrough seizures and would need to go to a hospital with continuous EEG capabilities to further evaluate * continue Keppra and phenytoin * continue seizure precautions * continue neuro checks 09/05 * No change Time Spent With Patient Time with patient: Greater than 35 minutes Subjective Date/time seen: 09/09/24 13:15 Interval history: Interval history: This is a 79-year-old male who presented to the hospital on 08/25/2024 after sustaining a ground level fall. Workup in the hospital included a chest x-ray which was negative. He also had a pelvis x-ray which was negative for any acute osseous findings in the pelvis or fractures/ dislocation. Head CT was negative for any acute intracranial process, CT finding suggestive of acute frontal ethmoid and left sphenoid sinusitis, trace fluid in the right mastoid air cells and trace fluid/ debris in the right middle ear space suggestive of otomastoiditis. Cervical spine CT was negative for acute fracture or traumatic malalignment in the cervical spine. Right femur x-ray was negative for any acute osseous abnormality. 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 Lumbar spine CT shown bulging disc in L1- L2, L2-L3, L3-L4, L4-L5, L5-S1, mild lumbar spondylosis, stable from prior examination. Lumbar spine x-ray shows mild lumbar spondylosis. Initial labs showed a white blood cell count of 2.0, RBC 3.38, hemoglobin 12.6, anion gap 16, total bilirubin 2.1, AST 63, ALT 51, alkaline phosphate 128, total CK 233> 344> 95. UA showed cloudy urine appearance, 3+ urine protein, 3+ urine ketone, 2+ urine blood, positive nitrate, 2+ urine bili, , 11-20 urine RBC. TSH was 2.230, vitamin B12 263. Patient became neutropenic while in the hospital requiring hematology evaluation. He was given 2 doses of Neupogen and vitamin B12 injections with improvement in his white blood cell count absolute neutrophil count. His absolute neutrophil count got down as low as 0.6 and is now up to 2.1. Neurology was consulted and an EEG result is pending. Subjective: Patient is alert and oriented x2. Labs reviewed. Review of Systems Review of Systems: All systems reviewed & are unremarkable except as noted in HPI and below Exam Narrative: General: In no acute distress, malnourished Head: atraumatic, acute encephalopathy Cardiac: Normal S1 and S2. No murmur, gallops or friction rubs, peripheral pulses intact. Respiratory: Lungs clear to auscultation, no adventitious lung sounds, currently on room air Gastrointestinal: soft, non-distended, non-tender, normoactive bowel sounds. : voiding without difficulty. Neuro: Alert to voice and oriented x3 Objective Data Vital Signs Vital Signs: Vital Signs - 24 hr 09/08/24 16:08 09/08/24 20:00 09/08/24 22:00 Temperature 98.1 F 97.3 F L Pulse Rate 70 69 69 Respiratory Rate 18 18 18 Blood Pressure 156/76 H 161/79 H Pulse Oximetry 97 100 100 Oxygen Delivery Room Air 09/09/24 06:00 09/09/24 08:00 Temperature 97.1 F L Pulse Rate 71 Respiratory Rate 18 Blood Pressure 133/58 L Pulse Oximetry 99 Oxygen Delivery Room Air Intake/Output Intake/Output: Intake & Output 09/06/24 09/07/24 09/08/24 09/09/24 23:59 23:59 23:59 23:59 Intake Total 2660 504 4210 Output Total 128 928 3227 100 Balance 5469 278 6043 -100 Meds/Results Medications: Active Medications Generic Name Dose Route Start Last Admin Trade Name Freq PRN Reason Stop Dose Admin Acetaminophen 1,000 mg 08/30/24 13:00 09/09/24 09:31 Acetaminophen 500 Mg Tablet PO Not Given TID [facility] Amlodipine Besylate 10 mg 09/01/24 09:00 09/09/24 09:31 Amlodipine Besylate 10 Mg Tablet PO Not Given DAILY [facility] Amoxicillin/Clavulanate Potassium 1 tablet 09/04/24 19:30 09/09/24 09:31 Amoxicillin/Clavulanate K 875-125 Mg Tab PO 09/18/24 21:01 Not Given Q12HR [facility] Aspirin 81 mg 08/31/24 08:00 09/09/24 09:31 Aspirin 81 Mg Chewable Tablet PO Not Given DAILY@0800 [facility] Chlorhexidine Gluconate 15 ml 08/29/24 17:00 09/09/24 08:51 Chlorhexidine Gluconate 0.12% Oral Rinse 473 Ml Btl (*Bkc) SWISH/SPIT 15 ml BID EMILY Administration Chlorpromazine HCl 10 mg 09/05/24 10:56 Chlorpromazine Hcl 10 Mg Tablet PO Q6HR PRN Hiccups Docusate Sodium 100 mg 08/26/24 09:00 09/09/24 09:31 Docusate Sodium 100 Mg Capsule PO Not Given BID [facility] Enoxaparin Sodium 40 mg 08/26/24 09:00 09/09/24 08:53 Enoxaparin 40 Mg/0.4 Ml Syringe SUB-Q 40 mg DAILY EMILY Administration Fluticasone Propionate 2 spray 08/30/24 09:00 09/09/24 08:51 Fluticasone Propionate 0.05% Na Spr 16 Gm Btl (*Bkc) NASAL 2 spray QAM EIMLY Administration Gabapentin 100 mg 09/01/24 13:00 09/02/24 13:17 Gabapentin 100 Mg Capsule PO 100 mg TID EMILY Administration Hydralazine HCl 10 mg 09/06/24 07:33 09/06/24 07:44 Hydralazine Hcl 20 Mg/Ml Vial IV PUSH 10 mg Q8H PRN Administration Blood Pressure - High Hydrochlorothiazide 12.5 mg 08/25/24 21:15 08/25/24 22:03 Hydrochlorothiazide 12.5 Mg Capsule PO 12.5 mg QAM EMILY Administration Levetiracetam 1,000 mg in 100 mls @ 400 mls/hr 09/05/24 23:00 09/09/24 08:50 Keppra Iv IVPB 400 mls/hr BID EMILY Administration Dextrose 1,000 mls @ 50 mls/hr 09/07/24 10:50 Dextrose 10% IV CONT .Q20H PRN if PN is interrupted Amino Acids/Electrolytes/Dextrose 2,000 mls @ 80 mls/hr 09/07/24 12:00 09/08/24 14:00 Clinimix E 4.25%/5% Solution IV CONT 80 mls/hr .Q24H EMILY Administration Protocol Fat Emulsion Intravenous 250 mls @ 20.833 mls/hr 09/07/24 10:50 09/08/24 13:00 Lipids 20% IVPB 21 mls/hr Q24H EMILY Administration Levetiracetam 1,000 mg 08/25/24 23:05 09/09/24 09:31 Levetiracetam 500 Mg Tablet PO Not Given Q12HR EMILY Losartan Potassium 100 mg 08/25/24 21:20 09/09/24 09:32 Losartan Potassium 100 Mg Tablet PO Not Given DAILY [facility] Miscellaneous Information 1 each 09/08/24 00:01 2 Oxycodone Orders Need To Be Renewed Or It Will Automatically Discontinue 09/09. XX 10/08/24 00:00 CLARIFY [facility] Ondansetron HCl 4 mg 09/01/24 23:34 09/04/24 18:11 Ondansetron Inj 4 Mg/2 Ml Vial IV PUSH 4 mg Q6H PRN Administration Nausea And Vomiting Phenytoin Sodium 300 mg 08/25/24 23:05 09/09/24 08:50 Phenytoin Sodium 100 Mg Extended Release Cap PO 300 mg Q12HR EMILY Administration Polyethylene Glycol 17 gm 08/26/24 09:00 09/09/24 09:32 Polyethylene Glycol 3350 17 Gm Powd.Pack PO Not Given QAM [facility] Potassium Chloride 20 meq 08/26/24 09:00 09/09/24 09:32 Potassium Chloride 20 Meq Er Tablet PO Not Given DAILY [facility]ILY Pravastatin Sodium 40 mg 08/26/24 09:00 09/09/24 09:32 Pravastatin Sodium 20 Mg Tablet PO Not Given DAILY [facility] Radiology Results: ITS Impressions Pelvis X-Ray 08/25/24 15:50 IMPRESSION: No acute osseous finding in the pelvis. Head CT 08/25/24 15:56 IMPRESSION: No acute intracranial process. CT findings suggestive of acute frontal, ethmoid, and left sphenoid sinusitis. Trace fluid in the right mastoid air cells and trace fluid/debris in the right middle ear space, correlate for clinical findings of otomastoiditis. Cervical Spine CT 08/25/24 16:07 IMPRESSION: No acute fracture or traumatic malalignment in the cervical spine. Femur X-Ray 08/28/24 10:42 IMPRESSION: 1. No acute osseous abnormality. Brain MRI 08/30/24 12:03 IMPRESSION: 1. 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 The differential diagnosis includes meningioma and arteriovenous malformation. 2. Chronic encephalomalacia in right frontal parietal region and left frontal parietal region. 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 Lumbar Spine CT 08/30/24 12:36 IMPRESSION: 1. Mild lumbar spondylosis, stable from 01/19/2023. Lumbar Spine X-Ray 08/30/24 12:48 IMPRESSION: 1. Mild lumbar spondylosis. Chest/Abdomen/Pelvis CT 09/02/24 21:21 IMPRESSION: Chronic bibasilar interstitial changes, with hyperdense tree-in-bud opacities likely representing chronic interstitial/aspiration changes, with interval progression. No acute process detected in the chest, abdomen, or pelvis. No CT evidence of metastatic disease in this noncontrast examination. Chest X-Ray 09/04/24 06:29 Impression: Bibasilar interstitial prominence. Correlate for chronic interstitial disease, possibly sequela of prior aspiration. Modified Barium Swallow 09/06/24 14:53 IMPRESSION: 1. Silent aspiration. 2. Please refer to the speech therapy report for recommendations. Labs Labs: Laboratory Results - last 24 hr 09/08/24 09/08/24 09/09/24 18:07 23:55 06:11 WBC 2.8 L RBC 3.02 L Hgb 11.0 L Hct 31.9 L MCV 105.6 H MCH 36.4 H MCHC 34.5 RDW 13.1 Plt Count 146 L MPV 11.3 H Immature Gran % (Auto) Not Reportable Neut % (Auto) Not Reportable Lymph % (Auto) Not Reportable Bracken % (Auto) Not Reportable Eos % (Auto) Not Reportable Baso % (Auto) Not Reportable Lymph # (Auto) Not Reportable Bracken # (Auto) Not Reportable Eos # (Auto) Not Reportable Baso # (Auto) Not Reportable Abs Immat Gran (auto) Not Reportable Absolute Neuts (auto) Not Reportable Absolute Nucleated RBC Not Reportable Total Counted 100 Neutrophils % (Manual) 25 L Band Neutrophils % 11 H Lymphocytes % (Manual) 39.0 Monocytes % (Manual) 19 H Eosinophils % (Manual) 1 Metamyelocytes % 5 Nucleated RBC % Not Reportable Abs Neuts (Manual) 1.00 L Abs Lymphs (Manual) 1.09 L Abs Monocytes (Manual) 0.53 Absolute Eos (Manual) 0.02 Platelet Estimate Slightly decreased Large Platelets Present Schistocytes None seen PT 14.7 INR 1.1 APTT 27.9 Sodium 138 Potassium 4.0 Chloride 104 Carbon Dioxide 23 Anion Gap 11 BUN 22 H Creatinine 0.70 Estim Creat Clear Calc 73 Estimated GFR > 60 Glucose 115 H POC Capillary Glucose 110 H 112 H Calcium 9.0 Phosphorus 4.4 Magnesium 2.0 Transferrin 137 L Total Bilirubin 0.6 AST 72 H ALT 110 H Alkaline Phosphatase 105 Total Protein 7.0 Albumin 3.6 09/09/24 11:10 WBC RBC Hgb Hct MCV MCH MCHC RDW Plt Count MPV Immature Gran % (Auto) Neut % (Auto) Lymph % (Auto) Bracken % (Auto) Eos % (Auto) Baso % (Auto) Lymph # (Auto) Bracken # (Auto) Eos # (Auto) Baso # (Auto) Abs Immat Gran (auto) Absolute Neuts (auto) Absolute Nucleated RBC Total Counted Neutrophils % (Manual) Band Neutrophils % Lymphocytes % (Manual) Monocytes % (Manual) Eosinophils % (Manual) Metamyelocytes % Nucleated RBC % Abs Neuts (Manual) Abs Lymphs (Manual) Abs Monocytes (Manual) Absolute Eos (Manual) Platelet Estimate Large Platelets Schistocytes PT INR APTT Sodium Potassium Chloride Carbon Dioxide Anion Gap BUN Creatinine Estim Creat Clear Calc Estimated GFR Glucose POC Capillary Glucose 118 H Calcium Phosphorus Magnesium Transferrin Total Bilirubin AST ALT Alkaline Phosphatase Total Protein Albumin Quality VTE Prophylaxis VTE prophylaxis: mechanical ordered and pharmacologic ordered
[2024-09-09 14:00] VITALS: BP 138/85; PULSE 87; RESP 16; TEMP 36.7; O2SAT 99
[2024-09-09] MEDS: AMINO ACIDS 4.25%/D5W/LYTES/CA 2,000 ML 80 ML IV CONT (14:08)
[2024-09-09] MEDS: FAT EMULSIONS IV 20% 250 ML 21 ML IVPB (14:09)
[2024-09-09] MEDS: MORPHINE SULFATE (*CRX) 2 MG/ML INJ IV PUSH (18:27)
[2024-09-09 20:00] VITALS: PULSE 79; RESP 18; O2SAT 98
[2024-09-09] MEDS: AMPICILLIN SULB 3 GM/NS 100 ML 3 GM/100 ML VIAL IVPB (20:26)
[2024-09-09 21:49] VITALS: BP 154/76; PULSE 79; RESP 18; TEMP 36.4; O2SAT 98
[2024-09-10 00:49] LABS: Glucose Point of Care 114 mg/dl (65-105)
[2024-09-10] MEDS: AMPICILLIN SULB 3 GM/NS 100 ML 3 GM/100 ML VIAL IVPB ×4 (01:45→20:21)
[2024-09-10 04:58] VITALS: BP 141/78; PULSE 77; RESP 16; TEMP 36.2; O2SAT 98
[2024-09-10 05:57] LABS: Glucose Point of Care 116 mg/dl (65-105)
[2024-09-10 07:31] VITALS: BP 133/65; PULSE 81; RESP 17; TEMP 36.6; O2SAT 96
[2024-09-10 07:43] LABS: Alanine Aminotransferase 96 U/L (6-50); Albumin Level 3.4 g/dL (3.5-5.1); Alkaline Phosphatase 119 U/L (38-126); Anion Gap 9 mmol/L (4-12); Aspartate Amino Transferase 54 U/L (17-59); Bilirubin,Total 0.8 mg/dL (0.2-1.3); Blood Urea Nitrogen 20 mg/dL (9-20); Calcium 8.9 mg/dL (8.4-10.2); Carbon Dioxide 23 mmol/L (22-30); Chloride 104 mmol/L (98-107); Estimated CRCL calculation 73 ml/min; Estimated Glomerular Filt Rate > 60; Glucose 107 mg/dL (65-110); Phosphorus 3.9 mg/dL (2.5-4.5); Potassium 4.3 mmol/L (3.4-5.0); Sodium 136 mmol/L (137-145); Triglycerides 176 mg/dL (<150)
[2024-09-10] MEDS: ENOXAPARIN 40 MG/0.4 ML SYRINGE SUB-Q (08:54)
[2024-09-10] MEDS: FILGRASTIM-SNDZ 480 MCG/0.8 ML SYRINGE SUB-Q (08:54)
[2024-09-10] MEDS: levETIRAcetam 500 MG TABLET 1000 MG PO (09:36)
[2024-09-10] MEDS: PHENYTOIN SODIUM 100 MG EXTENDED RELEASE CAP 300 MG PO (09:36)
[2024-09-10] MEDS: DOCUSATE SODIUM 100 MG CAPSULE PO ×2 (09:37→18:51)
[2024-09-10] MEDS: PRAVASTATIN SODIUM 20 MG TABLET 40 MG PO (09:37)
[2024-09-10] MEDS: levETIRAcetam 1000MG/NACL100ML 1,000 MG/100 ML BAG 400 MG IVPB ×2 (09:37→18:45)
[2024-09-10] MEDS: LOSARTAN POTASSIUM 100 MG TABLET PO (09:37)
[2024-09-10] MEDS: ACETAMINOPHEN 500 MG TABLET 1000 MG PO ×3 (09:37→18:45)
[2024-09-10] MEDS: POTASSIUM CHLORIDE 20 MEQ ER TABLET PO (09:37)
[2024-09-10] MEDS: amLODIPine BESYLATE 10 MG TABLET PO (09:37)
[2024-09-10] MEDS: ASPIRIN 81 MG CHEWABLE TABLET PO (09:37)
[2024-09-10] MEDS: polyethylene glycoL 3350 17 GM POWD.PACK PO (09:38)
[2024-09-10] MEDS: FLUTICASONE PROPIONATE 0.05% NA SPR 16 GM BTL (*BKC) 2 SPRAY NASAL (09:42)
[2024-09-10] MEDS: CHLORHEXIDINE GLUCONATE 0.12% ORAL RINSE 473 ML BTL (*BKC) 15 ML SWISH/SPIT ×2 (09:44→18:52)
--- NOTE | 2024-09-10 12:33 | P.PNIM_ITS ---
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 * continue aspirin and statin * will need outpatient neurosurgery follow-up for left parietal lobe mass 09/01 * will decrease Neurontin back to home dose of 100 mg t.i.d. 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 He also vomited. * Neurosurgery consulted * Awaiting EEG results * UDS negative, Ammonia level negative * Will hold Neurontin 09/03 * Awaiting Neurology input * EEG was abnormal record due to the presence of slow activity generally and absence of the normal background rhythm although there is no evidence of any paroxysmal discharge * Continue to hold Neurontin * Added Decadron yesterday per Neurosurgery recommendation for inflammation surrounding mass of left parietal lobe. * Ct of the chest/abdomen/pelvis was negative for any metastatic disease, chronic bibasilar interstitial changes, with hyperdense tree-in-bud opacities likely representing chronic interstitial/aspiration changes. 09/04 * are recommending transfer to tertiary care hospital for continuous EEG as we do not have these capabilities here. We will start the transfer process. * Decadron discontinued as patient became very agitated through the night, hitting staff and requiring Zyprexa 09/05 * More alert today, following some commands. 09/06 * Alert and oriented x3 today. Much improved * We will repeat MBS today 09/07 * alert and oriented times 2-3 * patient failed MBS again yesterday * speech therapy will work with him, in the meantime we will go ahead and start PPN with lipids 09/08 * Alert and oriented x2 * Continue PPN and lipids * Speech therapy working with him, will likely need another modified in few days * Spoke with niece Huma who is the POA about his current condition and updated on his inability to eat or drink without aspirating. We discussed code status, Peg tube and transfer to [facility] hospice and more focused comfort care. Neurosurgery deemed to not be a candidate for surgical intervention but he could have palliative radiation to shrink the brain lesions. She is going to discuss this with family and I will call back tomorrow for decision regar ding hospice versus full treatment and code status. 09/09 * Tried calling his niece to reset again however went to voicemail. I also tried calling his nephew however there was no answer. I know that tree so was going to talk with his youngest brother about code status and hospice versus full treatment. Will need to try to get in touch with the niece again as she is the POA along with a nephew who is secondary. * Continue PPN and lipids for now * Patient has been awake and alert for days now and likely not active seizure activity. 09/10 * Patient has been awake and alert for days now and likely not active seizure activity. * Continue PPN * Awaiting to hear back from family. (2) Aspiration pneumonia: Code(s): J69.0 - Pneumonitis due to inhalation of food and vomit Status: Acute Assessment and Plan: * patient vomited yesterday with concerns for aspiration * CT of the chest/abdomen/pelvis shown hyperdense tree in bud opacities * currently on Unasyn, spoke with infectious disease pharmacist who agrees this is appropriate coverage for now considering he is not requiring any Oxygen support and does not have fever. If he starts requiring O2 or starts with fever then we can switch to Zosyn. 09/04 * Unasyn switched to Augmentin today 09/05 * continue Augmentin * Failed bedside swallow * MBS ordered 2/7 * Failed MBS yesterday, however mentation is better today. He is alert and oriented x3 * Will repeat MBS today 09/07 * failed MBS yesterday again * start PPN and lipids 09/08 * Continue PPN and lipids 09/09 * Continue PPN and lipids 09/10 * Continue PPN (3) Left low back pain: Code(s): M54.50 - Low back pain, unspecified Status: Acute Assessment and Plan: * lumbar spine CT showing bulge disc at L1 to L2, L2-L3, L3-L4, L4-L5, L5-S1, mild lumbar spondylosis * lumbar spine x-ray showed mild lumbar spondylosis * methocarbamol discontinued due to altered mental status increased risk of seizures * continue Neurontin * continue pain control * PT and OT ordered 09/01 * Neurontin decreased to home dose of 100 mg t.i.d. * continue PT and OT * continue pain control 09/02 * Will hold Neurontin * continue PT and OT 09/03 * continue PT and OT * Neurontin on hold due to altered mental status 09/04 * no change to current treatment plan (4) Fall: Qualifiers: Encounter type: initial encounter Qualified Code(s): W19.XXXA - Unspecified fall, initial encounter Code(s): W19.XXXA - Unspecified fall, initial encounter Status: Acute Assessment and Plan: * status post mechanical fall * continue PT and OT * Case management working on outpatient rehab needs * continue fall precautions 09/01 * no change to current treatment plan (5) Mastoiditis: Code(s): H70.90 - Unspecified mastoiditis, unspecified ear Status: Acute Assessment and Plan: * continue Unasyn 09/01 * no change to current treatment plan 09/04 * switched to Augmentin today and will need 14 more days 09/05 * No change 09/06 * Antibiotic changed back to Unasyn considering he is NPO (6) Rhabdomyolysis: Code(s): M62.82 - Rhabdomyolysis Status: Resolved Assessment and Plan: * CK 233> 344> 95 * patient was given IV fluids initially * CK now corrected and rhabdomyolysis resolved (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 this morning, Will continue to monitor. 09/01 * white blood count 26.2, absolute neutrophils 23.84-- likely reactive to the Neupogen * afebrile overnight 09/02 * WBC 49.3, Abs Neuts 46.34 * Reverse isolation discontinued 09/03 * white blood cell count down to 36.9, absolute neutrophils 33.57 * continue to trend 09/04 * white blood cell count 27.8, absolute neutrophils 22.79 * continue to trend 09/05 * WBC 10.0, absolute neutrophils 6.60 09/06 * WBC 5.7, absolute neutrophils 2.39 09/07 * white blood cell count 4.3, absolute neutrophils 1.63 09/09 * White blood cell count down to 2.8, absolute neutrophils 1.0 * Will give dose of Neupogen today 09/10 * WBC 2.6, absolute neutrophils 1.06. * Continue Neupogen in the AM. * Monitor labs. (8) Hypertension: Code(s): I10 - Essential (primary) hypertension Status: Chronic Assessment and Plan: * blood pressure ranging 115/66 to 141/78. * continue losartan/ hydrochlorothiazide * will increase amlodipine to 10 mg daily as his normal prescribed dose 09/01 * blood pressures ranging 130/55 to 147/63 * continue losartan/ hydrochlorothiazide and amlodipine at current dose. 2 * No change to current treatment plan (9) History of seizure: Code(s): Z87.898 - Personal history of other specified conditions Status: Chronic Assessment and Plan: * continue Keppra, phenytoin * continue seizure precautions * continue neuro checks * neurology consulted * lactic acid was normal at 2.0 * EEG results pending * head CT was negative for any acute intracranial process, CT finding suggestive of acute frontal, ethmoid, left sphenoid sinusitis, trace fluid in the right mastoid air cells and trace fluid / debris in the right middle ear space suggestive of otomastoiditis * MRI of the brain showing 3.2 cm extra-axial enhancing mass in the left parietal lobe that measures 2.5 cm on 01/04/2024 and was not visualized on 01/19/2023 examination, chronic encephalomalacia in right frontal parietal region and left frontal parietal region, 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 2/ * Continue neuro checks * continue seizure precaution * neurology consulted however has yet to see the patient * EEG results pending * continue Keppra and phenytoin 09/02 * Awaiting EEG results * No change 09/03 * EEG was abnormal due to the presence of slow activity an absence of normal background rhythm * awaiting Neurology input * continue Keppra and phenytoin * continue seizure precautions * continue neuro checks 09/04 * neurology and neurosurgery agreed that his findings could not rule out that he was having breakthrough seizures and would need to go to a hospital with continuous EEG capabilities to further evaluate * continue Keppra and phenytoin * continue seizure precautions * continue neuro checks 09/05 * No change Subjective Date/time seen: 09/10/24 12:33 Interval history: Patient sitting up in chair. Patient denies chest pain, palpitations, headache, dizziness, nausea, or vomiting. Review of Systems Review of Systems: All systems reviewed & are unremarkable except as noted in HPI and below Exam Const: General: comfortable and no acute distress Resp: Effort & Inspection: normal respiratory effort Auscultation: clear to auscultation bilaterally Cardio: Rate: regular rate Rhythm: regular rhythm GI: GI Palp: Yes Soft to palpation Auscultation: normal bowel sounds Extrem: General: no pedal edema Psych: Affect: normal affect Other: A&Ox2. Objective Data Vital Signs Vital Signs: Vital Signs - 24 hr 09/09/24 13:27 09/09/24 14:00 09/09/24 20:00 Temperature 98.1 F Pulse Rate 87 79 Respiratory Rate 16 18 Blood Pressure 138/85 Pulse Oximetry 99 98 Oxygen Delivery Room Air Room Air 09/09/24 21:49 09/10/24 04:58 09/10/24 07:31 Temperature 97.6 F 97.1 F L 97.8 F Pulse Rate 79 77 81 Respiratory Rate 18 16 17 Blood Pressure 154/76 H 141/78 H 133/65 Pulse Oximetry 98 98 96 Oxygen Delivery 09/10/24 09:00 Temperature Pulse Rate Respiratory Rate Blood Pressure Pulse Oximetry Oxygen Delivery Room Air Intake/Output Intake/Output: Intake & Output 09/07/24 09/08/24 09/09/24 09/10/24 23:59 23:59 23:59 23:59 Intake Total 200 2450 2480.7 450 Output Total 100 1150 600 Balance 100 1300 1880.7 450 Meds/Results Medications: Active Medications Generic Name Dose Route Start Last Admin Trade Name Freq PRN Reason Stop Dose Admin Acetaminophen 1,000 mg 08/30/24 13:00 09/10/24 09:37 Acetaminophen 500 Mg Tablet PO 1,000 mg TID EMILY Administration Amlodipine Besylate 10 mg 09/01/24 09:00 09/10/24 09:37 Amlodipine Besylate 10 Mg Tablet PO 10 mg DAILY EMILY Administration Aspirin 81 mg 08/31/24 08:00 09/10/24 09:37 Aspirin 81 Mg Chewable Tablet PO 81 mg DAILY@0800 EMILY Administration Chlorhexidine Gluconate 15 ml 08/29/24 17:00 09/10/24 09:44 Chlorhexidine Gluconate 0.12% Oral Rinse 473 Ml Btl (*Bkc) SWISH/SPIT 15 ml BID EMILY Administration Chlorpromazine HCl 10 mg 09/05/24 10:56 Chlorpromazine Hcl 10 Mg Tablet PO Q6HR PRN Hiccups Docusate Sodium 100 mg 08/26/24 09:00 09/10/24 09:37 Docusate Sodium 100 Mg Capsule PO 100 mg BID EMILY Administration Enoxaparin Sodium 40 mg 08/26/24 09:00 09/10/24 08:54 Enoxaparin 40 Mg/0.4 Ml Syringe SUB-Q 40 mg DAILY EMILY Administration Filgrastim-Sndz 480 mcg 09/10/24 09:00 09/10/24 08:54 Filgrastim-Sndz 480 Mcg/0.8 Ml Syringe SUB-Q 480 mcg DAILY EMILY Administration Fluticasone Propionate 2 spray 08/30/24 09:00 09/10/24 09:42 Fluticasone Propionate 0.05% Na Spr 16 Gm Btl (*Bkc) NASAL 2 spray QAM EMILY Administration Gabapentin 100 mg 09/01/24 13:00 09/02/24 13:17 Gabapentin 100 Mg Capsule PO 100 mg TID EMILY Administration Hydralazine HCl 10 mg 09/06/24 07:33 09/06/24 07:44 Hydralazine Hcl 20 Mg/Ml Vial IV PUSH 10 mg Q8H PRN Administration Blood Pressure - High Hydrochlorothiazide 12.5 mg 08/25/24 21:15 08/25/24 22:03 Hydrochlorothiazide 12.5 Mg Capsule PO 12.5 mg QAM EMILY Administration Levetiracetam 1,000 mg in 100 mls @ 400 mls/hr 09/05/24 23:00 09/10/24 09:37 Keppra Iv IVPB 400 mls/hr BID EMILY Administration Dextrose 1,000 mls @ 50 mls/hr 09/07/24 10:50 Dextrose 10% IV CONT .Q20H PRN if PN is interrupted Amino Acids/Electrolytes/Dextrose 2,000 mls @ 80 mls/hr 09/07/24 12:00 0 09/09/24 14:08 Clinimix E 4.25%/5% Solution IV CONT 80 mls/hr .Q24H EMILY Administration Protocol Fat Emulsion Intravenous 250 mls @ 20.833 mls/hr 09/07/24 10:50 09/10/24 02:04 Lipids 20% IVPB Infused Q24H EMILY Infusion Ampicillin Sodium/Sulbactam Sodium 3 gm in 100 mls @ 200 mls/hr 09/09/24 20:00 09/10/24 09:22 Unasyn 3 Gm/Ns 100 Ml IVPB 09/22/24 19:59 Infused Q6H EMILY Infusion Levetiracetam 1,000 mg 08/25/24 23:05 09/10/24 09:36 Levetiracetam 500 Mg Tablet PO 1,000 mg Q12HR EMILY Administration Losartan Potassium 100 mg 08/25/24 21:20 09/10/24 09:37 Losartan Potassium 100 Mg Tablet PO 100 mg DAILY EMILY Administration Miscellaneous Information 1 each 09/08/24 00:01 2 Oxycodone Orders Need To Be Renewed Or It Will Automatically Discontinue 09/09. XX 10/08/24 00:00 CLARIFY EMILY Morphine Sulfate 2 mg 09/09/24 18:05 09/09/24 18:27 Morphine Sulfate (*Crx) 2 Mg/Ml Inj IV PUSH 2 mg Q4H PRN Administration Pain Rated 4-6 Ondansetron HCl 4 mg 09/01/24 23:34 09/04/24 18:11 Ondansetron Inj 4 Mg/2 Ml Vial IV PUSH 4 mg Q6H PRN Administration Nausea And Vomiting Phenytoin Sodium 300 mg 08/25/24 23:05 09/10/24 09:36 Phenytoin Sodium 100 Mg Extended Release Cap PO 300 mg Q12HR EMILY Administration Polyethylene Glycol 17 gm 08/26/24 09:00 09/10/24 09:38 Polyethylene Glycol 3350 17 Gm Powd.Pack PO 17 gm QAM EMILY Administration Potassium Chloride 20 meq 08/26/24 09:00 09/10/24 09:37 Potassium Chloride 20 Meq Er Tablet PO 20 meq DAILY EMILY Administration Pravastatin Sodium 40 mg 08/26/24 09:00 09/10/24 09:37 Pravastatin Sodium 20 Mg Tablet PO 40 mg DAILY EMILY Administration Radiology Results: ITS Impressions Pelvis X-Ray 08/25/24 15:50 IMPRESSION: No acute osseous finding in the pelvis. Head CT 08/25/24 15:56 IMPRESSION: No acute intracranial process. CT findings suggestive of acute frontal, ethmoid, and left sphenoid sinusitis. Trace fluid in the right mastoid air cells and trace fluid/debris in the right middle ear space, correlate for clinical findings of otomastoiditis. Cervical Spine CT 08/25/24 16:07 IMPRESSION: No acute fracture or traumatic malalignment in the cervical spine. Femur X-Ray 08/28/24 10:42 IMPRESSION: 1. No acute osseous abnormality. Brain MRI 08/30/24 12:03 IMPRESSION: 1. 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 The differential diagnosis includes meningioma and arteriovenous malformation. 2. Chronic encephalomalacia in right frontal parietal region and left frontal parietal region. 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 Lumbar Spine CT 08/30/24 12:36 IMPRESSION: 1. Mild lumbar spondylosis, stable from 01/19/2023. Lumbar Spine X-Ray 08/30/24 12:48 IMPRESSION: 1. Mild lumbar spondylosis. Chest/Abdomen/Pelvis CT 09/02/24 21:21 IMPRESSION: Chronic bibasilar interstitial changes, with hyperdense tree-in-bud opacities likely representing chronic interstitial/aspiration changes, with interval progression. No acute process detected in the chest, abdomen, or pelvis. No CT evidence of metastatic disease in this noncontrast examination. Chest X-Ray 09/04/24 06:29 Impression: Bibasilar interstitial prominence. Correlate for chronic interstitial disease, possibly sequela of prior aspiration. Modified Barium Swallow 09/06/24 14:53 IMPRESSION: 1. Silent aspiration. 2. Please refer to the speech therapy report for recommendations. Labs Labs: Laboratory Results - last 24 hr 09/09/24 09/10/24 09/10/24 23:28 05:03 07:20 Sodium 136 L Potassium 4.3 Chloride 104 Carbon Dioxide 23 Anion Gap 9 BUN 20 Creatinine 0.72 Estim Creat Clear Calc 73 Estimated GFR > 60 Glucose 107 POC Capillary Glucose 114 H 116 H Calcium 8.9 Phosphorus 3.9 Total Bilirubin 0.8 AST 54 ALT 96 H Alkaline Phosphatase 119 Total Protein 7.0 Albumin 3.4 L Triglycerides 176 H Quality VTE Prophylaxis VTE prophylaxis: mechanical ordered and pharmacologic ordered
[2024-09-10 12:34] LABS: Hemoglobin 10.5 g/dL (14.0-18.0); Mean Corpuscular HGB Conc 33.9 g/dl (32-36); Mean Corpuscular Hemoglobin 36.6 pg (26-34); Mean Platelet Volume 11.6 fl (7.4-10.4); Platelet Count Result 146 k/mm3 (150-375); Red Blood Count 2.87 M/mm3 (4.6-6.20); Red Cell Distribution Width 13.3 % (11.5-14.5); White Blood Count 2.6 K/mm3 (4.5-10.0)
[2024-09-10 12:53] LABS: Band Neutrophils Percent 3 % (0-6); Eosinophils Absolute Manual 0.02 K/mm3 (0.02-0.50); Eosinophils Percent Manual 1 % (0-4); Lymphocytes Absolute Manual 0.52 K/mm3 (1.1-4.5); Lymphocytes Percent Manual 20 % (18-44); Monocytes Absolute Manual 0.46 K/mm3 (0.1-0.90); Monocytes Percent Manual 18 % (3-9); Neutrophils Absolute Manual 1.06 K/mm3 (1.3-6.7); Neutrophils Percent Manual 38 % (46-73); Total Cells Counted 100
[2024-09-10 12:54] LABS: Macrocytosis 1+ (NORMAL); Metamyelocytes Percent 6 %; Myelocytes Percent 13 %; Nucleated Red Blood Cells 1 %; Platelet Estimate Slightly Decreased (Adequate)
[2024-09-10 12:55] LABS: Schistocytes None Seen
--- NOTE | 2024-09-10 13:33 | PCNFU ---
Nutrition Follow-Up Complete: Inadequate oral intake related to altered mental status as evidenced by intakes 0-50% Goal:PO intake >50% meals and supplements Pt not meeting goal Pt current nutrition is NPO. Nutrition recommendation: continue with PPN at this time Last recorded weight is 69.8 kg. Bowel Motility: No BM recorded at this time Labs Reviewed: Alb:3.4, NA:136, Glu:116, Tri Meds Noted: HCTZ, keppra, miralax, zofran Skin: WNL Additional Notes: Pt failed second MBS attempt, NPO but working with speech when alert. PPN with lipids administered 4.25/5 @ 80ml/hr to provide 1153kcals, 82g protein. This is meeting 60% of estimated needs, 100% of protein needs. Family is deciding on proceeding with care or transitioning to hospice. Monitoring intakes, plan of care, weights, labs Follow up every Monday and Monday.
[2024-09-10] MEDS: FAT EMULSIONS IV 20% 250 ML 21 ML IVPB (13:39)
[2024-09-10] MEDS: AMINO ACIDS 4.25%/D5W/LYTES/CA 2,000 ML 80 ML IV CONT (13:40)
[2024-09-10 13:53] VITALS: BP 115/66; PULSE 84; RESP 16; TEMP 36.6; O2SAT 99
--- NOTE | 2024-09-10 14:58 | PCPTNOTE ---
On 09/10/24, the student, SALVATORE Aragon, provided care and completed [facility] documentation on this patient. I have reviewed the student's documentation and agree with the findings.
[2024-09-10 16:23] LABS: Glucose Point of Care 108 mg/dl (65-105)
[2024-09-10 21:11] VITALS: BP 132/66; PULSE 86; RESP 18; TEMP 36.9; O2SAT 98
[2024-09-10 23:45] LABS: Glucose Point of Care 97 mg/dl (65-105)
[2024-09-11] MEDS: AMPICILLIN SULB 3 GM/NS 100 ML 3 GM/100 ML VIAL IVPB ×4 (01:06→20:33)
[2024-09-11 06:00] VITALS: BP 141/66; PULSE 78; RESP 16; TEMP 36.2; O2SAT 98
[2024-09-11 06:13] LABS: Glucose Point of Care 112 mg/dl (65-105)
[2024-09-11] MEDS: ENOXAPARIN 40 MG/0.4 ML SYRINGE SUB-Q (08:04)
[2024-09-11] MEDS: levETIRAcetam 1000MG/NACL100ML 1,000 MG/100 ML BAG 400 MG IVPB ×2 (08:05→21:27)
[2024-09-11] MEDS: FLUTICASONE PROPIONATE 0.05% NA SPR 16 GM BTL (*BKC) 2 SPRAY NASAL (08:06)
[2024-09-11 08:27] LABS: Hematocrit 30.6 % (42.0-52.0); Hemoglobin 10.3 g/dL (14.0-18.0); Mean Corpuscular HGB Conc 33.7 g/dl (32-36); Mean Corpuscular Hemoglobin 37.1 pg (26-34); Mean Corpuscular Volume 110.1 fl (80-100); Mean Platelet Volume 11.7 fl (7.4-10.4); Platelet Count Result 160 k/mm3 (150-375); Red Blood Count 2.78 M/mm3 (4.6-6.20); Red Cell Distribution Width 13.5 % (11.5-14.5)
[2024-09-11 08:45] LABS: Cholesterol 150 mg/dL (0-200); HDL Direct 25 mg/dL; Triglycerides 135 mg/dL (<150)
[2024-09-11 08:56] LABS: LDL Cholesterol Direct 92 mg/dL
[2024-09-11 08:57] LABS: Alanine Aminotransferase 88 U/L (6-50); Albumin Level 3.6 g/dL (3.5-5.1); Alkaline Phosphatase 135 U/L (38-126); Anion Gap 11 mmol/L (4-12); Aspartate Amino Transferase 61 U/L (17-59); Bilirubin,Total 0.6 mg/dL (0.2-1.3); Blood Urea Nitrogen 23 mg/dL (9-20); Calcium 8.9 mg/dL (8.4-10.2); Carbon Dioxide 24 mmol/L (22-30); Chloride 103 mmol/L (98-107); Estimated CRCL calculation 68 ml/min; Estimated Glomerular Filt Rate > 60; Glucose 106 mg/dL (65-110); Phosphorus 4.3 mg/dL (2.5-4.5); Potassium 4.4 mmol/L (3.4-5.0); Sodium 138 mmol/L (137-145)
[2024-09-11 09:07] LABS: White Blood Count 50.1 K/mm3 (4.5-10.0)
[2024-09-11 09:08] LABS: Band Neutrophils Percent 19 % (0-6); Lymphocytes Percent Manual 3 % (18-44); Monocytes Percent Manual 3 % (3-9); Neutrophils Absolute Manual 47.09 K/mm3 (1.3-6.7); Neutrophils Percent Manual 75 % (46-73); Platelet Estimate Adequate (Adequate); Total Cells Counted 100
[2024-09-11 09:09] LABS: Macrocytosis 1+ (NORMAL); Schistocytes None Seen
--- NOTE | 2024-09-11 11:18 | P.PNIM_ITS ---
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 * continue aspirin and statin * will need outpatient neurosurgery follow-up for left parietal lobe mass 09/01 * will decrease Neurontin back to home dose of 100 mg t.i.d. 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 He also vomited. * Neurosurgery consulted * Awaiting EEG results * UDS negative, Ammonia level negative * Will hold Neurontin 09/03 * Awaiting Neurology input * EEG was abnormal record due to the presence of slow activity generally and absence of the normal background rhythm although there is no evidence of any paroxysmal discharge * Continue to hold Neurontin * Added Decadron yesterday per Neurosurgery recommendation for inflammation surrounding mass of left parietal lobe. * Ct of the chest/abdomen/pelvis was negative for any metastatic disease, chronic bibasilar interstitial changes, with hyperdense tree-in-bud opacities likely representing chronic interstitial/aspiration changes. 09/04 * are recommending transfer to tertiary care hospital for continuous EEG as we do not have these capabilities here. We will start the transfer process. * Decadron discontinued as patient became very agitated through the night, hitting staff and requiring Zyprexa 09/05 * More alert today, following some commands. 09/06 * Alert and oriented x3 today. Much improved * We will repeat MBS today 09/07 * alert and oriented times 2-3 * patient failed MBS again yesterday * speech therapy will work with him, in the meantime we will go ahead and start PPN with lipids 09/08 * Alert and oriented x2 * Continue PPN and lipids * Speech therapy working with him, will likely need another modified in few days * Spoke with thais Finn who is the POA about his current condition and updated on his inability to eat or drink without aspirating. We discussed code status, Peg tube and transfer to tertiary care [facility] hospice and more focused comfort care. Neurosurgery deemed to not be a candidate for surgical intervention but he could have palliative radiation to shrink the brain lesions. She is going to discuss this with family and I will call back tomorrow for decision regar ding hospice versus full treatment and code status. 09/09 * Tried calling his niece to reset again however went to voicemail. I also tried calling his nephew however there was no answer. I know that tree so was going to talk with his youngest brother about code status and hospice versus full treatment. Will need to try to get in touch with the niece again as she is the POA along with a nephew who is secondary. * Continue PPN and lipids for now * Patient has been awake and alert for days now and likely not active seizure activity. 09/10 * Patient has been awake and alert for days now and likely not active seizure activity. * Continue PPN * Awaiting to hear back from family. 09/11 * Tried to call thais Finn to discuss patient, no answer, LVM asking her to call the nurses station. * Continue PPN * No seizure activity noted. (2) Aspiration pneumonia: Code(s): J69.0 - Pneumonitis due to inhalation of food and vomit Status: Acute Assessment and Plan: * patient vomited yesterday with concerns for aspiration * CT of the chest/abdomen/pelvis shown hyperdense tree in bud opacities * currently on Unasyn, spoke with infectious disease pharmacist who agrees this is appropriate coverage for now considering he is not requiring any Oxygen support and does not have fever. If he starts requiring O2 or starts with fever then we can switch to Zosyn. 09/04 * Unasyn switched to Augmentin today 09/05 * continue Augmentin * Failed bedside swallow * MBS ordered 09/06 * Failed MBS yesterday, however mentation is better today. He is alert and oriented x3 * Will repeat MBS today 09/07 * failed MBS yesterday again * start PPN and lipids 09/08 * Continue PPN and lipids 09/09 * Continue PPN and lipids 09/10 * Continue PPN 09/11 * Continue PPN * MBS (3) Left low back pain: Code(s): M54.50 - Low back pain, unspecified Status: Acute Assessment and Plan: * lumbar spine CT showing bulge disc at L1 to L2, L2-L3, L3-L4, L4-L5, L5-S1, mild lumbar spondylosis * lumbar spine x-ray showed mild lumbar spondylosis * methocarbamol discontinued due to altered mental status increased risk of seizures * continue Neurontin * continue pain control * PT and OT ordered 09/01 * Neurontin decreased to home dose of 100 mg t.i.d. * continue PT and OT * continue pain control 09/02 * Will hold Neurontin * continue PT and OT 09/03 * continue PT and OT * Neurontin on hold due to altered mental status 09/04 * no change to current treatment plan (4) Fall: Qualifiers: Encounter type: initial encounter Qualified Code(s): W19.XXXA - Unspecified fall, initial encounter Code(s): W19.XXXA - Unspecified fall, initial encounter Status: Acute Assessment and Plan: * status post mechanical fall * continue PT and OT * Case management working on outpatient rehab needs * continue fall precautions 09/01 * no change to current treatment plan (5) Mastoiditis: Code(s): H70.90 - Unspecified mastoiditis, unspecified ear Status: Acute Assessment and Plan: * continue Unasyn 09/01 * no change to current treatment plan 09/04 * switched to Augmentin today and will need 14 more days 09/05 * No change 09/06 * Antibiotic changed back to Unasyn considering he is NPO (6) Rhabdomyolysis: Code(s): M62.82 - Rhabdomyolysis Status: Resolved Assessment and Plan: * CK 233> 344> 95 * patient was given IV fluids initially * CK now corrected and rhabdomyolysis resolved (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 this morning, Will continue to monitor. 09/01 * white blood count 26.2, absolute neutrophils 23.84-- likely reactive to the Neupogen * afebrile overnight 09/02 * WBC 49.3, Abs Neuts 46.34 * Reverse isolation discontinued 09/03 * white blood cell count down to 36.9, absolute neutrophils 33.57 * continue to trend 09/04 * white blood cell count 27.8, absolute neutrophils 22.79 * continue to trend 09/05 * WBC 10.0, absolute neutrophils 6.60 09/06 * WBC 5.7, absolute neutrophils 2.39 09/07 * white blood cell count 4.3, absolute neutrophils 1.63 09/09 * White blood cell count down to 2.8, absolute neutrophils 1.0 * Will give dose of Neupogen today 09/10 * WBC 2.6, absolute neutrophils 1.06. * Continue Neupogen in the AM. * Monitor labs. 09/11 * WBC 50.1, absolute neutrophils 47.09 * Stop Neupogen. * Afebrile. * Monitor labs. (8) Hypertension: Code(s): I10 - Essential (primary) hypertension Status: Chronic Assessment and Plan: * blood pressure 144/74. * continue losartan/ hydrochlorothiazide * will increase amlodipine to 10 mg daily as his normal prescribed dose 2/ * blood pressures ranging 130/55 to 147/63 * continue losartan/ hydrochlorothiazide and amlodipine at current dose. 2/3 * No change to current treatment plan (9) History of seizure: Code(s): Z87.898 - Personal history of other specified conditions Status: Chronic Assessment and Plan: * continue Keppra, phenytoin * continue seizure precautions * continue neuro checks * neurology consulted * lactic acid was normal at 2.0 * EEG results pending * head CT was negative for any acute intracranial process, CT finding suggestive of acute frontal, ethmoid, left sphenoid sinusitis, trace fluid in the right mastoid air cells and trace fluid / debris in the right middle ear space suggestive of otomastoiditis * MRI of the brain showing 3.2 cm extra-axial enhancing mass in the left parie akira lobe that measures 2.5 cm on 01/04/2024 and was not visualized on 01/19/2023 examination, chronic encephalomalacia in right frontal parietal region and left frontal parietal region, 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 09/01 * Continue neuro checks * continue seizure precaution * neurology consulted however has yet to see the patient * EEG results pending * continue Keppra and phenytoin 09/02 * Awaiting EEG results * No change 09/03 * EEG was abnormal due to the presence of slow activity an absence of normal background rhythm * awaiting Neurology input * continue Keppra and phenytoin * continue seizure precautions * continue neuro checks 09/04 * neurology and neurosurgery agreed that his findings could not rule out that he was having breakthrough seizures and would need to go to a hospital with continuous EEG capabilities to further evaluate * continue Keppra and phenytoin * continue seizure precautions * continue neuro checks 09/05 * No change (10) Bilateral hip pain: Code(s): M25.551 - Pain in right hip; M25.552 - Pain in left hip Status: Acute Assessment and Plan: * Acetaminophen 325 mg q4 FL PRN Subjective Date/time seen: 09/11/24 11:18 Interval history: Patient denies chest pain, palpitations, headache, dizziness, nausea, or vomiting. Patient reports pain in bilateral hips that is a 3 , frequent, and aching. Tried to call thais Finn to discuss patient, no answer, LVM asking her to call the nurses station. Review of Systems Review of Systems: All systems reviewed & are unremarkable except as noted in HPI and below Exam Const: General: no acute distress and uncomfortable Resp: Effort & Inspection: normal respiratory effort Auscultation: clear to auscultation bilaterally Cardio: Rate: regular rate Rhythm: regular rhythm GI: GI Palp: Yes Soft to palpation Auscultation: normal bowel sounds Extrem: General: no pedal edema Psych: Other: A&Ox2. Objective Data Vital Signs Vital Signs: Vital Signs - 24 hr 09/10/24 13:53 09/10/24 20:00 09/10/24 21:11 Temperature 97.8 F 98.5 F Pulse Rate 84 86 Respiratory Rate 16 18 Blood Pressure 115/66 132/66 Pulse Oximetry 99 98 Oxygen Delivery Room Air 09/11/24 06:00 09/11/24 08:00 Temperature 97.2 F L Pulse Rate 78 Respiratory Rate 16 Blood Pressure 141/66 H Pulse Oximetry 98 Oxygen Delivery Room Air Intake/Output Intake/Output: Intake & Output 09/08/24 09/09/24 09/10/24 09/11/24 23:59 23:59 23:59 23:59 Intake Total 2450 2480.7 2732.7 100 Output Total 1150 657 886 3686 Balance 1300 1880.7 2332.7 -1200 Meds/Results Medications: Active Medications Generic Name Dose Route Start Last Admin Trade Name Freq PRN Reason Stop Dose Admin Acetaminophen 1,000 mg 08/30/24 13:00 09/11/24 08:05 Acetaminophen 500 Mg Tablet PO Not Given TID [facility] Amlodipine Besylate 10 mg 09/01/24 09:00 09/11/24 08:05 Amlodipine Besylate 10 Mg Tablet PO Not Given DAILY EMILY Aspirin 81 mg 08/31/24 08:00 09/11/24 08:05 Aspirin 81 Mg Chewable Tablet PO Not Given DAILY@0800 [facility] Chlorhexidine Gluconate 15 ml 08/29/24 17:00 09/11/24 08:05 Chlorhexidine Gluconate 0.12% Oral Rinse 473 Ml Btl (*Bkc) SWISH/SPIT Not Given BID EMILY Chlorpromazine HCl 10 mg 09/05/24 10:56 Chlorpromazine Hcl 10 Mg Tablet PO Q6HR PRN Hiccups Docusate Sodium 100 mg 08/26/24 09:00 09/11/24 08:05 Docusate Sodium 100 Mg Capsule PO Not Given BID EMILY Enoxaparin Sodium 40 mg 08/26/24 09:00 09/11/24 08:04 Enoxaparin 40 Mg/0.4 Ml Syringe SUB-Q 40 mg DAILY EMILY Administration Fluticasone Propionate 2 spray 08/30/24 09:00 09/11/24 08:06 Fluticasone Propionate 0.05% Na Spr 16 Gm Btl (*Bkc) NASAL 2 spray QAM EMILY Administration Gabapentin 100 mg 09/01/24 13:00 09/02/24 13:17 Gabapentin 100 Mg Capsule PO 100 mg TID EMILY Administration Hydralazine HCl 10 mg 09/06/24 07:33 09/06/24 07:44 Hydralazine Hcl 20 Mg/Ml Vial IV PUSH 10 mg Q8H PRN Administration Blood Pressure - High Hydrochlorothiazide 12.5 mg 08/25/24 21:15 08/25/24 22:03 Hydrochlorothiazide 12.5 Mg Capsule PO 12.5 mg QAM EMILY Administration Levetiracetam 1,000 mg in 100 mls @ 400 mls/hr 09/05/24 23:00 09/11/24 08:05 Keppra Iv IVPB 400 mls/hr BID EMILY Administration Dextrose 1,000 mls @ 50 mls/hr 09/07/24 10:50 Dextrose 10% IV CONT .Q20H PRN if PN is interrupted Amino Acids/Electrolytes/Dextrose 2,000 mls @ 80 mls/hr 09/07/24 12:00 09/10/24 13:40 Clinimix E 4.25%/5% Solution IV CONT 80 mls/hr .Q24H EMILY Administration Protocol Fat Emulsion Intravenous 250 mls @ 20.833 mls/hr 09/07/24 10:50 09/10/24 13:39 Lipids 20% IVPB 21 mls/hr Q24H EMILY Administration Ampicillin Sodium/Sulbactam Sodium 3 gm in 100 mls @ 200 mls/hr 09/09/24 20:00 09/11/24 08:05 Unasyn 3 Gm/Ns 100 Ml IVPB 09/22/24 19:59 200 mls/hr Q6H EMILY Administration Levetiracetam 1,000 mg 08/25/24 23:05 09/11/24 08:06 Levetiracetam 500 Mg Tablet PO Not Given Q12HR EMILY Losartan Potassium 100 mg 08/25/24 21:20 09/11/24 08:06 Losartan Potassium 100 Mg Tablet PO Not Given DAILY EMILY Miscellaneous Information 1 each 09/08/24 00:01 09/11/24 01:06 2 Oxycodone Orders Need To Be Renewed Or It Will Automatically Discontinue 09/09. XX 10/08/24 00:00 Not Given CLARIFY [facility] Morphine Sulfate 2 mg 09/09/24 18:05 09/09/24 18:27 Morphine Sulfate (*Crx) 2 Mg/Ml Inj IV PUSH 2 mg Q4H PRN Administration Pain Rated 4-6 Ondansetron HCl 4 mg 09/01/24 23:34 09/04/24 18:11 Ondansetron Inj 4 Mg/2 Ml Vial IV PUSH 4 mg Q6H PRN Administration Nausea And Vomiting Phenytoin Sodium 300 mg 08/25/24 23:05 09/11/24 08:06 Phenytoin Sodium 100 Mg Extended Release Cap PO Not Given Q12HR [facility] Polyethylene Glycol 17 gm 08/26/24 09:00 09/11/24 08:06 Polyethylene Glycol 3350 17 Gm Powd.Pack PO Not Given QAM [facility] Potassium Chloride 20 meq 08/26/24 09:00 09/11/24 08:06 Potassium Chloride 20 Meq Er Tablet PO Not Given DAILY [facility] Pravastatin Sodium 40 mg 08/26/24 09:00 09/11/24 08:06 Pravastatin Sodium 20 Mg Tablet PO Not Given DAILY [facility] Radiology Results: ITS Impressions Pelvis X-Ray 08/25/24 15:50 IMPRESSION: No acute osseous finding in the pelvis. Head CT 08/25/24 15:56 IMPRESSION: No acute intracranial process. CT findings suggestive of acute frontal, ethmoid, and left sphenoid sinusitis. Trace fluid in the right mastoid air cells and trace fluid/debris in the right middle ear space, correlate for clinical findings of otomastoiditis. Cervical Spine CT 08/25/24 16:07 IMPRESSION: No acute fracture or traumatic malalignment in the cervical spine. Femur X-Ray 08/28/24 10:42 IMPRESSION: 1. No acute osseous abnormality. Brain MRI 08/30/24 12:03 IMPRESSION: 1. 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 The differential diagnosis includes meningioma and arteriovenous malformation. 2. Chronic encephalomalacia in right frontal parietal region and left frontal parietal region. 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 Lumbar Spine CT 08/30/24 12:36 IMPRESSION: 1. Mild lumbar spondylosis, stable from 01/19/2023. Lumbar Spine X-Ray 08/30/24 12:48 IMPRESSION: 1. Mild lumbar spondylosis. Chest/Abdomen/Pelvis CT 09/02/24 21:21 IMPRESSION: Chronic bibasilar interstitial changes, with hyperdense tree-in-bud opacities likely representing chronic interstitial/aspiration changes, with interval progression. No acute process detected in the chest, abdomen, or pelvis. No CT evidence of metastatic disease in this noncontrast examination. Chest X-Ray 09/04/24 06:29 Impression: Bibasilar interstitial prominence. Correlate for chronic interstitial disease, possibly sequela of prior aspiration. Modified Barium Swallow 09/06/24 14:53 IMPRESSION: 1. Silent aspiration. 2. Please refer to the speech therapy report for recommendations. Labs Labs: Laboratory Results - last 24 hr 09/10/24 09/10/24 09/10/24 07:18 11:25 23:36 WBC 2.6 L RBC 2.87 L Hgb 10.5 L Hct 31.0 L MCV 108.0 H MCH 36.6 H MCHC 33.9 RDW 13.3 Plt Count 146 L MPV 11.6 H Immature Gran % (Auto) Not Reportable Neut % (Auto) Not Reportable Lymph % (Auto) Not Reportable Blanco % (Auto) Not Reportable Eos % (Auto) Not Reportable Baso % (Auto) Not Reportable Lymph # (Auto) Not Reportable Blanco # (Auto) Not Reportable Eos # (Auto) Not Reportable Baso # (Auto) Not Reportable Abs Immat Gran (auto) Not Reportable Absolute Neuts (auto) Not Reportable Absolute Nucleated RBC Not Reportable Total Counted 100 Neutrophils % (Manual) 38 L Band Neutrophils % 3 Lymphocytes % (Manual) 20 Monocytes % (Manual) 18 H Eosinophils % (Manual) 1 Metamyelocytes % 6 Myelocytes % 13 Nucleated RBC % Not Reportable Abs Neuts (Manual) 1.06 L Abs Lymphs (Manual) 0.52 L Abs Monocytes (Manual) 0.46 Absolute Eos (Manual) 0.02 Nucleated RBCs 1 Platelet Estimate Slightly decreased Macrocytosis 1+ Schistocytes None seen Sodium Potassium Chloride Carbon Dioxide Anion Gap BUN Creatinine Estim Creat Clear Calc Estimated GFR Glucose POC Capillary Glucose 108 H 97 Calcium Phosphorus Total Bilirubin AST ALT Alkaline Phosphatase Total Protein Albumin Triglycerides Cholesterol LDL Cholesterol Direct HDL Direct 09/11/24 09/11/24 09/11/24 05:07 07:50 07:50 WBC 50.1 H* RBC 2.78 L Hgb 10.3 L Hct 30.6 L MCV 110.1 H MCH 37.1 H MCHC 33.7 RDW 13.5 Plt Count 160 MPV 11.7 H Immature Gran % (Auto) Not Reportable Neut % (Auto) Not Reportable Lymph % (Auto) Not Reportable Blanco % (Auto) Not Reportable Eos % (Auto) Not Reportable Baso % (Auto) Not Reportable Lymph # (Auto) Not Reportable Blanco # (Auto) Not Reportable Eos # (Auto) Not Reportable Baso # (Auto) Not Reportable Abs Immat Gran (auto) Not Reportable Absolute Neuts (auto) Not Reportable Absolute Nucleated RBC Not Reportable Total Counted 100 Neutrophils % (Manual) 75 H Band Neutrophils % 19 H Lymphocytes % (Manual) 3 L Monocytes % (Manual) 3 Eosinophils % (Manual) Metamyelocytes % Myelocytes % Nucleated RBC % Not Reportable Abs Neuts (Manual) 47.09 H Abs Lymphs (Manual) 1.50 Abs Monocytes (Manual) 1.50 H Absolute Eos (Manual) Nucleated RBCs Platelet Estimate Adequate Macrocytosis 1+ Schistocytes None seen Sodium Cancelled 138 Potassium Cancelled Chloride Carbon Dioxide Anion Gap BUN Creatinine Estim Creat Clear Calc Estimated GFR Glucose POC Capillary Glucose 112 H Calcium Phosphorus Total Bilirubin AST ALT Alkaline Phosphatase Total Protein Albumin Triglycerides Cholesterol LDL Cholesterol Direct HDL Direct 09/11/24 09/11/24 09/11/24 07:50 07:50 07:50 WBC RBC Hgb Hct MCV MCH MCHC RDW Plt Count MPV Immature Gran % (Auto) Neut % (Auto) Lymph % (Auto) Blanco % (Auto) Eos % (Auto) Baso % (Auto) Lymph # (Auto) Blanco # (Auto) Eos # (Auto) Baso # (Auto) Abs Immat Gran (auto) Absolute Neuts (auto) Absolute Nucleated RBC Total Counted Neutrophils % (Manual) Band Neutrophils % Lymphocytes % (Manual) Monocytes % (Manual) Eosinophils % (Manual) Metamyelocytes % Myelocytes % Nucleated RBC % Abs Neuts (Manual) Abs Lymphs (Manual) Abs Monocytes (Manual) Absolute Eos (Manual) Nucleated RBCs Platelet Estimate Macrocytosis Schistocytes Sodium Potassium 4.4 Chloride Cancelled 103 Carbon Dioxide Cancelled 24 Anion Gap Cancelled BUN Creatinine Estim Creat Clear Calc Estimated GFR Glucose POC Capillary Glucose Calcium Phosphorus Total Bilirubin AST ALT Alkaline Phosphatase Total Protein Albumin Triglycerides Cholesterol LDL Cholesterol Direct HDL Direct 09/11/24 09/11/24 09/11/24 07:50 07:50 07:50 WBC RBC Hgb Hct MCV MCH MCHC RDW Plt Count MPV Immature Gran % (Auto) Neut % (Auto) Lymph % (Auto) Blanco % (Auto) Eos % (Auto) Baso % (Auto) Lymph # (Auto) Blanco # (Auto) Eos # (Auto) Baso # (Auto) Abs Immat Gran (auto) Absolute Neuts (auto) Absolute Nucleated RBC Total Counted Neutrophils % (Manual) Band Neutrophils % Lymphocytes % (Manual) Monocytes % (Manual) Eosinophils % (Manual) Metamyelocytes % Myelocytes % Nucleated RBC % Abs Neuts (Manual) Abs Lymphs (Manual) Abs Monocytes (Manual) Absolute Eos (Manual) Nucleated RBCs Platelet Estimate Macrocytosis Schistocytes Sodium Potassium Chloride Carbon Dioxide Anion Gap 11 BUN Cancelled 23 H Creatinine Cancelled 0.76 Estim Creat Clear Calc Cancelled Estimated GFR Glucose POC Capillary Glucose Calcium Phosphorus Total Bilirubin AST ALT Alkaline Phosphatase Total Protein Albumin Triglycerides Cholesterol LDL Cholesterol Direct HDL Direct 09/11/24 09/11/24 09/11/24 07:50 07:50 07:50 WBC RBC Hgb Hct MCV MCH MCHC RDW Plt Count MPV Immature Gran % (Auto) Neut % (Auto) Lymph % (Auto) Blanco % (Auto) Eos % (Auto) Baso % (Auto) Lymph # (Auto) Blanco # (Auto) Eos # (Auto) Baso # (Auto) Abs Immat Gran (auto) Absolute Neuts (auto) Absolute Nucleated RBC Total Counted Neutrophils % (Manual) Band Neutrophils % Lymphocytes % (Manual) Monocytes % (Manual) Eosinophils % (Manual) Metamyelocytes % Myelocytes % Nucleated RBC % Abs Neuts (Manual) Abs Lymphs (Manual) Abs Monocytes (Manual) Absolute Eos (Manual) Nucleated RBCs Platelet Estimate Macrocytosis Schistocytes Sodium Potassium Chloride Carbon Dioxide Anion Gap BUN Creatinine Estim Creat Clear Calc 68 Estimated GFR Cancelled > 60 Glucose Cancelled 106 POC Capillary Glucose Calcium Cancelled Phosphorus Total Bilirubin AST ALT Alkaline Phosphatase Total Protein Albumin Triglycerides Cholesterol LDL Cholesterol Direct HDL Direct 09/11/24 09/11/24 07:50 07:50 WBC RBC Hgb Hct MCV MCH MCHC RDW Plt Count MPV Immature Gran % (Auto) Neut % (Auto) Lymph % (Auto) Blanco % (Auto) Eos % (Auto) Baso % (Auto) Lymph # (Auto) Blanco # (Auto) Eos # (Auto) Baso # (Auto) Abs Immat Gran (auto) Absolute Neuts (auto) Absolute Nucleated RBC Total Counted Neutrophils % (Manual) Band Neutrophils % Lymphocytes % (Manual) Monocytes % (Manual) Eosinophils % (Manual) Metamyelocytes % Myelocytes % Nucleated RBC % Abs Neuts (Manual) Abs Lymphs (Manual) Abs Monocytes (Manual) Absolute Eos (Manual) Nucleated RBCs Platelet Estimate Macrocytosis Schistocytes Sodium Potassium Chloride Carbon Dioxide Anion Gap BUN Creatinine Estim Creat Clear Calc Estimated GFR Glucose POC Capillary Glucose Calcium 8.9 Phosphorus Cancelled 4.3 Total Bilirubin 0.6 AST 61 H ALT 88 H Alkaline Phosphatase 135 H Total Protein 7.0 Albumin 3.6 Triglycerides 135 Cholesterol 150 LDL Cholesterol Direct 92 HDL Direct 25 Quality VTE Prophylaxis VTE prophylaxis: mechanical ordered and pharmacologic ordered
[2024-09-11 11:55] LABS: Glucose Point of Care 108 mg/dl (65-105)
--- NOTE | 2024-09-11 12:44 | PCPTNOTE ---
On 09/11/24, the student, SALVATORE Aragon, provided care and completed [facility] documentation on this patient. I have reviewed the student's documentation and agree with the findings.
[2024-09-11] MEDS: FAT EMULSIONS IV 20% 250 ML 20.8 ML IVPB (13:11)
[2024-09-11] MEDS: AMINO ACIDS 4.25%/D5W/LYTES/CA 2,000 ML 80 ML IV CONT (13:12)
[2024-09-11 15:25] VITALS: BP 144/74; PULSE 76; RESP 18; TEMP 36.3; O2SAT 99
[2024-09-11] MEDS: BISACODYL 10 MG SUPPOSITORY RECTAL (16:18)
[2024-09-11 20:27] VITALS: BP 143/66; PULSE 69; RESP 18; TEMP 37; O2SAT 98
[2024-09-11 20:51] LABS: Glucose Point of Care 95 mg/dl (65-105)
[2024-09-12] MEDS: AMPICILLIN SULB 3 GM/NS 100 ML 3 GM/100 ML VIAL IVPB ×4 (01:17→20:42)
[2024-09-12 01:24] LABS: Glucose Point of Care 106 mg/dl (65-105)
[2024-09-12 06:25] VITALS: BP 157/94; PULSE 66; RESP 16; TEMP 36.6; O2SAT 100
[2024-09-12 06:46] LABS: Glucose Point of Care 102 mg/dl (65-105)
[2024-09-12] MEDS: levETIRAcetam 1000MG/NACL100ML 1,000 MG/100 ML BAG 400 MG IVPB ×2 (07:49→21:50)
[2024-09-12] MEDS: FLUTICASONE PROPIONATE 0.05% NA SPR 16 GM BTL (*BKC) 2 SPRAY NASAL (07:49)
[2024-09-12] MEDS: ENOXAPARIN 40 MG/0.4 ML SYRINGE SUB-Q (07:49)
[2024-09-12 10:35] LABS: Basophils Percent Auto 0.3 % (0.2-1.2); Eosinophils Absolute Auto 0.1 K/mm3 (0-0.3); Eosinophils Percent Auto 1.2 % (0-4.4); Hematocrit 30.6 % (42.0-52.0); Hemoglobin 10.4 g/dL (14.0-18.0); Immature Granulocyte Absolute 0.14 K/mm3 (0.00-0.031); Immature Granulocyte Percent A 1.3 % (0-0.5); Lymphocytes Absolute Auto 0.81 K/mm3 (0.9-3.2); Lymphocytes Percent Auto 7.3 % (18.3-44.2); Mean Corpuscular Hemoglobin 37.3 pg (26-34); Mean Corpuscular Volume 109.7 fl (80-100); Monocytes Percent Auto 8.9 % (2.6-8.5); Platelet Count Result 152 k/mm3 (150-375); Red Blood Count 2.79 M/mm3 (4.6-6.20); Red Cell Distribution Width 13.8 % (11.5-14.5); White Blood Count 11.1 K/mm3 (4.5-10.0)
[2024-09-12 10:48] LABS: Alanine Aminotransferase 86 U/L (6-50); Albumin Level 3.7 g/dL (3.5-5.1); Alkaline Phosphatase 137 U/L (38-126); Anion Gap 9 mmol/L (4-12); Aspartate Amino Transferase 55 U/L (17-59); Bilirubin,Total 0.7 mg/dL (0.2-1.3); Blood Urea Nitrogen 25 mg/dL (9-20); Calcium 8.8 mg/dL (8.4-10.2); Carbon Dioxide 26 mmol/L (22-30); Chloride 103 mmol/L (98-107); Estimated CRCL calculation 65 ml/min; Estimated Glomerular Filt Rate > 60; Glucose 123 mg/dL (65-110); Phosphorus 4.2 mg/dL (2.5-4.5); Potassium 4.5 mmol/L (3.4-5.0); Sodium 138 mmol/L (137-145); Triglycerides 129 mg/dL (<150)
--- NOTE | 2024-09-12 11:30 | PCPTNOTE ---
On 09/12/24, the student, Sohail Powell, provided care and completed [facility] documentation on this patient. I have reviewed the student's documentation and agree with the findings.
--- NOTE | 2024-09-12 12:17 | P.PNIM_ITS ---
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 * continue aspirin and statin * will need outpatient neurosurgery follow-up for left parietal lobe mass 09/01 * will decrease Neurontin back to home dose of 100 mg t.i.d. 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 He also vomited. * Neurosurgery consulted * Awaiting EEG results * UDS negative, Ammonia level negative * Will hold Neurontin 09/03 * Awaiting Neurology input * EEG was abnormal record due to the presence of slow activity generally and absence of the normal background rhythm although there is no evidence of any paroxysmal discharge * Continue to hold Neurontin * Added Decadron yesterday per Neurosurgery recommendation for inflammation surrounding mass of left parietal lobe. * Ct of the chest/abdomen/pelvis was negative for any metastatic disease, chronic bibasilar interstitial changes, with hyperdense tree-in-bud opacities likely representing chronic interstitial/aspiration changes. 09/04 * are recommending transfer to tertiary care hospital for continuous EEG as we do not have these capabilities here. We will start the transfer process. * Decadron discontinued as patient became very agitated through the night, hitting staff and requiring Zyprexa 09/05 * More alert today, following some commands. 09/06 * Alert and oriented x3 today. Much improved * We will repeat MBS today 09/07 * alert and oriented times 2-3 * patient failed MBS again yesterday * speech therapy will work with him, in the meantime we will go ahead and start PPN with lipids 09/08 * Alert and oriented x2 * Continue PPN and lipids * Speech therapy working with him, will likely need another modified in few days * Spoke with thais Finn who is the POA about his current condition and updated on his inability to eat or drink without aspirating. We discussed code status, Peg tube and transfer to tertiary care [facility] hospice and more focused comfort care. Neurosurgery deemed to not be a candidate for surgical intervention but he could have palliative radiation to shrink the brain lesions. She is going to discuss this with family and I will call back tomorrow for decision regar ding hospice versus full treatment and code status. 09/09 * Tried calling his niece to reset again however went to voicemail. I also tried calling his nephew however there was no answer. I know that tree so was going to talk with his youngest brother about code status and hospice versus full treatment. Will need to try to get in touch with the niece again as she is the POA along with a nephew who is secondary. * Continue PPN and lipids for now * Patient has been awake and alert for days now and likely not active seizure activity. 09/10 * Patient has been awake and alert for days now and likely not active seizure activity. * Continue PPN * Awaiting to hear back from family. 09/11 * Tried to call thais Finn to discuss patient, no answer, LVM asking her to call the nurses station. * Continue PPN * No seizure activity noted. 09/12 * Spoke with bellakimberly Finn this morning. She has discussed with family and they would like to proceed with hospice consult. Huma will bring a copy of medical POA to hospital. Huma will work with [employer] custodian to get access to finances for hospice care per care coordination. * Continue PPN * No seizure activity noted. * A&Ox2. (2) Aspiration pneumonia: Code(s): J69.0 - Pneumonitis due to inhalation of food and vomit Status: Acute Assessment and Plan: * patient vomited yesterday with concerns for aspiration * CT of the chest/abdomen/pelvis shown hyperdense tree in bud opacities * currently on Unasyn, spoke with infectious disease pharmacist who agrees this is appropriate coverage for now considering he is not requiring any Oxygen support and does not have fever. If he starts requiring O2 or starts with f ever then we can switch to Zosyn. 09/04 * Unasyn switched to Augmentin today 09/05 * continue Augmentin * Failed bedside swallow * MBS ordered 09/06 * Failed MBS yesterday, however mentation is better today. He is alert and oriented x3 * Will repeat MBS today 09/07 * failed MBS yesterday again * start PPN and lipids 09/08 * Continue PPN and lipids 09/09 * Continue PPN and lipids 09/10 * Continue PPN 09/11 * Continue PPN * MBS 09/12 * MBS today: Pharyngeal dysphagia with silent aspiration trace amount of fluid from the piriform sinus after the swallow. Please correlate with speech pathologist findings and specific feeding recommendations. * Continue PPN (3) Left low back pain: Code(s): M54.50 - Low back pain, unspecified Status: Acute Assessment and Plan: * lumbar spine CT showing bulge disc at L1 to L2, L2-L3, L3-L4, L4-L5, L5-S1, mild lumbar spondylosis * lumbar spine x-ray showed mild lumbar spondylosis * methocarbamol discontinued due to altered mental status increased risk of seizures * continue Neurontin * continue pain control * PT and OT ordered 09/01 * Neurontin decreased to home dose of 100 mg t.i.d. * continue PT and OT * continue pain control 09/02 * Will hold Neurontin * continue PT and OT 09/03 * continue PT and OT * Neurontin on hold due to altered mental status 09/04 * no change to current treatment plan (4) Fall: Qualifiers: Encounter type: initial encounter Qualified Code(s): W19.XXXA - Unspecified fall, initial encounter Code(s): W19.XXXA - Unspecified fall, initial encounter Status: Acute Assessment and Plan: * status post mechanical fall * continue PT and OT * Case management working on outpatient rehab needs * continue fall precautions 09/01 * no change to current treatment plan (5) Mastoiditis: Code(s): H70.90 - Unspecified mastoiditis, unspecified ear Status: Acute Assessment and Plan: * continue Unasyn 09/01 * no change to current treatment plan 09/04 * switched to Augmentin today and will need 14 more days 09/05 * No change 09/06 * Antibiotic changed back to Unasyn considering he is NPO (6) Rhabdomyolysis: Code(s): M62.82 - Rhabdomyolysis Status: Resolved Assessment and Plan: * CK 233> 344> 95 * patient was given IV fluids initially * CK now corrected and rhabdomyolysis resolved (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 this morning, Will continue to monitor. 09/01 * white blood count 26.2, absolute neutrophils 23.84-- likely reactive to the Neupogen * afebrile overnight 09/02 * WBC 49.3, Abs Neuts 46.34 * Reverse isolation discontinued 09/03 * white blood cell count down to 36.9, absolute neutrophils 33.57 * continue to trend 09/04 * white blood cell count 27.8, absolute neutrophils 22.79 * continue to trend 09/05 * WBC 10.0, absolute neutrophils 6.60 09/06 * WBC 5.7, absolute neutrophils 2.39 09/07 * white blood cell count 4.3, absolute neutrophils 1.63 09/09 * White blood cell count down to 2.8, absolute neutrophils 1.0 * Will give dose of Neupogen today 09/10 * WBC 2.6, absolute neutrophils 1.06. * Continue Neupogen in the AM. * Monitor labs. 09/11 * WBC 50.1, absolute neutrophils 47.09 * Stop Neupogen. * Afebrile. * Monitor labs. 09/12 * WBC 11.1, Absolute neutrophils 9.0. * Monitor labs. * Afebrile. (8) Hypertension: Code(s): I10 - Essential (primary) hypertension Status: Chronic Assessment and Plan: * blood pressure 157/94. * continue losartan/ hydrochlorothiazide * will increase amlodipine to 10 mg daily as his normal prescribed dose 09/01 * blood pressures ranging 130/55 to 147/63 * continue losartan/ hydrochlorothiazide and amlodipine at current dose. 2/ * No change to current treatment plan (9) History of seizure: Code(s): Z87.898 - Personal history of other specified conditions Status: Chronic Assessment and Plan: * continue Keppra, phenytoin * continue seizure precautions * continue neuro checks * neurology consulted * lactic acid was normal at 2.0 * EEG results pending * head CT was negative for any acute intracranial process, CT finding suggestive of acute frontal, ethmoid, left sphenoid sinusitis, trace fluid in the right mastoid air cells and trace fluid / debris in the right middle ear space suggestive of otomastoiditis * MRI of the brain showing 3.2 cm extra-axial enhancing mass in the left parietal lobe that measures 2.5 cm on 01/04/2024 and was not visualized on 01/19/2023 examination, chronic encephalomalacia in right frontal parietal re gion and left frontal parietal region, 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 09/01 * Continue neuro checks * continue seizure precaution * neurology consulted however has yet to see the patient * EEG results pending * continue Keppra and phenytoin 09/02 * Awaiting EEG results * No change 09/03 * EEG was abnormal due to the presence of slow activity an absence of normal background rhythm * awaiting Neurology input * continue Keppra and phenytoin * continue seizure precautions * continue neuro checks 09/04 * neurology and neurosurgery agreed that his findings could not rule out that he was having breakthrough seizures and would need to go to a hospital with continuous EEG capabilities to further evaluate * continue Keppra and phenytoin * continue seizure precautions * continue neuro checks 09/05 * No change (10) Bilateral hip pain: Code(s): M25.551 - Pain in right hip; M25.552 - Pain in left hip Status: Acute Assessment and Plan: * Acetaminophen 325 mg q4 ID PRN Subjective Date/time seen: 09/12/24 12:17 Interval history: Patient sitting up in chair. Patient denies chest pain, palpitations, headache, dizziness, nausea, or vomiting. Spoke with niece Huma this morning. She has discussed with family and they would like to proceed with hospice consult. Huma will bring a copy of medical POA to hospital. Huma will work with [employer] custodian to get access to finances for hospice care per care coordination. Review of Systems Review of Systems: All systems reviewed & are unremarkable except as noted in HPI and below Exam Const: General: comfortable and no acute distress Resp: Effort & Inspection: normal respiratory effort Auscultation: clear to auscultation bilaterally Cardio: Rate: regular rate Rhythm: regular rhythm GI: GI Palp: Yes Soft to palpation Auscultation: normal bowel sounds Neuro: Speech: normal speech Other: A&Ox2. Extrem: General: no pedal edema Psych: Affect: normal affect Other: A&Ox2. Objective Data Vital Signs Vital Signs: Vital Signs - 24 hr 09/11/24 15:25 09/11/24 20:00 09/11/24 20:27 Temperature 97.4 F L 98.6 F Pulse Rate 76 69 Respiratory Rate 18 18 Blood Pressure 144/74 H 143/66 H Pulse Oximetry 99 98 Oxygen Delivery Room Air 09/12/24 06:25 09/12/24 08:00 Temperature 97.8 F Pulse Rate 66 Respiratory Rate 16 Blood Pressure 157/94 H Pulse Oximetry 100 Oxygen Delivery Room Air Intake/Output Intake/Output: Intake & Output 09/09/24 09/10/24 09/11/24 09/12/24 23:59 23:59 23:59 23:59 Intake Total 2480.7 2732.7 2632.7 200 Output Total 156 279 8484 1000 Balance 1880.7 2332.7 1032.7 -800 Meds/Results Medications: Active Medications Generic Name Dose Route Start Last Admin Trade Name Freq PRN Reason Stop Dose Admin Acetaminophen 1,000 mg 08/30/24 13:00 09/11/24 13:12 Acetaminophen 500 Mg Tablet PO Not Given TID [facility] Acetaminophen 325 mg 09/11/24 15:53 Acetaminophen 325 Mg Suppository RECTAL Q4H PRN Mild Pain (1-3) or Fever Amlodipine Besylate 10 mg 09/01/24 09:00 09/12/24 07:49 Amlodipine Besylate 10 Mg Tablet PO Not Given DAILY [facility] Aspirin 81 mg 08/31/24 08:00 09/12/24 07:49 Aspirin 81 Mg Chewable Tablet PO Not Given DAILY@0800 [facility] Chlorhexidine Gluconate 15 ml 08/29/24 17:00 09/12/24 07:49 Chlorhexidine Gluconate 0.12% Oral Rinse 473 Ml Btl (*Bkc) SWISH/SPIT Not Given BID [facility] Chlorpromazine HCl 10 mg 09/05/24 10:56 Chlorpromazine Hcl 10 Mg Tablet PO Q6HR PRN Hiccups Docusate Sodium 100 mg 08/26/24 09:00 09/12/24 07:49 Docusate Sodium 100 Mg Capsule PO Not Given BID [facility] Enoxaparin Sodium 40 mg 08/26/24 09:00 09/12/24 07:49 Enoxaparin 40 Mg/0.4 Ml Syringe SUB-Q 40 mg DAILY EMILY Administration Fluticasone Propionate 2 spray 08/30/24 09:00 09/12/24 07:49 Fluticasone Propionate 0.05% Na Spr 16 Gm Btl (*Bkc) NASAL 2 spray QAM EMILY Administration Gabapentin 100 mg 09/01/24 13:00 09/02/24 13:17 Gabapentin 100 Mg Capsule PO 100 mg TID EMILY Administration Hydralazine HCl 10 mg 09/06/24 07:33 09/06/24 07:44 Hydralazine Hcl 20 Mg/Ml Vial IV PUSH 10 mg Q8H PRN Administration Blood Pressure - High Hydrochlorothiazide 12.5 mg 08/25/24 21:15 08/25/24 22:03 Hydrochlorothiazide 12.5 Mg Capsule PO 12.5 mg QAM EMILY Administration Dextrose 1,000 mls @ 50 mls/hr 09/07/24 10:50 Dextrose 10% IV CONT .Q20H PRN if PN is interrupted Amino Acids/Electrolytes/Dextrose 2,000 mls @ 80 mls/hr 09/07/24 12:00 09/11/24 13:12 Clinimix E 4.25%/5% Solution IV CONT 80 mls/hr .Q24H EMILY Administration Protocol Fat Emulsion Intravenous 250 mls @ 20.833 mls/hr 09/07/24 10:50 09/11/24 13:11 Lipids 20% IVPB 20.8 mls/hr Q24H EMILY Administration Ampicillin Sodium/Sulbactam Sodium 3 gm in 100 mls @ 200 mls/hr 09/09/24 20:00 09/12/24 07:49 Unasyn 3 Gm/Ns 100 Ml IVPB 09/22/24 19:59 200 mls/hr Q6H EMILY Administration Levetiracetam 1,000 mg in 100 mls @ 400 mls/hr 09/11/24 21:00 09/12/24 08:04 Keppra Iv IVPB Infused Q12HR EMILY Infusion Losartan Potassium 100 mg 08/25/24 21:20 09/12/24 07:49 Losartan Potassium 100 Mg Tablet PO Not Given DAILY EMILY Miscellaneous Information 1 each 09/08/24 00:01 09/11/24 01:06 2 Oxycodone Orders Need To Be Renewed Or It Will Automatically Discontinue 09/09. XX 10/08/24 00:00 Not Given CLARIFY EMILY Morphine Sulfate 2 mg 09/09/24 18:05 09/09/24 18:27 Morphine Sulfate (*Crx) 2 Mg/Ml Inj IV PUSH 2 mg Q4H PRN Administration Pain Rated 4-6 Ondansetron HCl 4 mg 09/01/24 23:34 09/04/24 18:11 Ondansetron Inj 4 Mg/2 Ml Vial IV PUSH 4 mg Q6H PRN Administration Nausea And Vomiting Phenytoin Sodium 300 mg 08/25/24 23:05 09/12/24 07:49 Phenytoin Sodium 100 Mg Extended Release Cap PO Not Given Q12HR [facility] Polyethylene Glycol 17 gm 08/26/24 09:00 09/12/24 07:50 Polyethylene Glycol 3350 17 Gm Powd.Pack PO Not Given QAM [facility] Potassium Chloride 20 meq 08/26/24 09:00 09/12/24 07:50 Potassium Chloride 20 Meq Er Tablet PO Not Given DAILY EMILY Pravastatin Sodium 40 mg 08/26/24 09:00 09/12/24 07:50 Pravastatin Sodium 20 Mg Tablet PO Not Given DAILY EMILY Radiology Results: ITS Impressions Pelvis X-Ray 08/25/24 15:50 IMPRESSION: No acute osseous finding in the pelvis. Head CT 08/25/24 15:56 IMPRESSION: No acute intracranial process. CT findings suggestive of acute frontal, ethmoid, and left sphenoid sinusitis. Trace fluid in the right mastoid air cells and trace fluid/debris in the right middle ear space, correlate for clinical findings of otomastoiditis. Cervical Spine CT 08/25/24 16:07 IMPRESSION: No acute fracture or traumatic malalignment in the cervical spine. Femur X-Ray 08/28/24 10:42 IMPRESSION: 1. No acute osseous abnormality. Brain MRI 08/30/24 12:03 IMPRESSION: 1. 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 The differential diagnosis includes meningioma and arteriovenous malformation. 2. Chronic encephalomalacia in right frontal parietal region and left frontal parietal region. 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 Lumbar Spine CT 08/30/24 12:36 IMPRESSION: 1. Mild lumbar spondylosis, stable from 01/19/2023. Lumbar Spine X-Ray 08/30/24 12:48 IMPRESSION: 1. Mild lumbar spondylosis. Chest/Abdomen/Pelvis CT 09/02/24 21:21 IMPRESSION: Chronic bibasilar interstitial changes, with hyperdense tree-in-bud opacities likely representing chronic interstitial/aspiration changes, with interval progression. No acute process detected in the chest, abdomen, or pelvis. No CT evidence of metastatic disease in this noncontrast examination. Chest X-Ray 09/04/24 06:29 Impression: Bibasilar interstitial prominence. Correlate for chronic interstitial disease, possibly sequela of prior aspiration. Modified Barium Swallow 09/12/24 11:01 IMPRESSION: Pharyngeal dysphagia with silent aspiration trace amount of fluid from the piriform sinus after the swallow. Please correlate with speech pathologist findings and specific feeding recommendations. Labs Labs: Laboratory Results - last 24 hr 09/11/24 09/12/24 09/12/24 20:31 01:11 06:27 WBC RBC Hgb Hct MCV MCH MCHC RDW Plt Count MPV Immature Gran % (Auto) Neut % (Auto) Lymph % (Auto) [place] % (Auto) Eos % (Auto) Baso % (Auto) Lymph # (Auto) [place] # (Auto) Eos # (Auto) Baso # (Auto) Abs Immat Gran (auto) Absolute Neuts (auto) Absolute Nucleated RBC Nucleated RBC % Sodium Potassium Chloride Carbon Dioxide Anion Gap BUN Creatinine Estim Creat Clear Calc Estimated GFR Glucose POC Capillary Glucose 95 106 H 102 Calcium Phosphorus Magnesium Total Bilirubin AST ALT Alkaline Phosphatase Total Protein Albumin Triglycerides 09/12/24 10:27 WBC 11.1 H RBC 2.79 L Hgb 10.4 L Hct 30.6 L MCV 109.7 H MCH 37.3 H MCHC 34.0 RDW 13.8 Plt Count 152 MPV 11.0 H Immature Gran % (Auto) 1.3 H Neut % (Auto) 81.0 H Lymph % (Auto) 7.3 L [place] % (Auto) 8.9 H Eos % (Auto) 1.2 Baso % (Auto) 0.3 Lymph # (Auto) 0.81 L [place] # (Auto) 1.0 H Eos # (Auto) 0.1 Baso # (Auto) 0.0 Abs Immat Gran (auto) 0.14 H Absolute Neuts (auto) 9.0 H Absolute Nucleated RBC 0.000 Nucleated RBC % 0.0 Sodium 138 Potassium 4.5 Chloride 103 Carbon Dioxide 26 Anion Gap 9 BUN 25 H Creatinine 0.80 Estim Creat Clear Calc 65 Estimated GFR > 60 Glucose 123 H POC Capillary Glucose Calcium 8.8 Phosphorus 4.2 Magnesium 2.0 Total Bilirubin 0.7 AST 55 ALT 86 H Alkaline Phosphatase 137 H Total Protein 7.0 Albumin 3.7 Triglycerides 129 Quality VTE Prophylaxis VTE prophylaxis: mechanical ordered and pharmacologic ordered
--- NOTE | 2024-09-12 12:17 | PM.IMPN ---
Progress Note: A&P Assessment and Plan (1) Altered mental status: Code(s): R41.82 - Altered mental status, unspecified Status: Acute Assessment and Plan: Alert to voice and oriented times 1-2 today, normally oriented x3 at baseline urine culture was negative this admission head CT was negative for any acute intracranial process, CT finding suggestive of acute frontal, ethmoid, and left sphenoid sinusitis, trace fluid in the right mastoid air cells and trace fluid/ debris in the right middle ear space consistent with otomastoiditis MRI of the brain showed a 3.2 cm extra-axial enhancing mass in the left parietal lobe that measures 2.5 cm on 01/04/2024 and was not visualized on 01/19/2023 examination, chronic encephalomalacia and right frontal parietal region and left frontal parietal region, 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 continue aspirin and statin will need outpatient neurosurgery follow-up for left parietal lobe mass 2/ will decrease Neurontin back to home dose of 100 mg t.i.d. 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 He also vomited. Neurosurgery consulted Awaiting EEG results UDS negative, Ammonia level negative Will hold Neurontin / Awaiting Neurology input EEG was abnormal record due to the presence of slow activity generally and absence of the normal background rhythm although there is no evidence of any paroxysmal discharge Continue to hold Neurontin Added Decadron yesterday per Neurosurgery recommendation for inflammation surrounding mass of left parietal lobe. Ct of the chest/abdomen/pelvis was negative for any metastatic disease, chronic bibasilar interstitial changes, with hyperdense tree-in-bud opacities likely representing chronic interstitial/aspiration changes. 09/04 are recommending transfer to tertiary care hospital for continuous EEG as we do not have these capabilities here. We will start the transfer process. Decadron discontinued as patient became very agitated through the night, hitting staff and requiring Zyprexa 09/05 More alert today, following some commands. 09/06 Alert and oriented x3 today. Much improved We will repeat MBS today 09/07 alert and oriented times 2-3 patient failed MBS again yesterday speech therapy will work with him, in the meantime we will go ahead and start PPN with lipids 09/08 Alert and oriented x2 Continue PPN and lipids Speech therapy working with him, will likely need another modified in few days Spoke with thais Finn who is the POA about his current condition and updated on his inability to eat or drink without aspirating. We discussed code status, Peg tube and transfer to tertiary care [facility] hospice and more focused comfort care. Neurosurgery deemed to not be a candidate for surgical intervention but he could have palliative radiation to shrink the brain lesions. She is going to discuss this with family and I will call back tomorrow for decision regarding hospice versus full treatment and code status. 09/09 Tried calling his niece to reset again however went to voicemail. I also tried calling his nephew however there was no answer. I know that tree so was going to talk with his youngest brother about code status and hospice versus full treatment. Will need to try to get in touch with the niece again as she is the POA along with a nephew who is secondary. Continue PPN and lipids for now Patient has been awake and alert for days now and likely not active seizure activity. 09/10 Patient has been awake and alert for days now and likely not active seizure activity. Continue PPN Awaiting to hear back from family. 09/11 Tried to call thais Finn to discuss patient, no answer, LVM asking her to call the nurses station. Continue PPN No seizure activity noted. 09/12 Spoke with bellakimberly Finn this morning. She has discussed with family and they would like to proceed with hospice consult. Huma will bring a copy of medical POA to hospital. Huma will work with publications designer to get access to finances for hospice care per care coordination. Continue PPN No seizure activity noted. A&Ox2. (2) Aspiration pneumonia: Code(s): J69.0 - Pneumonitis due to inhalation of food and vomit Status: Acute Assessment and Plan: patient vomited yesterday with concerns for aspiration CT of the chest/abdomen/pelvis shown hyperdense tree in bud opacities currently on Unasyn, spoke with infectious disease pharmacist who agrees this is appropriate coverage for now considering he is not requiring any Oxygen support and does not have fever. If he starts requiring O2 or starts with fever then we can switch to Zosyn. 09/04 Unasyn switched to Augmentin today 09/05 continue Augmentin Failed bedside swallow MBS ordered 09/06 Failed MBS yesterday, however mentation is better today. He is alert and oriented x3 Will repeat MBS today 09/07 failed MBS yesterday again start PPN and lipids 09/08 Continue PPN and lipids 09/09 Continue PPN and lipids 09/10 Continue PPN 09/11 Continue PPN MBS 09/12 MBS today: Pharyngeal dysphagia with silent aspiration trace amount of fluid from the piriform sinus after the swallow. Please correlate with speech pathologist findings and specific feeding recommendations. Continue PPN (3) Left low back pain: Code(s): M54.50 - Low back pain, unspecified Status: Acute Assessment and Plan: lumbar spine CT showing bulge disc at L1 to L2, L2-L3, L3-L4, L4-L5, L5-S1, mild lumbar spondylosis lumbar spine x-ray showed mild lumbar spondylosis methocarbamol discontinued due to altered mental status increased risk of seizures continue Neurontin continue pain control PT and OT ordered 09/01 Neurontin decreased to home dose of 100 mg t.i.d. continue PT and OT continue pain control 09/02 Will hold Neurontin continue PT and OT 09/03 continue PT and OT Neurontin on hold due to altered mental status 09/04 no change to current treatment plan (4) Fall: Qualifiers: Encounter type: initial encounter Qualified Code(s): W19.XXXA - Unspecified fall, initial encounter Code(s): W19.XXXA - Unspecified fall, initial encounter Status: Acute Assessment and Plan: status post mechanical fall continue PT and OT Case management working on outpatient rehab needs continue fall precautions 09/01 no change to current treatment plan (5) Mastoiditis: Code(s): H70.90 - Unspecified mastoiditis, unspecified ear Status: Acute Assessment and Plan: continue Unasyn 09/01 no change to current treatment plan 09/04 switched to Augmentin today and will need 14 more days 09/05 No change 09/06 Antibiotic changed back to Unasyn considering he is NPO (6) Rhabdomyolysis: Code(s): M62.82 - Rhabdomyolysis Status: Resolved Assessment and Plan: CK 233> 344> 95 patient was given IV fluids initially CK now corrected and rhabdomyolysis resolved (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 this morning, Will continue to monitor. 2/2 white blood count 26.2, absolute neutrophils 23.84-- likely reactive to the Neupogen afebrile overnight 2/ WBC 49.3, Abs Neuts 46.34 Reverse isolation discontinued / white blood cell count down to 36.9, absolute neutrophils 33.57 continue to trend / white blood cell count 27.8, absolute neutrophils 22.79 continue to trend / WBC 10.0, absolute neutrophils 6.60 2/ WBC 5.7, absolute neutrophils 2.39 / white blood cell count 4.3, absolute neutrophils 1.63 /10 White blood cell count down to 2.8, absolute neutrophils 1.0 Will give dose of Neupogen today 09/10 WBC 2.6, absolute neutrophils 1.06. Continue Neupogen in the AM. Monitor labs. 09/11 WBC 50.1, absolute neutrophils 47.09 Stop Neupogen. Afebrile. Monitor labs. 09/12 WBC 11.1, Absolute neutrophils 9.0. Monitor labs. Afebrile. (8) Hypertension: Code(s): I10 - Essential (primary) hypertension Status: Chronic Assessment and Plan: blood pressure 157/94. continue losartan/ hydrochlorothiazide will increase amlodipine to 10 mg daily as his normal prescribed dose 2/2 blood pressures ranging 130/55 to 147/63 continue losartan/ hydrochlorothiazide and amlodipine at current dose. 2/3 No change to current treatment plan (9) History of seizure: Code(s): Z87.898 - Personal history of other specified conditions Status: Chronic Assessment and Plan: continue Keppra, phenytoin continue seizure precautions continue neuro checks neurology consulted lactic acid was normal at 2.0 EEG results pending head CT was negative for any acute intracranial process, CT finding suggestive of acute frontal, ethmoid, left sphenoid sinusitis, trace fluid in the right mastoid air cells and trace fluid / debris in the right middle ear space suggestive of otomastoiditis MRI of the brain showing 3.2 cm extra-axial enhancing mass in the left parietal lobe that measures 2.5 cm on 01/04/2024 and was not visualized on 01/19/2023 examination, chronic encephalomalacia in right frontal parietal region and left frontal parietal region, 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 09/01 Continue neuro checks continue seizure precaution neurology consulted however has yet to see the patient EEG results pending continue Keppra and phenytoin 09/02 Awaiting EEG results No change 09/03 EEG was abnormal due to the presence of slow activity an absence of normal background rhythm awaiting Neurology input continue Keppra and phenytoin continue seizure precautions continue neuro checks 09/04 neurology and neurosurgery agreed that his findings could not rule out that he was having breakthrough seizures and would need to go to a hospital with continuous EEG capabilities to further evaluate continue Keppra and phenytoin continue seizure precautions continue neuro checks 09/05 No change (10) Bilateral hip pain: Code(s): M25.551 - Pain in right hip; M25.552 - Pain in left hip Status: Acute Assessment and Plan: Acetaminophen 325 mg q4 ID PRN Subjective Date/time seen: 09/12/24 12:17 Interval history: Patient sitting up in chair. Patient denies chest pain, palpitations, headache, dizziness, nausea, or vomiting. Spoke with niece Huma this morning. She has discussed with family and they would like to proceed with hospice consult. Huma will bring a copy of medical POA to hospital. Huma will work with publications designer to get access to finances for hospice care per care coordination. Review of Systems Review of Systems: All systems reviewed & are unremarkable except as noted in HPI and below Exam Const: General: comfortable and no acute distress Resp: Effort & Inspection: normal respiratory effort Auscultation: clear to auscultation bilaterally Cardio: Rate: regular rate Rhythm: regular rhythm GI: GI Palp: Yes Soft to palpation Auscultation: normal bowel sounds Neuro: Speech: normal speech Other: A&Ox2. Extrem: General: no pedal edema Psych: Affect: normal affect Other: A&Ox2. Objective Data Vital Signs Vital Signs: Vital Signs - 24 hr 09/11/24 15:25 09/11/24 20:00 09/11/24 20:27 Temperature 97.4 F L 98.6 F Pulse Rate 76 69 Respiratory Rate 18 18 Blood Pressure 144/74 H 143/66 H Pulse Oximetry 99 98 Oxygen Delivery Room Air 09/12/24 06:25 09/12/24 08:00 Temperature 97.8 F Pulse Rate 66 Respiratory Rate 16 Blood Pressure 157/94 H Pulse Oximetry 100 Oxygen Delivery Room Air Intake/Output Intake/Output: Intake & Output 09/09/24 09/10/24 09/11/24 09/12/24 23:59 23:59 23:59 23:59 Intake Total 2480.7 2732.7 2632.7 200 Output Total 760 512 2949 1000 Balance 1880.7 2332.7 1032.7 -800 Meds/Results Medications: Active Medications Generic Name Dose Route Start Last Admin Trade Name Freq PRN Reason Stop Dose Admin Acetaminophen 1,000 mg 08/30/24 13:00 09/11/24 13:12 Acetaminophen 500 Mg Tablet PO Not Given TID [facility] Acetaminophen 325 mg 09/11/24 15:53 Acetaminophen 325 Mg Suppository RECTAL Q4H PRN Mild Pain (1-3) or Fever Amlodipine Besylate 10 mg 09/01/24 09:00 09/12/24 07:49 Amlodipine Besylate 10 Mg Tablet PO Not Given DAILY EMILY Aspirin 81 mg 08/31/24 08:00 09/12/24 07:49 Aspirin 81 Mg Chewable Tablet PO Not Given DAILY@0800 EMILY Chlorhexidine Gluconate 15 ml 08/29/24 17:00 09/12/24 07:49 Chlorhexidine Gluconate 0.12% Oral Rinse 473 Ml Btl (*Bkc) SWISH/SPIT Not Given BID EMILY Chlorpromazine HCl 10 mg 09/05/24 10:56 Chlorpromazine Hcl 10 Mg Tablet PO Q6HR PRN Hiccups Docusate Sodium 100 mg 08/26/24 09:00 09/12/24 07:49 Docusate Sodium 100 Mg Capsule PO Not Given BID EMILY Enoxaparin Sodium 40 mg 08/26/24 09:00 09/12/24 07:49 Enoxaparin 40 Mg/0.4 Ml Syringe SUB-Q 40 mg DAILY EMILY Administration Fluticasone Propionate 2 spray 08/30/24 09:00 09/12/24 07:49 Fluticasone Propionate 0.05% Na Spr 16 Gm Btl (*Bkc) NASAL 2 spray QAM EMILY Administration Gabapentin 100 mg 09/01/24 13:00 09/02/24 13:17 Gabapentin 100 Mg Capsule PO 100 mg TID EMILY Administration Hydralazine HCl 10 mg 09/06/24 07:33 09/06/24 07:44 Hydralazine Hcl 20 Mg/Ml Vial IV PUSH 10 mg Q8H PRN Administration Blood Pressure - High Hydrochlorothiazide 12.5 mg 08/25/24 21:15 08/25/24 22:03 Hydrochlorothiazide 12.5 Mg Capsule PO 12.5 mg QAM EMILY Administration Dextrose 1,000 mls @ 50 mls/hr 09/07/24 10:50 Dextrose 10% IV CONT .Q20H PRN if PN is interrupted Amino Acids/Electrolytes/Dextrose 2,000 mls @ 80 mls/hr 09/07/24 12:00 09/11/24 13:12 Clinimix E 4.25%/5% Solution IV CONT 80 mls/hr .Q24H EMILY Administration Protocol Fat Emulsion Intravenous 250 mls @ 20.833 mls/hr 09/07/24 10:50 09/11/24 13:11 Lipids 20% IVPB 20.8 mls/hr Q24H EMILY Administration Ampicillin Sodium/Sulbactam Sodium 3 gm in 100 mls @ 200 mls/hr 09/09/24 20:00 09/12/24 07:49 Unasyn 3 Gm/Ns 100 Ml IVPB 09/22/24 19:59 200 mls/hr Q6H EMILY Administration Levetiracetam 1,000 mg in 100 mls @ 400 mls/hr 09/11/24 21:00 09/12/24 08:04 Keppra Iv IVPB Infused Q12HR EMILY Infusion Losartan Potassium 100 mg 08/25/24 21:20 09/12/24 07:49 Losartan Potassium 100 Mg Tablet PO Not Given DAILY [facility] Miscellaneous Information 1 each 09/08/24 00:01 09/11/24 01:06 2 Oxycodone Orders Need To Be Renewed Or It Will Automatically Discontinue 09/09. XX 10/08/24 00:00 Not Given CLARIFY EMILY Morphine Sulfate 2 mg 09/09/24 18:05 09/09/24 18:27 Morphine Sulfate (*Crx) 2 Mg/Ml Inj IV PUSH 2 mg Q4H PRN Administration Pain Rated 4-6 Ondansetron HCl 4 mg 09/01/24 23:34 09/04/24 18:11 Ondansetron Inj 4 Mg/2 Ml Vial IV PUSH 4 mg Q6H PRN Administration Nausea And Vomiting Phenytoin Sodium 300 mg 08/25/24 23:05 09/12/24 07:49 Phenytoin Sodium 100 Mg Extended Release Cap PO Not Given Q12HR [facility] Polyethylene Glycol 17 gm 08/26/24 09:00 09/12/24 07:50 Polyethylene Glycol 3350 17 Gm Powd.Pack PO Not Given QAM [facility] Potassium Chloride 20 meq 08/26/24 09:00 09/12/24 07:50 Potassium Chloride 20 Meq Er Tablet PO Not Given DAILY [facility] Pravastatin Sodium 40 mg 08/26/24 09:00 09/12/24 07:50 Pravastatin Sodium 20 Mg Tablet PO Not Given DAILY [facility] Radiology Results: ITS Impressions Pelvis X-Ray 08/25/24 15:50 IMPRESSION: No acute osseous finding in the pelvis. Head CT 08/25/24 15:56 IMPRESSION: No acute intracranial process. CT findings suggestive of acute frontal, ethmoid, and left sphenoid sinusitis. Trace fluid in the right mastoid air cells and trace fluid/debris in the right middle ear space, correlate for clinical findings of otomastoiditis. Cervical Spine CT 08/25/24 16:07 IMPRESSION: No acute fracture or traumatic malalignment in the cervical spine. Femur X-Ray 08/28/24 10:42 IMPRESSION: 1. No acute osseous abnormality. Brain MRI 08/30/24 12:03 IMPRESSION: 1. 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 The differential diagnosis includes meningioma and arteriovenous malformation. 2. Chronic encephalomalacia in right frontal parietal region and left frontal parietal region. 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 Lumbar Spine CT 08/30/24 12:36 IMPRESSION: 1. Mild lumbar spondylosis, stable from 01/19/2023. Lumbar Spine X-Ray 08/30/24 12:48 IMPRESSION: 1. Mild lumbar spondylosis. Chest/Abdomen/Pelvis CT 09/02/24 21:21 IMPRESSION: Chronic bibasilar interstitial changes, with hyperdense tree-in-bud opacities likely representing chronic interstitial/aspiration changes, with interval progression. No acute process detected in the chest, abdomen, or pelvis. No CT evidence of metastatic disease in this noncontrast examination. Chest X-Ray 09/04/24 06:29 Impression: Bibasilar interstitial prominence. Correlate for chronic interstitial disease, possibly sequela of prior aspiration. Modified Barium Swallow 09/12/24 11:01 IMPRESSION: Pharyngeal dysphagia with silent aspiration trace amount of fluid from the piriform sinus after the swallow. Please correlate with speech pathologist findings and specific feeding recommendations. Labs Labs: Laboratory Results - last 24 hr 09/11/24 09/12/24 09/12/24 20:31 01:11 06:27 WBC RBC Hgb Hct MCV MCH MCHC RDW Plt Count MPV Immature Gran % (Auto) Neut % (Auto) Lymph % (Auto) [place] % (Auto) Eos % (Auto) Baso % (Auto) Lymph # (Auto) [place] # (Auto) Eos # (Auto) Baso # (Auto) Abs Immat Gran (auto) Absolute Neuts (auto) Absolute Nucleated RBC Nucleated RBC % Sodium Potassium Chloride Carbon Dioxide Anion Gap BUN Creatinine Estim Creat Clear Calc Estimated GFR Glucose POC Capillary Glucose 95 106 H 102 Calcium Phosphorus Magnesium Total Bilirubin AST ALT Alkaline Phosphatase Total Protein Albumin Triglycerides 09/12/24 10:27 WBC 11.1 H RBC 2.79 L Hgb 10.4 L Hct 30.6 L MCV 109.7 H MCH 37.3 H MCHC 34.0 RDW 13.8 Plt Count 152 MPV 11.0 H Immature Gran % (Auto) 1.3 H Neut % (Auto) 81.0 H Lymph % (Auto) 7.3 L [place] % (Auto) 8.9 H Eos % (Auto) 1.2 Baso % (Auto) 0.3 Lymph # (Auto) 0.81 L [place] # (Auto) 1.0 H Eos # (Auto) 0.1 Baso # (Auto) 0.0 Abs Immat Gran (auto) 0.14 H Absolute Neuts (auto) 9.0 H Absolute Nucleated RBC 0.000 Nucleated RBC % 0.0 Sodium 138 Potassium 4.5 Chloride 103 Carbon Dioxide 26 Anion Gap 9 BUN 25 H Creatinine 0.80 Estim Creat Clear Calc 65 Estimated GFR > 60 Glucose 123 H POC Capillary Glucose Calcium 8.8 Phosphorus 4.2 Magnesium 2.0 Total Bilirubin 0.7 AST 55 ALT 86 H Alkaline Phosphatase 137 H Total Protein 7.0 Albumin 3.7 Triglycerides 129 Quality VTE Prophylaxis VTE prophylaxis: mechanical ordered and pharmacologic ordered
[2024-09-12] MEDS: FAT EMULSIONS IV 20% 250 ML 20.8 ML IVPB (13:31)
[2024-09-12] MEDS: AMINO ACIDS 4.25%/D5W/LYTES/CA 2,000 ML 80 ML IV CONT (13:32)
--- NOTE | 2024-09-12 13:41 | PCSTNOTE ---
Please refer to the Modified Barium Swallow Evaluation in the EMR. Third MBS: Pt was seen for a third modified barium swallow. Pt was alert and able to follow basic commands. Upon talking to pt prior to beginning testing a gurgly vocal quality was noted; upon request to clear throat pt was able to clear vocal quality. He was seated for a lateral view and presented with 5ml thin liquid, pudding consistency barium via a spoon, and 5 ml moderately thick liquids via a spoon. The oral stages were within functional limits; during the pharyngeal stage, the pt demonstrated the following: reduced tongue base retraction as evidenced by vallecular residue (mod to severe) across all trials; reduced laryngeal elevation as evidenced by pyriform sinus residue which was trace to mild across all trials; & reduced pharyngeal squeeze as evidenced by trace to mild pharyngeal wall coating after the swallow; pt did I dry swallow which did clear a portion of pharyngeal residue but remaining portion of vallecular residual spilled into the pyriform sinuses & then into the laryngeal vestibule & was then aspirated after the swallow. All instances of aspiration were a trace amount but pt did not make attempt to eject aspirate from airway thus silently aspirating. Impression: severe dysphagia due to instances of silent aspiration Recommendation: Non oral feedings; continue ST for dysphagia therapy
[2024-09-12 14:00] VITALS: BP 122/65; PULSE 88; RESP 20; TEMP 36.2; O2SAT 99
--- NOTE | 2024-09-12 14:17 | PCOTNOTE ---
Per Pediatric Physician Assistant, RN, Patient and his niece having a conversation about hospice. Patient unavailable this afternoon.
[2024-09-12 22:53] VITALS: BP 180/82; PULSE 70; RESP 18; TEMP 36.8; O2SAT 97
[2024-09-13] MEDS: AMPICILLIN SULB 3 GM/NS 100 ML 3 GM/100 ML VIAL IVPB ×3 (01:24→13:27)
[2024-09-13 04:46] VITALS: BP 164/86; PULSE 76; RESP 16; TEMP 36.9; O2SAT 96
[2024-09-13 07:16] LABS: Glucose Point of Care 102 mg/dl (65-105)
[2024-09-13 07:33] LABS: Alanine Aminotransferase 87 U/L (6-50); Albumin Level 3.4 g/dL (3.5-5.1); Alkaline Phosphatase 142 U/L (38-126); Anion Gap 10 mmol/L (4-12); Aspartate Amino Transferase 62 U/L (17-59); Bilirubin,Total 0.9 mg/dL (0.2-1.3); Blood Urea Nitrogen 24 mg/dL (9-20); Calcium 8.7 mg/dL (8.4-10.2); Carbon Dioxide 23 mmol/L (22-30); Chloride 104 mmol/L (98-107); Estimated CRCL calculation 82 ml/min; Estimated Glomerular Filt Rate > 60; Glucose 110 mg/dL (65-110); Phosphorus 4.4 mg/dL (2.5-4.5); Potassium 4.4 mmol/L (3.4-5.0); Sodium 137 mmol/L (137-145)
[2024-09-13] MEDS: levETIRAcetam 1000MG/NACL100ML 1,000 MG/100 ML BAG 400 MG IVPB (07:52)
[2024-09-13] MEDS: FLUTICASONE PROPIONATE 0.05% NA SPR 16 GM BTL (*BKC) 2 SPRAY NASAL (07:53)
[2024-09-13] MEDS: ENOXAPARIN 40 MG/0.4 ML SYRINGE SUB-Q (07:53)
[2024-09-13 09:58] LABS: Basophils Percent Auto 0.8 % (0.2-1.2); Eosinophils Absolute Auto 0.1 K/mm3 (0-0.3); Eosinophils Percent Auto 5.4 % (0-4.4); Hemoglobin 9.9 g/dL (14.0-18.0); Immature Granulocyte Percent A 4.1 % (0-0.5); Lymphocytes Absolute Auto 0.46 K/mm3 (0.9-3.2); Mean Corpuscular HGB Conc 34.1 g/dl (32-36); Mean Corpuscular Hemoglobin 37.2 pg (26-34); Mean Platelet Volume 11.2 fl (7.4-10.4); Monocytes Absolute Auto 0.8 K/mm3 (0.1-0.6); Monocytes Percent Auto 32.2 % (2.6-8.5); Neutrophils Absolute Auto 0.9 K/mm3 (1.3-6.7); Neutrophils Percent Auto 38.5 % (45.5-73.1); Platelet Count Result 145 k/mm3 (150-375); Red Blood Count 2.66 M/mm3 (4.6-6.20); Red Cell Distribution Width 13.7 % (11.5-14.5); White Blood Count 2.4 K/mm3 (4.5-10.0)
[2024-09-13 10:33] LABS: Band Neutrophils Percent 9 % (0-6); Basophils Absolute Manual 0.04 K/mm3 (0.0-0.1); Basophils Percent Manual 2 % (0-1); Eosinophils Absolute Manual 0.14 K/mm3 (0.02-0.50); Eosinophils Percent Manual 6 % (0-4); Lymphocytes Absolute Manual 0.43 K/mm3 (1.1-4.5); Monocytes Absolute Manual 0.72 K/mm3 (0.1-0.90); Monocytes Percent Manual 30 % (3-9); Neutrophils Absolute Manual 1.05 K/mm3 (1.3-6.7); Neutrophils Percent Manual 35 % (46-73); Platelet Estimate Decreased (Adequate); Schistocytes None Seen; Total Cells Counted 100
--- NOTE | 2024-09-13 10:51 | PCNFU ---
Nutrition Follow-Up Complete: Inadequate oral intake related to altered mental status as evidenced by intakes 0-50% PO intake >50% meals and supplements - not able to meet goal PO. Goal: Pt current nutrition is Clinmix E 4.25/5 running at 80 ml/h. Nutrition recommendation: Discontinue PPN when comfort measures are initiated Last recorded weight is 66.3 kg. Bowel Motility: + BM 09/12 Labs Reviewed: Alb 3.4, BUN 24, Cre 0.6 Meds Noted: Miralax, Keppra, Zofran Skin: No pressure Additional Notes: Plan for discharge to [facility] on hospice today. PPN to discontinue at that time. Monitoring intakes, supplement tolerance, weights, labs, plan of care Follow up in 5 days
--- NOTE | 2024-09-13 11:38 | P.PNIM_ITS ---
Subjective Date/time seen: 09/13/24 11:38 Review of Systems Review of Systems: All systems reviewed & are unremarkable except as noted in HPI and below Objective Data Vital Signs Vital Signs: Vital Signs - 24 hr 09/12/24 14:00 09/12/24 22:53 09/13/24 04:46 Temperature 97.2 F L 98.3 F 98.4 F Pulse Rate 88 70 76 Respiratory Rate 20 18 16 Blood Pressure 122/65 180/82 H 164/86 H Pulse Oximetry 99 97 96 Oxygen Delivery 09/13/24 08:00 Temperature Pulse Rate Respiratory Rate Blood Pressure Pulse Oximetry Oxygen Delivery Room Air Intake/Output Intake/Output: Intake & Output 09/10/24 09/11/24 09/12/24 09/13/24 23:59 23:59 23:59 23:59 Intake Total 2732.7 2632.7 2796.7 300 Output Total 400 1600 1900 600 Balance 2332.7 1032.7 896.7 -300 Meds/Results Medications: Active Medications Generic Name Dose Route Start Last Admin Trade Name Freq PRN Reason Stop Dose Admin Acetaminophen 1,000 mg 08/30/24 13:00 09/11/24 13:12 Acetaminophen 500 Mg Tablet PO Not Given TID [facility] Acetaminophen 325 mg 09/11/24 15:53 Acetaminophen 325 Mg Suppository RECTAL Q4H PRN Mild Pain (1-3) or Fever Amlodipine Besylate 10 mg 09/01/24 09:00 09/13/24 07:52 Amlodipine Besylate 10 Mg Tablet PO Not Given DAILY [facility] Aspirin 81 mg 08/31/24 08:00 09/13/24 07:52 Aspirin 81 Mg Chewable Tablet PO Not Given DAILY@0800 [facility] Chlorhexidine Gluconate 15 ml 08/29/24 17:00 09/13/24 07:52 Chlorhexidine Gluconate 0.12% Oral Rinse 473 Ml Btl (*Bkc) SWISH/SPIT Not Given BID [facility] Chlorpromazine HCl 10 mg 09/05/24 10:56 Chlorpromazine Hcl 10 Mg Tablet PO Q6HR PRN Hiccups Docusate Sodium 100 mg 08/26/24 09:00 09/13/24 07:52 Docusate Sodium 100 Mg Capsule PO Not Given BID [facility] Enoxaparin Sodium 40 mg 08/26/24 09:00 09/13/24 07:53 Enoxaparin 40 Mg/0.4 Ml Syringe SUB-Q 40 mg DAILY EMILY Administration Fluticasone Propionate 2 spray 08/30/24 09:00 09/13/24 07:53 Fluticasone Propionate 0.05% Na Spr 16 Gm Btl (*Bkc) NASAL 2 spray QAM EMILY Administration Gabapentin 100 mg 09/01/24 13:00 09/02/24 13:17 Gabapentin 100 Mg Capsule PO 100 mg TID EMILY Administration Hydralazine HCl 10 mg 09/06/24 07:33 09/06/24 07:44 Hydralazine Hcl 20 Mg/Ml Vial IV PUSH 10 mg Q8H PRN Administration Blood Pressure - High Hydrochlorothiazide 12.5 mg 08/25/24 21:15 08/25/24 22:03 Hydrochlorothiazide 12.5 Mg Capsule PO 12.5 mg QAM EMILY Administration Dextrose 1,000 mls @ 50 mls/hr 09/07/24 10:50 Dextrose 10% IV CONT .Q20H PRN if PN is interrupted Amino Acids/Electrolytes/Dextrose 2,000 mls @ 80 mls/hr 09/07/24 12:00 09/12/24 13:32 Clinimix E 4.25%/5% Solution IV CONT 80 mls/hr .Q24H EMILY Administration Protocol Fat Emulsion Intravenous 250 mls @ 20.833 mls/hr 09/07/24 10:50 09/12/24 13:31 Lipids 20% IVPB 20.8 mls/hr Q24H EMILY Administration Ampicillin Sodium/Sulbactam Sodium 3 gm in 100 mls @ 200 mls/hr 09/09/24 20:00 09/13/24 08:22 Unasyn 3 Gm/Ns 100 Ml IVPB 09/18/24 23:59 Infused Q6H EMILY Infusion Levetiracetam 1,000 mg in 100 mls @ 400 mls/hr 09/11/24 21:00 09/13/24 08:07 Keppra Iv IVPB Infused Q12HR EMILY Infusion Losartan Potassium 100 mg 08/25/24 21:20 09/13/24 07:53 Losartan Potassium 100 Mg Tablet PO Not Given DAILY EMILY Miscellaneous Information 1 each 09/08/24 00:01 09/11/24 01:06 2 Oxycodone Orders Need To Be Renewed Or It Will Automatically Discontinue 09/09. XX 10/08/24 00:00 Not Given CLARIFY [facility] Morphine Sulfate 2 mg 09/09/24 18:05 09/09/24 18:27 Morphine Sulfate (*Crx) 2 Mg/Ml Inj IV PUSH 2 mg Q4H PRN Administration Pain Rated 4-6 Ondansetron HCl 4 mg 09/01/24 23:34 09/04/24 18:11 Ondansetron Inj 4 Mg/2 Ml Vial IV PUSH 4 mg Q6H PRN Administration Nausea And Vomiting Phenytoin Sodium 300 mg 08/25/24 23:05 09/13/24 07:53 Phenytoin Sodium 100 Mg Extended Release Cap PO Not Given Q12HR [facility] Polyethylene Glycol 17 gm 08/26/24 09:00 09/13/24 07:53 Polyethylene Glycol 3350 17 Gm Powd.Pack PO Not Given QAM [facility] Potassium Chloride 20 meq 08/26/24 09:00 09/13/24 07:53 Potassium Chloride 20 Meq Er Tablet PO Not Given DAILY [facility] Pravastatin Sodium 40 mg 08/26/24 09:00 09/13/24 07:53 Pravastatin Sodium 20 Mg Tablet PO Not Given DAILY [facility] Radiology Results: ITS Impressions Pelvis X-Ray 08/25/24 15:50 IMPRESSION: No acute osseous finding in the pelvis. Head CT 08/25/24 15:56 IMPRESSION: No acute intracranial process. CT findings suggestive of acute frontal, ethmoid, and left sphenoid sinusitis. Trace fluid in the right mastoid air cells and trace fluid/debris in the right middle ear space, correlate for clinical findings of otomastoiditis. Cervical Spine CT 08/25/24 16:07 IMPRESSION: No acute fracture or traumatic malalignment in the cervical spine. Femur X-Ray 08/28/24 10:42 IMPRESSION: 1. No acute osseous abnormality. Brain MRI 08/30/24 12:03 IMPRESSION: 1. 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 The differential diagnosis includes meningioma and arteriovenous malformation. 2. Chronic encephalomalacia in right frontal parietal region and left frontal parietal region. 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 Lumbar Spine CT 08/30/24 12:36 IMPRESSION: 1. Mild lumbar spondylosis, stable from 01/19/2023. Lumbar Spine X-Ray 08/30/24 12:48 IMPRESSION: 1. Mild lumbar spondylosis. Chest/Abdomen/Pelvis CT 09/02/24 21:21 IMPRESSION: Chronic bibasilar interstitial changes, with hyperdense tree-in-bud opacities likely representing chronic interstitial/aspiration changes, with interval progression. No acute process detected in the chest, abdomen, or pelvis. No CT evidence of metastatic disease in this noncontrast examination. Chest X-Ray 09/04/24 06:29 Impression: Bibasilar interstitial prominence. Correlate for chronic interstitial disease, possibly sequela of prior aspiration. Modified Barium Swallow 09/12/24 11:01 IMPRESSION: Pharyngeal dysphagia with silent aspiration trace amount of fluid from the piriform sinus after the swallow. Please correlate with speech pathologist findings and specific feeding recommendations. Labs Labs: Laboratory Results - last 24 hr 09/13/24 09/13/24 09/13/24 04:51 06:41 09:50 WBC 2.4 L RBC 2.66 L Hgb 9.9 L Hct 29.0 L MCV 109.0 H MCH 37.2 H MCHC 34.1 RDW 13.7 Plt Count 145 L MPV 11.2 H Immature Gran % (Auto) 4.1 H Neut % (Auto) 38.5 L Lymph % (Auto) 19.0 [place] % (Auto) 32.2 H Eos % (Auto) 5.4 H Baso % (Auto) 0.8 Lymph # (Auto) 0.46 L [place] # (Auto) 0.8 H Eos # (Auto) 0.1 Baso # (Auto) 0.0 Abs Immat Gran (auto) 0.10 H Absolute Neuts (auto) 0.9 L Absolute Nucleated RBC 0.000 Total Counted 100 Neutrophils % (Manual) 35 L Band Neutrophils % 9 H Lymphocytes % (Manual) 18.0 Monocytes % (Manual) 30 H Eosinophils % (Manual) 6 H Basophils % (Manual) 2 H Nucleated RBC % 0.0 Abs Neuts (Manual) 1.05 L Abs Lymphs (Manual) 0.43 L Abs Monocytes (Manual) 0.72 Absolute Eos (Manual) 0.14 Abs Basophils (Manual) 0.04 Platelet Estimate Decreased Schistocytes None seen Sodium 137 Potassium 4.4 Chloride 104 Carbon Dioxide 23 Anion Gap 10 BUN 24 H Creatinine 0.60 L Estim Creat Clear Calc 82 Estimated GFR > 60 Glucose 110 POC Capillary Glucose 102 Calcium 8.7 Phosphorus 4.4 Total Bilirubin 0.9 AST 62 H ALT 87 H Alkaline Phosphatase 142 H Total Protein 7.0 Albumin 3.4 L
[2024-09-13 12:21] LABS: Glucose Point of Care 109 mg/dl (65-105)
[2024-09-13] MEDS: AMINO ACIDS 4.25%/D5W/LYTES/CA 2,000 ML 80 ML IV CONT (13:26)
[2024-09-13] MEDS: FAT EMULSIONS IV 20% 250 ML 20.8 ML IVPB (13:27)
[2024-09-13 13:58] VITALS: BP 158/72; PULSE 62; RESP 18; TEMP 36.2; O2SAT 100
--- NOTE | 2024-09-13 14:08 | PM.DS ---
DS: Admitting Diagnosis Discharge Date 09/13/2024 Admitting Diagnosis Fall DS: Discharge Diagnosis Discharge Diagnosis (1) Altered mental status: Code(s): R41.82 - Altered mental status, unspecified Status: Acute (2) Aspiration pneumonia: Code(s): J69.0 - Pneumonitis due to inhalation of food and vomit Status: Acute (3) Left low back pain: Code(s): M54.50 - Low back pain, unspecified Status: Acute (4) Brain mass: Code(s): G93.89 - Other specified disorders of brain Status: Acute (5) Mastoiditis: Code(s): H70.90 - Unspecified mastoiditis, unspecified ear Status: Acute (6) MDS (myelodysplastic syndrome): Code(s): D46.9 - Myelodysplastic syndrome, unspecified Status: Chronic (7) Rhabdomyolysis: Code(s): M62.82 - Rhabdomyolysis Status: Resolved (8) Hypertension: Code(s): I10 - Essential (primary) hypertension Status: Chronic (9) History of seizure: Code(s): Z87.898 - Personal history of other specified conditions Status: Chronic (10) Bilateral hip pain: Code(s): M25.551 - Pain in right hip; M25.552 - Pain in left hip Status: Acute DS: Summary Hospital Course Hospital Course: Leukopenia at 2.0, total bilirubin 2.1, AST 63, ALT 51, alkaline phos 128, total protein 9.0 UA shows positive nitrates negative for leukocyte esterase. Chest x-ray shows no acute process, pelvis x-ray shows no acute process. CT findings suggestive of acute frontal, ethmoid, and left sphenoid sinusitis. Trace fluid in the right mastoid air cells and trace fluid/debris in the right middle ear space, correlate for clinical findings of otomastoiditis. Cervical spine CT shows no acute process. Urine culture negative. -EEG was abnormal record due to the presence of slow activity generally and absence of the normal background rhythm although there is no evidence of any paroxysmal discharge. -Ct of the chest/abdomen/pelvis was negative for any metastatic disease, chronic bibasilar interstitial changes, with hyperdense tree-in-bud opacities likely representing chronic interstitial/aspiration changes. Brain MRI 08/30/24 12:03 IMPRESSION: 1. 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 The differential diagnosis includes meningioma and arteriovenous malformation. 2. Chronic encephalomalacia in right frontal parietal region and left frontal parietal region. 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 - Neurosurgery was consulted: His brain mass is sizable enough that surgical resection could be considered. However, he is not a good surgical candidate at this time given his other active medical issues and possibly active seizures. If he were to return to his baseline, then we can certainly discuss the option of surgery on an outpatient basis . Lumbar Spine CT 08/30/24 12:36 IMPRESSION: 1. Mild lumbar spondylosis, stable from 01/19/2023. Lumbar Spine X-Ray 08/30/24 12:48 IMPRESSION: 1. Mild lumbar spondylosis. Chest/Abdomen/Pelvis CT 09/02/24 21:21 IMPRESSION: Chronic bibasilar interstitial changes, with hyperdense tree-in-bud opacities likely representing chronic interstitial/aspiration changes, with interval progression. No acute process detected in the chest, abdomen, or pelvis. No CT evidence of metastatic disease in this noncontrast examination. Chest X-Ray 09/04/24 06:29 Impression: Bibasilar interstitial prominence. Correlate for chronic interstitial disease, possibly sequela of prior aspiration. Modified Barium Swallow 09/12/24 11:01 IMPRESSION: Pharyngeal dysphagia with silent aspiration trace amount of fluid from the piriform sinus after the swallow. Please correlate with speech pathologist findings and specific feeding recommendations. -Failed MBS tests. Was receiving PPN. Family and patient decided that he would like to transition to hospice. Patient discharged to [facility] for hospice. Status at Discharge Functional status at discharge: wheelchair bound Overall status at discharge: patient is not back to baseline Time Spent with Patient Time attestation: Total time spent providing and/or coordinating discharge services: Time spent: Greater than 30 minutes Exam Const: General: comfortable and no acute distress Resp: Effort & Inspection: normal respiratory effort Auscultation: clear to auscultation bilaterally Cardio: Rate: regular rate Rhythm: regular rhythm GI: GI Palp: Yes Soft to palpation Auscultation: normal bowel sounds Neuro: Other: A&Ox2. Extrem: General: no pedal edema Psych: Affect: normal affect DS: Data Data Completed and Pending Labs on day of discharge: Labs from last 24 hours 09/13/24 09/13/24 09/13/24 12:19 09:50 06:41 WBC 2.4 L RBC 2.66 L Hgb 9.9 L Hct 29.0 L MCV 109.0 H MCH 37.2 H MCHC 34.1 RDW 13.7 Plt Count 145 L MPV 11.2 H Immature Gran % (Auto) 4.1 H Neut % (Auto) 38.5 L Lymph % (Auto) 19.0 [place] % (Auto) 32.2 H Eos % (Auto) 5.4 H Baso % (Auto) 0.8 Lymph # (Auto) 0.46 L [place] # (Auto) 0.8 H Eos # (Auto) 0.1 Baso # (Auto) 0.0 Abs Immat Gran (auto) 0.10 H Absolute Neuts (auto) 0.9 L Absolute Nucleated RBC 0.000 Total Counted 100 Neutrophils % (Manual) 35 L Band Neutrophils % 9 H Lymphocytes % (Manual) 18.0 Monocytes % (Manual) 30 H Eosinophils % (Manual) 6 H Basophils % (Manual) 2 H Nucleated RBC % 0.0 Abs Neuts (Manual) 1.05 L Abs Lymphs (Manual) 0.43 L Abs Monocytes (Manual) 0.72 Absolute Eos (Manual) 0.14 Abs Basophils (Manual) 0.04 Platelet Estimate Decreased Schistocytes None seen Sodium 137 Potassium 4.4 Chloride 104 Carbon Dioxide 23 Anion Gap 10 BUN 24 H Creatinine 0.60 L Estim Creat Clear Calc 82 Estimated GFR > 60 Glucose 110 POC Capillary Glucose 109 H Calcium 8.7 Phosphorus 4.4 Total Bilirubin 0.9 AST 62 H ALT 87 H Alkaline Phosphatase 142 H Total Protein 7.0 Albumin 3.4 L 09/13/24 04:51 WBC RBC Hgb Hct MCV MCH MCHC RDW Plt Count MPV Immature Gran % (Auto) Neut % (Auto) Lymph % (Auto) [place] % (Auto) Eos % (Auto) Baso % (Auto) Lymph # (Auto) [place] # (Auto) Eos # (Auto) Baso # (Auto) Abs Immat Gran (auto) Absolute Neuts (auto) Absolute Nucleated RBC Total Counted Neutrophils % (Manual) Band Neutrophils % Lymphocytes % (Manual) Monocytes % (Manual) Eosinophils % (Manual) Basophils % (Manual) Nucleated RBC % Abs Neuts (Manual) Abs Lymphs (Manual) Abs Monocytes (Manual) Absolute Eos (Manual) Abs Basophils (Manual) Platelet Estimate Schistocytes Sodium Potassium Chloride Carbon Dioxide Anion Gap BUN Creatinine Estim Creat Clear Calc Estimated GFR Glucose POC Capillary Glucose 102 Calcium Phosphorus Total Bilirubin AST ALT Alkaline Phosphatase Total Protein Albumin Discharge Plan Discharge Attending physician on discharge: Liliana Richards Consulting providers: Rosales Sandoval; Francisco Couch; Heather Laureano Discharging Clinician: Fiordaliza Raymundo Anticipated Discharge Date/Time: 09/13/24 15:30 Patient Disposition: SNF Activity: november shower Diet: as tolerated and NPO Discharge Instructions: Hospice at [facility]. Patient Language: [place] Citizen Stand Alone Forms: General Discharge Information, Care Home Discharge Discharge Medications: Continued losartan-hydrochlorothiazide 100-12.5 mg tablet 1 tablet PO DAILY Qty: 90 1RF Rx Instructions: Please D/C the Lisinopril. Thank you pravastatin 40 mg tablet 40 mg PO DAILY Qty: 90 1RF gabapentin 100 mg capsule 100 mg PO TID Qty: 90 3RF potassium chloride 20 mEq tablet extended release 20 meq PO DAILY Qty: 30 2RF pantoprazole 40 mg tablet,delayed release (DR/EC) 40 mg PO QAM Qty: 90 1RF phenytoin sodium extended 200 mg capsule See Rx Instructions PO .COMPLEX Rx Instructions: 300mg in the am and 300mg in the pm orally; amlodipine 10 mg tablet See Rx Instructions .ROUTE .COMPLEX Qty: 90 1RF Dose Instruction: TAKE 1 TABLET BY MOUTH DAILY. DISCONTINUE THE AMLODIPINE 5. THANK YOU Rx Instructions: TAKE 1 TABLET BY MOUTH DAILY. DISCONTINUE THE AMLODIPINE 5. THANK YOU acetaminophen [Mapap (acetaminophen)] 325 mg Tablet 650 mg PO Q6H PRN (Reason: Pain) Qty: 30 0RF levetiracetam [Keppra] 500 mg Tablet 1,000 mg PO Q12HR Qty: 60 0RF terazosin 1 mg Capsule 4 mg PO HS Qty: 30 0RF Date of admission: 09/03/24 13:33 Primary Care Provider: Neal Baugh Admitting Provider: Ulices Thompson Attending physician on admission: Anais Sidhu Condition: Terminal Hospitalist MIPS Heart Failure (Exclusion) Patient has history of Heart Transplant or Left Ventricular Assistive Device?: No IF YES, STOP HERE Heart Failure (Qualifier) Patient has current or prior documentation of LVEF less than or equal to 40%, or mod/servere depressed LVSF?: No IF NO, STOP HERE
[2024-09-13 18:17] LABS: Glucose Point of Care 86 mg/dl (65-105)
[2024-09-13 20:55] VITALS: BP 155/73; PULSE 73; RESP 16; TEMP 36.6; O2SAT 99
== END 2024-09-13 21:55 | disposition hospice, inpatient (51) | DRG 70 ==
LOC: ANHED 14:44 → ANH3MEDSUR 18:57
PROVIDERS: Nurse Practitioner Acute Care; Nurse Practitioner Adult Health; Nurse Practitioner Gerontology; Admitting Provider Internal Medicine; Emergency Provider Emergency Medicine; PCP Internal Medicine; Visit Provider Nurse Practitioner Family
DX: G93.89 Other specified disorders of brain (principal); J69.0 Pneumonitis due to inhalation of food and vomit; M62.82 Rhabdomyolysis; E46 Unspecified protein-calorie malnutrition; E86.0 Dehydration; R62.7 Adult failure to thrive; D46.9 Myelodysplastic syndrome, unspecified; R56.9 Unspecified convulsions; W19.XXXA Unspecified fall, initial encounter; I10 Essential (primary) hypertension; R41.82 Altered mental status, unspecified; M25.551 Pain in right hip; M25.552 Pain in left hip; E78.5 Hyperlipidemia, unspecified; M54.50 Low back pain, unspecified; G62.0 Drug-induced polyneuropathy; T45.1X5A Adverse effect of antineoplastic and immunosuppressive drugs, initial encounter; M15.9 Polyosteoarthritis, unspecified; F41.8 Other specified anxiety disorders; H70.91 Unspecified mastoiditis, right ear; M21.612 Bunion of left foot; M21.611 Bunion of right foot; L30.9 Dermatitis, unspecified; Z68.21 Body mass index [BMI] 21.0-21.9, adult; Z85.038 Personal history of other malignant neoplasm of large intestine
CPT/HCPCS: 36415; 70450; 70553; 71045; 71250; 72100; 72125; 72131; 72170; 73552; 74176; 80048; 80053; 80061; 80307; 81001; 82140; 82550; 82607; 82948; 83605; 83735; 84100; 84132; 84443; 84466; 84478; 85025; 85027; 85055; 85610; 85730; 86703; 86803; 87086; 87340; 92526; 92610; 92611; 93005; 95816; 96361; 96365; 96367; 96375; 96376; 97110; 97116; 97162; 97164; 97166; 97530; 97535; 99285; A4248; A9270; A9577; G0378; G0432; J0295; J0360; J0696; J1100; J1650; J1885; J1953; J2270; J2359; J2405; J3420; J7030; J7042; Q5101